=== PATIENT | male | born 1960 | race Caucasian/White ===

== ENCOUNTER → 2019-09-04 09:30 | Outpatient (BNVA) | payer BC, SELFPAY | PROVIDERS: Family Provider Anesthesiology; PCP Nurse Practitioner; Visit Provider Nurse Practitioner | DX: I10 Essential (primary) hypertension (principal); J43.9 Emphysema, unspecified; E78.2 Mixed hyperlipidemia | CPT/HCPCS: 80053; 80061; 81000 ==

== ENCOUNTER 2021-01-06 16:00 | Outpatient (CLI) | payer BC, SELFPAY ==
--- NOTE | 2021-01-06 16:10 | XR_ITS ---
WS: [id number] PROCEDURE: XR chest 2V* [id number] CLINICAL INFORMATION: DYSPNEA, COPD COMPARISON: 018 FINDINGS: Heart: Normal cardiac silhouette. Lungs: Moderate to advanced chronic emphysematous changes. Hyperinflation. Flattening of the hemidiap hragms bilaterally. A few incidental calcified granulomas. No acute pulmonary infiltrates. Bones: Normal visualized bony structures. XR/XR chest 2V* [id number] IMPRESSION: 1. Hyperinflation with moderate to advanced chronic emphysematous changes. 2. No acute pulmonary infiltrates. 3. No focal pneumonia or pleural fluid.
== END 2021-01-06 16:01 | disposition home or self-care (01) ==
PROVIDERS: PCP Nurse Practitioner Family; Visit Provider Nurse Practitioner Family
DX: J44.9 Chronic obstructive pulmonary disease, unspecified (principal); R06.00 Dyspnea, unspecified
CPT/HCPCS: 71046

== ENCOUNTER 2021-03-01 09:23 | Outpatient (CLI) | payer BC, SELFPAY ==
--- NOTE | 2021-03-01 09:27 | CT_ITS ---
WS: [id number] LDCT LUNG CANCER SCREENING HISTORY: Lung Screen TECHNIQUE: Axial imaging performed from the apices to 1 cm below the costophrenic angles. Coronal and sagittal reformats are submitted with axial MIP series. All CT scans at [facility] use at least one of these dose optimization techniques: automated exposure control; mA and/or kV adjustment per patient size (includes targeted exams where dose is matched to clinical indication); or iterativ e reconstruction. DLP: 66.46 mGy.cm DIvol: 1.58 mGy COMPARISON: None available. Diagnostic quality: Satisfactory Lung Nodules: Very minimal interstitial thickening and nodularity in the periphery of the upper lobes bilaterally. These nodules in the periphery of less than 3 mm. Mild dependent changes at the lung ba ses bilaterally. Lungs: Marked pulmonary hyperinflation. Mild early changes of bronchiectasis in the lower lung johnson bilaterally. Heart: Normal size heart. No effusion. Other findings: Mild atherosclerosis aorta. Mediastinal areas are very difficult to visualize. Cannot exclude lymph nodes on this examination. CT/CT lung screening [id number] IMPRESSION: LUNG-RADS: 2-Benign Appearance or Behavior FOLLOW UP: 12 Month: Continue annual screening with LDCT OTHER FINDINGS (S MODIFIER): None.
== END 2021-03-01 09:24 | disposition home or self-care (01) ==
LOC: CT 09:25
PROVIDERS: PCP Nurse Practitioner Family; Visit Provider Internal Medicine Pulmonary Disease
DX: Z12.2 Encounter for screening for malignant neoplasm of respiratory organs (principal); F17.210 Nicotine dependence, cigarettes, uncomplicated; R91.8 Other nonspecific abnormal finding of lung field
CPT/HCPCS: 71271

== ENCOUNTER 2021-03-06 07:33 | Outpatient (CLI) | payer BC, SELFPAY ==
[2021-03-06 08:02] VITALS: BMI 20.9
--- NOTE | 2021-03-06 08:02 | ECG_ITS ---
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 Interpretive Statements NAME OF STUDY: LEXISCAN SESTAMIBI STRESS TEST INDICATION: [place], PROCEDURE: At the baseline, the EKG revealed normal sinus rhythm with a rate of 60 bpm. The baseline blood pressure was 146/84 mm Hg with a heart rate of 68 beats/min. Lexiscan was infused over a period of 20 seconds. A total of 0.4 milligrams of Lexiscan was infused. The stress phase was continued for a total of 5 minutes. Heart rate at the end of the stress phase was 35 with a blood pressure 126/75. The EKG at the peak infusion revealed no significant changes. Sestamibi was injected 20 seconds after the Lexiscan infusion. Blood pressure at the end of the recovery phase was 145/79 with a heart rate of 86 per minute. CONCLUSION: 1. No significant EKG changes with the LexiScan infusion 2. No LexiScan induced chest pain or cardiac arrhythmia 3. Normal blood pressure and heart rate response 4. Sestamibi/sestamibi perfusion scan pending; see separate report. Electronically Signed On 03-07-2021 22:26:43 [employer] by Alexa De La Garza M.D. [id number]
--- NOTE | 2021-03-06 08:03 | NMCV_ITS ---
NM monika perf SPECT r/s* [id number] Taurus Rhodes Age: 61 Gender: M : 1960 Exam Date: 03/06/2021 08:56 Ordering Phys: Lawrence Abreu MD Technologist: MARIE Mckenna Exam Location: [facility] Indications: SHORTNESS OF BREATH STRESS TEST Please see separate stress test report in [facility] for full findings IMAGE PROTOCOL Rest/Stress 1 Lexiscan Day Radiopharmaceutical Dose (mCi) Administration Site Administered by Rest: Tc-99m 10.9 IV MARIE Mckenna Sestamibi Stress:Tc-99m 32.1 IV MARIE Lynn Sestamibi Rest: 06-Mar-2021 60 Discovery 630 Stress: 06-Mar-2021 30 Discovery 630 0.4mg Lexiscan. Images obtained in supine and prone position. SPECT RESULTS Technical Quality: Excellent Raw Data Analysis: Normal Image Corrections: No attenuation or motion correction applied Summed Stress Score: 1 Summed Rest Score: 3 Summed Difference Score: 0 PERFUSION FINDINGS Small area of decreased tracer uptake was noted in the basal, mid and apical inferior wall segments. No significant reversibility was noted in these regions. FUNCTIONAL RESULTS (calculated via Gated SPECT) Stress Image LV EF (%): 74 Stress EDV (mL):92 TID: 0.98 Stress ESV (mL):24 FUNCTIONAL FINDINGS: Segmental wall motion analysis revealing no gross wall motion normalities. IMPRESSIONS 1. Myocardial perfusion imaging revealing a small area of persistent decreased tracer uptake in the inferior wall region suggestive of myocardial scarring versus attenuation artifact. 2. Normal LV ejection fraction 74%. 3. LV wall motion analysis revealing no gross wall motion abnormalities. 4. Normal LV volume. No significant coronary ischemia, based on the above findings Dr Alexa De La Garza MD FACC (Electronically Signed) Final Date: 06 March 2021 20:31 S
[2021-03-06] MEDS: regadenoson 0.4 Mg/5 ml Syringe IVP (09:41)
[2021-03-06 10:16] VITALS: BP 145/79; PULSE 86
== END 2021-03-06 07:34 | disposition home or self-care (01) ==
LOC: CDL 07:34
PROVIDERS: PCP Nurse Practitioner Family; Visit Provider Internal Medicine Pulmonary Disease
DX: R06.09 Other forms of dyspnea (principal); I10 Essential (primary) hypertension; R06.02 Shortness of breath
CPT/HCPCS: 78452; 93017; A9500; J2785

== ENCOUNTER 2022-03-13 10:28 | Outpatient (CLI) | payer BC, SELFPAY ==
--- NOTE | 2022-03-13 10:45 | CT_ITS ---
WS: [id number] LDCT LUNG CANCER SCREENING TECHNIQUE: Noncontrast CT of the chest with coronal and sagittal reformatted images. CLINICAL INFORMATION: lung screening COMPARISON: March 01, 2021 DLP: 87.40 mGy.cm DIvol: Mean CTDIvol: 1.60 (mGy) All CT scans at [facility] use at least one of these dose optimization techniques: automat ed exposure control; mA and/or kV adjustment per patient size (includes targeted exams where dose is matched to clinical indication); or iterative reconstruction. FINDINGS: Scattered peripheral micronodules in the upper lobes largest measuring 3 to 4 mm bilaterally unchange d from previous. No suspicious pulmonary parenchymal opacities. Hyperinflation. Stable bronchiectasis in the lower lobes bilaterally. Normal caliber thoracic aorta. Mild aortic calcification. No mediast inal or hilar lymphadenopathy. No axillary lymphadenopathy. Stable RIGHT hepatic cyst measuring 1.8 cm. Partially visualized RIGHT hydronephrosis appears unchang ed. Adrenal glands are normal. Mild thoracic kyphosis. Schmorl's nodes in the mid thoracic spine. CT/CT lung screening [id number] IMPRESSION: Partially visualized RIGHT hydronephrosis partially visualized appe ar stable since March 01, 2021. This can be further evaluated with ultrasoun d or CT abdomen pelvis if indicated. LUNG-RADS: 2S-Benign Appearance or Behavior with Significant Findings FOLLOW UP: 12 Month: Continue annual screening with LDCT
== END 2022-03-13 10:29 | disposition home or self-care (01) ==
LOC: RAD 10:30
PROVIDERS: PCP Nurse Practitioner Family; Visit Provider Internal Medicine Pulmonary Disease
DX: Z12.2 Encounter for screening for malignant neoplasm of respiratory organs (principal); F17.210 Nicotine dependence, cigarettes, uncomplicated
CPT/HCPCS: 71271

== ENCOUNTER 2022-03-20 09:52 | Observation (INO) | payer BC, SELFPAY ==
[2022-03-20] VITALS (12 sets, daily range): BP systolic 140–161; BP diastolic 82–100; PULSE 71–96; RESP 16–22; TEMP 36.3; O2SAT 93–96; BMI 20.9
--- NOTE | 2022-03-20 10:04 | ECG_ITS ---
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 Measurements Intervals [place] Rate: 81 P: 81 RI: 169 QRS: 69 QRSD: 100 T: 71 QT: 359 QTc: 417 Interpretive Statements SINUS RHYTHM POSSIBLE LEFT ATRIAL ENLARGEMENT [-0.1mV P-WAVE IN V1/V2] INDETERMINATE AXIS INCOMPLETE RIGHT BUNDLE BRANCH BLOCK [90+ ms QRS DURATION, TERMINAL R IN V1/V2, 40+ ms S IN I/aVL/V4/V5/V6] SEPTAL MYOCARDIAL INFARCTION , OF INDETERMINATE AGE [40+ ms Q WAVE IN V1/V2] Compared to ECG 01/07/2018 23:34:50 Incomplete right bundle-branch block now present Myocardial infarct finding now present Intraventricular conduction delay no longer present Electronically Signed On 03-20-2022 18:08:16 HARDSCAPE FOREMAN by Zenaida Lo M.D. [id number]
--- NOTE | 2022-03-20 14:23 | XRR_ITS ---
PROCEDURE INFORMATION: Exam: XR Chest Exam date and time: 03/20/2022 3:32 PM Age: 62 years old Clinical indication: Shortness of breath TECHNIQUE: Imaging protocol: Radiologic exam of the chest. Views: 1 view. COMPARISON: CR XR chest 2V* [id number] 01/06/2021 4:14 PM FINDINGS: Lungs: Stable 3 mm right upper lobe nodule, consistent with a granuloma.. No consolidation. Hyperinflation. Pleural spaces: Unremarkable. No pleural effusion. No pneumothorax. Heart/Mediastinum: Unremarkable. No cardiomegaly. Bones/joints: Unremarkable. XR/XR chest 1V portable [id number] IMPRESSION: No acute findings. Hyperinflation, stable.
[2022-03-20 14:40] LABS: Basophils # 0.2 10^3/uL (0.0-0.1); Basophils % 1.6 %; Eosinophils # 1.3 10^3/uL (0.0-0.8); Eosinophils % 11.2 %; Hematocrit 44.5 % (42.0-52.0); Lymphocytes # 2.1 10^3/uL (0.8-4.8); Lymphocytes % 18.8 %; Mean Corpuscular HGB Conc 33.7 g/dL (30.0-36.0); Mean Corpuscular Hemoglobin 31.5 pg (28.0-34.0); Mean Corpuscular Volume 93.5 fl (80-94); Mean Platelet Volume 9.5 fL (7.4-10.4); Monocytes # 0.9 10^3/uL (0.2-0.9); Monocytes % 8.1 %; Neutrophils # 6.73 10^3/uL (1.8-7.7); Nucleated Red Blood Cells % 0 %; Platelet Count 280 10^3/cmm (130-400); Red Blood Count 4.76 10^6/uL (4.1-5.3); Red Cell Distribution Width 13.4 % (12.1-15.1); White Blood Count 11.2 10^3/uL (4.0-10.0)
--- NOTE | 2022-03-20 14:40 | W.ED.SOB ---
HPI - SOB/Dyspnea General: Chief Complaint: Shortness of Breath/Dyspnea Stated Complaint: Heart rate 30 Time Seen by Provider: 03/20/22 14:18 History of Present Illness: HPI Narrative: 62-year-old male with a history of COPD who presents with a 2 to 3-day history of increasing shortness of breath and wheezing. The patient does continue to smoke cigarettes. He states he has been having difficulty breathing despite using his nebulizer every 3-4 hours for the past 2 to 3 days. He has had a nonproductive cough. He states he has a tight sensation across his entire chest that has been present for the past 3 days. No fever. He denies ill contacts. He states when he walks he gets more short of breath. He was seen by local nurse practitioner this morning and had a heart rate of 30 so he has been sent to the ER because of that. Associated symptoms: Reports chest pain; Deny abdominal pain, chest congestion, fever(s), nausea, orthopnea or vomiting Review of Systems Const: Denies: fever(s), chills or body aches Eyes: Denies: change in vision ENMT: Denies: throat pain, nasal discharge or nasal congestion Card: Reports: chest pain; Denies: irregular heart rhythm or orthopnea Resp: Reports: dyspnea, non-productive cough and wheezing; Denies: productive cough, change in phlegm color or chest congestion GI: Denies: abdominal pain, nausea, vomiting or diarrhea : Denies: difficulty urinating Musc: Denies: extremity swelling or joint swelling Skin/Breast: Denies: rash Neuro: Denies: headache(s) [place]/Lymph: Denies: tender lymph nodes [facility] ED PFSH: Medical History Chronic obstructive pulmonary emphysema Essential hypertension Mixed hyperlipidemia Noncompliance w/medication treatment due to intermit use of medication Surgical History History of inguinal hernia repair Left History of lumbar discectomy 2005 Family History Other Hypertension Stroke Social History Smoking and tobacco status: current every day smoker cigarettes Packs smoked per day: 2 Years cigarettes smoked: 53 [ Other cigarette details: 5-6 cigarettes daily ] Second hand smoke exposure: Yes Smoking risk assessment/counseling performed?: Yes Alcohol intake: never Desire information about alcohol rehabilitation?: No Counseling given: No Desire information about substance/drug rehabilitation?: No Counseling given: No Adopted: No Caregiver/support person: No Lives independently: Yes Household members: spouse Housing: House Marital status: Number of children: 2 Current occupational status: employed History of recent travel: No Current gender identity: Male Physical Exam Narrative: EXAM NARRATIVE: Well-developed well-nourished white male who appears to be in mild respiratory distress. He is able to speak in full sentences. Const: COMMON NORMALS: patient oriented x3 HENMT: COMMON NORMALS: normocephalic and atraumatic HEAD & SCALP: normocephalic and atraumatic Eye: COMMON NORMALS: Equal, round and reactive pupils present and EOMs intact bilaterally PUPIL: Yes Equal, round and reactive pupils present Neck/C-Spine: OTHER: No lymphadenopathy Resp: OTHER: Decreased breath sounds bilaterally with expiratory wheezes in all lung johnson. Positive pursed lip respirations. Cardio: OTHER: Regular rate and rhythm, no murmur GI: OTHER: Abdomen is soft, nontender with normal bowel sounds. Extremity: OTHER: Legs are nontender bilaterally. There is no edema. Negative Homans. Neuro: COMMON NORMALS: patient oriented x3, CN's II-XII intact bilaterally and moves all extremities Skin: NARRATIVE SKIN EXAM: No rash Course Reevaluation(s): Reevaluation #1: Patient's had an IV placed and labs obtained. Has been given 125 mg of IV Solu-Medrol. Has been given an hour-long DuoNeb nebulizer treatment. Initially he had felt a little bit better but now he is suddenly acutely much more short of breath and having increased work of breathing. He has very diminished breath sounds in all lung johnson with diffuse expiratory wheezes. We will start Xopenex treatments. Patient will need admission. Will discuss with hospitalist. Reevaluation #2: Patient improved after Xopenex. We will hold off on BiPAP for now. Still has diffuse inspiratory and expiratory wheezes. He is on 3 L of oxygen, sats are 96%. Consultations: Consultation #1: Discussed with Dr. Nash for admission Vital Signs: Vital signs: Vital Signs Temperature 97.4 F L 03/20/22 09:56 Pulse Rate 94 03/20/22 17:08 Respiratory Rate 22 H 03/20/22 16:59 Blood Pressure 140/93 03/20/22 16:53 Pulse Oximetry 96 03/20/22 16:59 Oxygen Delivery Me thod 03/20/22 16:59 Oxygen Flow Rate 2 03/20/22 16:59 MDM - SOB/Dyspnea Medical Decision Making 62-year-old male with a history of COPD, continued tobacco use who presents with acute onset of shortness of breath. He has had 2 to 3 days of intermittent shortness of breath. No cough, no fever. No ill contacts. Chest x-ray shows no infiltrate. He has had an IV placed and has been given IV Solu-Medrol. He has been given 3 DuoNeb treatments as well as 2 Xopenex treatments. He still has diffuse inspiratory and expiratory wheezes and is still quite tachypneic. He is on 2 and half liters of oxygen with saturations running 94%. He is not normally on oxygen. Because of his ongoing wheezing and oxygen needs, will discuss with the hospitalist for admission. Differential Diagnosis Likely acute exacerbation of chronic obstructive airways disease, congestive heart failure, community acquired pneumonia and asthma with exacerbation Lab Data 03/20/22 14:30 03/20/22 14:30 Labs/Radiology: Radiology Impressions Chest X-Ray 03/20/22 14:23 IMPRESSION: No acute findings. Hyperinflation, stable. Laboratory Results WBC 11.2 10^3/uL (4.0-10.0) H 03/20/22 14:30 RBC 4.76 10^6/uL (4.1-5.3) 03/20/22 14:30 Hgb 15.0 g/dL (11.7-16.6) 03/20/22 14:30 Hct 44.5 % (42.0-52.0) 03/20/22 14:30 MCV 93.5 fl (80-94) 03/20/22 14:30 MCH 31.5 pg (28.0-34.0) 03/20/22 14:30 MCHC 33.7 g/dL (30.0-36.0) 03/20/22 14:30 RDW 13.4 % (12.1-15.1) 03/20/22 14:30 Plt Count 280 10^3/cmm (130-400) 03/20/22 14:30 MPV 9.5 fL (7.4-10.4) 03/20/22 14:30 Neut % (Auto) 60.0 % 03/20/22 14:30 Lymph % (Auto) 18.8 % 03/20/22 14:30 [place] % (Auto) 8.1 % 03/20/22 14:30 Eos % (Auto) 11.2 % 03/20/22 14:30 Baso % (Auto) 1.6 % 03/20/22 14:30 Neut # (Auto) 6.73 10^3/uL (1.8-7.7) 03/20/22 14:30 Lymph # (Auto) 2.1 10^3/uL (0.8-4.8) 03/20/22 14:30 [place] # (Auto) 0.9 10^3/uL (0.2-0.9) 03/20/22 14:30 Eos # (Auto) 1.3 10^3/uL (0.0-0.8) H 03/20/22 14:30 Baso # (Auto) 0.2 10^3/uL (0.0-0.1) H 03/20/22 14:30 Nucleated RBC % (auto) 0 % 03/20/22 14:30 Nucleated RBCs # 0.0 /100WBC 03/20/22 14:30 Sodium 131 mmol/L (136-145) L 03/20/22 16:07 Potassium 4.3 mmol/L (3.5-5.1) 03/20/22 16:07 Chloride 97 mmol/L (98-107) L 03/20/22 16:07 Carbon Dioxide 24 mmol/L (22-29) 03/20/22 16:07 Anion Gap 14.3 (5-19) 03/20/22 16:07 BUN 7 mg/dL (8-23) L 03/20/22 16:07 Creatinine 0.8 mg/dL (0.7-1.2) 03/20/22 16:07 GFR Calculation 97.6 mL/min (90-130) 03/20/22 16:07 Glucose 88 mg/dL (65-115) 03/20/22 16:07 Calculated Osmolality 269 mOsm/kg (285-295) L 03/20/22 16:07 Calcium 9.7 mg/dL (8.5-10.5) 03/20/22 16:07 Magnesium 2.1 mg/dL (1.7-2.3) 03/20/22 16:07 Total Bilirubin 0.7 mg/dL (0.15-1.2) 03/20/22 16:07 AST 22 U/L (0-40) 03/20/22 16:07 ALT 24 U/L (0-41) 03/20/22 16:07 Alkaline Phosphatase 80 U/L (40-130) 03/20/22 16:07 Troponin T Baseline 16 ng/L (0-15) H 03/20/22 14:30 Troponin T 120 Minute 17.91 ng/L (0-15) H 03/20/22 15:00 Delta Troponin T 1.91 ABS# (0-10) 03/20/22 15:00 NT-Pro-B Natriuret Pep 81 pg/mL (0-125) 03/20/22 16:07 Total Protein 7.4 g/dL (6.6-8.7) 03/20/22 16:07 Albumin 4.5 g/dL (3.5-5.2) 03/20/22 16:07 Globulin 2.9 g/dL (1.3-4.6) 03/20/22 16:07 TSH 1.13 uIU/mL (0.27-4.20) 03/20/22 16:07 Discharge Plan Discharge Patient Disposition: Admitted As Inpatient Clinical Impression: Chronic obstructive pulmonary emphysema, Smoker, Acute exacerbation of chronic obstructive airways disease, Respiratory failure Condition: Stable Prescriptions: No Action albuterol sulfate 2.5 mg /3 mL (0.083 %) solution for nebulization 2.5 mg inhalation Q6H PRN (Reason: shortness of breath or wheezing) alprazolam 0.5 mg tablet 0.25 - 0.5 mg PO BID PRN (Reason: Anxiety) Cherylztri Aerosphere 160-9-4.8 mcg/actuation HFA aerosol inhaler 2 inh inhalation BID Qty: 10.7 3RF Fish Oil Concentrate 1,000 mg Capsule 1,000 mg PO DAILY Vitamin D3 125 mcg (5,000 unit) Tablet 10,000 unit PO DAILY Vitamin B-12 5,000 mcg Tablet, Sublingual 15,000 mcg PO DAILY Norvasc 10 mg tablet 10 mg PO QAM albuterol sulfate 90 mcg/actuation HFA aerosol inhaler 2 puff inhalation QID PRN (Reason: Shortness Of Breath) losartan 100 mg tablet 100 mg PO QAM Referrals: Faustin,KOBI Lea [Primary Care Provider] - Coding Level of Care Code ED Mr Teacher for Chg Fwd Exam Expanded Problem Focused
[2022-03-20 15:01] LABS: Troponin(5th) Baseline 16 ng/L (0-15)
[2022-03-20] MEDS: ipratropium-albuterol 3 mL Neb 9 ML INHALATION (15:32)
[2022-03-20 15:43] LABS: Troponin 5 2HR 17.91 ng/L (0-15)
[2022-03-20 15:59] LABS: Troponin 5 2HR Delta 1.91 ABS# (0-10)
--- NOTE | 2022-03-20 16:24 | ECG_ITS ---
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 Measurements Intervals [place] Rate: 74 P: 83 AR: 161 QRS: 66 QRSD: 98 T: 71 QT: 367 QTc: 409 Interpretive Statements SINUS RHYTHM POSSIBLE LEFT ATRIAL ENLARGEMENT [-0.1mV P-WAVE IN V1/V2] INDETERMINATE AXIS INCOMPLETE RIGHT BUNDLE BRANCH BLOCK SEPTAL MYOCARDIAL INFARCTION , OF INDETERMINATE AGE [40+ ms Q WAVE IN V1/V2] Compared to ECG 03/20/2022 10:09:14 No significant changes Electronically Signed On 03-20-2022 18:09:37 DAYCARE PROVIDER by Zenaida Lo M.D. [id number]
--- NOTE | 2022-03-20 16:56 | PC.PHAR ---
pt states he takes care of his own medications-pt states he hasnt been taking his norvasc 10mg qam and the losartan 100mg qam states last took on saturday03/18/22-pt states he only takes the medications entered-pt had rx written on 01/23/2020 for lipitor 10mg daily pt states he doesnt taken [facility] states havent filled this medication for the pt-notes are made in the pharmacy comments
[2022-03-20] MEDS: levalbuterol 1.25 mg/3 mL Neb 2.5 MG INHALATION (16:58)
[2022-03-20 17:07] LABS: Alanine Aminotransferase 24 U/L (0-41); Albumin Level 4.5 g/dL (3.5-5.2); Alkaline Phosphatase 80 U/L (40-130); Anion Gap 14.3 (5-19); Aspartate Amino Transferase 22 U/L (0-40); Blood Urea Nitrogen 7 mg/dL (8-23); Calcium 9.7 mg/dL (8.5-10.5); Carbon Dioxide 24 mmol/L (22-29); Chloride 97 mmol/L (98-107); Globulin 2.9 g/dL (1.3-4.6); Glomerular Filtration Rate 97.6 mL/min (90-130); Glucose 88 mg/dL (65-115); Magnesium 2.1 mg/dL (1.7-2.3); NT Pro B Type Natriuretic Pept 81 pg/mL (0-125); Osmolality Calculated 269 mOsm/kg (285-295); Potassium 4.3 mmol/L (3.5-5.1); Sodium 131 mmol/L (136-145); Thyroid Stimulating Hormone 1.13 uIU/mL (0.27-4.20); Total Bilirubin 0.7 mg/dL (0.15-1.2); Total Protein 7.4 g/dL (6.6-8.7)
--- NOTE | 2022-03-20 19:20 | P.HP_ITS ---
Providers/Chief Complaint Admitting Physician: Geovani Ma MD Primary Care Provider: Leonora Faustin APN Chief Complaint: Heart rate 30 History of Present Illness Taurus Rhodes is a 62 year old male severe obstructive pulmonary disease smoker, hypertensive, follows up with manager contact, trying to quit smoking, he was recommended pulmonary rehab which she has not attended yet, presented with worsening of shortness of breath. Patient is stating that his symptoms started on Saturday and he has been having recurrent episodes when he is not able to breathe on his own and he struggles really hard to catch his breath, he is trying to cut back on his smoking and he is smoking 10 to 12 cigarettes a day, he does not use any oxygen, he does not have enough strength to carry on daily activities, he has been losing weight, noticing muscle mass loss. He has not noticed any fever, nausea, vomiting or chest pain In the ER he was wheezing he was given high-dose steroids at the time of evaluation family was at the bedside, they agree that he has end-stage COPD and is at risk of worsening he is not vaccinated for COVID-19, influenza, pneumococcal, chest x-ray showing hyperinflation, requested D-dimer, COVID and influenza PCR negative Review of Systems Eyes: Denies: change in vision ENMT: Denies: throat pain Card: Denies: chest pain Resp: Reports: dyspnea and non-productive cough GI: Denies: abdominal pain : Denies: flank pain Musc: Denies: neck pain Skin/Breast: Denies: rash Neuro: Denies: headache(s) Psych: Reports: anxiety Endo: Denies: polyuria Bulmaro/Lymph: Denies: easy bruising All/Imm: Denies: urticaria Medications/Allergies Home Medications Medication Instructions Recorded Confirmed Last Taken Type albuterol sulfate 2.5 mg/3 mL 2.5 mg inhalation Q6H PRN 01/31/21 03/20/22 Unknown History (0.083 %) solution for nebulization shortness of breath or wheezing alprazolam 0.5 mg tablet 0.25 - 0.5 mg PO BID PRN Anxiety 01/31/21 03/20/22 03/20/22 History budesonide 160 mcg-glycopyr 9 2 inh inhalation BID #10.7 grams 06/14/21 03/20/22 03/20/22 Rx mcg-formot 4.8 mcg/actuation HFA inhaler (Breztri Aerosphere) albuterol sulfate 90 mcg/actuation 2 puff inhalation QID PRN 03/20/22 03/20/22 03/20/22 History aerosol inhaler Shortness Of Breath amlodipine 10 mg tablet (Norvasc) 10 mg PO QAM 03/20/22 03/20/22 03/18/22 History cholecalciferol (vitamin D3) 125 10,000 unit PO DAILY 03/20/22 03/20/22 Unknown History mcg (5,000 unit) tablet (Vitamin D3) cyanocobalamin (vitamin B-12) 15,000 mcg PO DAILY 03/20/22 03/20/22 Unknown History 5,000 mcg sublingual tablet (Vitamin B-12) losartan 100 mg tablet 100 mg PO QAM 03/20/22 03/20/22 03/18/22 History omega-3 fatty acids 1,000 mg 1,000 mg PO DAILY 03/20/22 03/20/22 Unknown History capsule Allergies Allergy/AdvReac Type Severity Reaction Status Date / Time No Known Allergies Allergy Verified 03/20/22 16:42 PFSH Acute PFSH: Medical History (Updated 03/20/22 @ 20:50 by Daquan Gilliam MD) Chronic obstructive pulmonary emphysema Severe COPD, not oxygen dependent Essential hypertension Mixed hyperlipidemia Noncompliance w/medication treatment due to intermit use of medication Surgical History History of inguinal hernia repair Left 70214 History of lumbar discectomy 2004 Family History Other Hypertension Stroke Social History Smoking and tobacco status: current every day smoker cigarettes Packs smoked per day: 2 Years cigarettes smoked: 53 [ Other cigarette details: 5-6 cigarettes daily ] Second hand smoke exposure: Yes Smoking risk assessment/counseling performed?: Yes Alcohol intake: never Desire information about alcohol rehabilitation?: No Counseling given: No Desire information about substance/drug rehabilitation?: No Counseling given: No Adopted: No Caregiver/support person: No Lives independently: Yes Household members: spouse Housing: House Marital status: Number of children: 2 Current occupational status: employed History of recent travel: No Current gender identity: Male Vitals/I&O/Wt Last Vital Signs Temp 97.4 F L 03/20/22 18:35 Pulse 84 03/20/22 18:35 Resp 16 03/20/22 18:35 BP 146/82 03/20/22 18:35 Pulse Ox 96 03/20/22 18:35 O2 Del Method 03/20/22 16:59 O2 Flow Rate 2 03/20/22 16:59 Weight last 48 hrs Weight 58.967 kg Physical Exam Narrative: elderly male who appears more than stated age Muscle mass/ Protein calorie malnourishment Abdomen soft Pursed lip breathing Currently on 2 L Mild wheezing noted No audible wheezing or stridor S1, S2 Family at the bedside Patient is awake and alert Does not seem to be any distress for now Nonfocal neuro exam GCS 15 Data 03/20/22 14:30 03/20/22 16:07 A&P Assessment and plan (1) Acute exacerbation of chronic obstructive airways disease: (2) Respiratory failure: (3) Smoker: (4) Breathlessness on exertion: (5) Anxiety: (6) Essential hypertension: (7) Chronic obstructive pulmonary emphysema: Plan Acute exacerbation of COPD Severe obstruction as per pulmonary function test Patient has been having recurrent symptoms of shortness of breath Losing weight Muscle mass loss Protein calorie malnourishment, mild in nature No recent febrile events X-ray unremarkable Requested D-dimer COVID antigen the PCR negative I do believe this exacerbation is related to active smoking Start on IV steroids I will give him BiPAP to decrease work of breathing He will also need home oxygen evaluation before discharge Does not use oxygen at home Has not attended pulmonary rehab Patient is full code I did plan to discuss with him that he is at risk of worsening because he is not vaccinated and actively smoking, if he gets intubated chances of him coming off the ventilator are pretty slim patient and family understood, all questions were answered DVT prophylaxis Lovenox Nicotine patch requested Will add azithromycin for anti-inflammatory effect Add montelukast He may benefit from Roflumilast Attestations Medical Necessity Statement*: Anticipating discharge within 48 hours Time Spent in Patient Care: 40 Coding Level of Care Code Acute Community Support Associate for Ale Fwmonalisa Diagnoses Acute exacerbation of chronic obstructive airways disease J44.1 Respiratory failure J96.90 Smoker F17.200 Breathlessness on exertion R06.81 Anxiety F41.9 Essential hypertension I10 Chronic obstructive pulmonary emphysema J43.9
[2022-03-20 19:40] LABS: Adenovirus Not Detected (NOT DETECT); Chlamydia Pneumoniae Not Detected (NOT DETECT); Coronavirus 229E,HKU1,NL63,OC4 Not Detected (NOT DETECT); Human Metapneumovirus Not Detected (NOT DETECT); Human Rhinovirus/Enterovirus Not Detected (NOT DETECT); Influenza A Not Detected (NOT DETECT); Influenza A H1 Not Detected (NOT DETECT); Influenza A H1-2009 Not Detected (NOT DETECT); Influenza A H3 Not Detected (NOT DETECT); Influenza B Not Detected (NOT DETECT); Mycoplasma Pneumoniae Not Detected (NOT DETECT); Parainfluenza Virus Type 1 Not Detected (NOT DETECT); Parainfluenza Virus Type 2 Not Detected (NOT DETECT); Parainfluenza Virus Type 3 Not Detected (NOT DETECT); Parainfluenza Virus Type 4 Not Detected (NOT DETECT); Respiratory Syncytial Virus A Not Detected (NOT DETECT); Respiratory Syncytial Virus B Not Detected (NOT DETECT); SARS-COV-2 Not Detected (NOT DETECT)
[2022-03-20 19:51] LABS: Influenza A Not Detected (NOT DETECT); Influenza A H1 Not Detected (NOT DETECT); Influenza A H1-2009 Not Detected (NOT DETECT); Influenza A H3 Not Detected (NOT DETECT); Influenza B Not Detected (NOT DETECT); Results from GEN
[2022-03-20] MEDS: nicotine 21 mg Patch 1 PATCH TRANSDERMA (20:23)
[2022-03-20] MEDS: enoxaparin 40 mg/0.4 mL Syringe SUBCUT (20:27)
[2022-03-20] MEDS: ALPRAZolam 0.5 mg Tablet PO (20:34)
[2022-03-20 20:54] LABS: D Dimer <= 0.27 ug/mIFEU (0-0.59)
[2022-03-20 21:22] LABS: Troponin 5 6HR 12.44 ng/L (0-15)
[2022-03-20 21:25] LABS: Procalcitonin 0.05 ng/mL (0-0.5)
[2022-03-20 21:29] LABS: Troponin 5 6HR Delta -3.56 ng/L (0-12)
[2022-03-20] MEDS: ipratropium-albuterol 3 mL Neb INHALATION (21:30)
[2022-03-21] VITALS (14 sets, daily range): BP systolic 101–139; BP diastolic 68–82; PULSE 54–99; RESP 12–24; TEMP 36.3–38; O2SAT 91–97
[2022-03-21] MEDS: ipratropium-albuterol 3 mL Neb INHALATION ×4 (03:33→21:40)
[2022-03-21 05:29] LABS: Basophils % 0.5 %; Eosinophils % 0.1 %; Hematocrit 44.3 % (42.0-52.0); Hemoglobin 14.6 g/dL (11.7-16.6); Lymphocytes % 12.3 %; Mean Corpuscular Hemoglobin 31.1 pg (28.0-34.0); Mean Corpuscular Volume 94.5 fl (80-94); Monocytes # 0.4 10^3/uL (0.2-0.9); Monocytes % 4.7 %; Neutrophils # 6.49 10^3/uL (1.8-7.7); Nucleated Red Blood Cells % 0 %; Platelet Count 275 10^3/cmm (130-400); Red Blood Count 4.69 10^6/uL (4.1-5.3); Red Cell Distribution Width 13.4 % (12.1-15.1); White Blood Count 7.9 10^3/uL (4.0-10.0)
[2022-03-21] MEDS: amlodipine 10 mg Tablet PO (05:33)
[2022-03-21] MEDS: losartan 50 mg Tablet 100 MG PO (05:34)
[2022-03-21 05:42] LABS: ABG PH Result 7.41 (7.35-7.45); Base Excess ABG 0.4 mmol/L (-2.0-2.0); Blood Gas Allen Test Pos; Blood Gas Operator Identificat JB; Blood Gas Sample Site Radial, right; Blood Gas Sample Type Arterial; HCO3 ABG 24.9 mmol/L (22-26); Oxygen Device BIPAP; PO2 ABG 63.5 mmHg (80.0-100.0)
[2022-03-21 05:50] LABS: Anion Gap 15.5 (5-19); Blood Urea Nitrogen 11 mg/dL (8-23); C Reactive Protein 5.6 mg/L (0.0-4.9); Calcium 9.9 mg/dL (8.5-10.5); Carbon Dioxide 23 mmol/L (22-29); Chloride 95 mmol/L (98-107); Glomerular Filtration Rate 97.6 mL/min (90-130); Glucose 144 mg/dL (65-115); Osmolality Calculated 270 mOsm/kg (285-295); Phosphorus 3.6 mg/dL (2.5-4.5); Potassium 4.5 mmol/L (3.5-5.1); Sodium 129 mmol/L (136-145)
--- NOTE | 2022-03-21 09:37 | PC.NURSE ---
Patients's nicotine patch removed that was placed at aprox 2100
--- NOTE | 2022-03-21 12:07 | USCV_ITS ---
Taurus Rhodes Age: 62 Gender: M : 1960 Exam Date: 03/21/2022 17:54 Ordering Phys: Geovani Ma MD Technologist: VY Exam Location: [facility] [place] Indication: COPD smoker SOB HTN BP: 102 / 68 HR: 76 Rhythm: Sinus Technical Quality: Adequate MEASUREMENTS (Male / Female) Normal Values 2D ECHO LV Diastolic Diameter PLAX 3.8 cm 4.2 - 5.9 / 3.9 - 5.3 cm LV Systolic Diameter PLAX 2.2 cm IVS Diastolic Thickness 1.3 cm 0.6 - 1.0 / 0.6 - 0.9 cm IVS Systolic Thickness 1.5 cm LVPW Diastolic Thickness 1.2 cm 0.6 - 1.0 / 0.6 - 0.9 cm LVPW Systolic Thickness 1.1 cm LVOT Diameter 1.9 cm LV Ejection Fraction 2D Teich 74.8 % LV Ejection Fraction MOD 2C 78.0 % LV Ejection Fraction 2C AL 76.8 % LA Diameter 2.6 cm LA Width 3.6 cm LA Height 4.8 cm RA Width 3.3 cm RA Height 3.9 cm Aorta at Sinotubular Diameter 2.7 cm IVC Diameter 1.2 cm M-MODE Aortic Annulus Diameter 2.9 cm LA Ao Ratio MM 0.9 MV E Point Septal Separation 0.2 cm DOPPLER AV Peak Velocity 109.0 cm/s LVOT Peak Velocity 77.0 cm/s AV Area Cont Eq vti 2.0 cm squared AV Area Cont Eq pk 1.9 cm squared MV Area PHT 2.5 cm squared Mitral E to A Ratio 0.8 MV E' Velocity 35.0 cm/s Mitral E to MV E' Ratio 6.7 Mitral E to LV E' Lateral Ratio 6.9 Mitral E to LV E' Septal Ratio 6.5 TR Peak Velocity 253.0 cm/s TR Peak Gradient 25.6 mmHg TV Peak E Velocity 41.0 cm/s Right Atrial Pressure 5.0 mmHg Pulmonary Artery Systolic Pressu 30.6 mmHg PV Peak Velocity 109.0 cm/s RV Acceleration Time 0.1 s RV Ejection Time 0.3 s RV AcT/ET 0.3 FINDINGS Left Ventricle Normal left ventricular size, systolic function and wall thickness, with no diagnostic regional wall motion abnormalities. Left ventricular ejection fraction is estimated at 60-65 %. Normal diastolic function. Right Ventricle Normal right ventricular size and systolic function. RVSP could not be calculated due to incomplete tricuspid regurgitation velocity profile. Right Atrium Normal right atrial size. Left Atrium Normal left atrial size. Mitral Valve Mildly thickened mitral valve. No significant mitral valve regurgitation. Aortic Valve Structurally normal trileaflet aortic valve. No aortic valve stenosis. Tricuspid Valve Structurally normal tricuspid valve. No tricuspid valve stenosis. Trace to mild tricuspid valve regurgitation. Pulmonic Valve Structurally normal pulmonic valve. No pulmonary valve stenosis. No pulmonary valve regurgitation. Pericardium No pericardial effusion. Aorta Normal size aortic root and proximal ascending aorta. IVC Normal IVC dimension with >50% respiratory change of the inferior vena cava. CONCLUSIONS 1. This is a difficult study with no apical views. 2. Normal left ventricular size, systolic function and wall thickness, with no diagnostic regional wall motion abnormalities. Left ventricular ejection fraction is estimated at 60-65 %. Normal diastolic function. 3. Trace to mild tricuspid valve. 4. No prior similar studies to compare. Zenaida Lo MD (Electronically Signed) Final Date: 22 March 2022 12:35 S
[2022-03-21 12:44] LABS: Iron 54 ug/dL (59-158); Percent Saturation 20.6 % (20-50); Total Iron Binding Capacity 262 mcg/dl; Unsaturated Iron Binding 208 ug/dL (112-347)
[2022-03-21] MEDS: FUROsemide 10 mg/mL SDV 4mL 40 MG IVP (13:29)
--- NOTE | 2022-03-21 13:38 | P.PN_ITS ---
Subjective Subjective: Admitted overnight. H&P and labs appreciated. On examination patient sitting at bedside on 2 L with family at bedside. Patient asking for a nicotine patch. States he really would want to smoke or chew nicotine. Denies any nausea, vomiting, headache, chest pain. Vitals/I&O/Wt Last Vital Signs Temp 98 F 03/21/22 11:31 Pulse 93 03/21/22 11:31 Resp 19 H 03/21/22 11:31 BP 120/73 03/21/22 11:31 Pulse Ox 92 03/21/22 11:31 O2 Del Method 03/21/22 08:00 O2 Flow Rate 3 03/20/22 20:55 FiO2 30 03/21/22 08:00 03/20/22 03/21/22 03/21/22 22:59 06:59 14:59 Intake Total 140 / 140 480 / 480 Output Total 350 / 350 Balance -350 / -350 140 / -210 480 / 480 Weight last 48 hrs Weight 59.602 kg Weight 58.967 kg Physical Exam Narrative: elderly male who appears more than stated age, alert oriented, in distress because of lack of nicotine, on 2 L Abdomen soft, nontender Mild wheezing noted No audible wheezing or stridor Cardiology: S1, S2 regular Nonfocal neuro exam GCS 15 Data 03/21/22 04:49 03/21/22 04:49 A&P Assessment and plan (1) Acute exacerbation of chronic obstructive airways disease: End-stage COPD. Respiratory viral panel negative. Check sputum culture, MRSA swab Start on DuoNebs every 6 hour, budesonide twice daily. Continue Solu-Medrol at 30 mg every 12 hourly. Check echocardiogram. Start empirically on doxycycline. (2) Respiratory failure: (3) Smoker: Nicotine patch (4) Breathlessness on exertion: (5) Anxiety: (6) Essential hypertension: (7) Chronic obstructive pulmonary emphysema: Plan Cardiac diet. Full code. Lovenox for DVT prophylaxis Attestations Medical Necessity Statement*: Requires further hospitalization for acute hypoxic respiratory failure secondary COPD exacerbation Time Spent in Patient Care: Greater than 35 minutes Coding Level of Care Code Acute Glass Bead Maker for Ale Fwmonalisa Diagnoses Acute exacerbation of chronic obstructive airways disease J44.1 Respiratory failure J96.90 Smoker F17.200 Breathlessness on exertion R06.81 Anxiety F41.9 Essential hypertension I10 Chronic obstructive pulmonary emphysema J43.9
[2022-03-21] MEDS: ALPRAZolam 0.5 mg Tablet PO (15:26)
[2022-03-21] MEDS: acetaminophen 500 mg Tablet PO (15:26)
[2022-03-21] MEDS: doxycycline 100 mg Tablet PO (18:31)
[2022-03-21] MEDS: enoxaparin 40 mg/0.4 mL Syringe SUBCUT (20:25)
[2022-03-21] MEDS: budesonide 0.5 mg/2 mL Neb INHALATION (21:40)
[2022-03-22] VITALS (8 sets, daily range): BP systolic 108–124; BP diastolic 62–73; PULSE 41–90; RESP 12–25; TEMP 36.6–36.9; O2SAT 91–97
[2022-03-22] MEDS: ipratropium-albuterol 3 mL Neb INHALATION ×2 (01:34→08:00)
[2022-03-22 04:57] LABS: Basophils % 0.2 %; Eosinophils % 0.1 %; Hematocrit 41.6 % (42.0-52.0); Hemoglobin 13.9 g/dL (11.7-16.6); Lymphocytes % 5.8 %; Mean Corpuscular HGB Conc 33.4 g/dL (30.0-36.0); Mean Corpuscular Hemoglobin 31.4 pg (28.0-34.0); Mean Corpuscular Volume 93.9 fl (80-94); Mean Platelet Volume 9.4 fL (7.4-10.4); Monocytes # 0.9 10^3/uL (0.2-0.9); Monocytes % 5.4 %; Neutrophils % 87.8 %; Nucleated Red Blood Cells % 0 %; Platelet Count 287 10^3/cmm (130-400); Red Blood Count 4.43 10^6/uL (4.1-5.3); Red Cell Distribution Width 13.5 % (12.1-15.1); White Blood Count 16.7 10^3/uL (4.0-10.0)
[2022-03-22 05:18] LABS: Alanine Aminotransferase 24 U/L (0-41); Albumin Level 4.2 g/dL (3.5-5.2); Alkaline Phosphatase 93 U/L (40-130); Anion Gap 14.7 (5-19); Aspartate Amino Transferase 19 U/L (0-40); Blood Urea Nitrogen 21 mg/dL (8-23); Calcium 9.6 mg/dL (8.5-10.5); Carbon Dioxide 25 mmol/L (22-29); Chloride 94 mmol/L (98-107); Chol HDL Ratio 2.57 mg/dL (1.0-5.00); Cholesterol 224 mg/dL (0-200); Globulin 2.8 g/dL (1.3-4.6); Glomerular Filtration Rate 85.2 mL/min (90-130); Glucose 114 mg/dL (65-115); HDL Cholesterol 87 mg/dL (60-100); LDL Cholesterol Calculated 119 mg/dL (50-129); Osmolality Calculated 272 mOsm/kg (285-295); Potassium 4.7 mmol/L (3.5-5.1); Sodium 129 mmol/L (136-145); Total Bilirubin 0.3 mg/dL (0.15-1.2); Triglycerides 92 mg/dL (0-150); VLDL Cholestrol Calculation 18 mg/dL (0-30)
[2022-03-22] MEDS: losartan 50 mg Tablet 100 MG PO (05:32)
[2022-03-22] MEDS: amlodipine 10 mg Tablet PO (05:32)
[2022-03-22 05:46] LABS: Estmated Average Glucose 108; Hemoglobin A1C 5.4 % (4.0-6.0)
[2022-03-22] MEDS: budesonide 0.5 mg/2 mL Neb INHALATION (08:00)
[2022-03-22] MEDS: doxycycline 100 mg Tablet PO (08:50)
--- NOTE | 2022-03-22 09:51 | P.DS_ITS ---
Discharge Providers Date of Admission: 03/20/22 17:55 Date of Discharge: March 22, 2022 Attending Provider at Admission: Geovani Ma MD Attending Provider at Discharge: Geovani Ma MD Primary Care Provider: Leonora Faustin APN Diagnoses at Discharge Discharge Diagnosis (1) Acute exacerbation of chronic obstructive airways disease: Status: Acute (2) Respiratory failure: Status: Acute (3) Smoker: Status: Acute (4) Breathlessness on exertion: Status: Acute (5) Anxiety: Status: Acute (6) Essential hypertension: Status: Chronic (7) Chronic obstructive pulmonary emphysema: Status: Chronic Permanent problem details: Severe COPD, not oxygen dependent Reason for Visit Reason for Visit: Heart rate 30 Brief History: Taurus Rhodes is a 62 year old male severe obstructive pulmonary disease smoker, hypertensive, follows up with non acoustic operator, trying to quit smoking, he was recommended pulmonary rehab which she has not attended yet, presented with worsening of shortness of breath.? Patient is stating that his symptoms started on Saturday and he has been having recurrent episodes when he is not able to breathe on his own and he struggles really hard to catch his breath, he is trying to cut back on his smoking and he is smoking 10 to 12 cigarettes a day, he does not use any oxygen, he does not have enough strength to carry on daily activities, he has been losing weight, noticing muscle mass loss.? He has not noticed any fever, nausea, vomiting or chest pain. In the ER he was wheezing he was given high-dose steroids at the time of evaluation family was at the bedside, they agree that he has end-stage COPD and is at risk of worsening he is not vaccinated for COVID-19, influenza, pneumococcal, chest x-ray showing hyperinflation, requested D-dimer, COVID and influenza PCR negative. Hospital Course Hospital Course Patient was admitted to hospital further evaluation and management of hypoxic respiratory failure in setting of COPD exacerbation. Pneumonia was ruled out with negative CT imaging and respiratory viral panel was negative for viral infections. It is believed patient's symptoms are most likely secondary to COPD exacerbation in setting of chronic smoking. Patient was counseled in detail to decrease smoking as much as possible. Patient is agreeable and wants to switch over to nicotine chewing and smoking. He has been discharged hemodynamic stable condition after home O2 evaluation on oral steroid taper, inhalation treatment and oral antibiotics for 5 more days. Physical Exam Narrative: elderly male who appears more than stated age, alert oriented, in distress because of lack of nicotine, on 2 L Abdomen soft, nontender Mild wheezing noted No audible wheezing or stridor Cardiology: S1, S2 regular Nonfocal neuro exam GCS 15 Discharge Data Studies Completed and Pending Completed Studies During Hospitalization Category Date Time Status XR chest 1V portable [id number] Stat Exams 03/20/22 14:23 Completed Pending at discharge Category Date Time Status MRSA by PCR Routine Lab 03/21/22 13:50 Received Sputum Culture and Gram Stain Stat Lab 03/21/22 15:10 Results CV echo complete* [id number] Routine Ultrasound 03/21/22 12:07 Taken Radiology Impressions Chest X-Ray 03/20/22 14:23 IMPRESSION: No acute findings. Hyperinflation, stable. Echocardiogram: CONCLUSIONS ?1. This is a difficult study with no apical views. ?2. Normal left ventricular size, systolic function and wall ?thickness, with no diagnostic regional wall motion ?abnormalities. Left ventricular ejection fraction is estimated ?at 60-65 %. Normal diastolic function. ?3. Trace to mild tricuspid valve. ?4. No prior similar studies to compare. ?Zenaida Lo MD ?(Electronically Signed) ?Final Date:? ? ? 22 March 2022 ? 12:35 Laboratory Results WBC 16.7 10^3/uL (4.0-10.0) H 03/22/22 04:42 RBC 4.43 10^6/uL (4.1-5.3) 03/22/22 04:42 Hgb 13.9 g/dL (11.7-16.6) 03/22/22 04:42 Hct 41.6 % (42.0-52.0) L 03/22/22 04:42 MCV 93.9 fl (80-94) 03/22/22 04:42 MCH 31.4 pg (28.0-34.0) 03/22/22 04:42 MCHC 33.4 g/dL (30.0-36.0) 03/22/22 04:42 RDW 13.5 % (12.1-15.1) 03/22/22 04:42 Plt Count 287 10^3/cmm (130-400) 03/22/22 04:42 MPV 9.4 fL (7.4-10.4) 03/22/22 04:42 Neut % (Auto) 87.8 % 03/22/22 04:42 Lymph % (Auto) 5.8 % 03/22/22 04:42 [place] % (Auto) 5.4 % 03/22/22 04:42 Eos % (Auto) 0.1 % 03/22/22 04:42 Baso % (Auto) 0.2 % 03/22/22 04:42 Neut # (Auto) 14.70 10^3/uL (1.8-7.7) H 03/22/22 04:42 Lymph # (Auto) 1.0 10^3/uL (0.8-4.8) 03/22/22 04:42 [place] # (Auto) 0.9 10^3/uL (0.2-0.9) 03/22/22 04:42 Eos # (Auto) 0.0 10^3/uL (0.0-0.8) 03/22/22 04:42 Baso # (Auto) 0.0 10^3/uL (0.0-0.1) 03/22/22 04:42 Nucleated RBC % (auto) 0 % 03/22/22 04:42 Nucleated RBCs # 0.0 /100WBC 03/22/22 04:42 D-Dimer <= 0.27 ug/mIFEU (0-0.59) 03/20/22 20:27 Specimen Type Arterial 03/21/22 05:28 Sample Site Radial, right 03/21/22 05:28 ABG pH 7.41 (7.35-7.45) 03/21/22 05:28 ABG pCO2 39.0 mmHg (35-45) 03/21/22 05:28 ABG pO2 63.5 mmHg (80.0-100.0) L 03/21/22 05:28 ABG HCO3 24.9 mmol/L (22-26) 03/21/22 05:28 ABG Base Excess 0.4 mmol/L (-2.0-2.0) 03/21/22 05:28 David Test Pos 03/21/22 05:28 Hematocrit 45.0 % (42-52) 03/21/22 05:28 O2 Delivery Device Bipap 03/21/22 05:28 FiO2 30.0 % 03/21/22 05:28 Canal Equipment Mechanic ID Gunnar 03/21/22 05:28 Sodium 129 mmol/L (136-145) L 03/22/22 04:42 Potassium 4.7 mmol/L (3.5-5.1) 03/22/22 04:42 Chloride 94 mmol/L (98-107) L 03/22/22 04:42 Carbon Dioxide 25 mmol/L (22-29) 03/22/22 04:42 Anion Gap 14.7 (5-19) 03/22/22 04:42 BUN 21 mg/dL (8-23) 03/22/22 04:42 Creatinine 0.9 mg/dL (0.7-1.2) 03/22/22 04:42 GFR Calculation 85.2 mL/min (90-130) L 03/22/22 04:42 Glucose 114 mg/dL (65-115) 03/22/22 04:42 Estimat Average Glucose 108 03/22/22 04:42 Hemoglobin A1c 5.4 % (4.0-6.0) 03/22/22 04:42 Calculated Osmolality 272 mOsm/kg (285-295) L 03/22/22 04:42 Calcium 9.6 mg/dL (8.5-10.5) 03/22/22 04:42 Phosphorus 3.6 mg/dL (2.5-4.5) 03/21/22 04:49 Magnesium 2.0 mg/dL (1.7-2.3) 03/21/22 04:49 Iron 54 ug/dL (59-158) L 03/21/22 04:49 TIBC 262 mcg/dl 03/21/22 04:49 % Saturation 20.6 % (20-50) 03/21/22 04:49 Unsat Iron Binding 208 ug/dL (112-347) 03/21/22 04:49 Total Bilirubin 0.3 mg/dL (0.15-1.2) 03/22/22 04:42 AST 19 U/L (0-40) 03/22/22 04:42 ALT 24 U/L (0-41) 03/22/22 04:42 Alkaline Phosphatase 93 U/L (40-130) 03/22/22 04:42 Troponin T Baseline 16 ng/L (0-15) H 03/20/22 14:30 Troponin T 120 Minute 17.91 ng/L (0-15) H 03/20/22 15:00 Delta Troponin T 1.91 ABS# (0-10) 03/20/22 15:00 Troponin T Hi Sens 6Hr 12.44 ng/L (0-15) 03/20/22 20:27 Troponin T Hi Sens 6Hr Delta -3.56 ng/L (0-12) L 03/20/22 20:27 C-Reactive Protein 5.6 mg/L (0.0-4.9) H 03/21/22 04:49 NT-Pro-B Natriuret Pep 81 pg/mL (0-125) 03/20/22 16:07 Total Protein 7.0 g/dL (6.6-8.7) 03/22/22 04:42 Albumin 4.2 g/dL (3.5-5.2) 03/22/22 04:42 Globulin 2.8 g/dL (1.3-4.6) 03/22/22 04:42 Triglycerides 92 mg/dL (0-150) 03/22/22 04:42 Cholesterol 224 mg/dL (0-200) H 03/22/22 04:42 LDL Cholesterol, Calc 119 mg/dL (50-129) 03/22/22 04:42 Total VLDL Cholesterol 18 mg/dL (0-30) 03/22/22 04:42 HDL Cholesterol 87 mg/dL (60-100) 03/22/22 04:42 Cholesterol/HDL Ratio 2.57 mg/dL (1.0-5.00) 03/22/22 04:42 Procalcitonin 0.05 ng/mL (0-0.5) 03/20/22 20:27 TSH 1.13 uIU/mL (0.27-4.20) 03/20/22 16:07 Nasal Influ A H1 2009 PCR Not detected (NOT DETECT) 03/20/22 16:48 Coronavirus 229E (PCR) Not detected (NOT DETECT) 03/20/22 16:48 Influenza A (H1) PCR Not detected (NOT DETECT) 03/20/22 16:48 Influenza A (H3) PCR Not detected (NOT DETECT) 03/20/22 16:48 Influenza Type A (PCR) Not detected (NOT DETECT) 03/20/22 16:48 Influenza Type B (PCR) Not detected (NOT DETECT) 03/20/22 16:48 SARS-CoV-2 (PCR) Not detected (NOT DETECT) 03/20/22 16:48 Vitals Last Vital Signs Temp 98.2 F 03/22/22 08:00 Pulse 74 03/22/22 08:00 Resp 16 03/22/22 08:00 BP 124/73 03/22/22 08:00 Pulse Ox 94 03/22/22 08:00 O2 Del Method 03/22/22 08:00 O2 Flow Rate 2 03/22/22 08:00 FiO2 30 03/22/22 04:00 Discharge Plan Discharge Patient Disposition: Home Condition: Stable Prescriptions: New doxycycline monohydrate 100 mg Tablet 100 mg PO BID Qty: 10 0RF ipratropium-albuterol 0.5 mg-3 mg(2.5 mg base)/3 mL solution for nebulization 3 ml inhalation Q6H PRN (Reason: shortness of breath) Qty: 90 0RF Pulmicort 0.25 mg/2 mL suspension for nebulization 0.25 mg inhalation BID 15 Days Qty: 60 0RF prednisone 10 mg tablet See Rx Instructions .ROUTE .COMPLEX Qty: 40 0RF Rx Instructions: prednisone 5 mg: take 8 tablets (40 mg) on Day 1; 7 tablets (35 mg) on Day 2; then decrease by 1 tablet every day until finished Continued albuterol sulfate 2.5 mg /3 mL (0.083 %) solution for nebulization 2.5 mg inhalation Q6H PRN (Reason: shortness of breath or wheezing) Waldotri Aerosphere 160-9-4.8 mcg/actuation HFA aerosol inhaler 2 inh inhalation BID Qty: 10.7 3RF omega-3 fatty acids 1,000 mg Capsule 1,000 mg PO DAILY Vitamin D3 125 mcg (5,000 unit) Tablet 10,000 unit PO DAILY Vitamin B-12 5,000 mcg Tablet, Sublingual 15,000 mcg PO DAILY Norvasc 10 mg tablet 10 mg PO QAM albuterol sulfate 90 mcg/actuation HFA aerosol inhaler 2 puff inhalation QID PRN (Reason: Shortness Of Breath) losartan 100 mg tablet 100 mg PO QAM alprazolam 0.5 mg tablet 0.25 - 0.5 mg PO BID PRN (Reason: Anxiety) Qty: 10 0RF Discharge Orders: Discharge Order (Routine); Ordered 03/22/22 Ordered By: Geovani Ma Other Ambulatory Orders: DME: Nebulizer with Neb Kit (Order) Location: None Selected Ordered By: Geovani Ma Referrals: Leonora Faustin APN [Primary Care Provider] - 03/30/22 10:20 am Discharge Diet: Cardiac Discharge Activity: Resume usual activity Patient Instructions: Doxycycline (By mouth), Ipratropium (By breathing), Prednisone (By mouth), Budesonide (By breathing), How to Stop Smoking (GEN), Cigarette Smoking and Your Health (GEN), COPD (Chronic Obstructive Pulmonary Disease) (DC), Opioid Safety, Quitting Smoking Activity Restrictions/Additional Instructions: Please try to quit smoking as discussed in detail. Continue taking steroids with taper as directed. Switch to nebulization treatment for now with DuoNebs and budesonide. Discharge Attestations Time Spent in Discharge Care*: greater than 30 min Specific Discharge Activities: educating patient, educating and/or supporting family/caregiver, discussing with pcp/other providers, discussing with correctional case manager/social workers/dc planners, documenting/other paperwork and evaluating patient/reviewing data Time Spent in Smoking Cessation: more than 10 minutes Status at Discharge: Cognitive status at discharge: cognitively intact , Behavioral status at discharge: cooperative , Functional status at discharge: independent ambulation , Overall status at discharge: patient is back to baseline Quality Metrics Clinical Quality Measures [ No reported AMI, CVA or VTE this stay] Coding Level of Care Code Acute Chg FW DC note Diagnoses Acute exacerbation of chronic obstructive airways disease J44.1 Respiratory failure J96.90 Smoker F17.200 Breathlessness on exertion R06.81 Anxiety F41.9 Essential hypertension I10 Chronic obstructive pulmonary emphysema J43.9
== END 2022-03-22 11:20 | disposition home or self-care (01) ==
LOC: ER 17:24 → MEDSURG 18:36
PROVIDERS: Internal Medicine; Admitting Provider Student in an Organized Health Care Education/Training Program; Emergency Provider Emergency Medicine; PCP Nurse Practitioner Family; Visit Provider Student in an Organized Health Care Education/Training Program
DX: J44.1 Chronic obstructive pulmonary disease with (acute) exacerbation (principal); J96.90 Respiratory failure, unspecified, unspecified whether with hypoxia or hypercapnia; F41.9 Anxiety disorder, unspecified; I10 Essential (primary) hypertension; E78.2 Mixed hyperlipidemia; Z91.14 Patient's other noncompliance with medication regimen; F17.210 Nicotine dependence, cigarettes, uncomplicated
CPT/HCPCS: 36415; 36600; 71045; 80048; 80053; 80061; 82803; 83036; 83540; 83550; 83735; 83880; 84100; 84145; 84443; 84484; 85025; 85378; 86140; 87070; 87205; 87449; 87631; 87635; 87641; 93005; 93306; 94640; 94660; 94664; 94760; 96372; 96374; 99285; G0378; J1650; J1940; J2920; J2930; J7614; J7626

== ENCOUNTER 2023-03-13 13:09 | Outpatient (CLI) | payer MEDICARE, SELFPAY ==
--- NOTE | 2023-03-13 13:45 | CT_ITS ---
WS: [id number] LDCT LUNG CANCER SCREENING HISTORY: Cancer Screen TECHNIQUE: Axial imaging performed from the apices to 1 cm below the costophrenic angles. Coronal and sagittal reformats are submitted with axial MIP series. All CT scans at [facility] use at least one of these dose optimization techniques: automated exposure control; mA and/or kV adjustment per patient size (includes targeted exams where dose is matched to clinical indication); or iterativ e reconstruction. DLP: 52.68 mGy.cm DIvol: Mean CTDIvol: 0.80 (mGy) COMPARISON: 03/11/2022 Diagnostic quality: Satisfactory Lungs: Hyperexpanded lungs. There are several bilateral pulmonary nodules of approximately 3 mm which were described on 07/11/2021. Stable since 03/01/2021 focal scar or subsegmental atelectasis at the l ingula and lung base. Bronchiectasis LEFT lower lobe. Heart: Normal size heart with no pericardial effusion.. Other findings: Mild atherosclerosis aorta. Normal size heart. No mediastinal or hilar adenopathy paco ntified. Low-attenuation well-circumscribed mass superior RIGHT lobe of the liver measures 1.9 cm has been present on the prior studies and probably a cyst. Not significantly increased in size. Reidenti fied is significant atrophy upper pole RIGHT kidney with mildly dilated renal pelvis and/or extrarena l pelvis. No prior studies for comparison. This does appear to be a chronic finding. IMPRESSION: CT/CT lung screening [id number] LUNG-RADS: 2S-Benign Appearance or Behavior with Significant Findings FOLLOW UP: 12 Month: Continue annual screening with LDCT OTHER FINDINGS (S MODIFIER): Chronic appearing but incompletely visualized atro phy upper pole RIGHT kidney with hydronephrosis. Chronic findings. Previously d escribed. For further evaluation consider follow-up noncontrast CT abdomen/pelv is. This may be a known finding. No prior imaging study to confirm the etiology of the upper pole renal atrophy or hydronephrosis.
== END 2023-03-13 13:10 | disposition home or self-care (01) ==
LOC: RAD 13:09
PROVIDERS: PCP Nurse Practitioner Family; Visit Provider Internal Medicine Pulmonary Disease
DX: Z12.2 Encounter for screening for malignant neoplasm of respiratory organs (principal); F17.210 Nicotine dependence, cigarettes, uncomplicated
CPT/HCPCS: 71271

== ENCOUNTER → 2023-07-01 13:32 | Outpatient (BNVA) | payer MEDICARE, SELFPAY | PROVIDERS: PCP Nurse Practitioner Family; Visit Provider Internal Medicine Pulmonary Disease | DX: J44.9 Chronic obstructive pulmonary disease, unspecified (principal); J43.2 Centrilobular emphysema; F17.200 Nicotine dependence, unspecified, uncomplicated; F17.210 Nicotine dependence, cigarettes, uncomplicated | CPT/HCPCS: 99214 ==

== ENCOUNTER 2023-11-27 16:44 | Inpatient (IN) | payer MEDICARE, SELFPAY ==
[2023-11-27] VITALS (9 sets, daily range): BP systolic 110–136; BP diastolic 77–94; PULSE 78–112; RESP 18–24; TEMP 36.5–36.6; O2SAT 93–96; BMI 21.7; BMI 21.1
--- NOTE | 2023-11-27 16:49 | XRR_ITS ---
PROCEDURE INFORMATION: Exam: XR Chest Exam date and time: 11/27/2023 5:11 PM Age: 63 years old Clinical indication: Shortness of breath; Additional info: SOB TECHNIQUE: Imaging protocol: Radiologic exam of the chest. Views: 1 view. COMPARISON: CT lung screening [id number] 03/13/2023 1:28 PM FINDINGS: Lungs: Both lungs demonstrate diffuse hyperinflation along with chronic interstitial coarsening. However, I see no evidence of mass or confluent infiltrate. Pleural spaces: Unremarkable. No pleural effusion. No pneumothorax. Heart/Mediastinum: Unremarkable. No cardiomegaly. Bones/joints: Unremarkable. XR/XR chest 1V portable [id number] IMPRESSION: COPD changes
--- NOTE | 2023-11-27 16:49 | ECG_ITS ---
[facility] Date: 2023-11-27 Pat Name: Taurus Rhodes Department: Room: Gender: Male Cutter In: : 1960 Requested By: Felipe Lennon Order Number: [id number] Alia MD: Santiago Espinoza M.D. Measurements Intervals [place] Rate: 98 P: 83 OH: 164 QRS: 166 QRSD: 94 T: 77 QT: 344 QTc: 440 Interpretive Statements SINUS RHYTHM INDETERMINATE AXIS INCOMPLETE RIGHT BUNDLE BRANCH BLOCK [90+ ms QRS DURATION, TERMINAL R IN V1/V2, 40+ ms S IN I/aVL/V4/V5/V6] SEPTAL MYOCARDIAL INFARCTION , PROBABLY OLD [40+ ms Q WAVE IN V1/V2] Compared to ECG 03/20/2022 16:31:26 No significant changes Electronically Signed On 11-27-2023 17:54:11 CDT by Santiago Espinoza M.D. [id number] f
--- NOTE | 2023-11-27 16:52 | ED_ITS ---
HPI - SOB/Dyspnea 2 General: Chief Complaint: Shortness of Breath/Dyspnea Stated Complaint: Resp Distress Time Seen by Provider: 11/27/23 16:45 Source: patient and EMS Mode of arrival: EMS Limitations: no limitations History of Present Illness: HPI Narrative: 63-year-old male has a history of COPD s tates he was diagnosed with pneumonia couple weeks ago and finished course of steroids and Z-Mor states that today started having increased shortness of breath EMS taken they arrived he was tripoding in severe distress speaking 1-2 word sentences he has had IV steroids along with breathing treatments and placed on CPAP with them patient still has distress he states he is improved he is able to speak in sentences now but does have wheezing states had a mild cough denies any fever Associated symptoms: Deny abdominal pain, chest pain, fever(s), nausea or vomiting Review of Systems 2 Const: Denies: fever(s), chills, body aches or change in appetite ENMT: Denies: throat pain or dental pain Card: Denies: chest pain Resp: Reports: dyspnea and wheezing GI: Denies: abdominal pain, nausea, vomiting or diarrhea Musc: Denies: neck pain or back pain Skin/Breast: Denies: rash Neuro: Denies: headache(s) PFSH ED 2 PFSH: Medical History Noncompliance w/medication treatment due to intermit use of medication Mixed hyperlipidemia Essential hypertension Chronic obstructive pulmonary emphysema Severe COPD, not oxygen dependent Surgical History History of inguinal hernia repair Left History of lumbar discectomy 2004 Family History Other Hypertension Stroke Social History Smoking and tobacco/nicotine status: current every day tobacco/nicotine user cigarettes Packs smoked per day: 2 Years cigarettes smoked: 53 [ Other cigarette details: 5-6 cigarettes daily ] Second hand smoke exposure: Yes Alcohol intake: never Substance/Drug Use: never Adopted: No Caregiver/support person: No Lives independently: Yes Household members: spouse Housing: House Marital status: Number of children: 2 Current occupational status: employed Do you think of yourself as: Straight/Heterosexual Current gender identity: Male Physical Exam 2 Const: COMMON NORMALS: patient oriented x3 GENERAL APPEARANCE: in distress HENMT: COMMON NORMALS: normocephalic and atraumatic HEAD & SCALP: n ormocephalic and atraumatic Eye: COMMON NORMALS: conjunctivae normal CONJUNCTIVA: Yes conjunctivae normal Neck/C-Spine: COMMON NORMALS: full ROM and supple Chest: COMMONS NORMALS: normal inspection of the chest Resp: EFFORT & INSPECTION: Yes tachypneic, Yes respiratory distress and Yes audible wheezes Cardio: COMMON NORMALS: regular rate, regular rhythm and No murmurs present (Cardio) RATE: regular rate RHYTHM: regular rhythm Extremity: COMMON NORMALS: normal to inspection and full ROM Neuro: COMMON NORMALS: patient oriented x3, moves all extremities and no focal motor deficits Psych: COMMON NORMALS: mental status grossly normal, Normal thought process present and cooperative THOUGHT PROCESS: Normal thought process present Skin: COMMON NORMALS: no rashes or lesions noted and no wounds GENERAL SKIN EXAM: no rashes or lesions noted Course 2 Vital Signs: Vital signs: Vital Signs Temperature 97.8 F 11/27/23 16:47 Pulse Rate 111 H 11/27/23 17:11 Respiratory Rate 22 H 11/27/23 17:00 Blood Pressure 136/90 11/27/23 17:05 Pulse Oximetry 96 11/27/23 17:05 Oxygen Delivery Me thod Nasal Cannula 11/27/23 17:05 Oxygen Flow Rate 3 11/27/23 17:05 MDM - SOB/Dyspnea Medical Decision Making Patient presents here with COPD exacerbation he is much improved here but still requiring 3 L of oxygen patient's given breathing treatment here x-ray showed no pneumonia did speak to the hospitalist will admit for COPD exacerbation Medical Records I reviewed the patient's medical records. Lab Data I reviewed the patient's lab results. 11/27/23 17:10 11/27/23 17:10 Labs/Radiology: Radiology Impressions Chest X-Ray 11/27/23 16:49 IMPRESSION: COPD changes Laboratory Results WBC 16.13 10^3/uL (3.29-11.43) H 11/27/23 17:10 RBC 4.75 10^6/uL (3.85-5.65) 11/27/23 17:10 Hgb 15.00 g/dL (11.27-16.99) 11/27/23 17:10 Hct 44.7 % (37-53) 11/27/23 17:10 MCV 94.1 fl (82-101) 11/27/23 17:10 MCH 31.6 pg (27-33) 11/27/23 17:10 MCHC 33.6 g/dL (30-55) 11/27/23 17:10 RDW 13.6 % (12.1-15.1) 11/27/23 17:10 Plt Count 275 10^3/cmm (157-399) 11/27/23 17:10 MPV 8.8 fL (7.4-10.4) 11/27/23 17:10 Neut % (Auto) 74.9 % 11/27/23 17:10 Lymph % (Auto) 11.2 % 11/27/23 17:10 [place] % (Auto) 4.3 % 11/27/23 17:10 Eos % (Auto) 7.7 % 11/27/23 17:10 Baso % (Auto) 1.3 % 11/27/23 17:10 Neut # (Auto) 12.08 10^3/uL (1.8-7.7) H 11/27/23 17:10 Lymph # (Auto) 1.8 10^3/uL (0.8-4.8) 11/27/23 17:10 [place] # (Auto) 0.7 10^3/uL (0.2-0.9) 11/27/23 17:10 Eos # (Auto) 1.3 10^3/uL (0.0-0.8) H 11/27/23 17:10 Baso # (Auto) 0.2 10^3/uL (0.0-0.1) H 11/27/23 17:10 Nucleated RBC % (auto) 0 % 11/27/23 17:10 Nucleated RBCs # 0.0 /100WBC 11/27/23 17:10 Specimen Type Arterial 11/27/23 17:04 Sample Site Radial, left 11/27/23 17:04 ABG pH 7.40 (7.35-7.45) 11/27/23 17:04 ABG pCO2 38.5 mmHg (35-45) 11/27/23 17:04 ABG pO2 74.3 mmHg (80.0-100.0) L 11/27/23 17:04 ABG PO2/FiO2 Ratio 232 11/27/23 17:04 ABG HCO3 23.7 mmol/L (22-26) 11/27/23 17:04 ABG Base Excess -0.9 mmol/L (-2.0-2.0) 11/27/23 17:04 David Test Pos 11/27/23 17:04 Hematocrit 46.5 % (42-52) 11/27/23 17:04 Hgb O2 Saturation 93.5 % (95-100) L 11/27/23 17:04 Carboxyhemoglobin 2.8 %THgb (0.4-20.1) 11/27/23 17:04 Methemoglobin 0.2 % (0.4-1.5) L 11/27/23 17:04 Total Hemoglobin 15.2 g/dL (14-18) 11/27/23 17:04 O2 Delivery Device Nc 11/27/23 17:04 FiO2 32.0 % 11/27/23 17:04 Utility Technician ID Cak 11/27/23 17:04 Sodium 131 mmol/L (136-145) L 11/27/23 17:10 Potassium 4.3 mmol/L (3.5-5.1) 11/27/23 17:10 Chloride 94 mmol/L (98-107) L 11/27/23 17:10 Carbon Dioxide 21 mmol/L (22-29) L 11/27/23 17:10 Anion Gap 20.3 (5-19) H 11/27/23 17:10 BUN 15 mg/dL (8-23) 11/27/23 17:10 Creatinine 0.7 mg/dL (0.7-1.2) 11/27/23 17:10 GFR Calculation 113.5 mL/min (90-130) 11/27/23 17:10 Glucose 102 mg/dL (65-115) 11/27/23 17:10 Calculated Osmolality 273 mOsm/kg (285-295) L 11/27/23 17:10 Calcium 8.9 mg/dL (8.5-10.5) 11/27/23 17:10 Total Bilirubin 0.6 mg/dL (0.15-1.2) 11/27/23 17:10 AST 26 U/L (0-40) 11/27/23 17:10 ALT 32 U/L (0-41) 11/27/23 17:10 Alkaline Phosphatase 72 U/L (40-130) 11/27/23 17:10 NT-Pro-B Natriuret Pep 41 pg/mL (0-125) 11/27/23 17:10 Total Protein 7.4 g/dL (6.6-8.7) 11/27/23 17:10 Albumin 4.5 g/dL (3.5-5.2) 11/27/23 17:10 Globulin 2.9 g/dL (1.3-4.6) 11/27/23 17:10 All radiology interpretation(s) finalized by discharge Discharge Plan Discharge Patient Disposition: Admitted As Inpatient Clinical Impression: COPD exacerbation, Acute respiratory failure with hypoxemia Condition: Stable Coding Level of Care Code ED Battery Plate Remover for Ale Major
[2023-11-27] MEDS: ipratropium-albuterol 3 mL Neb INHALATION (16:55)
[2023-11-27] MEDS: albuterol 2.5 mg/3 mL Neb INHALATION (16:55)
[2023-11-27 17:13] LABS: Basophils # 0.2 10^3/uL (0.0-0.1); Basophils % 1.3 %; Eosinophils # 1.3 10^3/uL (0.0-0.8); Eosinophils % 7.7 %; Hematocrit 44.7 % (37-53); Lymphocytes # 1.8 10^3/uL (0.8-4.8); Lymphocytes % 11.2 %; Mean Corpuscular HGB Conc 33.6 g/dL (30-55); Mean Corpuscular Hemoglobin 31.6 pg (27-33); Mean Corpuscular Volume 94.1 fl (82-101); Mean Platelet Volume 8.8 fL (7.4-10.4); Monocytes # 0.7 10^3/uL (0.2-0.9); Monocytes % 4.3 %; Neutrophils # 12.08 10^3/uL (1.8-7.7); Neutrophils % 74.9 %; Nucleated Red Blood Cells % 0 %; Platelet Count 275 10^3/cmm (157-399); Red Blood Count 4.75 10^6/uL (3.85-5.65); Red Cell Distribution Width 13.6 % (12.1-15.1); White Blood Count 16.13 10^3/uL (3.29-11.43)
[2023-11-27 17:15] LABS: ABG PCO2 38.5 mmHg (35-45); Arterial Blood Gas Hematocrit 46.5 % (42-52); Base Excess ABG -0.9 mmol/L (-2.0-2.0); Blood Gas Allen Test Pos; Blood Gas Operator Identificat CAK; Blood Gas Sample Site Radial, left; Blood Gas Sample Type Arterial; Carboxyhemoglobin 2.8 %THgb (0.4-20.1); HCO3 ABG 23.7 mmol/L (22-26); HGB O2 Sat 93.5 % (95-100); Methemoglobin 0.2 % (0.4-1.5); Oxygen Device NC; PO2 ABG 74.3 mmHg (80.0-100.0); PO2 FiO2 Ratio Arterial Blood 232; Total Hemoglobin 15.2 g/dL (14-18)
[2023-11-27 17:48] LABS: Alanine Aminotransferase 32 U/L (0-41); Albumin Level 4.5 g/dL (3.5-5.2); Alkaline Phosphatase 72 U/L (40-130); Anion Gap 20.3 (5-19); Aspartate Amino Transferase 26 U/L (0-40); Blood Urea Nitrogen 15 mg/dL (8-23); Calcium 8.9 mg/dL (8.5-10.5); Carbon Dioxide 21 mmol/L (22-29); Chloride 94 mmol/L (98-107); Creatinine Clr Calc Pharmacy 94.6592; Globulin 2.9 g/dL (1.3-4.6); Glomerular Filtration Rate 113.5 mL/min (90-130); Glucose 102 mg/dL (65-115); NT Pro B Type Natriuretic Pept 41 pg/mL (0-125); Osmolality Calculated 273 mOsm/kg (285-295); Potassium 4.3 mmol/L (3.5-5.1); Sodium 131 mmol/L (136-145); Total Bilirubin 0.6 mg/dL (0.15-1.2); Total Protein 7.4 g/dL (6.6-8.7)
[2023-11-27] MEDS: cefTRIAXone 1,000 mg SDV 1000 MG IVP (19:48)
[2023-11-27] MEDS: azithromycin 500 MG in sodium chloride 0.9% 250 ML 250 MG IV (19:48)
--- NOTE | 2023-11-27 22:36 | P.HP_ITS ---
Providers/Chief Complaint 2 Admitting Physician: radha san MD Primary Care Provider: Leonora Faustin APN Chief Complaint: Resp Distress History of Present Illness Taurus Rhodes is a 63 year old male with past medical history of COPD, tobacco abuse, HTN , on chronic steroids, recently diagnosed with pneumonia for which he was on azithromycin as an outpatient presented to the emergency room today with significant respiratory distress. Upon arrival he had shortness of breath. He was tripoding and was unable to speak in full sentences. significant wheezing. States that his symptoms have acutely worsened over the past 2 days. Review of Systems 2 General: Reports: 10 or more systems reviewed and unremarkable except in HPI and below Const: Denies: fever(s), chills or body aches Eyes: Denies: change in vision, blurry vision or photophobia ENMT: Reports: hoarseness; Denies: throat pain, enlarged tonsils, odynophagia or nasal congestion Card: Denies: chest pain, palpitations, irregular heart rhythm, edema, swelling of feet/ankles, lightheadedness, pre-syncope, dyspnea on exertion or orthopnea Resp: Denies: dyspnea, productive cough, non-productive cough, wheezing, stridor, pain on inspiration, change in phlegm color, hemoptysis or chest congestion GI: Denies: abdominal pain, nausea, vomiting, hematemesis, coffee ground emesis, dysphagia, heartburn, diarrhea, constipation, GI cramping, change in stool character, hematochezia or melena : Denies: flank pain, dysuria, urinary frequency, urinary urgency, urinary hesitancy or hematuria Musc: Denies: neck pain, back pain, extremity pain, joint swelling, joint warmth or deformity Neuro: Denies: headache(s), numbness in extremities, weakness in extremities, sensory changes, difficulty walking, frequent falls, dizziness, vertigo, behavioral changes, Slurred speech present or seizure-like activity Psych: Denies: anxiety, depression, suicidal ideation or homicidal ideation Endo: Denies: polyuria, polydipsia, tired all the time, cold intolerance or hot flashes [place]/Lymph: Denies: easy bruising or easy bleeding Medications/Allergies Home Medications Medication Instructions Recorded Confirmed Last Taken Type albuterol sulfate 2.5 mg/3 mL 2.5 mg inhalation Q6H PRN 01/31/21 11/27/23 Unknown History (0.083 %) solution for nebulization shortness of breath or wheezing albuterol sulfate 90 mcg/actuation 2 puff inhalation QID PRN 03/20/22 11/27/23 11/27/23 12:00 History aerosol inhaler Shortness Of Breath amlodipine 10 mg tablet (Norvasc) 10 mg PO QAM 03/20/22 11/27/23 11/27/23 History cholecalciferol (vitamin D3) 125 10,000 unit PO DAILY 03/20/22 11/27/23 11/27/23 History mcg (5,000 unit) tablet (Vitamin D3) cyanocobalamin (vitamin B-12) 15,000 mcg PO DAILY 03/20/22 11/27/23 11/27/23 History 5,000 mcg sublingual tablet (Vitamin B-12) losartan 100 mg tablet 100 mg PO QAM 03/20/22 11/27/23 11/27/23 History omega-3 fatty acids 1,000 mg 1,000 mg PO DAILY 03/20/22 11/27/23 11/27/23 History capsule ipratropium 0.5 mg-albuterol 3 mg 3 ml inhalation Q6H PRN shortness 03/22/22 11/27/23 11/27/23 04:00 Rx (2.5 mg base)/3 mL nebulization of breath #90 mL soln prednisone 10 mg tablet 10 mg PO DAILY #11 tabs 07/01/23 11/27/23 11/27/23 Rx tiotropium bromide 18 mcg capsule 1 cap inhalation DAILY #60 07/08/23 11/27/23 11/27/23 Rx with inhalation device (Spiriva inhalations with HandiHaler) budesonide-formoterol HFA 160 2 puff inhalation BID #10.2 grams 11/07/23 11/27/23 11/27/23 07:00 Rx mcg-4.5 mcg/actuation aerosol inhaler (Symbicort) alprazolam 0.5 mg tablet 0.5 mg PO TID PRN Anxiety 11/27/23 11/27/23 11/27/23 History Allergies Allergy/AdvReac Type Severity Reaction Status Date / Time No Known Allergies Allergy Verified 11/27/23 17:01 PFSH Acute 2 PFSH: Medical History Noncompliance w/medication treatment due to intermit use of medication Mixed hyperlipidemia Essential hypertension Chronic obstructive pulmonary emphysema Severe COPD, not oxygen dependent Surgical History History of inguinal hernia repair Left History of lumbar discectomy 2005 Family History Other Hypertension Stroke Social History Smoking and tobacco/nicotine status: current every day tobacco/nicotine user cigarettes Packs smoked per day: 2 Years cigarettes smoked: 53 [ Other cigarette details: 5-6 cigarettes daily ] Second hand smoke exposure: Yes Alcohol intake: never Substance/Drug Use: never Adopted: No Caregiver/support person: No Lives independently: Yes Household members: spouse Housing: House Marital status: Number of children: 2 Current occupational status: employed Do you think of yourself as: Straight/Heterosexual Current gender identity: Male Vitals/I&O/Wt Last Vital Signs Temp 97.8 F 11/27/23 16:47 Pulse 93 11/27/23 20:31 Resp 18 11/27/23 20:31 BP 110/90 11/27/23 20:31 Pulse Ox 94 11/27/23 20:31 O2 Del Method Nasal Cannula 11/27/23 22:12 O2 Flow Rate 2.5 11/27/23 20:31 11/27/23 11/27/23 11/27/23 06:59 14:59 22:59 Intake Total 250 / 250 Balance 250 / 250 Weight last 48 hrs Weight 61.235 kg Weight 61.235 kg Physical Exam 2 Narrative: General: No acute distress, AO x3, intercostal retraction HEENT: PERRLA, pupils bilaterally equal and reactive, pallors not present Chest: Diffuse wheezing bilaterally all areas CVS: S1-S2 regular, no murmurs, no tachycardia, no gallops, no rubs Abdomen: Soft, nontender, no organomegaly, bowel sounds present Neuro: No focal deficits, no facial deformity, AO x3, power 5/5 in all limbs Data 11/28/23 04:55 11/27/23 17:10 Micro: Microbiology 11/27/23 19:38 Blood Culture - Preliminary Blood SPECIMEN COLLECTED 11/27/23 19:38 Blood Culture - Preliminary Blood SPECIMEN COLLECTED Other data: Patient: Taurus Rhodes Unit #: [id number] : 1960 Age/Sex: 63 / M ADM Date: 11/27/23 Loc: ER Room/Bed: Attending Dr: Ordering Provider/Ordering MD: Felipe Lennon MD Date of Service: 11/27/23 Procedure(s): XR chest 1V portable [id number] Accession Number(s): [id number] Report Number: [id number] PROCEDURE INFORMATION: Exam: XR Chest Exam date and time: 11/27/2023 5:11 PM Age: 63 years old Clinical indication: Shortness of breath; Additional info: SOB TECHNIQUE: Imaging protocol: Radiologic exam of the chest. Views: 1 view. COMPARISON: CT lung screening [id number] 03/13/2023 1:28 PM FINDINGS: Lungs: Both lungs demonstrate diffuse hyperinflation along with chronic interstitial coarsening. However, I see no evidence of mass or confluent infiltrate. Pleural spaces: Unremarkable. No pleural effusion. No pneumothorax. Heart/Mediastinum: Unremarkable. No cardiomegaly. Bones/joints: Unremarkable. XR/XR chest 1V portable [id number] IMPRESSION: COPD changes A&P Assessment and plan (1) Acute exacerbation of chronic obstructive airways disease: Admit to med/surg for acute on chronic COPD exacerbation Methylprednisone 40mg iv every 8 hrs duoneb q6h, budesonide q12h scheduled [place] [address] however patient has been on outpatient steroids, check procal CXR without consolidation Supplemental 02 to keep saturation 90-92%. Currebtly needing 3lpm supplemental 02 Plan Full code DVT ppx: lovenox 40 mg s/c q24h PUD ppx: protonix 40mg daily Attestations 2 Medical Necessity Statement*: > 2 midnight admission is anticipated Coding Level of Care Code Acute Code for Chg Fwd High MDM includes number and complexity of problems actively addressed during encounter, amount and/or complexity of data reviewed/ordered and described risk of complication, morbidity or mortality of management as documented Diagnoses Acute exacerbation of chronic obstructive airways disease J44.1
[2023-11-27 23:45] LABS: Procalcitonin 0.09 ng/mL (0-0.5)
[2023-11-28] VITALS (17 sets, daily range): BP systolic 122–150; BP diastolic 76–85; PULSE 74–95; RESP 17–24; TEMP 36.4–36.9; O2SAT 91–97
[2023-11-28] MEDS: enoxaparin 40 mg/0.4 mL Syringe SUBCUT ×2 (00:13→23:29)
[2023-11-28] MEDS: methylPREDNISolone sod succ 40 mg/mL INJ IVP ×4 (00:13→23:29)
[2023-11-28] MEDS: losartan 50 mg Tablet 100 MG PO (05:20)
[2023-11-28] MEDS: amlodipine 10 mg Tablet PO (05:20)
[2023-11-28 05:49] LABS: Basophils % 0.3 %; Eosinophils % 0.3 %; Hematocrit 42.9 % (37-53); Lymphocytes # 0.9 10^3/uL (0.8-4.8); Lymphocytes % 10.4 %; Mean Corpuscular HGB Conc 33.3 g/dL (30-55); Mean Corpuscular Hemoglobin 31.3 pg (27-33); Mean Corpuscular Volume 93.9 fl (82-101); Mean Platelet Volume 9.4 fL (7.4-10.4); Monocytes # 0.1 10^3/uL (0.2-0.9); Monocytes % 1.5 %; Neutrophils # 7.57 10^3/uL (1.8-7.7); Neutrophils % 86.8 %; Nucleated Red Blood Cells % 0 %; Platelet Count 300 10^3/cmm (157-399); Red Blood Count 4.57 10^6/uL (3.85-5.65); Red Cell Distribution Width 13.7 % (12.1-15.1); White Blood Count 8.73 10^3/uL (3.29-11.43)
[2023-11-28] MEDS: ipratropium-albuterol 3 mL Neb INHALATION ×4 (06:00→19:40)
[2023-11-28 06:04] LABS: Alanine Aminotransferase 30 U/L (0-41); Albumin Level 4.2 g/dL (3.5-5.2); Alkaline Phosphatase 68 U/L (40-130); Anion Gap 16.1 (5-19); Aspartate Amino Transferase 23 U/L (0-40); Blood Urea Nitrogen 14 mg/dL (8-23); Carbon Dioxide 23 mmol/L (22-29); Chloride 94 mmol/L (98-107); Creatinine Clr Calc Pharmacy 96.7402; Globulin 2.7 g/dL (1.3-4.6); Glomerular Filtration Rate 113.5 mL/min (90-130); Glucose 144 mg/dL (65-115); Osmolality Calculated 269 mOsm/kg (285-295); Potassium 5.1 mmol/L (3.5-5.1); Sodium 128 mmol/L (136-145); Total Bilirubin 0.7 mg/dL (0.15-1.2); Total Protein 6.9 g/dL (6.6-8.7)
[2023-11-28] MEDS: budesonide 0.5 mg/2 mL Neb INHALATION ×2 (08:19→19:40)
[2023-11-28] MEDS: pantoprazole DR 40 mg Tablet PO (08:38)
--- NOTE | 2023-11-28 09:36 | PC.CHAP ---
Pastoral Care Encounter/Spiritual Assessment Type of Contact [] Declined printing machinist visit [] Patient/Family/Request visit [] Outpatient visit [] Follow-up visit [] Physician referral [] Code/Alert [x] Routine visit [] Staff referral [] Actively dying [] Patient sleeping [x] Family support [] [] Out of room [] Palliative care [] [] Receiving care in room [] Pre-surgical visit [] Trauma [] Long length of stay [] ICU visit [] Other: Relational/Emotional Strength [x] Patient feels connected with others/family/visitors/staff [] Distress [] Loneliness/isolation [] Abandonment Spirituality of Patient [x] Person of Oliva [] Attends Holiness of their Oliva [x] Believes in Prayer [] Reads Bible or Hoahaoism materials [] There are Spiritual issues to be addressed Thermostatic Controls Supervisor Interventions [x] Prayer [x] Active listening [x] Non-anxious presence [x] Spiritual/emotional support [] Crisis/trauma care [] Spiritual counseling [] Bereavement support [] Provided bereavement packet [] Provided Bible/devotional materials [] Provided toy/stuffed animal, coloring book to patient or family member [] Provided Communion [] Anointing/[place] [] Salvation [x] Completed spiritual assessment [] Other: Impact on Illness or Injury [] Angry [] Fearful [] Anxious [] Often cries [] Exhaustion [] Unable to work [] Unable to attend jew [] Unable to walk/stand [] Unable to read [] Unable to drive [] Unable to eat/drink [] Unable to sleep [] Unable to be with family [] Patient intubated [] Other: Summary Time spent with patient 5 min
--- NOTE | 2023-11-28 10:45 | CT_ITS ---
WS: [id number] CT CHEST ANGIOGRAPHY WITH REFORMATS HISTORY: sob TECHNIQUE: Contiguous axial images are obtained through the chest during arterial injection of intrav enous contrast. Images are reconstructed to evaluate the pulmonary arteries. MIP imaging also reviewe d. All CT scans at [facility] use at least one of these dose optimization techniques: automat ed exposure control; mA and/or kV adjustment per patient size (includes targeted exams where dose is matched to clinical indication); or iterative reconstruction. CONTRAST: Omnipaque 350; 100 mL IV. DLP: 289.51 mGy.cm COMPARISON: None available. Good opacification of the pulmonary arteries. No filling defect or pulmonary emboli. Mild atheroscler osis thoracic aorta with no aneurysm. No dissection. Bovine arch. Lungs are hyperinflated with emphys opal. Focal bronchiectasis at the LEFT lung base. No pulmonary mass or nodule. No mediastinal or hilar adenopathy. Heart size is normal. Small hiatal hernia. Hepatic cyst is reidentified and stable at 1.5 cm. No adrenal mass. Mild atrophy RIGHT kidney. Mildly dilated RIGHT renal pelvis. There is calyceal dilatation and an extrarenal pelvis. Only a small port ion of the kidney is present and imaged. There does appear to be cortical atrophy of the RIGHT kidney . CT/CT angio chest PE protcl [id number] IMPRESSION: 1. No pulmonary embolism. 2. No pneumonia. 3. Chronic emphysema. 4. Focal bronchiectasis LEFT lower lobe. 5. RIGHT kidney is partially visualized and there does appear to be mild to mo derate hydronephrosis. There is also renal atrophy upper pole RIGHT kidney. Rec ommend follow-up evaluation by renal ultrasound. No prior studies have document ed hydronephrosis.
[2023-11-28] MEDS: doxycycline 100 mg Tablet PO ×2 (10:54→17:29)
[2023-11-28] MEDS: nicotine 4 mg lozenge MUCOUS MEM (10:54)
[2023-11-28] MEDS: iohexol 350 mg/mL 500 mL Btl (per mL) IV (12:03)
--- NOTE | 2023-11-28 14:50 | US_ITS ---
WS: [id number] RENAL ULTRASOUND HISTORY: right hydronephrosis COMPARISON: None available. TECHNIQUE: 2-D and color Doppler imaging of the kidney submitted. Right kidney: 7.3 cm x 3.6 cm x 4.0 cm. Cortex: 0.6 cm Marked atrophy of the RIGHT kidney with increased echogenicity. Mildly dilated calyces. There is hydr onephrosis and there also may be a component of an extrarenal pelvis. Left kidney: 9.6 cm x 5.6 cm x 6.4 cm. Cortex: 1.3 cm Normal echogenicity with no hydronephrosis or mass. Aorta: Normal. Urinary Bladder: Markedly distended bladder. Prostate gland is enlarged and heterogeneous. Prostate m easures at least 7.4 x 7.4 x 7.5 cm. US/US renal BI* [id number] IMPRESSION: 1. Severe renal atrophy and medical renal disease. 2. There is at least mild hydronephrosis. There may be an associated extrarena l pelvis also. 3. LEFT kidney is normal size with no obstruction.
--- NOTE | 2023-11-28 14:50 | P.PN_ITS ---
Subjective 2 Subjective: Patient was seen this morning, daughters at bedside, continues to complain of shortness of breath and wheezing, no chills overnight, does have a cough, does report smoking Vitals/I&O/Wt Last Vital Signs Temp 97.6 F 11/28/23 11:34 Pulse 89 11/28/23 13:33 Resp 24 H 11/28/23 13:33 BP 132/83 11/28/23 11:34 Pulse Ox 92 11/28/23 13:33 O2 Del Method Nasal Cannula 11/28/23 13:33 O2 Flow Rate 2 11/28/23 13:33 11/27/23 11/28/23 11/28/23 22:59 06:59 14:59 Intake Total 250 / 250 120 / 370 720 / 720 Balance 250 / 250 120 / 370 720 / 720 Weight last 48 hrs Weight 63.503 kg Weight 61.235 kg Weight 61.235 kg Physical Exam 2 Const: COMMON NORMALS: no acute distress and patient oriented x3 Resp: COMMON NORMALS: normal respiratory effort, No retractions and No use of accessory muscles AUSCULTATION: crackles and wheezes OTHER: Tachypnea Cardio: COMMON NORMALS: regular rate, regular rhythm, S1 normal heart sound present and S2 normal heart sound present RATE: regular rate RHYTHM: r egular rhythm HEART SOUNDS: S1 normal heart sound present and S2 normal heart sound present GI: COMMON NORMALS: Normal to inspection, nondistended, normoactive bowel sounds present and non-tender Extremity: COMMON NORMALS: no pedal edema Neuro: COMMON NORMALS: patient oriented x3 Psych: COMMON NORMALS: mental status grossly normal Data 11/28/23 04:55 11/28/23 04:55 Micro: Microbiology 11/28/23 05:35 Gram Stain - Final Sputum - Expectorated Sputum 11/27/23 19:38 Blood Culture - Preliminary Blood SPECIMEN COLLECTED 11/27/23 19:38 Blood Culture - Preliminary Blood SPECIMEN COLLECTED A&P Assessment and plan (1) Acute exacerbation of chronic obstructive airways disease: Admit to med/surg for acute on chronic COPD exacerbation Methylprednisone 40mg iv every 8 hrs duoneb q6h, budesonide q12h scheduled Add doxycycline [address] angiogram of the chest Supplemental 02 to keep saturation 90-92%. Currebtly needing 3lpm supplemental 02 Plan Full code DVT ppx: lovenox 40 mg s/c q24h PUD ppx: protonix 40mg daily Plan for today monitor respiratory status closely as patient continues to have shortness of breath complaint, tachypnea, requiring IV steroids, antibiotics CT angiogram of the chest Attestations 2 Medical Necessity Statement*: Patient requires hospitalization for COPD exacerbation Diagnoses Acute exacerbation of chronic obstructive airways disease J44.1
[2023-11-28 15:22] LABS: Adenovirus Not Detected (NOT DETECT); Chlamydia Pneumoniae Not Detected (NOT DETECT); Coronavirus 229E,HKU1,NL63,OC4 Not Detected (NOT DETECT); Human Metapneumovirus Not Detected (NOT DETECT); Human Rhinovirus/Enterovirus Not Detected (NOT DETECT); Influenza A Not Detected (NOT DETECT); Influenza A H1 Not Detected (NOT DETECT); Influenza A H1-2009 Not Detected (NOT DETECT); Influenza A H3 Not Detected (NOT DETECT); Influenza B Not Detected (NOT DETECT); Mycoplasma Pneumoniae Not Detected (NOT DETECT); Parainfluenza Virus Type 1 Not Detected (NOT DETECT); Parainfluenza Virus Type 2 Not Detected (NOT DETECT); Parainfluenza Virus Type 3 Not Detected (NOT DETECT); Parainfluenza Virus Type 4 Not Detected (NOT DETECT); Respiratory Syncytial Virus A Not Detected (NOT DETECT); Respiratory Syncytial Virus B Not Detected (NOT DETECT)
[2023-11-28 15:34] LABS: SARS-COV-2 Detected (NOT DETECT)
[2023-11-28 16:17] LABS: Charge for UA Resulting for Rev
[2023-11-28] MEDS: remdesivir 200 MG in sodium chloride 0.9% (100 ml) 60 ML 100 MG IV (16:39)
[2023-11-28 16:42] LABS: Bilirubin Urine Negative (Negative); Blood Urine Negative (Negative); Glucose Urine UA Negative (Normal); Ketones Urine Negative (Negative); Leukocyte Esterase Urine Negative (Negative); Nitrate Urine Negative (Negative); Protein Urine Negative (Negative); Specific Gravity, Urine 1.023 (1.005-1.030); Urine Appearance Clear (CLEAR); Urine Color Yellow (Yellow); Urobilinogen Urine 0.2 mg/dL (Negative)
[2023-11-28 16:47] LABS: Bacteria Urine None Seen /hpf; Hyaline Casts Urine 1.21 /lpf; RBC Urine 0-2 /hpf (0-2); Squamous Epithelial Cell Urine 0-5 /hpf (0-5); WBC Urine 0-5 /hpf (0-5)
[2023-11-29] VITALS (14 sets, daily range): BP systolic 138–157; BP diastolic 67–86; PULSE 81–106; RESP 17–22; TEMP 36.4–36.9; O2SAT 91–98
[2023-11-29] MEDS: ipratropium-albuterol 3 mL Neb INHALATION ×4 (01:21→20:55)
[2023-11-29 01:26] LABS: Bacillus cereus group Not Detected (NOT DETECT); Bacillus subtillis group Not Detected (NOT DETECT); Corynebacterium Not Detected (NOT DETECT); Cutibacterium acnes (P.acnes) Not Detected (NOT DETECT); Enterococcus Not Detected (NOT DETECT); Enterococcus faecalis Not Detected (NOT DETECT); Enterococcus faecium Not Detected (NOT DETECT); Lactobacillus species Not Detected (NOT DETECT); Listeria Not Detected (NOT DETECT); Listeria monocytogenes Not Detected (NOT DETECT); Micrococcus Detected (NOT DETECT); Pan Candida Not Detected (NOT DETECT); Pan Gram-Negative Not Detected (NOT DETECT); Staphylococcus epidermidis Not Detected (NOT DETECT); Staphylococcus lugdunensis Not Detected (NOT DETECT); Staphylococcus species Not Detected (NOT DETECT); Streptococcus agalactiae Not Detected (NOT DETECT); Streptococcus anginosus group Not Detected (NOT DETECT); Streptococcus pneumoniae Not Detected (NOT DETECT); Streptococcus pyogenes Not Detected (NOT DETECT); Streptococcus species Not Detected (NOT DETECT)
[2023-11-29 04:34] LABS: Basophils % 0.2 %; Hematocrit 41.8 % (37-53); Lymphocytes # 0.7 10^3/uL (0.8-4.8); Lymphocytes % 3.1 %; Mean Corpuscular HGB Conc 33.3 g/dL (30-55); Mean Corpuscular Hemoglobin 31.2 pg (27-33); Mean Corpuscular Volume 93.7 fl (82-101); Mean Platelet Volume 9.3 fL (7.4-10.4); Monocytes # 0.9 10^3/uL (0.2-0.9); Monocytes % 3.9 %; Neutrophils # 21.26 10^3/uL (1.8-7.7); Neutrophils % 91.9 %; Nucleated Red Blood Cells % 0 %; Platelet Count 289 10^3/cmm (157-399); Red Blood Count 4.46 10^6/uL (3.85-5.65); Red Cell Distribution Width 13.6 % (12.1-15.1); White Blood Count 23.11 10^3/uL (3.29-11.43)
[2023-11-29 04:50] LABS: Anion Gap 17.5 (5-19); Blood Urea Nitrogen 21 mg/dL (8-23); Carbon Dioxide 22 mmol/L (22-29); Chloride 95 mmol/L (98-107); Creatinine Clr Calc Pharmacy 76.3063; Glucose 96 mg/dL (65-115); Osmolality Calculated 273 mOsm/kg (285-295); Potassium 4.5 mmol/L (3.5-5.1); Sodium 130 mmol/L (136-145)
[2023-11-29] MEDS: amlodipine 10 mg Tablet PO (06:32)
[2023-11-29] MEDS: losartan 50 mg Tablet 100 MG PO (06:32)
[2023-11-29] MEDS: budesonide 0.5 mg/2 mL Neb INHALATION ×2 (08:13→20:55)
[2023-11-29] MEDS: methylPREDNISolone sod succ 40 mg/mL INJ IVP ×3 (08:50→23:37)
[2023-11-29] MEDS: doxycycline 100 mg Tablet PO ×2 (08:50→16:52)
[2023-11-29] MEDS: pantoprazole DR 40 mg Tablet PO (08:51)
--- NOTE | 2023-11-29 09:07 | PC.SOCIAL ---
IMM Updated Updated pt on IMM. No questions voiced. Provided pt a copy. Initialed, dated, & timed a copy & placed in chart.
--- NOTE | 2023-11-29 10:35 | P.PN_ITS ---
Subjective 2 Subjective: Patient was seen this morning, denies any fevers, no chills, does report wheezing, persistent shortness of breath, cough Vitals/I&O/Wt Last Vital Signs Temp 97.5 F L 11/29/23 07:29 Pulse 92 11/29/23 08:13 Resp 22 H 11/29/23 08:13 BP 154/83 11/29/23 07:29 Pulse Ox 91 11/29/23 08:13 O2 Del Method Nasal Cannula 11/29/23 08:13 O2 Flow Rate 2 11/29/23 08:13 11/28/23 11/29/23 11/29/23 22:59 06:59 14:59 Intake Total 218 / 938 480 / 480 Output Total 200 / 200 Balance 18 / 738 480 / 480 Weight last 48 hrs Weight 61.235 kg Weight 63.503 kg Weight 61.235 kg Weight 61.235 kg Physical Exam 2 Const: COMMON NORMALS: no acute distress and patient oriented x3 Resp: COMMON NORMALS: normal respiratory effort, No retractions and No use of accessory muscles AUSCULTATION: wheezes Cardio: COMMON NORMALS: regular rate, regular rhythm, S1 normal heart sound present and S2 normal heart sound present RATE: regular rate RHYTHM: r egular rhythm HEART SOUNDS: S1 normal heart sound present and S2 normal heart sound present GI: COMMON NORMALS: Normal to inspection, nondistended, normoactive bowel sounds present and non-tender Extremity: COMMON NORMALS: no pedal edema Neuro: COMMON NORMALS: patient oriented x3 Psych: COMMON NORMALS: mental status grossly normal Data 11/29/23 04:12 11/29/23 04:12 Micro: Microbiology 11/27/23 19:38 Blood Culture - Preliminary Blood 11/27/23 19:38 Blood Culture - Preliminary Blood NEGATIVE TO DATE 11/28/23 05:35 Gram Stain - Final Sputum - Expectorated Sputum A&P Assessment and plan (1) Acute exacerbation of chronic obstructive airways disease: Admit to med/surg for acute on chronic COPD exacerbation, COVID-19 pneumonia Methylprednisone 40mg iv every 8 hrs duoneb q6h, budesonide q12h scheduled doxycycline [address] angiogram of the chest CT/CT angio chest PE protcl [id number] IMPRESSION: 1. No pulmonary embolism. 2. No pneumonia. 3. Chronic emphysema. 4. Focal bronchiectasis LEFT lower lobe. 5. RIGHT kidney is partially visualized and there does appear to be mild to moderate hydronephrosis. There is also renal atrophy upper pole RIGHT kidney. Recommend follow-up evaluation by renal ultrasound. No prior studies have documented hydronephrosis. Supplemental 02 to keep saturation 90-92%. Currebtly needing 3lpm supplemental 02 (2) Pneumonia due to COVID-19 virus: Plan Full code DVT ppx: lovenox 40 mg s/c q24h PUD ppx: protonix 40mg daily Plan for today continue doxycycline continue steroids, continue breathing treatments, respiratory therapy evaluation, continue with remdesivir Attestations 2 Medical Necessity Statement*: Patient requires hospitalization for acute COPD exacerbation, COVID-19 Diagnoses Acute exacerbation of chronic obstructive airways disease J44.1 Pneumonia due to COVID-19 virus U07.1; J12.82
[2023-11-29] MEDS: remdesivir 100 MG in sodium chloride 0.9% (100 ml) 80 ML IV (17:42)
[2023-11-29] MEDS: enoxaparin 40 mg/0.4 mL Syringe SUBCUT (23:37)
[2023-11-30] VITALS (15 sets, daily range): BP systolic 123–153; BP diastolic 77–91; PULSE 73–98; RESP 17–19; TEMP 36.4–37.1; O2SAT 95–98
[2023-11-30] MEDS: ipratropium-albuterol 3 mL Neb INHALATION ×4 (02:30→20:28)
[2023-11-30] MEDS: losartan 50 mg Tablet 100 MG PO (05:02)
[2023-11-30] MEDS: amlodipine 10 mg Tablet PO (05:03)
[2023-11-30 05:13] LABS: Basophils % 0.1 %; Lymphocytes # 0.6 10^3/uL (0.8-4.8); Lymphocytes % 3.4 %; Mean Corpuscular HGB Conc 33.6 g/dL (30-55); Mean Corpuscular Hemoglobin 31.9 pg (27-33); Mean Platelet Volume 9.7 fL (7.4-10.4); Monocytes # 0.8 10^3/uL (0.2-0.9); Neutrophils # 15.39 10^3/uL (1.8-7.7); Neutrophils % 90.7 %; Nucleated Red Blood Cells % 0 %; Platelet Count 287 10^3/cmm (157-399); Red Blood Count 4.42 10^6/uL (3.85-5.65); Red Cell Distribution Width 14.2 % (12.1-15.1); White Blood Count 16.95 10^3/uL (3.29-11.43)
[2023-11-30 05:32] LABS: Anion Gap 13.8 (5-19); Blood Urea Nitrogen 20 mg/dL (8-23); Carbon Dioxide 26 mmol/L (22-29); Chloride 100 mmol/L (98-107); Creatinine Clr Calc Pharmacy 84.6476; Glomerular Filtration Rate 97.3 mL/min (90-130); Glucose 119 mg/dL (65-115); Osmolality Calculated 284 mOsm/kg (285-295); Potassium 4.8 mmol/L (3.5-5.1); Sodium 135 mmol/L (136-145)
[2023-11-30] MEDS: pantoprazole DR 40 mg Tablet PO (08:56)
[2023-11-30] MEDS: methylPREDNISolone sod succ 40 mg/mL INJ IVP ×3 (08:56→23:22)
[2023-11-30] MEDS: doxycycline 100 mg Tablet PO ×2 (08:56→16:52)
[2023-11-30] MEDS: budesonide 0.5 mg/2 mL Neb INHALATION ×2 (09:10→20:28)
--- NOTE | 2023-11-30 14:09 | P.PN_ITS ---
Subjective 2 Subjective: Patient was seen this morning, continues to complain of a cough, shortness of breath no fevers, no chills Vitals/I&O/Wt Last Vital Signs Temp 97.9 F 11/30/23 11:43 Pulse 91 11/30/23 11:43 Resp 17 11/30/23 11:43 BP 153/82 11/30/23 11:43 Pulse Ox 95 11/30/23 11:43 O2 Del Method Nasal Cannula 11/30/23 11:43 O2 Flow Rate 2 11/30/23 08:00 11/29/23 11/30/23 11/30/23 22:59 06:59 14:59 Intake Total 820 / 1660 240 / 1900 Balance 820 / 1660 240 / 1900 Weight last 48 hrs Weight 64.093 kg Weight 61.235 kg Physical Exam 2 Const: COMMON NORMALS: no acute distress and patient oriented x3 Resp: COMMON NORMALS: normal respiratory effort, No retractions, No use of accessory muscles and clear to auscultation bilaterally AUSCULTATION: clear to auscultation bilaterally Cardio: COMMON NORMALS: regular rate, regular rhythm, S1 normal heart sound present and S2 normal heart sound present RATE: regular rate RHYTHM: r egular rhythm HEART SOUNDS: S1 normal heart sound present and S2 normal heart sound present GI: COMMON NORMALS: Normal to inspection, nondistended, normoactive bowel sounds present and non-tender Extremity: COMMON NORMALS: no pedal edema Neuro: COMMON NORMALS: patient oriented x3 Psych: COMMON NORMALS: mental status grossly normal Data 11/30/23 04:00 11/30/23 04:00 Micro: Microbiology 11/28/23 05:35 Gram Stain - Final Sputum - Expectorated Sputum Sputum Culture - Final A&P Assessment and plan (1) Acute exacerbation of chronic obstructive airways disease: Admit to med/surg for acute on chronic COPD exacerbation, COVID-19 pneumonia Methylprednisone 40mg iv every 8 hrs duoneb q6h, budesonide q12h scheduled doxycycline [address] angiogram of the chest CT/CT angio chest PE protcl [id number] IMPRESSION: 1. No pulmonary embolism. 2. No pneumonia. 3. Chronic emphysema. 4. Focal bronchiectasis LEFT lower lobe. 5. RIGHT kidney is partially visualized and there does appear to be mild to moderate hydronephrosis. There is also renal atrophy upper pole RIGHT kidney. Recommend follow-up evaluation by renal ultrasound. No prior studies have documented hydronephrosis. Supplemental 02 to keep saturation 90-92%. Currebtly needing 3lpm supplemental 02 (2) Pneumonia due to COVID-19 virus: Plan Full code DVT ppx: lovenox 40 mg s/c q24h PUD ppx: protonix 40mg daily Plan for today continue doxycycline continue steroids, continue breathing treatments, respiratory therapy evaluation, continue with remdesivir Attestations 2 Medical Necessity Statement*: Patient requires hospitalization for COPD exacerbation, COVID-19 pneumonia Diagnoses Acute exacerbation of chronic obstructive airways disease J44.1 Pneumonia due to COVID-19 virus U07.1; J12.82
[2023-11-30] MEDS: remdesivir 100 MG in sodium chloride 0.9% (100 ml) 80 ML IV (16:52)
[2023-11-30] MEDS: enoxaparin 40 mg/0.4 mL Syringe SUBCUT (23:23)
[2023-12-01] VITALS (8 sets, daily range): BP systolic 151–157; BP diastolic 83–87; PULSE 79–94; RESP 16–19; TEMP 36.5–36.7; O2SAT 88–94
[2023-12-01] MEDS: ipratropium-albuterol 3 mL Neb INHALATION ×2 (02:28→08:43)
[2023-12-01 04:26] LABS: Basophils % 0.1 %; Hematocrit 43.9 % (37-53); Lymphocytes # 0.6 10^3/uL (0.8-4.8); Lymphocytes % 4.4 %; Mean Corpuscular HGB Conc 33.7 g/dL (30-55); Mean Platelet Volume 9.5 fL (7.4-10.4); Monocytes # 0.8 10^3/uL (0.2-0.9); Monocytes % 5.8 %; Neutrophils # 12.94 10^3/uL (1.8-7.7); Neutrophils % 88.9 %; Nucleated Red Blood Cells % 0 %; Platelet Count 294 10^3/cmm (157-399); Red Blood Count 4.62 10^6/uL (3.85-5.65); White Blood Count 14.55 10^3/uL (3.29-11.43)
[2023-12-01 04:43] LABS: Anion Gap 16.3 (5-19); Blood Urea Nitrogen 21 mg/dL (8-23); Calcium 8.9 mg/dL (8.5-10.5); Carbon Dioxide 26 mmol/L (22-29); Chloride 97 mmol/L (98-107); Glomerular Filtration Rate 97.3 mL/min (90-130); Glucose 126 mg/dL (65-115); Osmolality Calculated 285 mOsm/kg (285-295); Potassium 4.3 mmol/L (3.5-5.1); Sodium 135 mmol/L (136-145)
[2023-12-01] MEDS: losartan 50 mg Tablet 100 MG PO (05:43)
[2023-12-01] MEDS: amlodipine 10 mg Tablet PO (05:44)
[2023-12-01] MEDS: benzonatate 100 mg Capsule PO (05:48)
[2023-12-01] MEDS: doxycycline 100 mg Tablet PO (08:15)
[2023-12-01] MEDS: pantoprazole DR 40 mg Tablet PO (08:15)
[2023-12-01] MEDS: methylPREDNISolone sod succ 40 mg/mL INJ IVP (08:16)
[2023-12-01] MEDS: budesonide 0.5 mg/2 mL Neb INHALATION (08:43)
--- NOTE | 2023-12-01 09:23 | PC.NURSE ---
This RN charted gastric management and Invasive lines by error. Pt does not have PEG or R chest line.
--- NOTE | 2023-12-01 10:31 | P.DS_ITS ---
Discharge Providers Date of Admission: 11/27/23 20:38 Date of Discharge: December 01, 2023 Attending Provider at Admission: Geovani Ma MD Attending Provider at Discharge: Andi Odell MD Primary Care Provider: Leonora Faustin APN Diagnoses at Discharge Discharge Diagnosis (1) Acute exacerbation of chronic obstructive airways disease: Status: Acute (2) Pneumonia due to COVID-19 virus: Status: Acute Reason for Visit Reason for Visit: Resp Distress Hospital Course Hospital Course Taurus Rhodes is a 63 year old male with past medical history of COPD, tobacco abuse, HTN , on chronic steroids, recently diagnosed with pneumonia for which he was on azithromycin as an outpatient presented to the emergency room today with significant respiratory distress. Upon arrival he had shortness of breath. He was tripoding and was unable to speak in full sentences. significant wheezing. States that his symptoms have acutely worsened over the past 2 days. Patient was admitted to [facility] for acute COPD exacerbation, COVID-19 pneumonia, received steroids, doxycycline, remdesivir, clinically monitored, overall patient's clinical condition improved, remains afebrile, still reports shortness of breath with exertion, but significantly improved. Will be discharged on a prednisone taper with doxycycline, with close follow-up with primary care provider as outpatient. Patient has an appointment with Dr. Madrid January 01, 2024 On discharge I had an extensive discussion with him about smoking cessation, morbidity and mortality associated, risk of worsening COPD, recurrent hospitalizations, risk of infections, CAD, strokes he voiced understanding, all questions answered For patient's renal ultrasound Right kidney: 7.3 cm x 3.6 cm x 4.0 cm. Cortex: 0.6 cm Marked atrophy of the RIGHT kidney with increased echogenicity. Mildly dilated calyces. There is hydronephrosis and there also may be a component of an extrarenal pelvis. -Potentially mild hydronephrosis could be related to BPH as below -Discharged on tamsulosin -Creatinine within normal limits ? Follow-up with nephrology in [place] For patient's BPH Prostate gland is enlarged and heterogeneous. Prostate measures at least 7.4 x 7.4 x 7.5 cm. ? Needs to follow-up with urology for prostate exam, PSA, next ?discharged on tamsulosin Physical Exam Const: COMMON NORMALS: no acute distress and patient oriented x3 Resp: COMMON NORMALS: normal respiratory effort, No retractions, No use of accessory muscles and clear to auscultation bilaterally AUSCULTATION: clear to auscultation bilaterally Cardio: COMMON NORMALS: regular rate, regular rhythm, S1 normal heart sound present and S2 normal heart sound present RATE: regular rate RHYTHM: regular rhythm HEART SOUNDS: S1 normal heart sound present and S2 normal heart sound present GI: COMMON NORMALS: Normal to inspection, nondistended, normoactive bowel sounds present and non-tender Extremity: COMMON NORMALS: no pedal edema Neuro: COMMON NORMALS: patient oriented x3 Psych: COMMON NORMALS: mental status grossly normal Discharge Data Studies Completed and Pending Completed Studies During Hospitalization Category Date Time Status CT angio chest PE protcl [id number] Routine Cat Scan 11/28/23 10:45 Completed XR chest 1V portable [id number] Stat Exams 11/27/23 16:49 Completed US renal BI* [id number] Routine Ultrasound 11/28/23 14:50 Completed Pending at discharge Category Date Time Status Blood Culture Stat Lab 11/27/23 19:38 Results Radiology Impressions Chest X-Ray 11/27/23 16:49 IMPRESSION: COPD changes Chest CTA 11/28/23 10:45 IMPRESSION: 1. No pulmonary embolism. 2. No pneumonia. 3. Chronic emphysema. 4. Focal bronchiectasis LEFT lower lobe. 5. RIGHT kidney is partially visualized and there does appear to be mild to moderate hydronephrosis. There is also renal atrophy upper pole RIGHT kidney. Recommend follow-up evaluation by renal ultrasound. No prior studies have documented hydronephrosis. Renal Ultrasound 11/28/23 14:50 IMPRESSION: 1. Severe renal atrophy and medical renal disease. 2. There is at least mild hydronephrosis. There may be an associated extrarenal pelvis also. 3. LEFT kidney is normal size with no obstruction. Laboratory Results WBC 14.55 10^3/uL (3.29-11.43) H 12/01/23 03:58 RBC 4.62 10^6/uL (3.85-5.65) 12/01/23 03:58 Hgb 14.80 g/dL (11.27-16.99) 12/01/23 03:58 Hct 43.9 % (37-53) 12/01/23 03:58 MCV 95.0 fl (82-101) 12/01/23 03:58 MCH 32.0 pg (27-33) 12/01/23 03:58 MCHC 33.7 g/dL (30-55) 12/01/23 03:58 RDW 14.0 % (12.1-15.1) 12/01/23 03:58 Plt Count 294 10^3/cmm (157-399) 12/01/23 03:58 MPV 9.5 fL (7.4-10.4) 12/01/23 03:58 Neut % (Auto) 88.9 % 12/01/23 03:58 Lymph % (Auto) 4.4 % 12/01/23 03:58 Antelope % (Auto) 5.8 % 12/01/23 03:58 Eos % (Auto) 0.0 % 12/01/23 03:58 Baso % (Auto) 0.1 % 12/01/23 03:58 Neut # (Auto) 12.94 10^3/uL (1.8-7.7) H 12/01/23 03:58 Lymph # (Auto) 0.6 10^3/uL (0.8-4.8) L 12/01/23 03:58 [place] # (Auto) 0.8 10^3/uL (0.2-0.9) 12/01/23 03:58 Eos # (Auto) 0.0 10^3/uL (0.0-0.8) 12/01/23 03:58 Baso # (Auto) 0.0 10^3/uL (0.0-0.1) 12/01/23 03:58 Nucleated RBC % (auto) 0 % 12/01/23 03:58 Nucleated RBCs # 0.0 /100WBC 12/01/23 03:58 Specimen Type Arterial 11/27/23 17:04 Sample Site Radial, left 11/27/23 17:04 ABG pH 7.40 (7.35-7.45) 11/27/23 17:04 ABG pCO2 38.5 mmHg (35-45) 11/27/23 17:04 ABG pO2 74.3 mmHg (80.0-100.0) L 11/27/23 17:04 ABG PO2/FiO2 Ratio 232 11/27/23 17:04 ABG HCO3 23.7 mmol/L (22-26) 11/27/23 17:04 ABG Base Excess -0.9 mmol/L (-2.0-2.0) 11/27/23 17:04 David Test Pos 11/27/23 17:04 Hematocrit 46.5 % (42-52) 11/27/23 17:04 Hgb O2 Saturation 93.5 % (95-100) L 11/27/23 17:04 Carboxyhemoglobin 2.8 %THgb (0.4-20.1) 11/27/23 17:04 Methemoglobin 0.2 % (0.4-1.5) L 11/27/23 17:04 Total Hemoglobin 15.2 g/dL (14-18) 11/27/23 17:04 O2 Delivery Device Nc 11/27/23 17:04 FiO2 32.0 % 11/27/23 17:04 Automatic Blocker ID Cak 11/27/23 17:04 Sodium 135 mmol/L (136-145) L 12/01/23 03:58 Potassium 4.3 mmol/L (3.5-5.1) 12/01/23 03:58 Chloride 97 mmol/L (98-107) L 12/01/23 03:58 Carbon Dioxide 26 mmol/L (22-29) 12/01/23 03:58 Anion Gap 16.3 (5-19) 12/01/23 03:58 BUN 21 mg/dL (8-23) 12/01/23 03:58 Creatinine 0.8 mg/dL (0.7-1.2) 12/01/23 03:58 GFR Calculation 97.3 mL/min (90-130) 12/01/23 03:58 Glucose 126 mg/dL (65-115) H 12/01/23 03:58 Calculated Osmolality 285 mOsm/kg (285-295) 12/01/23 03:58 Calcium 8.9 mg/dL (8.5-10.5) 12/01/23 03:58 Total Bilirubin 0.7 mg/dL (0.15-1.2) 11/28/23 04:55 AST 23 U/L (0-40) 11/28/23 04:55 ALT 30 U/L (0-41) 11/28/23 04:55 Alkaline Phosphatase 68 U/L (40-130) 11/28/23 04:55 NT-Pro-B Natriuret Pep 41 pg/mL (0-125) 11/27/23 17:10 Total Protein 6.9 g/dL (6.6-8.7) 11/28/23 04:55 Albumin 4.2 g/dL (3.5-5.2) 11/28/23 04:55 Globulin 2.7 g/dL (1.3-4.6) 11/28/23 04:55 Procalcitonin 0.09 ng/mL (0-0.5) 11/27/23 17:10 Urine Color Yellow (Yellow) 11/28/23 16:00 Urine Appearance Clear (CLEAR) 11/28/23 16:00 Urine pH 6.0 (5-7) 11/28/23 16:00 Ur Specific [place] 1.023 (1.005-1.030) 11/28/23 16:00 Urine Protein Negative (Negative) 11/28/23 16:00 Urine Glucose (UA) Negative (Normal) 11/28/23 16:00 Urine Ketones Negative (Negative) 11/28/23 16:00 Urine Blood Negative (Negative) 11/28/23 16:00 Urine Nitrate Negative (Negative) 11/28/23 16:00 Urine Bilirubin Negative (Negative) 11/28/23 16:00 Urine Urobilinogen 0.2 mg/dL (Negative) 11/28/23 16:00 Ur Leukocyte Esterase Negative (Negative) 11/28/23 16:00 Urine RBC 0-2 /hpf (0-2) 11/28/23 16:00 Urine WBC 0-5 /hpf (0-5) 11/28/23 16:00 Ur Squamous Epith Cells 0-5 /hpf (0-5) 11/28/23 16:00 Amorphous Sediment Not Reportable 11/28/23 16:00 Urine Bacteria None seen /hpf (NONE) 11/28/23 16:00 Hyaline Casts 1.21 /lpf 11/28/23 16:00 Adenovirus (PCR) Not detected (NOT DETECT) 11/28/23 05:35 C. pneumoniae DNA (PCR) Not detected (NOT DETECT) 11/28/23 05:35 Coronavirus 229E (PCR) Not detected (NOT DETECT) 11/28/23 05:35 Human Metapneumovir PCR Not detected (NOT DETECT) 11/28/23 05:35 Influenza A (H1) PCR Not detected (NOT DETECT) 11/28/23 05:35 Influ A (H1/09) PCR Not detected (NOT DETECT) 11/28/23 05:35 Influenza A (H3) PCR Not detected (NOT DETECT) 11/28/23 05:35 Influenza Type A (PCR) Not detected (NOT DETECT) 11/28/23 05:35 Influenza Type B (PCR) Not detected (NOT DETECT) 11/28/23 05:35 M. pneumoniae (PCR) Not detected (NOT DETECT) 11/28/23 05:35 Parainfluenza 1 (PCR) Not detected (NOT DETECT) 11/28/23 05:35 Parainfluenza 2 (PCR) Not detected (NOT DETECT) 11/28/23 05:35 Parainfluenza 3 (PCR) Not detected (NOT DETECT) 11/28/23 05:35 Parainfluenza 4 (PCR) Not detected (NOT DETECT) 11/28/23 05:35 RSV Type A (PCR) Not detected (NOT DETECT) 11/28/23 05:35 RSV Type B (PCR) Not detected (NOT DETECT) 11/28/23 05:35 Entero/Rhino (PCR) Not detected (NOT DETECT) 11/28/23 05:35 SARS-CoV-2 (PCR) Detected (NOT DETECT) A 11/28/23 05:35 Vitals Last Vital Signs Temp 98.0 F 12/01/23 07:19 Pulse 94 12/01/23 08:52 Resp 18 12/01/23 08:43 BP 157/87 12/01/23 07:19 Pulse Ox 92 12/01/23 08:43 O2 Del Method Room Air 12/01/23 08:43 O2 Flow Rate 2 12/01/23 04:00 Discharge Plan Discharge Patient Disposition: Home Condition: Stable Prescriptions: New benzonatate 100 mg Capsule 100 mg PO TID PRN (Reason: Cough) 7 Days Qty: 21 0RF prednisone 10 mg tablet 10 mg PO DIRECTED Qty: 53 0RF Rx Instructions: 4 tabs a day for 5 days, 3 tabs for 5 days, 2 tabs for 5 days, 1 tab for 5 days,0.5tab for 5 days doxycycline monohydrate 100 mg Tablet 100 mg PO BID 7 Days Qty: 14 0RF tamsulosin [Flomax] 0.4 mg capsule 0.4 mg PO DAILY 30 Days Qty: 30 0RF Continued albuterol sulfate 2.5 mg /3 mL (0.083 %) solution for nebulization 2.5 mg inhalation Q6H PRN (Reason: shortness of breath or wheezing) tiotropium bromide [Spiriva with HandiHaler] 18 mcg capsule, w/inhalation device 1 cap inhalation DAILY Qty: 60 6RF Rx Instructions: puncture 1 cap using device; one dose = 2 inhalations budesonide-formoterol [Symbicort] 160-4.5 mcg/actuation HFA aerosol inhaler 2 puff inhalation BID Qty: 10.2 1RF omega-3 fatty acids 1,000 mg Capsule 1,000 mg PO DAILY cholecalciferol (vitamin D3) [Vitamin D3] 125 mcg (5,000 unit) Tablet 10,000 unit PO DAILY cyanocobalamin (vitamin B-12) [Vitamin B-12] 5,000 mcg Tablet, Sublingual 15,000 mcg PO DAILY amlodipine [Norvasc] 10 mg tablet 10 mg PO QAM albuterol sulfate 90 mcg/actuation HFA aerosol inhaler 2 puff inhalation QID PRN (Reason: Shortness Of Breath) losartan 100 mg tablet 100 mg PO QAM ipratropium-albuterol 0.5 mg-3 mg(2.5 mg base)/3 mL solution for nebulization 3 ml inhalation Q6H PRN (Reason: shortness of breath) Qty: 90 0RF alprazolam 0.5 mg tablet 0.5 mg PO TID PRN (Reason: Anxiety) Discontinued prednisone 10 mg tablet 10 mg PO DAILY Qty: 11 0RF Rx Instructions: 2 tabs x 10 mg = 20 mg x 3 days 1 tab x 10 mg = 10 mg x 5 days Discharge Orders: Discharge Order (Routine); Ordered 12/01/23 Ordered By: Andi Odell Referrals: Saul Rose MD [Referring] - 1 week (Enlarged prostate) Ramin,KOBI Lea [Primary Care Provider] - 1-3 days (Please contact your primary care provider Saturday morning to schedule a hospital follow up appointment within 1 week of discharge.) Hannah Chavarria DO [Referring] - 1 week (mild right hydro nephrosis, renal atrophy) Discharge Diet: Cardiac Discharge Activity: Resume usual activity Patient Instructions: Benzonatate (By mouth), Doxycycline (By mouth), Predni sone (By mouth), Tamsulosin (By mouth), Using Oxygen at Home (GEN), Opioid Safety, Pain Management Activity Restrictions/Additional Instructions: - Please stop smoking -Please take steroids as prescribed -Please take antibiotics as prescribed ? Please follow-up with nephrology, for renal atrophy, mild hydronephrosis right kidney -For your BPH, please follow-up with urology Discharge Attestations Time Spent in Discharge Care*: greater than 30 min Time Spent in Smoking Cessation: more than 10 minutes Status at Discharge: Cognitive status at discharge: cognitively intact , Behavioral status at discharge: cooperative , Quality Metrics Clinical Quality Measures [ No reported AMI, CVA or VTE this stay] Coding Level of Care Code 90041 Total time (in minutes) for Discharge: 45 Diagnoses Acute exacerbation of chronic obstructive airways disease J44.1 Pneumonia due to COVID-19 virus U07.1; J12.82
--- NOTE | 2023-12-01 12:05 | PC.NURSE ---
D/C pending delivery of home O2 from [facility].
== END 2023-12-01 12:42 | disposition home or self-care (01) | DRG 177 ==
LOC: ER 20:25 → MEDSURG 20:39
PROVIDERS: Student in an Organized Health Care Education/Training Program; Admitting Provider Student in an Organized Health Care Education/Training Program; Emergency Provider Emergency Medicine; PCP Nurse Practitioner Family; Visit Provider Family Medicine
DX: U07.1 COVID-19 (principal); J12.82 Pneumonia due to coronavirus disease 2019; J44.1 Chronic obstructive pulmonary disease with (acute) exacerbation; J43.9 Emphysema, unspecified; F17.210 Nicotine dependence, cigarettes, uncomplicated; I10 Essential (primary) hypertension; E78.2 Mixed hyperlipidemia; Z79.52 Long term (current) use of systemic steroids; Z87.01 Personal history of pneumonia (recurrent); Z98.1 Arthrodesis status
CPT/HCPCS: 36415; 36600; 71045; 71275; 76770; 80048; 80053; 81003; 81015; 82805; 83880; 84145; 85025; 87040; 87070; 87150; 87205; 87486; 87581; 87633; 93005; 94640; 94760; 96365; 96372; 96375; 99285; J0248; J0456; J0696; J1650; J2919; J7050; J7613; J7626; Q9967

== ENCOUNTER 2024-03-18 09:27 | Inpatient (IN) | payer MEDICARE, SELFPAY ==
[2024-03-18] VITALS (82 sets, daily range): BP systolic 118–161; BP diastolic 80–112; PULSE 80–114; RESP 17–37; TEMP 36.4–36.8; O2SAT 86–98; BMI 21.9; BMI 21.4
--- NOTE | 2024-03-18 09:39 | XRR_ITS ---
PROCEDURE INFORMATION: Exam: XR Chest Exam date and time: 03/18/2024 10:14 AM Age: 64 years old Clinical indication: Shortness of breath; Additional info: SOB TECHNIQUE: Imaging protocol: Radiologic exam of the chest. Views: 1 view. COMPARISON: CT angio chest PE protcl [id number] 11/28/2023 11:56 AM FINDINGS: Lungs: COPD changes. No focal consolidation. Pleural spaces: Unremarkable. No pleural effusion. No pneumothorax. Heart/Mediastinum: Unremarkable. No cardiomegaly. Bones/joints: Diffuse degenerative change of the visualized osseous structures. XR/XR chest 1V portable [id number] IMPRESSION: COPD changes without focal consolidation or acute cardiopulmonary findings.
--- NOTE | 2024-03-18 09:39 | ED_ITS ---
HPI - SOB/Dyspnea 2 General: Chief Complaint: Shortness of Breath/Dyspnea Stated Complaint: Sob Time Seen by Provider: 03/18/24 09:34 Source: patient Mode of arrival: ambulatory Limitations: no limitations History of Present Illness: HPI Narrative: 64-year-old male has a history of COPD s tates he had increasing shortness of breath over the last 2 days. He does have wheezing here he states that he wears 2 L oxygen at baseline he has had to turn his up to 3-4 he is in the 80s here on 2 L denies any cough denies any vomiting diarrhea Associated symptoms: Deny abdominal pain, chest pain, fever(s), nausea or vomiting Related Data Home Medications Medication Instructions Recorded Confirmed albuterol sulfate 90 mcg/actuation 2 puff inhalation QID PRN 03/20/22 03/18/24 aerosol inhaler Shortness Of Breath amlodipine 10 mg tablet (Norvasc) 10 mg PO QAM 03/20/22 03/18/24 cholecalciferol (vitamin D3) 125 10,000 unit PO DAILY 03/20/22 03/18/24 mcg (5,000 unit) tablet (Vitamin D3) cyanocobalamin (vitamin B-12) 15,000 mcg PO DAILY 03/20/22 03/18/24 5,000 mcg sublingual tablet (Vitamin B-12) losartan 100 mg tablet 100 mg PO QAM 03/20/22 03/18/24 omega-3 fatty acids 1,000 mg 1,000 mg PO DAILY 03/20/22 03/18/24 capsule alprazolam 0.5 mg tablet 0.5 mg PO TID PRN Anxiety 11/27/23 03/18/24 levofloxacin 500 mg tablet 500 mg PO DAILY 03/18/24 03/18/24 metoprolol succinate 25 mg 25 mg PO QPM 03/18/24 03/18/24 tablet,extended release 24 hr prednisone 20 mg tablet See Rx Instructions .Route .COMPLEX 03/18/24 03/18/24 Previous Rx's Medication Instructions Recorded ipratropium 0.5 mg-albuterol 3 mg 3 ml inhalation Q6H PRN shortness 03/22/22 (2.5 mg base)/3 mL nebulization of breath #90 mL soln budesonide-formoterol HFA 160 2 puff inhalation BID #10.2 grams 12/27/23 mcg-4.5 mcg/actuation aerosol inhaler (Symbicort) tiotropium bromide 18 mcg capsule 1 cap inhalation DAILY #60 12/27/23 with inhalation device (Spiriva inhalations with HandiHaler) Allergies Allergy/AdvReac Type Severity Reaction Status Date / Time No Known Allergies Allergy Verified 11/27/23 17:01 Review of Systems 2 Const: Denies: fever(s), chills, body aches or change in appetite ENMT: Denies: throat pain or dental pain Card: Denies: chest pain Resp: Reports: dyspnea, non-productive cough and wheezing GI: Denies: abdominal pain, nausea, vomiting or diarrhea Musc: Denies: neck pain or back pain Skin/Breast: Denies: rash Neuro: Denies: headache(s) PFSH ED 2 PFSH: Medical History Noncompliance w/medication treatment due to intermit use of medication Mixed hyperlipidemia Essential hypertension Chronic obstructive pulmonary emphysema Severe COPD, not oxygen dependent Surgical History History of inguinal hernia repair Left History of lumbar discectomy 2005 Family History Other Hypertension Stroke Social History Smoking and tobacco/nicotine status: current every day tobacco/nicotine user cigarettes Packs smoked per day: 2 Years cigarettes smoked: 53 [ Other cigarette details: 5-6 cigarettes daily ] Second hand smoke exposure: Yes Alcohol intake: never Substance/Drug Use: never Adopted: No Caregiver/support person: No Lives independently: Yes Household members: spouse Housing: House Marital status: Number of children: 2 Current occupational status: employed Do you think of yourself as: Straight/Heterosexual Current gender identity: Male Physical Exam 2 Const: COMMON NORMALS: patient oriented x3 HENMT: COMMON NORMALS: normocephalic and atraumatic HEAD & SCALP: n ormocephalic and atraumatic Neck/C-Spine: COMMON NORMALS: full ROM and supple Chest: COMMONS NORMALS: normal inspection of the chest Resp: COMMON NORMALS: No retractions and No use of accessory muscles EFFORT & INSPECTION: Yes tachypneic and Yes respiratory distress AUSCULTATION: w heezes Cardio: COMMON NORMALS: regular rate, regular rhythm and No murmurs present (Cardio) RATE: regular rate RHYTHM: regular rhythm GI: COMMON NORMALS: Normal to inspection, nondistended, normoactive bowel sounds present, Soft to palpation, non-tender and no masses PALPATION: Yes Soft to palpation Extremity: COMMON NORMALS: normal to inspection and full ROM Neuro: COMMON NORMALS: patient oriented x3, moves all extremities and no focal motor deficits Psych: COMMON NORMALS: mental status grossly normal, Normal thought process present and cooperative THOUGHT PROCESS: Normal thought process present Skin: COMMON NORMALS: no rashes or lesions noted and no wounds GENERAL SKIN EXAM: no rashes or lesions noted Course 2 Vital Signs: Vital signs: Vital Signs Temperature 98.3 F 03/18/24 09:33 Pulse Rate 87 03/18/24 11:10 Respiratory Rate 20 H 03/18/24 11:10 Blood Pressure 132/88 03/18/24 11:10 Pulse Oximetry 96 03/18/24 11:10 Oxygen Delivery Me thod Nasal Cannula 03/18/24 09:53 Oxygen Flow Rate 2 03/18/24 09:53 MDM - SOB/Dyspnea Medical Decision Making Patient presents for COPD exacerbation he is improved after breathing treatment but still requiring 3 L of oxygen I spoke to the hospitalist will admit at this time. No signs of pneumonia or pulm embolism Medical Records I reviewed the patient's medical records. Lab Data I reviewed the patient's lab results. 03/18/24 09:38 03/18/24 10:04 Labs/Radiology: Radiology Impressions Chest X-Ray 03/18/24 09:39 IMPRESSION: COPD changes without focal consolidation or acute cardiopulmonary findings. Laboratory Results WBC 11.09 10^3/uL (3.29-11.43) 03/18/24 09:38 RBC 4.81 10^6/uL (3.85-5.65) 03/18/24 09:38 Hgb 14.80 g/dL (11.27-16.99) 03/18/24 09:38 Hct 45.2 % (37-53) 03/18/24 09:38 MCV 94.0 fl (82-101) 03/18/24 09:38 MCH 30.8 pg (27-33) 03/18/24 09:38 MCHC 32.7 g/dL (30-55) 03/18/24 09:38 RDW 15.0 % (12.1-15.1) 03/18/24 09:38 Plt Count 258 10^3/cmm (157-399) 03/18/24 09:38 MPV 9.6 fL (7.4-10.4) 03/18/24 09:38 Neut % (Auto) 77.4 % 03/18/24 09:38 Lymph % (Auto) 9.0 % 03/18/24 09:38 [place] % (Auto) 5.0 % 03/18/24 09:38 Eos % (Auto) 6.4 % 03/18/24 09:38 Baso % (Auto) 1.7 % 03/18/24 09:38 Neut # (Auto) 8.58 10^3/uL (1.8-7.7) H 03/18/24 09:38 Lymph # (Auto) 1.0 10^3/uL (0.8-4.8) 03/18/24 09:38 [place] # (Auto) 0.6 10^3/uL (0.2-0.9) 03/18/24 09:38 Eos # (Auto) 0.7 10^3/uL (0.0-0.8) 03/18/24 09:38 Baso # (Auto) 0.2 10^3/uL (0.0-0.1) H 03/18/24 09:38 Nucleated RBC % (auto) 0 % 03/18/24 09:38 Nucleated RBCs # 0.0 /100WBC 03/18/24 09:38 Sodium 133 mmol/L (136-145) L 03/18/24 10:04 Potassium 4.3 mmol/L (3.5-5.1) 03/18/24 10:04 Chloride 99 mmol/L (98-107) 03/18/24 10:04 Carbon Dioxide 22 mmol/L (22-29) 03/18/24 10:04 Anion Gap 16.3 (5-19) 03/18/24 10:04 BUN 12 mg/dL (8-23) 03/18/24 10:04 Creatinine 0.6 mg/dL (0.7-1.2) L 03/18/24 10:04 GFR Calculation 135.2 mL/min (90-130) H 03/18/24 10:04 Glucose 104 mg/dL (65-115) 03/18/24 10:04 Calculated Osmolality 276 mOsm/kg (285-295) L 03/18/24 10:04 Calcium 9.2 mg/dL (8.5-10.5) 03/18/24 10:04 Total Bilirubin 0.5 mg/dL (0.15-1.2) 03/18/24 10:04 AST 20 U/L (0-40) 03/18/24 10:04 ALT 20 U/L (0-41) 03/18/24 10:04 Alkaline Phosphatase 70 U/L (40-130) 03/18/24 10:04 NT-Pro-B Natriuret Pep < 36 pg/mL (0-125) 03/18/24 10:04 Total Protein 6.6 g/dL (6.6-8.7) 03/18/24 10:04 Albumin 4.3 g/dL (3.5-5.2) 03/18/24 10:04 Globulin 2.3 g/dL (1.3-4.6) 03/18/24 10:04 All radiology interpretation(s) finalized by discharge EKG Data EKG 1: I personally reviewed and interpreted this EKG as follows: EKG Interpretation Date: 03/18/24 EKG interpretation time: 09:33 Interpretation: nsr hr [address] or t wave abnormalities qrs 15 qtc 408 Discharge Plan Discharge Patient Disposition: Admitted As Inpatient Clinical Impression: Acute exacerbation of chronic obstructive airways disease Condition: Stable Prescriptions: No Action budesonide-formoterol [Symbicort] 160-4.5 mcg/actuation HFA aerosol inhaler 2 puff inhalation BID Qty: 10.2 6RF tiotropium bromide [Spiriva with HandiHaler] 18 mcg capsule, w/inhalation device 1 cap inhalation DAILY Qty: 60 6RF Rx Instructions: puncture 1 cap using device; one dose = 2 inhalations omega-3 fatty acids 1,000 mg Capsule 1,000 mg PO DAILY cholecalciferol (vitamin D3) [Vitamin D3] 125 mcg (5,000 unit) Tablet 10,000 unit PO DAILY cyanocobalamin (vitamin B-12) [Vitamin B-12] 5,000 mcg Tablet, Sublingual 15,000 mcg PO DAILY amlodipine [Norvasc] 10 mg tablet 10 mg PO QAM albuterol sulfate 90 mcg/actuation HFA aerosol inhaler 2 puff inhalation QID PRN (Reason: Shortness Of Breath) losartan 100 mg tablet 100 mg PO QAM ipratropium-albuterol 0.5 mg-3 mg(2.5 mg base)/3 mL solution for nebulization 3 ml inhalation Q6H PRN (Reason: shortness of breath) Qty: 90 0RF alprazolam 0.5 mg tablet 0.5 mg PO TID PRN (Reason: Anxiety) prednisone 20 mg tablet See Rx Instructions .ROUTE .COMPLEX Rx Instructions: TAKE 2 TABLETS BY MOUTH ONCE DAILY FOR 5 DAYS THEN 1 ONCE DAILY FOR 5 DAYS levofloxacin 500 mg tablet 500 mg PO DAILY metoprolol succinate 25 mg tablet extended release 24 hr 25 mg PO QPM Rx Instructions: TAKE 1 TABLET BY MOUTH ONCE DAILY WITH EVENING MEAL Referrals: Leonora Faustin APN [Primary Care Provider] - Coding Level of Care Code ED Reinforcing Rod Layer for Ale Major
--- NOTE | 2024-03-18 09:39 | PC.NURSE ---
PATIENT PLACED ON 3 L NC FOR COMFORT.
[2024-03-18] MEDS: ipratropium-albuterol 3 mL Neb INHALATION ×4 (09:50→20:27)
[2024-03-18] MEDS: albuterol 2.5 mg/3 mL Neb INHALATION (09:50)
[2024-03-18 09:55] LABS: Basophils # 0.2 10^3/uL (0.0-0.1); Basophils % 1.7 %; Eosinophils # 0.7 10^3/uL (0.0-0.8); Eosinophils % 6.4 %; Hematocrit 45.2 % (37-53); Mean Corpuscular HGB Conc 32.7 g/dL (30-55); Mean Corpuscular Hemoglobin 30.8 pg (27-33); Mean Platelet Volume 9.6 fL (7.4-10.4); Monocytes # 0.6 10^3/uL (0.2-0.9); Neutrophils # 8.58 10^3/uL (1.8-7.7); Neutrophils % 77.4 %; Nucleated Red Blood Cells % 0 %; Platelet Count 258 10^3/cmm (157-399); Red Blood Count 4.81 10^6/uL (3.85-5.65); White Blood Count 11.09 10^3/uL (3.29-11.43)
[2024-03-18] MEDS: methylPREDNISolone sod succ 125 mg/2 mL INJ IV (10:18)
[2024-03-18 10:39] LABS: Alanine Aminotransferase 20 U/L (0-41); Albumin Level 4.3 g/dL (3.5-5.2); Alkaline Phosphatase 70 U/L (40-130); Anion Gap 16.3 (5-19); Aspartate Amino Transferase 20 U/L (0-40); Blood Urea Nitrogen 12 mg/dL (8-23); Calcium 9.2 mg/dL (8.5-10.5); Carbon Dioxide 22 mmol/L (22-29); Chloride 99 mmol/L (98-107); Creatinine Clr Calc Pharmacy 84.7151; Globulin 2.3 g/dL (1.3-4.6); Glomerular Filtration Rate 135.2 mL/min (90-130); Glucose 104 mg/dL (65-115); NT Pro B Type Natriuretic Pept < 36 pg/mL (0-125); Osmolality Calculated 276 mOsm/kg (285-295); Potassium 4.3 mmol/L (3.5-5.1); Sodium 133 mmol/L (136-145); Total Bilirubin 0.5 mg/dL (0.15-1.2); Total Protein 6.6 g/dL (6.6-8.7)
--- NOTE | 2024-03-18 10:57 | ECG_ITS ---
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 Measurements Intervals [place] Rate: 87 P: 86 VA: 165 QRS: 25 QRSD: 105 T: 81 QT: 364 QTc: 438 Interpretive Statements SINUS RHYTHM INDETERMINATE AXIS INCOMPLETE RIGHT BUNDLE BRANCH BLOCK [90+ ms QRS DURATION, TERMINAL R IN V1/V2, 40+ ms S IN I/aVL/V4/V5/V6] Compared to ECG 11/27/2023 16:53:55 Myocardial infarct finding no longer present Electronically Signed On 03-18-2024 18:53:56 PARKING RAMP ATTENDANT by Alexa De La Garza M.D. [email or web address]
--- NOTE | 2024-03-18 11:12 | PC.NURSE ---
family refused covid swab states 'he wont do that dont even wake him up'. provider notified.
--- NOTE | 2024-03-18 11:34 | PC.NURSE ---
Ambulated pt down ED hallway from room 16 to the bathroom and back to room 16 pt was on 2L in the room and no O2 was used during ambulation . Pt tolerated ambulating well with no. pulse ox read high 80's once back in bed with no O2
[2024-03-18 14:24] LABS: Procalcitonin 0.05 ng/mL (0-0.5)
--- NOTE | 2024-03-18 15:27 | P.HP_ITS ---
Providers/Chief Complaint 2 Admitting Physician: Geovani Ma MD Primary Care Provider: Leonora Faustin APN Chief Complaint: Sob History of Present Illness Taurus Rhodes is a 64 year old male with past medical history of hypertension, COPD, current smoker, hyperlipidemia presents to the ER today because of worsening difficulty in breathing since Saturday. Today is Saturday. Overnight patient had increasing difficulty in breathing not resolving completely with nebulization. In the ER patient was in respiratory distress requiring nebulization treatment along with 125 of Solu-Medrol. On examination patient was sitting in tripod position at the edge of the bed on 2 L of supplementation complaining of difficulty in breathing. Family at bedside. Review of Systems 2 General: Reports: 10 or more systems reviewed and unremarkable except in HPI and below Const: Denies: fever(s), chills, body aches, change in appetite, change in weight, malaise, night sweats, diaphoresis, change in sleep pattern, daytime sleepiness or snoring Eyes: Denies: change in vision, blurry vision, photophobia, eye discomfort or eye discharge ENMT: Denies: throat pain, enlarged tonsils, hoarseness, mouth pain, oral sores, dry mouth, tinnitus, nasal congestion or post nasal drip Card: Denies: chest pain, palpitations, irregular heart rhythm, edema, swelling of feet/ankles, lightheadedness, syncope, pre-syncope, dyspnea on exertion, orthopnea, leg pain with exertion or acrocyanosis Resp: Denies: dyspnea, productive cough, non-productive cough, wheezing, stridor, pain on inspiration, change in phlegm color, hemoptysis or chest congestion GI: Denies: abdominal pain, nausea, vomiting, hematemesis, coffee ground emesis, dysphagia, heartburn, diarrhea, constipation, bloating, GI cramping, change in bowel habits, pain on defecation, hematochezia or melena : Denies: flank pain, difficulty urinating, dysuria, urinary frequency, urinary urgency, urinary hesitancy, urinary dribbling, difficulty starting urination, change in urine stream, nocturia or hematuria Musc: Denies: neck pain, back pain, extremity pain, joint pain, joint swelling, joint redness, joint stiffness or limited range of motion Neuro: Denies: headache(s), numbness in extremities, weakness in extremities, sensory changes, lack of coordination, difficulty walking, frequent falls, dizziness, vertigo, confusion, Slurred speech present, difficulty communicating thoughts or seizure-like activity Psych: Denies: anxiety, depression, mood swings, panic attacks, hopelessness or irritability Endo: Denies: polyuria, polydipsia, tired all the time, cold intolerance, excessive sweating, flushing or heat intolerance [place]o/Lymph: Denies: easy bruising or easy bleeding All/Imm: Denies: tongue swelling, facial swelling or acute wheezing Medications/Allergies Home Medications Medication Instructions Recorded Confirmed Last Taken Type albuterol sulfate 90 mcg/actuation 2 puff inhalation QID PRN 03/20/22 03/18/24 03/18/24 History aerosol inhaler Shortness Of Breath amlodipine 10 mg tablet (Norvasc) 10 mg PO QAM 03/20/22 03/18/24 03/17/24 History cholecalciferol (vitamin D3) 125 10,000 unit PO DAILY 03/20/22 03/18/24 11/27/23 History mcg (5,000 unit) tablet (Vitamin D3) cyanocobalamin (vitamin B-12) 15,000 mcg PO DAILY 03/20/22 03/18/24 11/27/23 History 5,000 mcg sublingual tablet (Vitamin B-12) losartan 100 mg tablet 100 mg PO QAM 03/20/22 03/18/24 03/17/24 History omega-3 fatty acids 1,000 mg 1,000 mg PO DAILY 03/20/22 03/18/24 11/27/23 History capsule ipratropium 0.5 mg-albuterol 3 mg 3 ml inhalation Q6H PRN shortness 03/22/22 03/18/24 03/18/24 04:00 Rx (2.5 mg base)/3 mL nebulization of breath #90 mL soln alprazolam 0.5 mg tablet 0.5 mg PO TID PRN Anxiety 11/27/23 03/18/24 03/17/24 History budesonide-formoterol HFA 160 2 puff inhalation BID #10.2 grams 12/27/23 03/18/24 03/17/24 Rx mcg-4.5 mcg/actuation aerosol inhaler (Symbicort) tiotropium bromide 18 mcg capsule 1 cap inhalation DAILY #60 12/27/23 03/18/24 03/17/24 Rx with inhalation device (Spiriva inhalations with HandiHaler) levofloxacin 500 mg tablet 500 mg PO DAILY 03/18/24 03/18/24 Unknown History metoprolol succinate 25 mg 25 mg PO QPM 03/18/24 03/18/24 03/17/24 History tablet,extended release 24 hr prednisone 20 mg tablet See Rx Instructions .Route .COMPLEX 03/18/24 03/18/24 Unknown History Allergies Allergy/AdvReac Type Severity Reaction Status Date / Time No Known Allergies Allergy Verified 11/27/23 17:01 PFSH Acute 2 PFSH: Medical History (Updated 03/18/24 @ 15:30 by Geovani Ma MD) Essential hypertension Noncompliance w/medication treatment due to intermit use of medication Mixed hyperlipidemia Chronic obstructive pulmonary emphysema Severe COPD, not oxygen dependent Surgical History History of inguinal hernia repair Left History of lumbar discectomy 2004 Family History Other Hypertension Stroke Social History Smoking and tobacco/nicotine status: current every day tobacco/nicotine user cigarettes Packs smoked per day: 2 Years cigarettes smoked: 53 [ Other cigarette details: 5-6 cigarettes daily ] Second hand smoke exposure: Yes Alcohol intake: never Substance/Drug Use: never Adopted: No Caregiver/support person: No Lives independently: Yes Household members: spouse Housing: House Marital status: Number of children: 2 Current occupational status: employed Do you think of yourself as: Straight/Heterosexual Current gender identity: Male Vitals/I&O/Wt Last Vital Signs Temp 98.3 F 03/18/24 09:33 Pulse 99 03/18/24 15:16 Resp 28 H 03/18/24 15:05 BP 139/89 03/18/24 15:16 Pulse Ox 93 03/18/24 15:16 O2 Del Method Nasal Cannula 03/18/24 09:53 O2 Flow Rate 2 03/18/24 09:53 Weight last 48 hrs Weight 63.503 kg Physical Exam 2 Narrative: General: No acute distress, AO x3, in respiratory distress, tripoding, nasal cannula HEENT: PERRLA, pupils bilaterally equal and reactive Chest: Bronchial breath sounds all over lung johnson, inspiratory and expiratory wheeze present CVS: S1-S2 regular, no murmurs, no tachycardia, no gallops, no rubs Abdomen: Soft, nontender, no organomegaly, bowel sounds present Neuro: No focal deficits, no facial deformity, AO x3, power 5/5 in all limbs Data 03/18/24 09:38 03/18/24 10:04 A&P Assessment and plan (1) Acute hypoxic respiratory failure: In setting of COPD exacerbation. Currently in respiratory failure. For supplementation keeping saturation over 90%. Will request for stat nebulization. IV magnesium 1 g stat. Solu-Medrol 40 mg Q6 hourly, DuoNeb every 4 hour, Pulmicort twice daily. Appreciate chest x-ray. No concern for consolidation for now. Pneumonia less likely. Check MRSA swab, viral panel, procalcitonin. Azithromycin 5 mg oral daily for now. (2) Chronic obstructive pulmonary emphysema: Qualifiers: Emphysema type: centrilobular Qualified Code(s): J43.2 - Centrilobular emphysema (3) Anxiety: Continue with home medication of Xanax as needed. (4) Mixed hyperlipidemia: (5) Essential hypertension: Plan Hypertension: Goal blood pressure less than 140/90 mmHg. Continue with home dose of amlodipine, metoprolol for now. Holding off on losartan for now. CODE STATUS: Discussed related with patient. Full code. Cardiac diet Protonix OPD prophylaxis Heparin 5000 Q12 for DVT prophylaxis. Attestations 2 Medical Necessity Statement*: Admission for more than 2 midnights for management of respiratory failure in setting of COPD exacerbation Diagnoses Acute hypoxic respiratory failure J96.01 Centrilobular emphysema J43.2 Emphysema type: centrilobular Anxiety F41.9 Mixed hyperlipidemia E78.2 Essential hypertension I10
[2024-03-18] MEDS: albuterol 2.5 mg/3 mL Neb 5 MG INHALATION (15:52)
[2024-03-18 16:10] LABS: D Dimer 0.47 ug/mLFEU (0-0.59)
[2024-03-18] MEDS: methylPREDNISolone sod succ 40 mg/mL INJ IVP ×2 (16:12→20:48)
[2024-03-18] MEDS: magnesium sulfate premix 1 GM/100 ML PIGGYBACK IV (16:13)
[2024-03-18] MEDS: enoxaparin 40 mg/0.4 mL Syringe SUBCUT (16:13)
--- NOTE | 2024-03-18 16:27 | PC.NURSE ---
Patient refused to have SCDs on due to ambulatory independently
[2024-03-18 16:43] LABS: Iron 63 ug/dL (59-158); Percent Saturation 22.9 % (20-50); Thyroid Stimulating Hormone 0.76 uIU/mL (0.27-4.20); Total Iron Binding Capacity 274 mcg/dl; Unsaturated Iron Binding 211 ug/dL (112-347)
[2024-03-18 16:58] LABS: Bilirubin Urine Negative (Negative); Blood Urine Negative (Negative); Glucose Urine UA Negative (Normal); Ketones Urine Negative (Negative); Leukocyte Esterase Urine Negative (Negative); Nitrate Urine Negative (Negative); Protein Urine Negative (Negative); Specific Gravity, Urine 1.013 (1.005-1.030); Urine Appearance Clear (CLEAR); Urine Color Yellow (Yellow); Urobilinogen Urine 0.2 mg/dL (Negative); pH Urine 6.5 (5-7)
[2024-03-18 17:04] LABS: Add Urine Microscopic? YES; Bacteria Urine None Seen /hpf; Hyaline Casts Urine 0-4 /lpf; RBC Urine 0-2 /hpf (0-2); Squamous Epithelial Cell Urine 0-5 /hpf (0-5); WBC Urine 0-5 /hpf (0-5)
[2024-03-18 17:05] LABS: Amphetamines Screen Urine Negative (Negative); Barbiturates Screen Urine Negative (Negative); Benzodiazepines Screen Urine Positive (Negative); Cocaine Screen Urine Negative (Negative); Opiate Screen Urine Negative (Negative); PCP Screen Urine Negative (Negative); THC Screen Urine Negative (Negative)
[2024-03-18] MEDS: metoprolol succinate ER (24 HR) 25 mg Tablet PO (17:54)
[2024-03-18 19:25] LABS: Vitamin B12 > 2000 pg/mL (232-1245)
[2024-03-18] MEDS: budesonide 0.5 mg/2 mL Neb INHALATION (20:26)
[2024-03-18 20:40] LABS: Adenovirus Not Detected (NOT DETECT); Chlamydia Pneumoniae Not Detected (NOT DETECT); Coronavirus 229E,HKU1,NL63,OC4 Not Detected (NOT DETECT); Human Metapneumovirus Not Detected (NOT DETECT); Human Rhinovirus/Enterovirus Not Detected (NOT DETECT); Influenza A Not Detected (NOT DETECT); Influenza A H1 Not Detected (NOT DETECT); Influenza A H1-2009 Not Detected (NOT DETECT); Influenza A H3 Not Detected (NOT DETECT); Influenza B Not Detected (NOT DETECT); Mycoplasma Pneumoniae Not Detected (NOT DETECT); Parainfluenza Virus Type 1 Not Detected (NOT DETECT); Parainfluenza Virus Type 2 Not Detected (NOT DETECT); Parainfluenza Virus Type 3 Not Detected (NOT DETECT); Parainfluenza Virus Type 4 Not Detected (NOT DETECT); Respiratory Syncytial Virus A Not Detected (NOT DETECT); Respiratory Syncytial Virus B Not Detected (NOT DETECT); SARS-COV-2 Not Detected (NOT DETECT)
[2024-03-18] MEDS: nicotine 21 mg Patch 1 PATCH TRANSDERMA (20:48)
[2024-03-19] VITALS (17 sets, daily range): BP systolic 123–147; BP diastolic 78–87; PULSE 83–105; RESP 17–23; TEMP 36.3–36.8; O2SAT 92–97
[2024-03-19] MEDS: ipratropium-albuterol 3 mL Neb INHALATION ×5 (02:24→20:38)
[2024-03-19] MEDS: methylPREDNISolone sod succ 40 mg/mL INJ IVP ×4 (03:11→23:45)
[2024-03-19 04:44] LABS: Basophils % 0.1 %; Hematocrit 40.6 % (37-53); Lymphocytes # 0.8 10^3/uL (0.8-4.8); Lymphocytes % 5.6 %; Mean Corpuscular HGB Conc 32.8 g/dL (30-55); Mean Corpuscular Hemoglobin 30.7 pg (27-33); Mean Corpuscular Volume 93.8 fl (82-101); Mean Platelet Volume 9.8 fL (7.4-10.4); Monocytes # 0.6 10^3/uL (0.2-0.9); Monocytes % 3.8 %; Neutrophils # 13.12 10^3/uL (1.8-7.7); Nucleated Red Blood Cells % 0 %; Platelet Count 262 10^3/cmm (157-399); Red Blood Count 4.33 10^6/uL (3.85-5.65); Red Cell Distribution Width 12.9 % (12.1-15.1); White Blood Count 14.58 10^3/uL (3.29-11.43)
[2024-03-19 04:56] LABS: Estmated Average Glucose 100; Hemoglobin A1C 5.1 % (4.0-6.0)
[2024-03-19 05:07] LABS: Alanine Aminotransferase 18 U/L (0-41); Albumin Level 4.2 g/dL (3.5-5.2); Alkaline Phosphatase 66 U/L (40-130); Anion Gap 16.7 (5-19); Aspartate Amino Transferase 20 U/L (0-40); Blood Urea Nitrogen 21 mg/dL (8-23); Calcium 9.1 mg/dL (8.5-10.5); Carbon Dioxide 25 mmol/L (22-29); Chloride 95 mmol/L (98-107); Creatinine Clr Calc Pharmacy 75.1551; Globulin 2.4 g/dL (1.3-4.6); Glomerular Filtration Rate 84.7 mL/min (90-130); Glucose 138 mg/dL (65-115); Magnesium 2.1 mg/dL (1.7-2.3); Osmolality Calculated 279 mOsm/kg (285-295); Phosphorus 2.3 mg/dL (2.5-4.5); Potassium 4.7 mmol/L (3.5-5.1); Sodium 132 mmol/L (136-145); Total Bilirubin 0.6 mg/dL (0.15-1.2); Total Protein 6.6 g/dL (6.6-8.7)
[2024-03-19 05:10] LABS: Chol HDL Ratio 2.34 mg/dL (1.0-5.00); Cholesterol 187 mg/dL (0-200); HDL Cholesterol 80 mg/dL (60-100); LDL Cholesterol Calculated 97 mg/dL (50-129); LDL HDL Ratio 1.21 RATIO (0.00-3.22); Triglycerides 51 mg/dL (0-150)
[2024-03-19 05:13] LABS: Procalcitonin 0.04 ng/mL (0-0.5)
[2024-03-19] MEDS: amlodipine 10 mg Tablet PO (05:13)
[2024-03-19 06:35] LABS: Folate Level 7.8 ng/mL (4.5-32.2)
[2024-03-19] MEDS: budesonide 0.5 mg/2 mL Neb INHALATION ×2 (08:08→20:38)
[2024-03-19] MEDS: ALPRAZolam 0.5 mg Tablet PO ×2 (08:52→20:21)
[2024-03-19] MEDS: pantoprazole DR 40 mg Tablet PO (08:52)
[2024-03-19] MEDS: acetaminophen 325 mg Tablet 650 MG PO (08:52)
--- NOTE | 2024-03-19 13:23 | P.PN_ITS ---
Subjective 2 Subjective: No acute vents overnight. Today morning examination seen with family at bedside. Patient states he is feeling a lot better since yesterday but still not back to his baseline. Has not had any further episodes of distress since admission. States he is able to bring up phlegm more easily now. Vitals/I&O/Wt Last Vital Signs Temp 98.1 F 03/19/24 11:35 Pulse 100 03/19/24 11:35 Resp 20 H 03/19/24 11:35 BP 133/78 03/19/24 11:35 Pulse Ox 92 03/19/24 11:35 O2 Del Method Nasal Cannula 03/19/24 11:35 O2 Flow Rate 2 03/19/24 11:29 FiO2 30 03/18/24 15:30 03/18/24 03/19/24 03/19/24 22:59 06:59 14:59 Intake Total 460 / 460 1500 / 1960 610 / 610 Output Total 450 / 450 Balance 1500 / 1510 610 / 610 Weight last 48 hrs Weight 63.73 kg Weight 63.185 kg Weight 61.915 kg Weight 63.503 kg Physical Exam 2 Narrative: General: No acute distress, AO x3, on nasal cannula, respiratory distress resolved for now. HEENT: PERRLA, pupils bilaterally equal and reactive Chest: Bronchial breath sounds all over lung johnson, expiratory wheeze present. Inspiratory wheeze less today. CVS: S1-S2 regular, no murmurs, no tachycardia, no gallops, no rubs Abdomen: Soft, nontender, no organomegaly, bowel sounds present Neuro: No focal deficits, no facial deformity, AO x3, power 5/5 in all limbs Data 03/19/24 04:13 03/19/24 04:13 Micro: Microbiology 03/19/24 08:59 Gram Stain - Final Sputum - Expectorated Sputum 03/18/24 16:15 Legionella Urinary Antigen - Final Unknown Source 03/18/24 16:15 Bacterial Antigens - Final Urine Kidney A&P Assessment and plan (1) Acute hypoxic respiratory failure: In setting of COPD exacerbation. Currently in respiratory failure. Oxygen supplementation keeping saturation over 90%. Wean Solu-Medrol 40 mg every 8 hourly, DuoNeb every 4 hour, Pulmicort twice daily. Plan to start weaning Respiratory viral panel negative. Sputum culture pending. Procalcitonin negative. Appreciate chest x-ray. No concern for consolidation for now. Pneumonia less likely. Azithromycin 500 mg oral daily for now. (2) Chronic obstructive pulmonary emphysema: Qualifiers: Emphysema type: centrilobular Qualified Code(s): J43.2 - Centrilobular emphysema (3) Anxiety: Continue with home medication of Xanax as needed. (4) Mixed hyperlipidemia: (5) Essential hypertension: Plan Chronic smoker: Continue nicotine patch. Discussed in detail with the patient about harmful effects of smoking specially needing to recurrent respiratory failure. Hypertension: Goal blood pressure less than 140/90 mmHg. Continue with home dose of amlodipine, metoprolol for now. Holding off on losartan for now. CODE STATUS: Discussed related with patient. Full code. Cardiac diet Protonix OPD prophylaxis Heparin 5000 Q12 for DVT prophylaxis. Attestations 2 Medical Necessity Statement*: Requires further hospitalization for management of acute on chronic hypoxic respiratory failure in setting of COPD exacerbation Diagnoses Acute hypoxic respiratory failure J96.01 Centrilobular emphysema J43.2 Emphysema type: centrilobular Anxiety F41.9 Mixed hyperlipidemia E78.2 Essential hypertension I10
[2024-03-19] MEDS: enoxaparin 40 mg/0.4 mL Syringe SUBCUT (14:25)
[2024-03-19] MEDS: azithromycin 250 mg Tablet 500 MG PO (14:25)
[2024-03-19] MEDS: metoprolol succinate ER (24 HR) 25 mg Tablet PO (17:11)
[2024-03-19] MEDS: nicotine 21 mg Patch 1 PATCH TRANSDERMA (20:20)
[2024-03-20] VITALS (22 sets, daily range): BP systolic 117–143; BP diastolic 74–85; PULSE 69–94; RESP 15–20; TEMP 36.3–36.8; O2SAT 91–98
[2024-03-20] MEDS: ipratropium-albuterol 3 mL Neb INHALATION ×6 (02:38→23:39)
[2024-03-20 04:55] LABS: Basophils % 0.1 %; Hematocrit 40.5 % (37-53); Lymphocytes # 0.7 10^3/uL (0.8-4.8); Lymphocytes % 3.1 %; Mean Corpuscular HGB Conc 32.8 g/dL (30-55); Mean Corpuscular Hemoglobin 31.1 pg (27-33); Mean Corpuscular Volume 94.6 fl (82-101); Monocytes # 1.1 10^3/uL (0.2-0.9); Monocytes % 5.4 %; Neutrophils % 90.7 %; Nucleated Red Blood Cells % 0 %; Platelet Count 257 10^3/cmm (157-399); Red Blood Count 4.28 10^6/uL (3.85-5.65); Red Cell Distribution Width 13.2 % (12.1-15.1); White Blood Count 21.06 10^3/uL (3.29-11.43)
[2024-03-20 05:20] LABS: Alanine Aminotransferase 19 U/L (0-41); Alkaline Phosphatase 64 U/L (40-130); Anion Gap 16.7 (5-19); Aspartate Amino Transferase 22 U/L (0-40); Blood Urea Nitrogen 21 mg/dL (8-23); Calcium 8.9 mg/dL (8.5-10.5); Carbon Dioxide 24 mmol/L (22-29); Chloride 101 mmol/L (98-107); Creatinine Clr Calc Pharmacy 84.6203; Globulin 2.3 g/dL (1.3-4.6); Glomerular Filtration Rate 113.2 mL/min (90-130); Glucose 138 mg/dL (65-115); Osmolality Calculated 289 mOsm/kg (285-295); Potassium 4.7 mmol/L (3.5-5.1); Sodium 137 mmol/L (136-145); Total Bilirubin 0.3 mg/dL (0.15-1.2); Total Protein 6.3 g/dL (6.6-8.7)
[2024-03-20] MEDS: budesonide 0.5 mg/2 mL Neb INHALATION ×2 (08:00→20:46)
[2024-03-20] MEDS: methylPREDNISolone sod succ 40 mg/mL INJ IVP ×2 (09:12→20:39)
[2024-03-20] MEDS: pantoprazole DR 40 mg Tablet PO (09:12)
[2024-03-20] MEDS: amlodipine 10 mg Tablet PO (09:13)
[2024-03-20] MEDS: azithromycin 250 mg Tablet 500 MG PO (09:14)
[2024-03-20] MEDS: ALPRAZolam 0.5 mg Tablet PO ×2 (09:18→20:39)
--- NOTE | 2024-03-20 09:39 | PC.SOCIAL ---
IMM Update pg 2 of IMM update and reviewed w/ patient. Copy provided and copy dated, initialed and placed in chart.
[2024-03-20] MEDS: guaiFENesin 100 mg/5 mL UDC 10 mL 200 MG PO (11:28)
--- NOTE | 2024-03-20 14:43 | P.PN_ITS ---
Subjective 2 Subjective: Acute events overnight. Today morning patient states he continues to feel better but is bothered by the cough. Denies any nausea, vomiting, headache. States she feels as if something is stuck in his chest. Vitals/I&O/Wt Last Vital Signs Temp 97.6 F 03/20/24 11:16 Pulse 92 03/20/24 13:44 Resp 18 03/20/24 13:40 BP 125/83 03/20/24 11:16 Pulse Ox 93 03/20/24 13:40 O2 Del Method Nasal Cannula 03/20/24 13:40 O2 Flow Rate 2 03/20/24 13:40 FiO2 30 03/18/24 15:30 03/19/24 03/20/24 03/20/24 22:59 06:59 14:59 Intake Total 360 / 970 472 / 472 Balance 360 / 970 472 / 472 Weight last 48 hrs Weight 63.321 kg Weight 63.321 kg Weight 63.73 kg Weight 63.185 kg Weight 61.915 kg Physical Exam 2 Narrative: General: No acute distress, AO x3, on nasal cannula, respiratory distress resolved for now. HEENT: PERRLA, pupils bilaterally equal and reactive Chest: Bronchial breath sounds all over lung johnson, expiratory wheeze present. Inspiratory wheeze less today. CVS: S1-S2 regular, no murmurs, no tachycardia, no gallops, no rubs Abdomen: Soft, nontender, no organomegaly, bowel sounds present Neuro: No focal deficits, no facial deformity, AO x3, power 5/5 in all limbs Data 03/20/24 04:31 03/20/24 04:31 Micro: Microbiology 03/19/24 08:59 Gram Stain - Final Sputum - Expectorated Sputum Sputum Culture - Preliminary A&P Assessment and plan (1) Acute hypoxic respiratory failure: In setting of COPD exacerbation. Currently in respiratory failure. Oxygen supplementation keeping saturation over 90%. Wean Solu-Medrol 40 mg every 8 hourly, DuoNeb every 4 hour, Pulmicort twice daily. Plan to start weaning Respiratory viral panel negative. Sputum culture pending. Procalcitonin negative. Appreciate chest x-ray. No concern for consolidation for now. Pneumonia less likely. Azithromycin 500 mg oral daily for now. (2) Chronic obstructive pulmonary emphysema: Qualifiers: Emphysema type: centrilobular Qualified Code(s): J43.2 - Centrilobular emphysema (3) Anxiety: Continue with home medication of Xanax as needed. (4) Mixed hyperlipidemia: (5) Essential hypertension: Plan Chronic smoker: Continue nicotine patch. Discussed in detail with the patient about harmful effects of smoking specially needing to recurrent respiratory failure. Hypertension: Goal blood pressure less than 140/90 mmHg. Continue with home dose of amlodipine, metoprolol for now. Holding off on losartan for now. Plan for the day: Continues to improve. Wean Solu-Medrol further down to 40 mg twice daily. Continue with nebulization treatment. Again discussed in detail regarding need for smoking cessation. Add dextromethorphan syrup every 4 hours as needed. Oxygen supplementation keeping saturation over 88%. Leukocytosis most likely in setting of high-dose steroids. Hold off on antibiotics for than azithromycin for now. Patient has remained afebrile. CODE STATUS: Discussed related with patient. Full code. Cardiac diet Protonix OPD prophylaxis Heparin 5000 Q12 for DVT prophylaxis. Attestations 2 Medical Necessity Statement*: Requires further hospitalization for management of hypoxia and respiratory distress in setting of COPD exacerbation in a patient with chronic smoking Diagnoses Acute hypoxic respiratory failure J96.01 Centrilobular emphysema J43.2 Emphysema type: centrilobular Anxiety F41.9 Mixed hyperlipidemia E78.2 Essential hypertension I10
[2024-03-20] MEDS: enoxaparin 40 mg/0.4 mL Syringe SUBCUT (15:55)
[2024-03-20] MEDS: metoprolol succinate ER (24 HR) 25 mg Tablet PO (17:13)
[2024-03-20] MEDS: guaiFENesin-dextromethorphan UDC 10 mL 5 ML PO ×2 (17:13→21:28)
[2024-03-20] MEDS: nicotine 21 mg Patch 1 PATCH TRANSDERMA (20:38)
[2024-03-21] VITALS (9 sets, daily range): BP systolic 123–139; BP diastolic 77–90; PULSE 74–88; RESP 16–17; TEMP 36.4–36.6; O2SAT 90–97; BMI 22.7
[2024-03-21] MEDS: ipratropium-albuterol 3 mL Neb INHALATION ×3 (02:39→14:19)
[2024-03-21 04:58] LABS: Basophils % 0.1 %; Hematocrit 40.4 % (37-53); Lymphocytes # 0.8 10^3/uL (0.8-4.8); Lymphocytes % 4.2 %; Mean Corpuscular HGB Conc 31.9 g/dL (30-55); Mean Corpuscular Hemoglobin 30.8 pg (27-33); Mean Corpuscular Volume 96.4 fl (82-101); Mean Platelet Volume 9.9 fL (7.4-10.4); Monocytes # 1.1 10^3/uL (0.2-0.9); Monocytes % 5.4 %; Neutrophils # 17.73 10^3/uL (1.8-7.7); Neutrophils % 89.5 %; Nucleated Red Blood Cells % 0 %; Platelet Count 267 10^3/cmm (157-399); Red Blood Count 4.19 10^6/uL (3.85-5.65); Red Cell Distribution Width 13.5 % (12.1-15.1); White Blood Count 19.82 10^3/uL (3.29-11.43)
[2024-03-21 05:22] LABS: Alanine Aminotransferase 21 U/L (0-41); Albumin Level 3.8 g/dL (3.5-5.2); Alkaline Phosphatase 67 U/L (40-130); Anion Gap 13.7 (5-19); Aspartate Amino Transferase 18 U/L (0-40); Blood Urea Nitrogen 20 mg/dL (8-23); Calcium 8.8 mg/dL (8.5-10.5); Carbon Dioxide 25 mmol/L (22-29); Chloride 100 mmol/L (98-107); Globulin 2.1 g/dL (1.3-4.6); Glomerular Filtration Rate 113.2 mL/min (90-130); Glucose 115 mg/dL (65-115); Osmolality Calculated 282 mOsm/kg (285-295); Potassium 4.7 mmol/L (3.5-5.1); Sodium 134 mmol/L (136-145); Total Bilirubin 0.2 mg/dL (0.15-1.2); Total Protein 5.9 g/dL (6.6-8.7)
[2024-03-21] MEDS: guaiFENesin-dextromethorphan UDC 10 mL 5 ML PO (08:16)
[2024-03-21] MEDS: pantoprazole DR 40 mg Tablet PO (08:17)
[2024-03-21] MEDS: methylPREDNISolone sod succ 40 mg/mL INJ IVP (08:17)
[2024-03-21] MEDS: azithromycin 250 mg Tablet 500 MG PO (08:17)
[2024-03-21] MEDS: ALPRAZolam 0.5 mg Tablet PO (08:17)
[2024-03-21] MEDS: amlodipine 10 mg Tablet PO (08:17)
[2024-03-21] MEDS: budesonide 0.5 mg/2 mL Neb INHALATION (08:57)
--- NOTE | 2024-03-21 13:42 | P.DS_ITS ---
Discharge Providers Date of Admission: 03/18/24 13:25 Date of Discharge: March 21, 2024 Attending Provider at Admission: Geovani Ma MD Attending Provider at Discharge: Geovani Ma MD Primary Care Provider: Leonora Faustin APN Diagnoses at Discharge Discharge Diagnosis (1) Acute hypoxic respiratory failure: Status: Acute (2) Chronic obstructive pulmonary emphysema: Status: Chronic Qualifiers: Emphysema type: centrilobular Qualified Code(s): J43.2 - Centrilobular emphysema Permanent problem details: Severe COPD, not oxygen dependent (3) Anxiety: Status: Acute (4) Mixed hyperlipidemia: Status: Chronic (5) Essential hypertension: Status: Acute Reason for Visit Reason for Visit: Sob Hospital Course Hospital Course Taurus Rhodes is a 64 year old male with past medical history of hypertension, COPD, current smoker, hyperlipidemia presents to the ER today because of worsening difficulty in breathing since Saturday. Today is Saturday. Overnight patient had increasing difficulty in breathing not resolving completely with nebulization. In the ER patient was in respiratory distress requiring nebulization treatment along with 125 of Solu-Medrol. On examination patient was sitting in tripod position at the edge of the bed on 2 L of supplementation complaining of difficulty in breathing. On admission patient was in respiratory distress and was admitted for respiratory failure. He was started on treatment with nebulization, steroids. Pneumonia was ruled out with no consolidation seen on chest imaging. Patient gradually improved and is currently back to his baseline oxygen supplementation without any further events of respiratory distress. Physical Exam Narrative: General: No acute distress, AO x3, on nasal cannula, respiratory distress resolved for now. HEENT: PERRLA, pupils bilaterally equal and reactive Chest: Bronchial breath sounds all over lung johnson, expiratory wheeze present. Inspiratory wheeze less today. CVS: S1-S2 regular, no murmurs, no tachycardia, no gallops, no rubs Abdomen: Soft, nontender, no organomegaly, bowel sounds present Neuro: No focal deficits, no facial deformity, AO x3, power 5/5 in all limbs Discharge Data Studies Completed and Pending Completed Studies During Hospitalization Category Date Time Status XR chest 1V portable [id number] Stat Exams 03/18/24 09:39 Completed Pending at discharge Category Date Time Status Sputum Culture and Gram Stain Routine Lab 03/19/24 08:59 Results Radiology Impressions Chest X-Ray 03/18/24 09:39 IMPRESSION: COPD changes without focal consolidation or acute cardiopulmonary findings. Laboratory Results WBC 19.82 10^3/uL (3.29-11.43) H 03/21/24 04:33 RBC 4.19 10^6/uL (3.85-5.65) 03/21/24 04:33 Hgb 12.90 g/dL (11.27-16.99) 03/21/24 04:33 Hct 40.4 % (37-53) 03/21/24 04:33 MCV 96.4 fl (82-101) 03/21/24 04:33 MCH 30.8 pg (27-33) 03/21/24 04:33 MCHC 31.9 g/dL (30-55) 03/21/24 04:33 RDW 13.5 % (12.1-15.1) 03/21/24 04:33 Plt Count 267 10^3/cmm (157-399) 03/21/24 04:33 MPV 9.9 fL (7.4-10.4) 03/21/24 04:33 Neut % (Auto) 89.5 % 03/21/24 04:33 Lymph % (Auto) 4.2 % 03/21/24 04:33 [place] % (Auto) 5.4 % 03/21/24 04:33 Eos % (Auto) 0.0 % 03/21/24 04:33 Baso % (Auto) 0.1 % 03/21/24 04:33 Neut # (Auto) 17.73 10^3/uL (1.8-7.7) H 03/21/24 04:33 Lymph # (Auto) 0.8 10^3/uL (0.8-4.8) 03/21/24 04:33 [place] # (Auto) 1.1 10^3/uL (0.2-0.9) H 03/21/24 04:33 Eos # (Auto) 0.0 10^3/uL (0.0-0.8) 03/21/24 04:33 Baso # (Auto) 0.0 10^3/uL (0.0-0.1) 03/21/24 04:33 Nucleated RBC % (auto) 0 % 03/21/24 04:33 Nucleated RBCs # 0.0 /100WBC 03/21/24 04:33 D-Dimer 0.47 ug/mLFEU (0-0.59) 03/18/24 10:04 Sodium 134 mmol/L (136-145) L 03/21/24 04:33 Potassium 4.7 mmol/L (3.5-5.1) 03/21/24 04:33 Chloride 100 mmol/L (98-107) 03/21/24 04:33 Carbon Dioxide 25 mmol/L (22-29) 03/21/24 04:33 Anion Gap 13.7 (5-19) 03/21/24 04:33 BUN 20 mg/dL (8-23) 03/21/24 04:33 Creatinine 0.7 mg/dL (0.7-1.2) 03/21/24 04:33 GFR Calculation 113.2 mL/min (90-130) 03/21/24 04:33 Glucose 115 mg/dL (65-115) 03/21/24 04:33 Estimat Average Glucose 100 03/19/24 04:13 Hemoglobin A1c 5.1 % (4.0-6.0) 03/19/24 04:13 Calculated Osmolality 282 mOsm/kg (285-295) L 03/21/24 04:33 Calcium 8.8 mg/dL (8.5-10.5) 03/21/24 04:33 Phosphorus 2.3 mg/dL (2.5-4.5) L 03/19/24 04:13 Magnesium 2.1 mg/dL (1.7-2.3) 03/19/24 04:13 Iron 63 ug/dL (59-158) 03/18/24 10:04 TIBC 274 mcg/dl 03/18/24 10:04 % Saturation 22.9 % (20-50) 03/18/24 10:04 Unsat Iron Binding 211 ug/dL (112-347) 03/18/24 10:04 Total Bilirubin 0.2 mg/dL (0.15-1.2) 03/21/24 04:33 AST 18 U/L (0-40) 03/21/24 04:33 ALT 21 U/L (0-41) 03/21/24 04:33 Alkaline Phosphatase 67 U/L (40-130) 03/21/24 04:33 NT-Pro-B Natriuret Pep < 36 pg/mL (0-125) 03/18/24 10:04 Total Protein 5.9 g/dL (6.6-8.7) L 03/21/24 04:33 Albumin 3.8 g/dL (3.5-5.2) 03/21/24 04:33 Globulin 2.1 g/dL (1.3-4.6) 03/21/24 04:33 Triglycerides 51 mg/dL (0-150) 03/19/24 04:13 Cholesterol 187 mg/dL (0-200) 03/19/24 04:13 LDL Cholesterol, Calc 97 mg/dL (50-129) 03/19/24 04:13 HDL Cholesterol 80 mg/dL (60-100) 03/19/24 04:13 LDL/HDL Ratio 1.21 RATIO (0.00-3.22) 03/19/24 04:13 Cholesterol/HDL Ratio 2.34 mg/dL (1.0-5.00) 03/19/24 04:13 Vitamin B12 > 2000 pg/mL (232-1245) H 03/18/24 10:04 Folate 7.8 ng/mL (4.5-32.2) 03/19/24 04:13 Procalcitonin 0.04 ng/mL (0-0.5) 03/19/24 04:13 TSH 0.76 uIU/mL (0.27-4.20) 03/18/24 10:04 Urine Color Yellow (Yellow) 03/18/24 16:15 Urine Appearance Clear (CLEAR) 03/18/24 16:15 Urine pH 6.5 (5-7) 03/18/24 16:15 Ur Specific [place] 1.013 (1.005-1.030) 03/18/24 16:15 Urine Protein Negative (Negative) 03/18/24 16:15 Urine Glucose (UA) Negative (Normal) 03/18/24 16:15 Urine Ketones Negative (Negative) 03/18/24 16:15 Urine Blood Negative (Negative) 03/18/24 16:15 Urine Nitrate Negative (Negative) 03/18/24 16:15 Urine Bilirubin Negative (Negative) 03/18/24 16:15 Urine Urobilinogen 0.2 mg/dL (Negative) 03/18/24 16:15 Ur Leukocyte Esterase Negative (Negative) 03/18/24 16:15 Urine RBC 0-2 /hpf (0-2) 03/18/24 16:15 Urine WBC 0-5 /hpf (0-5) 03/18/24 16:15 Ur Squamous Epith Cells 0-5 /hpf (0-5) 03/18/24 16:15 Amorphous Sediment Not Reportable 03/18/24 16:15 Urine Bacteria None seen /hpf (NONE) 03/18/24 16:15 Hyaline Casts 0-4 /lpf H 03/18/24 16:15 Urine Opiates Screen Negative ng/mL (Negative) 03/18/24 16:15 Ur Barbiturates Screen Negative ng/mL (Negative) 03/18/24 16:15 Ur Phencyclidine Scrn Negative ng/mL (Negative) 03/18/24 16:15 Ur Amphetamines Screen Negative ng/mL (Negative) 03/18/24 16:15 U Benzodiazepines Scrn Positive ng/mL (Negative) H 03/18/24 16:15 Urine Cocaine Screen Negative ng/mL (Negative) 03/18/24 16:15 U Marijuana (THC) Screen Negative ng/mL (Negative) 03/18/24 16:15 Adenovirus (PCR) Not detected (NOT DETECT) 03/18/24 17:50 C. pneumoniae DNA (PCR) Not detected (NOT DETECT) 03/18/24 17:50 Coronavirus 229E (PCR) Not detected (NOT DETECT) 03/18/24 17:50 Human Metapneumovir PCR Not detected (NOT DETECT) 03/18/24 17:50 Influenza A (H1) PCR Not detected (NOT DETECT) 03/18/24 17:50 Influ A (H1/09) PCR Not detected (NOT DETECT) 03/18/24 17:50 Influenza A (H3) PCR Not detected (NOT DETECT) 03/18/24 17:50 Influenza Type A (PCR) Not detected (NOT DETECT) 03/18/24 17:50 Influenza Type B (PCR) Not detected (NOT DETECT) 03/18/24 17:50 M. pneumoniae (PCR) Not detected (NOT DETECT) 03/18/24 17:50 Parainfluenza 1 (PCR) Not detected (NOT DETECT) 03/18/24 17:50 Parainfluenza 2 (PCR) Not detected (NOT DETECT) 03/18/24 17:50 Parainfluenza 3 (PCR) Not detected (NOT DETECT) 03/18/24 17:50 Parainfluenza 4 (PCR) Not detected (NOT DETECT) 03/18/24 17:50 RSV Type A (PCR) Not detected (NOT DETECT) 03/18/24 17:50 RSV Type B (PCR) Not detected (NOT DETECT) 03/18/24 17:50 Entero/Rhino (PCR) Not detected (NOT DETECT) 03/18/24 17:50 SARS-CoV-2 (PCR) Not detected (NOT DETECT) 03/18/24 17:50 Vitals Last Vital Signs Temp 97.9 F 03/21/24 11:50 Pulse 85 03/21/24 11:50 Resp 16 03/21/24 11:50 BP 137/90 03/21/24 11:50 Pulse Ox 90 03/21/24 11:50 O2 Del Method Room Air 03/21/24 11:50 O2 Flow Rate 2 03/21/24 07:17 FiO2 30 03/18/24 15:30 Discharge Plan Discharge Patient Disposition: Home Condition: Stable Prescriptions: New levofloxacin 750 mg tablet 750 mg PO Q24H 7 Days Qty: 7 0RF prednisone 10 mg tablet See Taper PO DIRECTED Qty: 42 0RF Taper: predniSONE 60-10 60 mg Daily for 2 Days and 0 Hour 50 mg Daily for 2 Days and 0 Hour 40 mg Daily for 2 Days and 0 Hour 30 mg Daily for 2 Days and 0 Hour 20 mg Daily for 2 Days and 0 Hour 10 mg Daily for 2 Days and 0 Hour Rx Instructions: see taper instructions budesonide 0.5 mg/2 mL Suspension For Nebulization 0.5 mg inhalation BID Qty: 60 0RF dextromethorphan-guaifenesin 10-100 mg/5 mL Syrup 5 ml PO Q4H PRN (Reason: Cough) Qty: 237 0RF Continued budesonide-formoterol [Symbicort] 160-4.5 mcg/actuation HFA aerosol inhaler 2 puff inhalation BID Qty: 10.2 6RF tiotropium bromide [Spiriva with HandiHaler] 18 mcg capsule, w/inhalation device 1 cap inhalation DAILY Qty: 60 6RF Rx Instructions: puncture 1 cap using device; one dose = 2 inhalations omega-3 fatty acids 1,000 mg Capsule 1,000 mg PO DAILY cholecalciferol (vitamin D3) [Vitamin D3] 125 mcg (5,000 unit) Tablet 10,000 unit PO DAILY cyanocobalamin (vitamin B-12) [Vitamin B-12] 5,000 mcg Tablet, Sublingual 15,000 mcg PO DAILY amlodipine [Norvasc] 10 mg tablet 10 mg PO QAM albuterol sulfate 90 mcg/actuation HFA aerosol inhaler 2 puff inhalation QID PRN (Reason: Shortness Of Breath) alprazolam 0.5 mg tablet 0.5 mg PO TID PRN (Reason: Anxiety) metoprolol succinate 25 mg tablet extended release 24 hr 25 mg PO QPM Rx Instructions: TAKE 1 TABLET BY MOUTH ONCE DAILY WITH EVENING MEAL Changed ipratropium-albuterol 0.5 mg-3 mg(2.5 mg base)/3 mL solution for nebulization 3 ml inhalation Q6H Qty: 90 0RF Discontinued losartan 100 mg tablet 100 mg PO QAM prednisone 20 mg tablet See Rx Instructions .ROUTE .COMPLEX Rx Instructions: TAKE 2 TABLETS BY MOUTH ONCE DAILY FOR 5 DAYS THEN 1 ONCE DAILY FOR 5 DAYS levofloxacin 500 mg tablet 500 mg PO DAILY Discharge Orders: Discharge Order (Routine); Ordered 03/21/24 Ordered By: Geovani Ma Referrals: Leonora Faustin APN [Primary Care Provider] - (We have notified your physician's clinic of the need for a follow-up appointment to be scheduled. If you have not heard from them within the next 2 business days, please call them directly. ) Discharge Diet: Regular Discharge Activity: Resume usual activity and Increase activity as tolerated Patient Instructions: COPD, Levofloxacin (By mouth) (Levaquin, Levaquin Leva- mario), COPD Stoplight, Opioid Safety Activity Restrictions/Additional Instructions: Take prednisone taper as prescribed. Take Levaquin which is the antibiotic for next 5 days. For now for next 2 weeks continue with nebulization treatment. You will be on DuoNeb 3 times a day along with Pulmicort 2 times a day. After that you can transition back to your home inhalers. Please abstain from smoking as much as possible. Follow-up with a primary care provider within next 1 week. Discharge Attestations Time Spent in Discharge Care*: greater than 30 min Specific Discharge Activities: educating patient, discussing with pcp/other providers, discussing with sample case porter/social workers/dc planners, documenting/other paperwork and evaluating patient/reviewing data Time Spent in Smoking Cessation: more than 10 minutes Status at Discharge: Cognitive status at discharge: cognitively intact , Behavioral status at discharge: cooperative , Functional status at discharge: independent ambulation , Overall status at discharge: patient is progressing back to baseline Quality Metrics Clinical Quality Measures [ No reported AMI, CVA or VTE this stay] Coding Level of Care Code 65338 Total time (in minutes) for Discharge: 60 Diagnoses Acute hypoxic respiratory failure J96.01 Centrilobular emphysema J43.2 Emphysema type: centrilobular Anxiety F41.9 Mixed hyperlipidemia E78.2 Essential hypertension I10
--- NOTE | 2024-03-21 13:54 | PC.NURSE ---
Discharge Note Patient discharged to home via private vehicle accompanied by self. 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 Mobile pharmacy medications and/or prescriptions provided. Belongings/home medications returned.
== END 2024-03-21 15:12 | disposition home or self-care (01) | DRG 190 ==
LOC: ER 12:28 → MEDSURG 13:26
PROVIDERS: Admitting Provider Student in an Organized Health Care Education/Training Program; Emergency Provider Emergency Medicine; PCP Nurse Practitioner Family; Visit Provider Student in an Organized Health Care Education/Training Program
DX: J44.1 Chronic obstructive pulmonary disease with (acute) exacerbation (principal); J96.01 Acute respiratory failure with hypoxia; J96.21 Acute and chronic respiratory failure with hypoxia; I10 Essential (primary) hypertension; J43.2 Centrilobular emphysema; F17.210 Nicotine dependence, cigarettes, uncomplicated; E78.2 Mixed hyperlipidemia; F41.9 Anxiety disorder, unspecified; Z11.52 Encounter for screening for COVID-19; Z79.51 Long term (current) use of inhaled steroids; Z98.1 Arthrodesis status; Z82.49 Family history of ischemic heart disease and other diseases of the circulatory system; Z82.3 Family history of stroke
CPT/HCPCS: 36415; 71045; 80053; 80061; 80306; 81001; 82607; 82746; 83036; 83540; 83550; 83735; 83880; 84100; 84145; 84443; 85025; 85378; 86403; 87070; 87205; 87449; 87486; 87581; 87633; 93005; 94640; 96372; 96374; 99285; J1650; J2919; J3475; J7613; J7626; Q0144

== ENCOUNTER 2024-05-02 09:29 | Inpatient (IN) | payer MEDICARE, OTHER, SELFPAY ==
[2024-05-02] VITALS (14 sets, daily range): BP systolic 122–182; BP diastolic 80–132; PULSE 83–110; RESP 20–23; TEMP 36.6–36.7; O2SAT 91–98; BMI 21.9
--- NOTE | 2024-05-02 09:32 | XRR_ITS ---
PROCEDURE INFORMATION: Exam: XR Chest Exam date and time: 05/02/2024 9:37 AM Age: 64 years old Clinical indication: Cough and dyspnea; Additional info: Dyspnea/cough TECHNIQUE: Imaging protocol: Radiologic exam of the chest. Views: 1 view. COMPARISON: CR XR chest 1V portable [id number] 03/18/2024 10:14 AM FINDINGS: Lungs: Diffuse emphysematous lung changes, unchanged.. Pleural spaces: Unremarkable. No pleural effusion. No pneumothorax. Heart/Mediastinum: Unremarkable. No cardiomegaly. Bones/joints: Unremarkable. XR/XR chest 1V portable [id number] IMPRESSION: 1. Diffuse emphysematous lung changes, unchanged.. 2. No acute interval changes
--- NOTE | 2024-05-02 09:38 | ECG_ITS ---
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1960 Requested By: Ruben Hastings Order Number: [id number] Reading MD: MAGUE ROMAN Measurements Intervals [place] Rate: 89 P: 85 TN: 165 QRS: -90 QRSD: 100 T: 73 QT: 364 QTc: 444 Interpretive Statements SINUS RHYTHM POSSIBLE LEFT ATRIAL ENLARGEMENT [-0.1mV P-WAVE IN V1/V2] LEFT AXIS DEVIATION [QRS AXIS < -30] INCOMPLETE RIGHT BUNDLE BRANCH BLOCK [90+ ms QRS DURATION, TERMINAL R IN V1/V2, 40+ ms S IN I/aVL/V4/V5/V6] Compared to ECG 03/18/2024 09:33:28 Left-axis deviation now present Indeterminate axis no longer present Electronically Signed On 05-02-2024 18:38:43 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
[2024-05-02 09:52] LABS: Basophils # 0.2 10^3/uL (0.0-0.1); Basophils % 1.6 %; Eosinophils # 0.4 10^3/uL (0.0-0.8); Eosinophils % 2.8 %; Hematocrit 47.6 % (37-53); Lymphocytes # 1.6 10^3/uL (0.8-4.8); Lymphocytes % 11.8 %; Mean Corpuscular HGB Conc 32.1 g/dL (30-55); Mean Corpuscular Hemoglobin 30.2 pg (27-33); Mean Corpuscular Volume 94.1 fl (82-101); Mean Platelet Volume 9.4 fL (7.4-10.4); Monocytes # 0.6 10^3/uL (0.2-0.9); Monocytes % 4.5 %; Neutrophils # 10.99 10^3/uL (1.8-7.7); Neutrophils % 78.9 %; Nucleated Red Blood Cells % 0 %; Platelet Count 302 10^3/cmm (157-399); Red Blood Count 5.06 10^6/uL (3.85-5.65); Red Cell Distribution Width 13.4 % (12.1-15.1); White Blood Count 13.91 10^3/uL (3.29-11.43)
[2024-05-02] MEDS: ipratropium-albuterol 3 mL Neb INHALATION ×5 (10:07→21:38)
[2024-05-02 10:11] LABS: Alanine Aminotransferase 18 U/L (0-41); Albumin Level 4.5 g/dL (3.5-5.2); Alkaline Phosphatase 82 U/L (40-130); Anion Gap 19.3 (5-19); Aspartate Amino Transferase 20 U/L (0-40); Blood Urea Nitrogen 10 mg/dL (8-23); Calcium 9.3 mg/dL (8.5-10.5); Carbon Dioxide 26 mmol/L (22-29); Chloride 95 mmol/L (98-107); Globulin 2.7 g/dL (1.3-4.6); Glomerular Filtration Rate 135.2 mL/min (90-130); Glucose 108 mg/dL (65-115); Osmolality Calculated 282 mOsm/kg (285-295); Potassium 4.3 mmol/L (3.5-5.1); Sodium 136 mmol/L (136-145); Total Bilirubin 0.6 mg/dL (0.15-1.2); Total Protein 7.2 g/dL (6.6-8.7)
[2024-05-02 10:16] LABS: Creatinine Clr Calc Pharmacy 84.7151
[2024-05-02 10:26] LABS: ABG PCO2 50.8 mmHg (35-45); ABG PH Result 7.36 (7.35-7.45); Alveolar-Arterial Oxygen Gradi 10.6 mmHg (5-10); Arterial Blood Gas Hematocrit 47.7 % (42-52); Base Excess ABG 1.9 mmol/L (-2.0-2.0); Blood Gas Operator Identificat AMH; Blood Gas Sample Site Brachial, right; Blood Gas Sample Type Arterial; Carboxyhemoglobin 1.3 %THgb (0.4-20.1); HCO3 ABG 28.5 mmol/L (22-26); HGB O2 Sat 94.5 % (95-100); Ionized Calcium Level - ABG 1.2 mmol/L (1.1-1.4); Methemoglobin 1.1 % (0.4-1.5); Oxygen Device NC; Oxygen Saturation ABG 96.8; PO2 ABG 83.6 mmHg (80.0-100.0); PO2 FiO2 Ratio Arterial Blood 261; Potassium Level - ABG 5.2 mmol/L (3.5-5.0); Total Hemoglobin 15.6 g/dL (14-18)
[2024-05-02] MEDS: ondansetron 2 mg/ML SDV 2 mL 4 MG IVP (10:28)
--- NOTE | 2024-05-02 10:31 | ED_ITS ---
HPI - SOB/Dyspnea 2 General: Chief Complaint: Shortness of Breath/Dyspnea Stated Complaint: short of breath Time Seen by Provider: 05/02/24 09:32 History of Present Illness: HPI Narrative: 64-year-old male presents to the emergen cy room complaining shortness of breath last several days as well as congestion patient has not noticed any change in his sputum. No hemoptysis. Denies any chest pain. Has been using nebulizers at home which are somewhat helpful. No associated chest pain nausea or vomiting. Associated symptoms: Reports chest congestion; Deny abdominal pain, chest pain, fever(s) or hemoptysis Related Data Home Medications Medication Instructions Recorded Confirmed albuterol sulfate 90 mcg/actuation 2 puff inhalation QID PRN 03/20/22 05/02/24 aerosol inhaler Shortness Of Breath amlodipine 10 mg tablet (Norvasc) 10 mg PO QAM 03/20/22 05/02/24 cholecalciferol (vitamin D3) 125 10,000 unit PO DAILY 03/20/22 05/02/24 mcg (5,000 unit) tablet (Vitamin D3) cyanocobalamin (vitamin B-12) 15,000 mcg PO DAILY 03/20/22 05/02/24 5,000 mcg sublingual tablet (Vitamin B-12) omega-3 fatty acids 1,000 mg 1,000 mg PO DAILY 03/20/22 05/02/24 capsule alprazolam 0.5 mg tablet 0.5 mg PO TID PRN Anxiety 11/27/23 05/02/24 metoprolol succinate 25 mg 25 mg PO QPM 03/18/24 05/02/24 tablet,extended release 24 hr Previous Rx's Medication Instructions Recorded budesonide-formoterol HFA 160 2 puff inhalation BID #10.2 grams 12/27/23 mcg-4.5 mcg/actuation aerosol inhaler (Symbicort) tiotropium bromide 18 mcg capsule 1 cap inhalation DAILY #60 12/27/23 with inhalation device (Spiriva inhalations with HandiHaler) budesonide 0.5 mg/2 mL suspension 0.5 mg (2 mL) inhalation BID #60 mL 03/21/24 for nebulization dextromethorphan-guaifenesin 10 5 ml PO Q4H PRN Cough #237 mL 03/21/24 mg-100 mg/5 mL oral syrup ipratropium 0.5 mg-albuterol 3 mg 3 ml inhalation Q6H shortness of 03/21/24 (2.5 mg base)/3 mL nebulization breath #90 mL soln Allergies Allergy/AdvReac Type Severity Reaction Status Date / Time No Known Allergies Allergy Verified 11/27/23 17:01 Review of Systems 2 Const: Denies: fever(s) or chills Card: Denies: chest pain Resp: Reports: dyspnea, productive cough and chest congestion; Denies: hemoptysis GI: Denies: abdominal pain : Denies: dysuria, urinary frequency or urinary urgency Musc: Denies: neck pain or back pain Skin/Breast: Denies: rash PFSH ED 2 PFSH: Medical History Essential hypertension Noncompliance w/medication treatment due to intermit use of medication Mixed hyperlipidemia Chronic obstructive pulmonary emphysema Severe COPD, not oxygen dependent Surgical History History of inguinal hernia repair Left History of lumbar discectomy 2005 Family History Other Hypertension Stroke Social History Smoking and tobacco/nicotine status: current every day tobacco/nicotine user cigarettes Packs smoked per day: 2 Years cigarettes smoked: 53 [ Other cigarette details: 5-6 cigarettes daily ] Second hand smoke exposure: Yes Alcohol intake: never Substance/Drug Use: never Adopted: No Caregiver/support person: No Lives independently: Yes Household members: spouse Housing: House Marital status: Number of children: 2 Current occupational status: employed Do you think of yourself as: Straight/Heterosexual Current gender identity: Male Physical Exam 2 Const: GENERAL APPEARANCE: cooperative ORIENTATION/CONSCIOUSNESS: Yes awake, Yes oriented to person, Yes oriented to place and Yes oriented to time HENMT: COMMON NORMALS: normocephalic, atraumatic and hearing grossly normal bilaterally HEAD & SCALP: normocephalic and atraumatic Resp: AUSCULTATION: rhonchi and wheezes Cardio: COMMON NORMALS: regular rate, regular rhythm and No murmurs present (Cardio) RATE: regular rate RHYTHM: regular rhythm GI: COMMON NORMALS: Soft to palpation and No hepatosplenomegaly present A USCULTATION: Yes normoactive bowel sounds PALPATION: Yes Soft to palpation, No Tenderness to palpation present (GI), No Guarding due to palpation present (GI) and Yes No hepatosplenomegaly present Extremity: COMMON NORMALS: normal to inspection, capillary refill normal, no clubbing, cyanosis or edema, no calf tenderness and no pedal edema Neuro: SENSORIUM/ORIENTATION: Yes oriented to person, Yes oriented to place and Yes oriented to time Skin: COMMON NORMALS: no rashes or lesions noted GENERAL SKIN EXAM: no rashes or lesions noted Course 2 Vital Signs: Vital signs: Vital Signs Temperature 98.0 F 05/02/24 09:30 Pulse Rate 104 H 05/02/24 17:51 Respiratory Rate 20 H 05/02/24 10:22 Blood Pressure 126/83 05/02/24 17:51 Pulse Oximetry 96 05/02/24 17:51 Oxygen Delivery Me thod Nasal Cannula 05/02/24 16:54 Oxygen Flow Rate 2 05/02/24 10:49 MDM - SOB/Dyspnea Medical Decision Making Exacerbation COPD patient is tachycardic. White count labs mildly elevated. Improved after DuoNeb and steroids. Patient to stay on observation discussed with hospitalist.. Lab Data 05/02/24 09:44 05/02/24 09:44 Labs/Radiology: Radiology Impressions Chest X-Ray 05/02/24 09:32 IMPRESSION: 1. Diffuse emphysematous lung changes, unchanged.. 2. No acute interval changes Laboratory Results WBC 13.91 10^3/uL (3.29-11.43) H 05/02/24 09:44 RBC 5.06 10^6/uL (3.85-5.65) 05/02/24 09:44 Hgb 15.30 g/dL (11.27-16.99) 05/02/24 09:44 Hct 47.6 % (37-53) 05/02/24 09:44 MCV 94.1 fl (82-101) 05/02/24 09:44 MCH 30.2 pg (27-33) 05/02/24 09:44 MCHC 32.1 g/dL (30-55) 05/02/24 09:44 RDW 13.4 % (12.1-15.1) 05/02/24 09:44 Plt Count 302 10^3/cmm (157-399) 05/02/24 09:44 MPV 9.4 fL (7.4-10.4) 05/02/24 09:44 Neut % (Auto) 78.9 % 05/02/24 09:44 Lymph % (Auto) 11.8 % 05/02/24 09:44 [place] % (Auto) 4.5 % 05/02/24 09:44 Eos % (Auto) 2.8 % 05/02/24 09:44 Baso % (Auto) 1.6 % 05/02/24 09:44 Neut # (Auto) 10.99 10^3/uL (1.8-7.7) H 05/02/24 09:44 Lymph # (Auto) 1.6 10^3/uL (0.8-4.8) 05/02/24 09:44 [place] # (Auto) 0.6 10^3/uL (0.2-0.9) 05/02/24 09:44 Eos # (Auto) 0.4 10^3/uL (0.0-0.8) 05/02/24 09:44 Baso # (Auto) 0.2 10^3/uL (0.0-0.1) H 05/02/24 09:44 Nucleated RBC % (auto) 0 % 05/02/24 09:44 Nucleated RBCs # 0.0 /100WBC 05/02/24 09:44 Specimen Type Arterial 05/02/24 10:15 Sample Site Brachial, right 05/02/24 10:15 ABG pH 7.36 (7.35-7.45) 05/02/24 10:15 ABG pCO2 50.8 mmHg (35-45) H 05/02/24 10:15 ABG pO2 83.6 mmHg (80.0-100.0) 05/02/24 10:15 ABG PO2/FiO2 Ratio 261 05/02/24 10:15 ABG HCO3 28.5 mmol/L (22-26) H 05/02/24 10:15 ABG O2 Saturation 96.8 05/02/24 10:15 ABG Base Excess 1.9 mmol/L (-2.0-2.0) 05/02/24 10:15 David Test N/a 05/02/24 10:15 A-a O2 Gradient 10.6 mmHg (5-10) H 05/02/24 10:15 Hematocrit 47.7 % (42-52) 05/02/24 10:15 Hgb O2 Saturation 94.5 % (95-100) L 05/02/24 10:15 Carboxyhemoglobin 1.3 %THgb (0.4-20.1) 05/02/24 10:15 Methemoglobin 1.1 % (0.4-1.5) 05/02/24 10:15 Total Hemoglobin 15.6 g/dL (14-18) 05/02/24 10:15 Sodium 136.0 mmol/L (131-143) 05/02/24 10:15 Potassium 5.2 mmol/L (3.5-5.0) H 05/02/24 10:15 Glucose 106.0 mg/dL (70-115) 05/02/24 10:15 Ionized Calcium 1.2 mmol/L (1.1-1.4) 05/02/24 10:15 O2 Delivery Device Nc 05/02/24 10:15 O2 Liters/Min 3.0 % 05/02/24 10:15 FiO2 32.0 % 05/02/24 10:15 Hand Paint Mixer ID [id number] 05/02/24 10:15 Sodium 136 mmol/L (136-145) 05/02/24 09:44 Potassium 4.3 mmol/L (3.5-5.1) 05/02/24 09:44 Chloride 95 mmol/L (98-107) L 05/02/24 09:44 Carbon Dioxide 26 mmol/L (22-29) 05/02/24 09:44 Anion Gap 19.3 (5-19) H 05/02/24 09:44 BUN 10 mg/dL (8-23) 05/02/24 09:44 Creatinine 0.6 mg/dL (0.7-1.2) L 05/02/24 09:44 GFR Calculation 135.2 mL/min (90-130) H 05/02/24 09:44 Glucose 108 mg/dL (65-115) 05/02/24 09:44 Calculated Osmolality 282 mOsm/kg (285-295) L 05/02/24 09:44 Calcium 9.3 mg/dL (8.5-10.5) 05/02/24 09:44 Total Bilirubin 0.6 mg/dL (0.15-1.2) 05/02/24 09:44 AST 20 U/L (0-40) 05/02/24:44 ALT 18 U/L (0-41) 05/02/24:44 Alkaline Phosphatase 82 U/L (40-130) 05/02/24:44 Troponin T Baseline 12 ng/L (0-15) 05/02/24:44 C-Reactive Protein 3.0 mg/L (0.0-4.9) 05/02/24:44 Total Protein 7.2 g/dL (6.6-8.7) 05/02/24:44 Albumin 4.5 g/dL (3.5-5.2) 05/02/24:44 Globulin 2.7 g/dL (1.3-4.6) 05/02/24:44 Procalcitonin 0.04 ng/mL (0-0.5) 05/02/24:44 Adenovirus (PCR) Not detected (NOT DETECT) 05/02/24:44 C. pneumoniae DNA (PCR) Not detected (NOT DETECT) 05/02/24:44 Coronavirus 229E (PCR) Not detected (NOT DETECT) 05/02/24:44 Human Metapneumovir PCR Not detected (NOT DETECT) 05/02/24 09:44 Influenza A (H1) PCR Not detected (NOT DETECT) 05/02/24:44 Influ A (H1/09) PCR Not detected (NOT DETECT) 05/02/24:44 Influenza A (H3) PCR Not detected (NOT DETECT) 05/02/24:44 Influenza Type A (PCR) Not detected (NOT DETECT) 05/02/24:44 Influenza Type B (PCR) Not detected (NOT DETECT) 05/02/24:44 M. pneumoniae (PCR) Not detected (NOT DETECT) 05/02/24:44 Parainfluenza 1 (PCR) Not detected (NOT DETECT) 05/02/24:44 Parainfluenza 2 (PCR) Not detected (NOT DETECT) 05/02/24 09:44 Parainfluenza 3 (PCR) Not detected (NOT DETECT) 05/02/24 09:44 Parainfluenza 4 (PCR) Not detected (NOT DETECT) 05/02/24 09:44 RSV Type A (PCR) Not detected (NOT DETECT) 05/02/24 09:44 RSV Type B (PCR) Not detected (NOT DETECT) 05/02/24 09:44 Entero/Rhino (PCR) Not detected (NOT DETECT) 05/02/24 09:44 SARS-CoV-2 (PCR) Not detected (NOT DETECT) 05/02/24 09:44 All radiology interpretation(s) finalized by discharge Discharge Plan Discharge Patient Disposition: Admitted As Inpatient Admit Provider: Andi Odell Clinical Impression: Acute exacerbation of chronic obstructive airways disease Condition: Stable Coding Level of Care Code ED Test Skein Winder for Ale Major
[2024-05-02] MEDS: cefTRIAXone 1,000 mg SDV 1000 MG IVP (10:35)
[2024-05-02] MEDS: ketorolac 30 mg/mL INJ IVP (10:36)
[2024-05-02] MEDS: AZITHROMYCIN ADD-Vantage 500 MG in 0.9% NaCl ADD-Vantage 250 ML 250 MG IV (10:49)
--- NOTE | 2024-05-02 10:55 | ECG_ITS ---
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1960 Requested By: Ruben Hastings Order Number: [id number] Reading MD: MAGUE ROMAN Measurements Intervals [place] Rate: 95 P: 83 ID: [id number] QRS: 261 QRSD: 99 T: 83 QT: 370 QTc: 466 Interpretive Statements SINUS RHYTHM INDETERMINATE AXIS INCOMPLETE RIGHT BUNDLE BRANCH BLOCK [90+ ms QRS DURATION, TERMINAL R IN V1/V2, 40+ ms S IN I/aVL/V4/V5/V6] MODERATE ST DEPRESSION [0.05+ mV ST DEPRESSION] Compared to ECG 05/02/2024 09:38:06 Indeterminate axis now present ST (T wave) deviation now present Left-axis deviation no longer present Electronically Signed On 05-02-2024 18:38:34 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
[2024-05-02 11:14] LABS: Troponin(5th) Baseline 12 ng/L (0-15)
--- NOTE | 2024-05-02 13:02 | P.HP_ITS ---
Providers/Chief Complaint 2 Primary Care Provider: Leonora Faustin APN Chief Complaint: short of breath History of Present Illness Taurus Rhodes is a 64 year old male with with a past medical history of COPD, hypertension, history of smoking, who presents [facility] for shortness of breath. Patient reports increased shortness of breath, increased shortness of breath with exertion, and nonproductive cough, no fevers, no chills, does report anterior chest discomfort, chest tightness, no nausea, no vomiting, abdominal pain Review of Systems 2 Const: Reports: fatigue and malaise; Denies: fever(s) or chills Card: Reports: chest pain Resp: Reports: dyspnea Medications/Allergies Home Medications Medication Instructions Recorded Confirmed Last Taken Type albuterol sulfate 90 mcg/actuation 2 puff inhalation QID PRN 03/20/22 03/18/24 03/18/24 History aerosol inhaler Shortness Of Breath amlodipine 10 mg tablet (Norvasc) 10 mg PO QAM 03/20/22 03/18/24 03/17/24 History cholecalciferol (vitamin D3) 125 10,000 unit PO DAILY 03/20/22 03/18/24 11/27/23 History mcg (5,000 unit) tablet (Vitamin D3) cyanocobalamin (vitamin B-12) 15,000 mcg PO DAILY 03/20/22 03/18/24 11/27/23 History 5,000 mcg sublingual tablet (Vitamin B-12) omega-3 fatty acids 1,000 mg 1,000 mg PO DAILY 03/20/22 03/18/24 11/27/23 History capsule alprazolam 0.5 mg tablet 0.5 mg PO TID PRN Anxiety 11/27/23 03/18/24 03/17/24 History budesonide-formoterol HFA 160 2 puff inhalation BID #10.2 grams 12/27/23 03/18/24 03/17/24 Rx mcg-4.5 mcg/actuation aerosol inhaler (Symbicort) tiotropium bromide 18 mcg capsule 1 cap inhalation DAILY #60 12/27/23 03/18/24 03/17/24 Rx with inhalation device (Spiriva inhalations with HandiHaler) metoprolol succinate 25 mg 25 mg PO QPM 03/18/24 03/18/24 03/17/24 History tablet,extended release 24 hr budesonide 0.5 mg/2 mL suspension 0.5 mg (2 mL) inhalation BID #60 mL 03/21/24 Unknown Rx for nebulization dextromethorphan-guaifenesin 10 5 ml PO Q4H PRN Cough #237 mL 03/21/24 Unknown Rx mg-100 mg/5 mL oral syrup ipratropium 0.5 mg-albuterol 3 mg 3 ml inhalation Q6H shortness of 03/21/24 03/18/24 03/18/24 04:00 Rx (2.5 mg base)/3 mL nebulization breath #90 mL soln prednisone 10 mg tablet See Taper PO DIRECTED #42 tabs 03/21/24 Unknown Rx Allergies Allergy/AdvReac Type Severity Reaction Status Date / Time No Known Allergies Allergy Verified 11/27/23 17:01 PFSH Acute 2 PFSH: Medical History Essential hypertension Noncompliance w/medication treatment due to intermit use of medication Mixed hyperlipidemia Chronic obstructive pulmonary emphysema Severe COPD, not oxygen dependent Surgical History History of inguinal hernia repair Left History of lumbar discectomy 2004 Family History Other Hypertension Stroke Social History Smoking and tobacco/nicotine status: current every day tobacco/nicotine user cigarettes Packs smoked per day: 2 Years cigarettes smoked: 53 [ Other cigarette details: 5-6 cigarettes daily ] Second hand smoke exposure: Yes Alcohol intake: never Substance/Drug Use: never Adopted: No Caregiver/support person: No Lives independently: Yes Household members: spouse Housing: House Marital status: Number of children: 2 Current occupational status: employed Do you think of yourself as: Straight/Heterosexual Current gender identity: Male Vitals/I&O/Wt Last Vital Signs Temp 98.0 F 05/02/24 09:30 Pulse 110 H 05/02/24 10:49 Resp 20 H 05/02/24 10:22 BP 131/89 05/02/24 10:49 Pulse Ox 95 05/02/24 10:49 O2 Del Method Nasal Cannula 05/02/24 10:49 O2 Flow Rate 2 05/02/24 10:49 Weight last 48 hrs Weight 63.503 kg Physical Exam 2 Const: COMMON NORMALS: no acute distress and patient oriented x3 HENMT: COMMON NORMALS: normocephalic HEAD & SCALP: normocephalic Eye: COMMON NORMALS: Equal, round and reactive pupils present and EOMs intact bilaterally Neck/C-Spine: COMMON NORMALS: no JVD Resp: COMMON NORMALS: normal respiratory effort, No retractions and No use of accessory muscles AUSCULTATION: crackles and wheezes Cardio: COMMON NORMALS: no JVD, regular rate, regular rhythm, S1 normal heart sound present and S2 normal heart sound present RATE: regular rate RHYTHM: regular rhythm HEART SOUNDS: S1 normal heart sound present and S2 normal heart sound present GI: COMMON NORMALS: Normal to inspection, nondistended, normoactive bowel sounds present, Soft to palpation and non-tender Extremity: COMMON NORMALS: no calf tenderness and no pedal edema Neuro: COMMON NORMALS: patient oriented x3, CN's II-XII intact bilaterally and moves all extremities Psych: COMMON NORMALS: mental status grossly normal Data 05/02/24 09:44 05/02/24 09:44 Micro: Microbiology 05/02/24 10:41 Blood Culture - Preliminary Blood SPECIMEN COLLECTED 05/02/24 10:41 Blood Culture - Preliminary Blood SPECIMEN COLLECTED A&P Assessment and plan (1) COPD with acute exacerbation: (2) Acute hypoxic respiratory failure: (3) Chest pain: Plan acute hypoxic respiratory failure, COPD exacerbation Plan -DuoNeb -Budesonide -Oxygen therapy -Solu-Medrol 125 followed by 40 mg IV every 8 hours -Rocephin -Azithromycin -Sputum cultures, blood cultures, respiratory viral panel -Continue monitoring respiratory status closely -Full code -Lovenox for DVT prophylaxis Chest pain -Serial EKGs, start troponins, telemetry monitoring Attestations 2 Medical Necessity Statement*: Patient requires hospitalization, inpatient, greater than 2 midnights for acute COPD exacerbation Diagnoses COPD with acute exacerbation J44.1 Acute hypoxic respiratory failure J96.01 Chest pain R07.9
[2024-05-02 13:27] LABS: Procalcitonin 0.04 ng/mL (0-0.5)
[2024-05-02 14:47] LABS: Adenovirus Not Detected (NOT DETECT); Chlamydia Pneumoniae Not Detected (NOT DETECT); Coronavirus 229E,HKU1,NL63,OC4 Not Detected (NOT DETECT); Human Metapneumovirus Not Detected (NOT DETECT); Human Rhinovirus/Enterovirus Not Detected (NOT DETECT); Influenza A Not Detected (NOT DETECT); Influenza A H1 Not Detected (NOT DETECT); Influenza A H1-2009 Not Detected (NOT DETECT); Influenza A H3 Not Detected (NOT DETECT); Influenza B Not Detected (NOT DETECT); Mycoplasma Pneumoniae Not Detected (NOT DETECT); Parainfluenza Virus Type 1 Not Detected (NOT DETECT); Parainfluenza Virus Type 2 Not Detected (NOT DETECT); Parainfluenza Virus Type 3 Not Detected (NOT DETECT); Parainfluenza Virus Type 4 Not Detected (NOT DETECT); Respiratory Syncytial Virus A Not Detected (NOT DETECT); Respiratory Syncytial Virus B Not Detected (NOT DETECT); SARS-COV-2 Not Detected (NOT DETECT)
--- NOTE | 2024-05-02 17:06 | PC.NURSE ---
2nd attempt to call report - nurse to call back
[2024-05-02 18:17] LABS: Chol HDL Ratio 3.47 mg/dL (1.0-5.00); Cholesterol 257 mg/dL (0-200); HDL Cholesterol 74 mg/dL (60-100); LDL Cholesterol Calculated 167 mg/dL (50-129); LDL HDL Ratio 2.26 RATIO (0.00-3.22); Thyroid Stimulating Hormone 0.95 uIU/mL (0.27-4.20); Triglycerides 80 mg/dL (0-150)
[2024-05-02] MEDS: methylPREDNISolone sod succ 125 mg/2 mL INJ IVP (18:41)
[2024-05-02] MEDS: enoxaparin 40 mg/0.4 mL Syringe SUBCUT (18:41)
[2024-05-02] MEDS: metoprolol succinate ER (24 HR) 25 mg Tablet PO (18:41)
[2024-05-02] MEDS: pantoprazole DR 40 mg Tablet PO (18:41)
[2024-05-02 19:10] LABS: Troponin 5 6HR 11.35 ng/L (0-15)
[2024-05-02 19:11] LABS: Troponin 5 6HR Delta -0.65 ng/L (0-12)
[2024-05-02 19:21] LABS: Estmated Average Glucose 111; Hemoglobin A1C 5.5 % (4.0-6.0)
[2024-05-02] MEDS: budesonide 0.5 mg/2 mL Neb INHALATION (21:38)
[2024-05-03] VITALS (16 sets, daily range): BP systolic 122–152; BP diastolic 76–88; PULSE 71–92; RESP 17–20; TEMP 36.4–36.7; O2SAT 90–98
[2024-05-03] MEDS: ipratropium-albuterol 3 mL Neb INHALATION ×4 (01:57→21:01)
[2024-05-03] MEDS: methylPREDNISolone sod succ 40 mg/mL INJ IVP ×3 (05:51→21:34)
[2024-05-03] MEDS: amlodipine 10 mg Tablet PO (05:51)
[2024-05-03 05:55] LABS: Basophils % 0.1 %; Eosinophils % 0.1 %; Hematocrit 39.6 % (37-53); Lymphocytes # 1.1 10^3/uL (0.8-4.8); Mean Corpuscular HGB Conc 33.3 g/dL (30-55); Mean Corpuscular Hemoglobin 30.3 pg (27-33); Mean Platelet Volume 9.9 fL (7.4-10.4); Monocytes # 0.8 10^3/uL (0.2-0.9); Monocytes % 5.5 %; Neutrophils # 11.67 10^3/uL (1.8-7.7); Neutrophils % 85.8 %; Nucleated Red Blood Cells % 0 %; Platelet Count 257 10^3/cmm (157-399); Red Blood Count 4.35 10^6/uL (3.85-5.65); Red Cell Distribution Width 13.2 % (12.1-15.1); White Blood Count 13.62 10^3/uL (3.29-11.43)
[2024-05-03 06:23] LABS: Blood Urea Nitrogen 17 mg/dL (8-23); Calcium 9.4 mg/dL (8.5-10.5); Carbon Dioxide 27 mmol/L (22-29); Chloride 93 mmol/L (98-107); Creatinine Clr Calc Pharmacy 84.7151; Glucose 144 mg/dL (65-115); NT Pro B Type Natriuretic Pept 80 pg/mL (0-125); Osmolality Calculated 272 mOsm/kg (285-295); Sodium 129 mmol/L (136-145)
[2024-05-03] MEDS: budesonide 0.5 mg/2 mL Neb INHALATION ×2 (08:13→21:01)
[2024-05-03] MEDS: cefTRIAXone 1,000 mg SDV 1000 MG IVP (08:43)
[2024-05-03] MEDS: AZITHROMYCIN ADD-Vantage 500 MG in 0.9% NaCl ADD-Vantage 250 ML 250 MG IV (08:43)
[2024-05-03] MEDS: nicotine 14 mg Patch 1 PATCH TRANSDERMA (08:44)
--- NOTE | 2024-05-03 11:20 | CTR_ITS ---
PROCEDURE INFORMATION: Exam: CT Chest Without Contrast; Diagnostic Exam date and time: 05/03/2024 1:00 PM Age: 64 years old Clinical indication: Shortness of breath; Additional info: SOB TECHNIQUE: Imaging protocol: Diagnostic computed tomography of the chest without contrast. Radiation optimization: All CT scans at this facility use at least one of these dose optimization techniques: automated exposure control; mA and/or kV adjustment per patient size (includes targeted exams where dose is matched to clinical indication); or iterative reconstruction. COMPARISON: CT angio chest PE protcl [id number] 11/28/2023 11:56 AM RADIATION DOSE METRICS: Total DLP (mGy-cm): 281.5 FINDINGS: Lungs: There is moderate diffuse centrilobular emphysema, greater in the lower lungs. There is mild bronchial wall thickening, bronchial mucous plugging, volume loss, peripheral bronchiectasis, and mild coarse reticular opacity in the left lower lobe. There is mild bronchial mucous plugging and minimal subpleural scarring atelectasis in the right lower lobe. Trachea and upper lung bronchi are normal. There are scattered benign pulmonary granulomas bilaterally. Pleural spaces: There is no pleural effusion or pneumothorax. Heart: Heart size is normal. There is no pericardial effusion. Coronary arteries: There is mild coronary artery calcification. Lymph nodes: Small calcified lymph nodes in the right hilum. There is no mediastinal or hilar lymphadenopathy. Vasculature: There is mild aortic atherosclerotic disease. Diaphragm: There is a small sliding-type hiatal hernia. Liver: Diffuse high attenuation of the liver parenchyma. There is a simple 2 cm cyst in the right lobe of the liver. Kidneys: Moderate asymmetric atrophy of the partially imaged right kidney. Right pelviectasis partially imaged. Bones/joints: Bones are unremarkable. Soft tissues: The extrathoracic soft tissues are unremarkable. CT/CT chest wo con [id number] IMPRESSION: 1. Moderate panlobular emphysema. 2. Mild bronchial mucous plugging with chronic scarring and atelectasis in both lower lobes, and peripheral bronchiectasis in the left lower lobe. Findings are similar to 11/28/2023 and suggest sequelae of recurrent small volume aspiration or chronic bronchitis. No sign of acute bronchopneumonia. 3. Diffuse high attenuation of the liver parenchyma suggests abnormal iron deposition. 4. Incidental findings above. COMMENTS: The presence of pulmonary emphysema on CT is an independent risk factor for lung cancer. In the absence of a history or active diagnosis of lung cancer, it is recommended that this patient with emphysema be evaluated for enrollment in a low dose CT lung cancer screening program.
[2024-05-03] MEDS: ALPRAZolam 0.5 mg Tablet PO (11:25)
[2024-05-03 12:28] LABS: Bilirubin Urine Negative (Negative); Blood Urine Negative (Negative); Glucose Urine UA Negative (Normal); Ketones Urine Negative (Negative); Leukocyte Esterase Urine Negative (Negative); Nitrate Urine Negative (Negative); Protein Urine Negative (Negative); Specific Gravity, Urine 1.006 (1.005-1.030); Urine Appearance Clear (CLEAR); Urine Color Yellow (Yellow); Urobilinogen Urine 0.2 mg/dL (Negative)
[2024-05-03 12:33] LABS: Add Urine Microscopic? YES; Bacteria Urine None Seen /hpf; Hyaline Casts Urine 0-4 /lpf; RBC Urine 0-2 /hpf (0-2); Squamous Epithelial Cell Urine 0-5 /hpf (0-5); WBC Urine 0-5 /hpf (0-5)
--- NOTE | 2024-05-03 15:41 | P.PN_ITS ---
Subjective 2 Medications: Medication Review Details: Patient was seen this morning continues to have shortness of breath and wheezing, has a cough, does smoke intermittently Vitals/I&O/Wt Last Vital Signs Temp 97.6 F 05/03/24 08:00 Pulse 76 05/03/24 14:49 Resp 18 05/03/24 14:36 BP 151/86 05/03/24 08:00 Pulse Ox 93 05/03/24 14:36 O2 Del Method Nasal Cannula 05/03/24 14:36 O2 Flow Rate 3 05/03/24 14:36 05/03/24 05/03/24 05/03/24 06:59 14:59 22:59 Intake Total 500 / 500 Balance 500 / 500 Weight last 48 hrs Weight 63.503 kg Weight 63.503 kg Weight 63.503 kg Physical Exam 2 Const: COMMON NORMALS: no acute distress and patient oriented x3 Resp: COMMON NORMALS: normal respiratory effort, No retractions and No use of accessory muscles AUSCULTATION: wheezes Cardio: COMMON NORMALS: regular rate, regular rhythm, S1 normal heart sound present and S2 normal heart sound present RATE: regular rate RHYTHM: r egular rhythm HEART SOUNDS: S1 normal heart sound present and S2 normal heart sound present GI: COMMON NORMALS: Normal to inspection, nondistended, normoactive bowel sounds present and non-tender Extremity: COMMON NORMALS: no pedal edema Neuro: COMMON NORMALS: patient oriented x3 Psych: COMMON NORMALS: mental status grossly normal Data 05/03/24 05:26 05/03/24 05:26 Micro: Microbiology 05/02/24 19:27 Gram Stain - Final Sputum - Expectorated Sputum 05/02/24 10:41 Blood Culture - Preliminary Blood NEGATIVE TO DATE 05/02/24 10:41 Blood Culture - Preliminary Blood NEGATIVE TO DATE A&P Assessment and plan (1) COPD with acute exacerbation: (2) Acute hypoxic respiratory failure: (3) Chest pain: Plan acute hypoxic respiratory failure, COPD exacerbation Plan -DuoNeb -Budesonide -Oxygen therapy -Solu-Medrol 125 followed by 40 mg IV every 8 hours -Rocephin -Azithromycin -Sputum cultures, blood cultures, respiratory viral panel -Continue monitoring respiratory status closely -Full code -Lovenox for DVT prophylaxis Chest pain -Serial EKGs, start troponins, telemetry monitoring Plan for today continue IV antibiotics, continue IV steroids, smoking cessation counseling Attestations 2 Medical Necessity Statement*: Patient requires hospitalization for acute hypoxic respiratory failure secondary to COPD Diagnoses COPD with acute exacerbation J44.1 Acute hypoxic respiratory failure J96.01 Chest pain R07.9
[2024-05-03] MEDS: metoprolol succinate ER (24 HR) 25 mg Tablet PO (17:20)
[2024-05-03] MEDS: enoxaparin 40 mg/0.4 mL Syringe SUBCUT (17:20)
[2024-05-03] MEDS: pantoprazole DR 40 mg Tablet PO (17:20)
[2024-05-04] VITALS (14 sets, daily range): BP systolic 145–163; BP diastolic 78–95; PULSE 66–102; RESP 17–20; TEMP 36.4–36.9; O2SAT 91–96
[2024-05-04] MEDS: ipratropium-albuterol 3 mL Neb INHALATION ×3 (02:23→20:21)
[2024-05-04] MEDS: methylPREDNISolone sod succ 40 mg/mL INJ IVP ×3 (05:24→21:55)
[2024-05-04] MEDS: amlodipine 10 mg Tablet PO (05:24)
[2024-05-04 06:27] LABS: Basophils % 0.1 %; Hematocrit 41.2 % (37-53); Lymphocytes # 1.1 10^3/uL (0.8-4.8); Lymphocytes % 4.7 %; Mean Corpuscular HGB Conc 32.8 g/dL (30-55); Mean Corpuscular Hemoglobin 30.4 pg (27-33); Mean Corpuscular Volume 92.8 fl (82-101); Mean Platelet Volume 10.1 fL (7.4-10.4); Monocytes # 1.4 10^3/uL (0.2-0.9); Monocytes % 6.3 %; Neutrophils # 19.92 10^3/uL (1.8-7.7); Neutrophils % 88.1 %; Nucleated Red Blood Cells % 0 %; Platelet Count 274 10^3/cmm (157-399); Red Blood Count 4.44 10^6/uL (3.85-5.65); Red Cell Distribution Width 13.4 % (12.1-15.1); White Blood Count 22.59 10^3/uL (3.29-11.43)
[2024-05-04 06:57] LABS: Anion Gap 13.5 (5-19); Blood Urea Nitrogen 18 mg/dL (8-23); Calcium 9.1 mg/dL (8.5-10.5); Carbon Dioxide 26 mmol/L (22-29); Chloride 99 mmol/L (98-107); Creatinine Clr Calc Pharmacy 80.5099; Glomerular Filtration Rate 113.2 mL/min (90-130); Glucose 134 mg/dL (65-115); NT Pro B Type Natriuretic Pept 177 pg/mL (0-125); Osmolality Calculated 282 mOsm/kg (285-295); Potassium 4.5 mmol/L (3.5-5.1); Sodium 134 mmol/L (136-145)
[2024-05-04] MEDS: AZITHROMYCIN ADD-Vantage 500 MG in 0.9% NaCl ADD-Vantage 250 ML 250 MG IV (08:27)
[2024-05-04] MEDS: cefTRIAXone 1,000 mg SDV 1000 MG IVP (08:30)
[2024-05-04] MEDS: nicotine 14 mg Patch 1 PATCH TRANSDERMA (08:30)
--- NOTE | 2024-05-04 09:36 | PC.CHAP ---
Pastoral Care Encounter/Spiritual Assessment Type of Contact [] Declined senior controls analyst visit [] Patient/Family/Request visit [] Outpatient visit [] Follow-up visit [] Physician referral [] Code/Alert [x] Routine visit [] Staff referral [] Actively dying [] Patient sleeping [] Family support [] [] Out of room [] Palliative care [] [x] Receiving care in room [] Pre-surgical visit [] Trauma [] Long length of stay [] ICU visit [] Other: Relational/Emotional Strength [] Patient feels connected with others/family/visitors/staff [] Distress [] Loneliness/isolation [] Abandonment Spirituality of Patient [x] Person of Oliva [] Attends Church of their [place] [x] Believes in Prayer [] Reads Bible or Adventism materials [] There are Spiritual issues to be addressed Sales Analyst Interventions [x] Prayer [x] Active listening [] Non-anxious presence [] Spiritual/emotional support [] Crisis/trauma care [] Spiritual counseling [] Bereavement support [] Provided bereavement packet [] Provided Bible/devotional materials [] Provided toy/stuffed animal, coloring book to patient or family member [] Provided Communion [] Anointing/[place] [] Salvation [x] Completed spiritual assessment [] Other: Impact on Illness or Injury [] Angry [] Fearful [] Anxious [] Often cries [] Exhaustion [] Unable to work [] Unable to attend denominational [] Unable to walk/stand [] Unable to read [] Unable to drive [] Unable to eat/drink [] Unable to sleep [] Unable to be with family [] Patient intubated [] Other: Summary Time spent with patient 5 min
--- NOTE | 2024-05-04 10:37 | PC.SOCIAL ---
IMM Update pg 2 of IMM Updated and reviewed w/ patient. Copy provided and copy dated, initialed and placed in chart.
--- NOTE | 2024-05-04 14:34 | P.PN_ITS ---
Subjective 2 Subjective: Patient was seen this morning, continues to have complaints of wheezing, wheezing on exertion, shortness of breath with exertion, nonproductive cough, no fevers, no chills Vitals/I&O/Wt Last Vital Signs Temp 97.6 F 05/04/24 11:40 Pulse 84 05/04/24 11:40 Resp 17 05/04/24 11:40 BP 145/78 05/04/24 11:40 Pulse Ox 93 05/04/24 11:40 O2 Del Method Nasal Cannula 05/04/24 11:40 O2 Flow Rate 3 05/04/24 09:05 05/03/24 05/04/24 05/04/24 22:59 06:59 14:59 Intake Total 254 / 1179 850 / 9 970 / 970 Balance 254 / 1179 850 / 2028 970 / 970 Weight last 48 hrs Weight 55.429 kg Weight 63.503 kg Weight 63.503 kg Physical Exam 2 Const: COMMON NORMALS: no acute distress and patient oriented x3 Neck/C-Spine: COMMON NORMALS: no JVD Resp: COMMON NORMALS: normal respiratory effort, No retractions and No use of accessory muscles AUSCULTATION: crackles and wheezes Cardio: COMMON NORMALS: no JVD, regular rate, regular rhythm, S1 normal heart sound present and S2 normal heart sound present RATE: regular rate RHYTHM: regular rhythm HEART SOUNDS: S1 normal heart sound present and S2 normal heart sound present GI: COMMON NORMALS: Normal to inspection, nondistended, normoactive bowel sounds present and non-tender Extremity: COMMON NORMALS: no clubbing, cyanosis or edema and no pedal edema Neuro: COMMON NORMALS: patient oriented x3 Psych: COMMON NORMALS: mental status grossly normal Data 05/04/24 05:53 05/04/24 05:53 Micro: Microbiology 05/02/24 19:27 Gram Stain - Final Sputum - Expectorated Sputum Sputum Culture - Preliminary 05/02/24 10:41 Blood Culture - Preliminary Blood NEGATIVE TO DATE 05/02/24 10:41 Blood Culture - Preliminary Blood NEGATIVE TO DATE A&P Assessment and plan (1) COPD with acute exacerbation: (2) Acute hypoxic respiratory failure: (3) Chest pain: Plan acute hypoxic respiratory failure, COPD exacerbation CT chest 1. Moderate panlobular emphysema. 2. Mild bronchial mucous plugging with chronic scarring and atelectasis in both lower lobes, and peripheral bronchiectasis in the left lower lobe. Findings are similar to 11/28/2023 and suggest sequelae of recurrent small volume aspiration or chronic bronchitis. No sign of acute bronchopneumonia. 3. Diffuse high attenuation of the liver parenchyma suggests abnormal iron deposition. 4. Incidental findings above. Plan -DuoNeb -Budesonide -Oxygen therapy -Solu-Medrol 125 followed by 40 mg IV every 8 hours -Rocephin -Azithromycin -Sputum cultures, blood cultures, respiratory viral panel -Continue monitoring respiratory status closely -Full code -Lovenox for DVT prophylaxis Chest pain -Serial EKGs, start troponins, telemetry monitoring Plan for today patient has persistent wheezing, shortness of breath, continue IV antibiotics continue steroids, continue to clinically monitor Attestations 2 Medical Necessity Statement*: Patient requires hospitalization for acute hypoxic respiratory failure secondary to COPD Diagnoses COPD with acute exacerbation J44.1 Acute hypoxic respiratory failure J96.01 Chest pain R07.9
[2024-05-04] MEDS: pantoprazole DR 40 mg Tablet PO (17:15)
[2024-05-04] MEDS: metoprolol succinate ER (24 HR) 25 mg Tablet PO (17:15)
[2024-05-04] MEDS: enoxaparin 40 mg/0.4 mL Syringe SUBCUT (17:15)
[2024-05-04] MEDS: budesonide 0.5 mg/2 mL Neb INHALATION (20:21)
[2024-05-05] VITALS (10 sets, daily range): BP systolic 130–163; BP diastolic 80–99; PULSE 62–89; RESP 15–20; TEMP 36.4–36.6; O2SAT 91–96
[2024-05-05] MEDS: ALPRAZolam 0.5 mg Tablet PO ×2 (00:30→08:14)
[2024-05-05] MEDS: ipratropium-albuterol 3 mL Neb INHALATION ×2 (02:59→08:40)
[2024-05-05 06:13] LABS: Basophils % 0.1 %; Hematocrit 40.2 % (37-53); Lymphocytes # 0.9 10^3/uL (0.8-4.8); Lymphocytes % 4.6 %; Mean Corpuscular HGB Conc 33.6 g/dL (30-55); Mean Corpuscular Hemoglobin 30.6 pg (27-33); Mean Corpuscular Volume 91.2 fl (82-101); Mean Platelet Volume 10.1 fL (7.4-10.4); Monocytes # 0.8 10^3/uL (0.2-0.9); Monocytes % 4.1 %; Neutrophils % 90.5 %; Nucleated Red Blood Cells % 0 %; Platelet Count 274 10^3/cmm (157-399); Red Blood Count 4.41 10^6/uL (3.85-5.65); Red Cell Distribution Width 13.6 % (12.1-15.1)
[2024-05-05 06:37] LABS: Anion Gap 13.1 (5-19); Blood Urea Nitrogen 15 mg/dL (8-23); Calcium 9.1 mg/dL (8.5-10.5); Carbon Dioxide 27 mmol/L (22-29); Chloride 100 mmol/L (98-107); Creatinine Clr Calc Pharmacy 80.5807; Glomerular Filtration Rate 113.2 mL/min (90-130); Glucose 118 mg/dL (65-115); NT Pro B Type Natriuretic Pept 162 pg/mL (0-125); Osmolality Calculated 284 mOsm/kg (285-295); Potassium 4.1 mmol/L (3.5-5.1); Sodium 136 mmol/L (136-145)
[2024-05-05] MEDS: amlodipine 10 mg Tablet PO (07:12)
[2024-05-05] MEDS: methylPREDNISolone sod succ 40 mg/mL INJ IVP (07:13)
[2024-05-05] MEDS: cefTRIAXone 1,000 mg SDV 1000 MG IVP (08:12)
[2024-05-05] MEDS: nicotine 14 mg Patch 1 PATCH TRANSDERMA (08:12)
[2024-05-05] MEDS: AZITHROMYCIN ADD-Vantage 500 MG in 0.9% NaCl ADD-Vantage 250 ML 250 MG IV (08:15)
[2024-05-05] MEDS: budesonide 0.5 mg/2 mL Neb INHALATION (08:40)
[2024-05-05] MEDS: chlorthalidone 25 mg Tablet PO (09:33)
--- NOTE | 2024-05-05 10:49 | P.DS_ITS ---
Discharge Providers Date of Admission: 05/02/24 15:56 Date of Discharge: May 05, 2024 Attending Provider at Admission: Andi Odell MD Attending Provider at Discharge: Andi Odell MD Primary Care Provider: Leonora Faustin APN Diagnoses at Discharge Discharge Diagnosis (1) COPD with acute exacerbation: Status: Acute (2) Acute hypoxic respiratory failure: Status: Acute (3) Chest pain: Status: Acute Reason for Visit Reason for Visit: short of breath Hospital Course Hospital Course Taurus Rhodes is a 64 year old male with with a past medical history of COPD, hypertension, history of smoking, who presents [facility] for shortness of breath. Patient reports increased shortness of breath, increased shortness of breath with exertion, and nonproductive cough, no fevers, no chills, does report anterior chest discomfort, chest tightness, no nausea, no vomiting, abdominal pain Patient was admitted to [facility] for COPD exacerbation acute hypoxic respiratory failure, received broad-spectrum biotic therapy, received steroid therapy, had slow clinical progress, but overall clinically improved. Will be discharged home on prednisone burst, cefdinir, with a close follow-up with primary care as outpatient. I had a detailed discussion with patient on discharge about smoking cessation counseling, morbidity mortality associated risk of recurrent hospitalizations, COPD exacerbation, malignancy, cardiovascular system risks, worsening lung disease, he voiced understanding, all questions answered. Referral sent to pulmonary in [place] for patient to follow-up with pulmonary Physical Exam Const: COMMON NORMALS: no acute distress and patient oriented x3 Resp: COMMON NORMALS: normal respiratory effort, No retractions, No use of accessory muscles and clear to auscultation bilaterally AUSCULTATION: clear to auscultation bilaterally Cardio: COMMON NORMALS: regular rate, regular rhythm, S1 normal heart sound present and S2 normal heart sound present RATE: regular rate RHYTHM: regular rhythm HEART SOUNDS: S1 normal heart sound present and S2 normal heart sound present GI: COMMON NORMALS: Normal to inspection, nondistended, normoactive bowel sounds present Extremity: COMMON NORMALS: no pedal edema Neuro: COMMON NORMALS: patient oriented x3 Psych: COMMON NORMALS: mental status grossly normal Discharge Data Studies Completed and Pending Completed Studies During Hospitalization Category Date Time Status CT chest wo con [id number] Routine Cat Scan 05/03/24 11:20 Completed XR chest 1V portable [id number] Stat Exams 05/02/24 09:32 Completed Pending at discharge Category Date Time Status Blood Culture Stat Lab 05/02/24 10:41 Results Sputum Culture and Gram Stain Stat Lab 05/02/24 19:27 Results Radiology Impressions Chest X-Ray 05/02/24 09:32 IMPRESSION: 1. Diffuse emphysematous lung changes, unchanged.. 2. No acute interval changes Chest CT 05/03/24 11:20 IMPRESSION: 1. Moderate panlobular emphysema. 2. Mild bronchial mucous plugging with chronic scarring and atelectasis in both lower lobes, and peripheral bronchiectasis in the left lower lobe. Findings are similar to 11/28/2023 and suggest sequelae of recurrent small volume aspiration or chronic bronchitis. No sign of acute bronchopneumonia. 3. Diffuse high attenuation of the liver parenchyma suggests abnormal iron deposition. 4. Incidental findings above. COMMENTS: The presence of pulmonary emphysema on CT is an independent risk factor for lung cancer. In the absence of a history or active diagnosis of lung cancer, it is recommended that this patient with emphysema be evaluated for enrollment in a low dose CT lung cancer screening program. Laboratory Results WBC 18.90 10^3/uL (3.29-11.43) H 05/05/24 05:33 RBC 4.41 10^6/uL (3.85-5.65) 05/05/24 05:33 Hgb 13.50 g/dL (11.27-16.99) 05/05/24 05:33 Hct 40.2 % (37-53) 05/05/24 05:33 MCV 91.2 fl (82-101) 05/05/24 05:33 MCH 30.6 pg (27-33) 05/05/24 05:33 MCHC 33.6 g/dL (30-55) 05/05/24 05:33 RDW 13.6 % (12.1-15.1) 05/05/24 05:33 Plt Count 274 10^3/cmm (157-399) 05/05/24 05:33 MPV 10.1 fL (7.4-10.4) 05/05/24 05:33 Neut % (Auto) 90.5 % 05/05/24 05:33 Lymph % (Auto) 4.6 % 05/05/24 05:33 Stone % (Auto) 4.1 % 05/05/24 05:33 Eos % (Auto) 0.0 % 05/05/24 05:33 Baso % (Auto) 0.1 % 05/05/24 05:33 Neut # (Auto) 17.10 10^3/uL (1.8-7.7) H 05/05/24 05:33 Lymph # (Auto) 0.9 10^3/uL (0.8-4.8) 05/05/24 05:33 Stone # (Auto) 0.8 10^3/uL (0.2-0.9) 05/05/24 05:33 Eos # (Auto) 0.0 10^3/uL (0.0-0.8) 05/05/24 05:33 Baso # (Auto) 0.0 10^3/uL (0.0-0.1) 05/05/24 05:33 Nucleated RBC % (auto) 0 % 05/05/24 05:33 Nucleated RBCs # 0.0 /100WBC 05/05/24 05:33 Specimen Type Arterial 05/02/24 10:15 Sample Site Brachial, right 05/02/24 10:15 ABG pH 7.36 (7.35-7.45) 05/02/24 10:15 ABG pCO2 50.8 mmHg (35-45) H 05/02/24 10:15 ABG pO2 83.6 mmHg (80.0-100.0) 05/02/24 10:15 ABG PO2/FiO2 Ratio 261 05/02/24 10:15 ABG HCO3 28.5 mmol/L (22-26) H 05/02/24 10:15 ABG O2 Saturation 96.8 05/02/24 10:15 ABG Base Excess 1.9 mmol/L (-2.0-2.0) 05/02/24 10:15 David Test N/a 05/02/24 10:15 A-a O2 Gradient 10.6 mmHg (5-10) H 05/02/24 10:15 Hematocrit 47.7 % (42-52) 05/02/24 10:15 Hgb O2 Saturation 94.5 % (95-100) L 05/02/24 10:15 Carboxyhemoglobin 1.3 %THgb (0.4-20.1) 05/02/24 10:15 Methemoglobin 1.1 % (0.4-1.5) 05/02/24 10:15 Total Hemoglobin 15.6 g/dL (14-18) 05/02/24 10:15 Sodium 136.0 mmol/L (131-143) 05/02/24 10:15 Potassium 5.2 mmol/L (3.5-5.0) H 05/02/24 10:15 Glucose 106.0 mg/dL (70-115) 05/02/24 10:15 Ionized Calcium 1.2 mmol/L (1.1-1.4) 05/02/24 10:15 O2 Delivery Device Nc 05/02/24 10:15 O2 Liters/Min 3.0 % 05/02/24 10:15 FiO2 32.0 % 05/02/24 10:15 Supervisor [employer]s ID Amh 05/02/24 10:15 Sodium 136 mmol/L (136-145) 05/05/24 05:33 Potassium 4.1 mmol/L (3.5-5.1) 05/05/24 05:33 Chloride 100 mmol/L (98-107) 05/05/24 05:33 Carbon Dioxide 27 mmol/L (22-29) 05/05/24 05:33 Anion Gap 13.1 (5-19) 05/05/24 05:33 BUN 15 mg/dL (8-23) 05/05/24 05:33 Creatinine 0.7 mg/dL (0.7-1.2) 05/05/24 05:33 GFR Calculation 113.2 mL/min (90-130) 05/05/24 05:33 Glucose 118 mg/dL (65-115) H 05/05/24 05:33 Estimat Average Glucose 111 05/02/24 09:44 Hemoglobin A1c 5.5 % (4.0-6.0) 05/02/24 09:44 Calculated Osmolality 284 mOsm/kg (285-295) L 05/05/24 05:33 Calcium 9.1 mg/dL (8.5-10.5) 05/05/24 05:33 Total Bilirubin 0.6 mg/dL (0.15-1.2) 05/02/24 09:44 AST 20 U/L (0-40) 05/02/24 09:44 ALT 18 U/L (0-41) 05/02/24 09:44 Alkaline Phosphatase 82 U/L (40-130) 05/02/24 09:44 Troponin T Baseline 12 ng/L (0-15) 05/02/24 09:44 Troponin T Hi Sens 6Hr 11.35 ng/L (0-15) 05/02/24 18:40 Troponin T Hi Sens 6Hr Delta -0.65 ng/L (0-12) L 05/02/24 18:40 C-Reactive Protein 3.0 mg/L (0.0-4.9) 05/02/24 09:44 NT-Pro-B Natriuret Pep 162 pg/mL (0-125) H 05/05/24 05:33 Total Protein 7.2 g/dL (6.6-8.7) 05/02/24 09:44 Albumin 4.5 g/dL (3.5-5.2) 05/02/24 09:44 Globulin 2.7 g/dL (1.3-4.6) 05/02/24 09:44 Triglycerides 80 mg/dL (0-150) 05/02/24 09:44 Cholesterol 257 mg/dL (0-200) H 05/02/24 09:44 LDL Cholesterol, Calc 167 mg/dL (50-129) H 05/02/24 09:44 HDL Cholesterol 74 mg/dL (60-100) 05/02/24 09:44 LDL/HDL Ratio 2.26 RATIO (0.00-3.22) 05/02/24 09:44 Cholesterol/HDL Ratio 3.47 mg/dL (1.0-5.00) 05/02/24 09:44 Procalcitonin 0.04 ng/mL (0-0.5) 05/02/24 09:44 TSH 0.95 uIU/mL (0.27-4.20) 05/02/24 09:44 Urine Color Yellow (Yellow) 05/03/24 12:12 Urine Appearance Clear (CLEAR) 05/03/24 12:12 Urine pH 6.0 (5-7) 05/03/24 12:12 Ur Specific [place] 1.006 (1.005-1.030) 05/03/24 12:12 Urine Protein Negative (Negative) 05/03/24 12:12 Urine Glucose (UA) Negative (Normal) 05/03/24 12:12 Urine Ketones Negative (Negative) 05/03/24 12:12 Urine Blood Negative (Negative) 05/03/24 12:12 Urine Nitrate Negative (Negative) 05/03/24 12:12 Urine Bilirubin Negative (Negative) 05/03/24 12:12 Urine Urobilinogen 0.2 mg/dL (Negative) 05/03/24 12:12 Ur Leukocyte Esterase Negative (Negative) 05/03/24 12:12 Urine RBC 0-2 /hpf (0-2) 05/03/24 12:12 Urine WBC 0-5 /hpf (0-5) 05/03/24 12:12 Ur Squamous Epith Cells 0-5 /hpf (0-5) 05/03/24 12:12 Amorphous Sediment Not Reportable 05/03/24 12:12 Urine Bacteria None seen /hpf (NONE) 05/03/24 12:12 Hyaline Casts 0-4 /lpf H 05/03/24 12:12 Adenovirus (PCR) Not detected (NOT DETECT) 05/02/24 09:44 C. pneumoniae DNA (PCR) Not detected (NOT DETECT) 05/02/24 09:44 Coronavirus 229E (PCR) Not detected (NOT DETECT) 05/02/24 09:44 Human Metapneumovir PCR Not detected (NOT DETECT) 05/02/24 09:44 Influenza A (H1) PCR Not detected (NOT DETECT) 05/02/24 09:44 Influ A (H1/09) PCR Not detected (NOT DETECT) 05/02/24 09:44 Influenza A (H3) PCR Not detected (NOT DETECT) 05/02/24 09:44 Influenza Type A (PCR) Not detected (NOT DETECT) 05/02/24 09:44 Influenza Type B (PCR) Not detected (NOT DETECT) 05/02/24 09:44 M. pneumoniae (PCR) Not detected (NOT DETECT) 05/02/24 09:44 Parainfluenza 1 (PCR) Not detected (NOT DETECT) 05/02/24 09:44 Parainfluenza 2 (PCR) Not detected (NOT DETECT) 05/02/24 09:44 Parainfluenza 3 (PCR) Not detected (NOT DETECT) 05/02/24 09:44 Parainfluenza 4 (PCR) Not detected (NOT DETECT) 05/02/24 09:44 RSV Type A (PCR) Not detected (NOT DETECT) 05/02/24 09:44 RSV Type B (PCR) Not detected (NOT DETECT) 05/02/24 09:44 Entero/Rhino (PCR) Not detected (NOT DETECT) 05/02/24 09:44 SARS-CoV-2 (PCR) Not detected (NOT DETECT) 05/02/24 09:44 Vitals Last Vital Signs Temp 97.5 F L 05/05/24 08:00 Pulse 85 05/05/24 08:41 Resp 18 05/05/24 08:41 BP 145/80 05/05/24 09:31 Pulse Ox 96 05/05/24 08:41 O2 Del Method Nasal Cannula 05/05/24 08:41 O2 Flow Rate 3 05/05/24 08:41 Discharge Plan Discharge Patient Disposition: Home Condition: Stable Prescriptions: New chlorthalidone 25 mg Tablet 25 mg PO DAILY 30 Days Qty: 30 0RF prednisone 20 mg tablet 20 mg PO BID 5 Days Qty: 10 0RF cefdinir 300 mg capsule 300 mg PO BID 5 Days Qty: 10 0RF Continued budesonide-formoterol [Symbicort] 160-4.5 mcg/actuation HFA aerosol inhaler 2 puff inhalation BID Qty: 10.2 6RF tiotropium bromide [Spiriva with HandiHaler] 18 mcg capsule, w/inhalation device 1 cap inhalation DAILY Qty: 60 6RF Rx Instructions: puncture 1 cap using device; one dose = 2 inhalations omega-3 fatty acids 1,000 mg Capsule 1,000 mg PO DAILY cholecalciferol (vitamin D3) [Vitamin D3] 125 mcg (5,000 unit) Tablet 10,000 unit PO DAILY cyanocobalamin (vitamin B-12) [Vitamin B-12] 5,000 mcg Tablet, Sublingual 15,000 mcg PO DAILY amlodipine [Norvasc] 10 mg tablet 10 mg PO QAM albuterol sulfate 90 mcg/actuation HFA aerosol inhaler 2 puff inhalation QID PRN (Reason: Shortness Of Breath) alprazolam 0.5 mg tablet 0.5 mg PO TID PRN (Reason: Anxiety) metoprolol succinate 25 mg tablet extended release 24 hr 25 mg PO QPM Rx Instructions: TAKE 1 TABLET BY MOUTH ONCE DAILY WITH EVENING MEAL budesonide 0.5 mg/2 mL Suspension For Nebulization 0.5 mg inhalation BID Qty: 60 0RF dextromethorphan-guaifenesin 10-100 mg/5 mL Syrup 5 ml PO Q4H PRN (Reason: Cough) Qty: 237 0RF ipratropium-albuterol 0.5 mg-3 mg(2.5 mg base)/3 mL solution for nebulization 3 ml inhalation Q6H Qty: 90 0RF Discharge Orders: Discharge Order (Routine); Ordered 05/05/24 Ordered By: Andi Odell Referrals: Jae Orona MD, MBBS, MPH [Referring] - 1 week (We have notified your physician's clinic of the need for a follow-up appointment to be scheduled. If you have not heard from them within the next 2 business days, please call them directly. ) Leonora Faustin APN [Primary Care Provider] - 05/07/24 1:20 pm Discharge Diet: Cardiac Discharge Activity: Resume usual activity Patient Instructions: COPD, Prednisone (By mouth), Chlorthalidone (By mouth), Cefdinir (By mouth), COPD Stoplight, Opioid Safety Activity Restrictions/Additional Instructions: -please stop smoking -please follow up wit pulmonary in 1 month -if any cough or fevers plase go to emergency room Discharge Attestations Time Spent in Discharge Care*: greater than 30 min Time Spent in Smoking Cessation: more than 10 minutes Status at Discharge: Cognitive status at discharge: cognitively intact , Behavioral status at discharge: cooperative , Quality Metrics Clinical Quality Measures [ No reported AMI, CVA or VTE this stay] Coding Level of Care Code 34711 Total time (in minutes) for Discharge: 45 Diagnoses COPD with acute exacerbation J44.1 Acute hypoxic respiratory failure J96.01 Chest pain R07.9
== END 2024-05-05 13:31 | disposition home or self-care (01) | DRG 189 ==
LOC: ER 10:32 → MEDSURG 15:56
PROVIDERS: Admitting Provider Family Medicine; Emergency Provider Family Medicine; PCP Nurse Practitioner Family; Visit Provider Family Medicine
DX: J96.01 Acute respiratory failure with hypoxia (principal); J44.1 Chronic obstructive pulmonary disease with (acute) exacerbation; I10 Essential (primary) hypertension; F17.210 Nicotine dependence, cigarettes, uncomplicated
CPT/HCPCS: 36415; 36600; 71045; 71250; 80048; 80051; 80053; 80061; 81001; 82330; 82805; 83036; 83880; 84145; 84443; 84484; 85025; 86140; 87040; 87070; 87205; 87486; 87581; 87633; 93005; 94640; 94664; 96365; 96372; 96375; 99285; J0456; J0696; J1650; J1885; J2405; J2919; J7050; J7626

== ENCOUNTER 2024-08-23 11:01 | Inpatient (IN) | payer MEDICARE, OTHER, SELFPAY ==
--- OUTSIDE RECORDS SUMMARY | 2024-07-02 08:00 | XMS_ITS ---
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 Patient states hehas been smoking 2-3 cigs per day. Also reports he has been smoking health food stuff. Like mullein leaf. Medications Medication SIG (Take, Route, Frequency, Duration) Notes Start Date End Date Status Breztri Aerosphere 160-9-4.8 MCG/ACT 2 puffs Inhalation Twice a day for 30 days 05/07/2024 11/03/2024 Active Albuterol Sulfate HFA 108 (90 Base) MCG/ACT 2 puffs Inhalation four times a day prn for 90 days Active Cefdinir 300 MG Oral for 5 Days Active ALPRAZolam 0.5 MG TAKE 1/2 TO 1 (ONE-HALF TO ONE) TABLET BY MOUTH THREE TIMES DAILY NEEDED FOR ANXIETY FOR 30 DAYS for 30 12/03/2023 Active Chlorthalidone 25 MG 1 tablet in the morning with food Oral once a day for 30 days Active Azithromycin 250 MG 2 tablet on the day, then 1 tablet daily for 4 days Orally Once a day for 5 day(s) 07/02/2024 07/07/2024 Active predniSONE 20 MG 2 tabs for 5 days; 1 tab for 5 days; Orally Once a day for 10 days Active Budesonide-Formoterol Fumarate 160-4.5 MCG/ACT INHALE TWO PUFFS BY MOUTH TWICE DAILY Inhalation for 30 days Active Spiriva HandiHaler 18 MCG INHALE ONE DOS E (ONE DOSE = TWO PUFFS) DAILY DIRECTED Inhalation for 30 Days Active buPROPion HCl ER (XL) 150 MG 1 tablet in the morning Oral Once a day for 30 Not-Taking Ipratropium-Albuterol 0.5-2.5 (3) MG/3ML USE 1 VIAL IN NEBULIZER 4 TIMES DAILY Active Metoprolol Succinate ER 25 MG TAKE 1 TABLET BY MOUTH ONCE DAILY WITH EVENING MEAL for 30 Active Fish Oil 1000 MG 1 capsule Orally Onc e a day Active Vitamin D3 250 MCG (34334 UT) as directed Orally Active amLODIPine Besylate 10 MG Take 1 tablet by mouth once daily for 90 days Active Losartan Potassium 100 MG Take 1 tablet by mouth once daily for 90 Active Vitamin B12 100 MCG as directed Orally Active Oxygen - Home Use 2 L NC PRN A ctive Budesonide 0.5 MG/2ML USE 1/2 (ONE-HALF) VIAL IN NEBULIZER TWICE DAILY for 30 Active Social History Tobacco Use: Social History Observation Description Date Details (start date - stop date) Current Smoker NA - NA xTobacco Use/Smoking Question Answer Notes Are you a current smoker How often do you smoke cigarettes? every day How many cigarettes a day do you smoke? 5 or les s Additional Findings: Tobacco User Chews fine cut tobacco Section Notes: Depression screen completed 08/09/2023 score 0 Vital Signs Temperature 96.08 degrees Fahrenheit 025 Blood pressure systolic 138 mm Hg 07/03/19 25 Blood pressure diastolic 82 mm Hg 025 Heart Rate 96 /min 07/02/2024 Respiratory Rate 20 /min 07/02/2024 Height 68 in 07/02/2024 Weight 140 lbs 07/02/2024 BMI 21.28 kg/m2 07/02/2024 Oximetry 92 % 07/02/2024 Height-cm 172.72 cm 07/02/2024 Weight-kg 63.5 kg 07/02/2024 Encounters Encounter Location Date Provider Diagnosis [facility] [address] [id number] 07/02/2024 Leonora Faustin COPD with acute exacerbation J44.1 ; Dyspnea R06.00 ; Anxiety F41.9 and Tobacco abuse Z72.0 Assessments Encounter Date Diagnosis (ICD Code) Assessment Notes Treatment Notes Treatment Clinical Notes Section Notes 07/02/2024 COPD with acute exacerbation (ICD-10 - J44.1) depomedrol/deca dron im z mario 07/02/2024 Dyspnea (ICD-10 - R06.00) o2 as directed 07/02/2024 Anxiety (ICD-10 - F41.9) xanax 07/02/2024 Tobacco abuse (ICD-10 - Z72.0) 07/02/2024 Other Questions asked and answered; discharged to home. Plan Of Treatment Medication Medication Name Sig Start Date Stop Date Notes Azithromycin 250 MG 2 tablet on the s t day, then 1 tablet daily for 4 days Orally Once a day for 5 day(s) 07/02/2024 07/07/2024 Treatment Notes Assessment Notes COPD with acute exacerbation depomedrol/decadron im z mario Dyspnea o2 as directed Anxiety xanax Other Questions asked and answered; discharged to home. Next Appt Details Follow Up: 4 Weeks, Reason: as needed Provider Name:Leonora Faustin, 09/03/2024 11:40:00 AM, [address] [place] [address], [phone], Medications Administered Medication Instructions Date of Administration Dosage Notes dexAMETHasone 07/02/2024 4 mg [facility] [phone] pt tolerated well/instructed to wait 20 min DEPO-Medrol 07/02/2024 40 mg [facility] [phone]-01 pt tolerated well/instructed to wait 20 min Progress Notes * Dennis RHODES DDOB: [birth year] (64 yo M)Acc No.[id number]:07/02/2024 Patient: Saurav MISTRYrene Alejo Provider: Josh Faustin 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 Patient states he has been smoking 2-3 cigs per day. Also reports he has been smoking health food stuff. Like erin leaf. * HPI: Himanshu britt Note: patient is an alert 64 year old male known to practice and here for recheck and medications complains of fatigue; short of breath ; white to clear sputum states gets more short of breath when tries to walk any distance yesterday felt bad; started taking a xanax under tongue when anxious; cant breath then gets on his oxygen; does a ud treatment; states then gets better states his oxygen comes off him at times at night continue xanax prn; suggest only 1/2 tab when needed still smoking some cigs; states home pulse ox down to 86 at times copd with ae discussed with patient; continue ud; continue trelegy states he did not follow up as planned with pulmonology ; advised patient is imperitive he sees pulmonology; explained although the steroids do help and has helped in past; copd severe and needs the pulmonology specialty as been discussed; verbalized understanding will administer depomedrol/decadron im as well as e script z mario. * ROS: G eneral - Multi System: Constitutional R eportsfatigue . R espiratory R eportscough shortness of breath clear sputum. * Medical History: * Surgical History: h ernia repair 1983Back surgery 2004 * Hospitalization/Major Diagno stic Procedure: [facility] for Trouble breathing 03/20-03/22/22 * Family History: F ather: 86 yrs, edema. M other: 80 yrs, stroke. * Social History: T obacco Use: x Tobacco Use/Smoking A re you a c urrent smoker H ow often do you smoke cigarettes? e very day H ow many cigarettes a day do you smoke? 5 or less A dditional Findings: Tobacco User C hews fine cut tobacco D epression screen completed 08/09/2023 score 0. * Medications: T akingChlorthalidone 25 MG Tablet 1 tablet in the morning with food Oral once a day Breztri Aerosphere 160-9-4.8 MCG/ACT Aerosol 2 puffs Inhalation Twice a day , stop date 5Albuterol Sulfate HFA 108 (90 Base) MCG/ACT Aerosol Solution 2 puffs Inhalation four times a day prn Cefdinir 300 MG Capsule Oral ALPRAZolam 0.5 MG Tablet TAKE 1/2 TO 1 (ONE-HALF TO ONE) TABLET BY MOUTH THREE TIMES DAILY NEEDED FOR ANXIETY FOR 30 DAYS Oxygen - Home Use 2 L NC PRN Budesonide 0.5 MG/2ML Suspension USE 1/2 (ONE-HALF) VIAL IN NEBULIZER TWICE DAILY Losartan Potassium 100 MG Tablet Take 1 tablet by mouth once daily Vitamin B12 100 MCG Tablet as directed Orally Fish Oil 1000 MG Capsule 1 capsule Orally Once a day Vitamin D3 250 MCG (73045 UT) Capsule as directed Orally amLODIPine Besylate 10 MG Tablet Take 1 tablet by mouth once daily Ipratropium-Albuterol 0.5-2.5 (3) MG/3ML Solution USE 1 VIAL IN NEBULIZER 4 TIMES DAILY Metoprolol Succinate ER 25 MG Tablet Extended Release 24 Hour TAKE 1 TABLET BY MOUTH ONCE DAILY WITH EVENING MEAL predniSONE 20 MG Tablet 2 tabs for 5 days; 1 tab for 5 days; Orally Once a day Budesonide-Formoterol Fumarate 160-4.5 MCG/ACT Aerosol INHALE TWO PUFFS BY MOUTH TWICE DAILY Inhalation Spiriva HandiHaler 18 MCG Capsule INHALE ONE DOSE (ONE DOSE = TWO PUFFS) DAILY DIRECTED Inhalation Taking Chlorthalidone 25 MG Tablet 1 tablet in the morning with food Oral once a day Taking Breztri Aerosphere 160-9-4.8 MCG/ACT Aerosol 2 puffs Inhalation Twice a day , stop date 11/03/2024Taking Albuterol Sulfate HFA 108 (90 Base) MCG/ACT Aerosol Solution 2 puffs Inhalation four times a day prn Taking Cefdinir 300 MG Capsule Oral Taking ALPRAZolam 0.5 MG Tablet TAKE 1/2 TO 1 (ONE-HALF TO ONE) TABLET BY MOUTH THREE TIMES DAILY NEEDED FOR ANXIETY FOR 30 DAYS Taking Oxygen - Home Use 2 L NC PRN Taking Budesonide 0.5 MG/2ML Suspension USE 1/2 (ONE-HALF) VIAL IN NEBULIZER TWICE DAILY Taking Losartan Potassium 100 MG Tablet Take 1 tablet by mouth once daily Taking Vitamin B12 100 MCG Tablet as directed Orally Taking Fish Oil 1000 MG Capsule 1 capsule Orally Once a day Taking Vitamin D3 250 MCG (14684 UT) Capsule as directed Orally Taking amLODIPine Besylate 10 MG Tablet Take 1 tablet by mouth once daily Taking Ipratropium-Albuterol 0.5-2.5 (3) MG/3ML Solution USE 1 VIAL IN NEBULIZER 4 TIMES DAILY Taking Metoprolol Succinate ER 25 MG Tablet Extended Release 24 Hour TAKE 1 TABLET BY MOUTH ONCE DAILY WITH EVENING MEAL Taking predniSONE 20 MG Tablet 2 tabs for 5 days; 1 tab for 5 days; Orally Once a day Taking Budesonide-Formoterol Fumarate 160-4.5 MCG/ACT Aerosol INHALE TWO PUFFS BY MOUTH TWICE DAILY Inhalation Taking Spiriva HandiHaler 18 MCG Capsule INHALE ONE DOSE (ONE DOSE = TWO PUFFS) DAILY DIRECTED Inhalation Not-TakingbuPROPion HCl ER (XL) 150 MG Tablet Extended Release 24 Hour 1 tablet in the morning Oral Once a day Not-Taking buPROPion HCl ER (XL) 150 MG Tablet Extended Release 24 Hour 1 tablet in the morning Oral Once a day * Allergies: N .K.D.A.no[Allergies Verified] Objective: * Vitals: H t: 68 in, Wt:140lbs, Wt-k.5 kg, BMI:21.28Index, Temp:96.08F, BP:138/82mm Hg, HR:96/min, RR:20/min, Oxygen sat %:92%, O2 Source: RA, Ht-cm: 172.72 cm. * Examination: G eneral Examination: GENERAL APPEARANCE: a lert, well hydrated, in no distress, converses with some dyspnea noted. HEAD: n ormocephalic, atraumatic. EYES: P ERRL; normal conjunctiva. EARS: . ... NECK/THYROID: n tammy supple, full range of motion, no JVD, without thyromegaly or masses. SKIN: w arm and dry. HEART: R egular rate and rhythm, S1 S2 normal. LUNGS: s cattered wheezes throughout , diminished breath sounds in bases. EXTREMITIES: n o edema. NEUROLOGIC: a lert and oriented, cerebellar function normal, cognitive exam grossly normal, gait normal. PSYCH: a lert, oriented, cognitive function intact, cooperative with exam, good eye contact, mood/affect full range, speech clear. Assessment: * Assessment: 1. C OPD with acute exacerbation - J44.1 (Primary) 2 . D yspnea - R06.00? 3. A nxiety - F41.9 4 . T obacco abuse - Z72.0 ? Plan: * Treatment: 2. D yspnea Notes: o2 as directed 3. A nxiety Notes: xanax 4. O thers Notes: Questions asked and answered; discharged to home. * Therapeutic Injections: Dexamethasone Sodium Phosphate : 4 mg (Route: Combination inj. into one route) given by Hannahpaola Oconnell on left hip (COPD with acute exacerbation) Depo-Medrol/Methylprednisolone per 40mg : 40 mg (Route: Combination inj. into one route) given by Hannah Anish on left hip (COPD with acute exacerbation) * Procedure Codes: 3 075F SYST BP GE 130 - 139MM [id number] DIAST BP 80-89 MM [id number] Injection, methylprednisolone acetate, 1 mg, Units: 40.00 J1100 Dexamethasone Sodium [id number] THER/PROPH/DIAG INJ, SC/IM * Preventive Medicine: Screenings: A s Listed Below * . C OLORECTAL CANCER SCREENING: Date of last colonoscopy H as never been done Colorectal screening: h as never occurred Provider recommendation: devora sanchez Refuses further screening D EPRESSION SCREENING: Date of most recent screenin 08/09/2023 The patient denies: a nxiety, depressed mood, difficulty sleeping, lack of energy, lack of interest in things that were enjoyable, poor appetite, sadness, thoughts of harming him/herself, thought of harming someone else, trouble concentrating, weight gain, weight loss, any depressive symptoms at this time Suicidal ideation: h as never been expressed/considered Homicidal ideation: h as never been expressed/considered PHQ inventory: w ith score of 0-4 F ALL RISK SCREENING Screening: N o falls in the past year T OBACCO USE SCREENING: The patient smoked: c igarettes Chewing tobacco: h as been used Smoking tobacco was last used: t jocelyn V ACCINATIONS: Is patient's pneumococcal vaccine current? N o refuses Completed vaccinations include: C ovid, Has never been doneNo flu vaccine Influenza vaccinations: i s rarely done Refuses * Follow Up: 4 Weeks (Reason: as needed) * Billing Information: * Visit Code: 68796 Office Visit, Est Pt., Level 3. * Procedure Codes: 3075F SYST BP GE 130 - 139MM HG. 3079F DIAST BP 80-89 MM HG. J1010 Injection, methylprednisolone acetate, 1 mg. Units: 40.00. J1100 Dexamethasone Sodium Phosphate. 42511 THER/PROPH/DIAG INJ, SC/IM. 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 NECK/THYROID: neck supple, full ra nge of motion, no JVD, without thyromegaly or masses HEART: Regular rate and rhy thm, S1 S2 normal LUNGS: scattered wheezes th roughout , diminished breath sounds in bases NEUROLOGIC: alert and oriented, cerebellar function normal, cognitive exam grossly normal, gait normal SKIN: warm and dry EXTREMITIES: no edema PSYCH: alert, oriented, cog nitive function intact, cooperative with exam, good eye contact, mood/affect full range, speech clear
--- OUTSIDE RECORDS SUMMARY | 2024-07-16 04:20 | XMS_ITS ---
Author Organization [facility] Address [address] [place] [address] Care Team Providers Care Senior Underwriter Name Role Phone Faustin [facility] Primary Care Provider FAUSTIN YOLI Unavailable Unavailable Allergies No Known Allergies REASON FOR VISIT Patient to clinic with complaint of non productive cough thick mucus' and sinus drainage. States I can't breath. Medications Medication SIG (Take, Route, Frequency, Duration) Notes Start Date End Date Status Cefdinir 300 MG Oral for 5 Days Not-Taking Losartan Potassium 100 MG Take 1 tablet by mouth once daily for 90 Not-Taking predniSONE 20 MG 2 tabs for 5 days; 1 tab for 5 days; Orally Once a day for 10 days Active Spiriva HandiHaler 18 MCG INHALE ONE DOS E (ONE DOSE = TWO PUFFS) DAILY DIRECTED Inhalation for 30 Days Active Budesonide-Formoterol Fumarate 160-4.5 MCG/ACT INHALE TWO PUFFS BY MOUTH TWICE DAILY Inhalation for 30 days Active Fish Oil 1000 MG 1 capsule Orally Onc e a day Active Metoprolol Succinate ER 25 MG TAKE 1 TABLET BY MOUTH ONCE DAILY WITH EVENING MEAL for 30 Active Ipratropium-Albuterol 0.5-2.5 (3) MG/3ML USE 1 VIAL IN NEBULIZER 4 TIMES DAILY Active amLODIPine Besylate 10 MG Take 1 tablet by mouth once daily for 90 days Active Vitamin D3 250 MCG (34997 UT) as directed Orally Active Budesonide 0.5 MG/2ML USE 1/2 (ONE-HALF) VIAL IN NEBULIZER TWICE DAILY for 30 Active Oxygen - Home Use 2 L NC PRN A ctive Vitamin B12 100 MCG as directed Orally Active Chlorthalidone 25 MG 1 tablet in the morning with food Oral once a day for 30 days Active Ally Rubinphere 160-9-4.8 MCG/ACT 2 puffs Inhalation Twice a day for 30 days 05/07/2024 11/03/2024 Active buPROPion HCl ER (XL) 150 MG 1 tablet in the morning Oral Once a day for 30 Not-Taking levoFLOXacin 500 MG 1 tablet Orally Once a day for 10 day(s) 07/16/2024 07/26/2024 Active ALPRAZolam 0.5 MG TAKE 1/2 TO 1 (ONE-HALF TO ONE) TABLET BY MOUTH THREE TIMES DAILY NEEDED FOR ANXIETY FOR 30 DAYS for 30 days 07/16/2024 Active Albuterol Sulfate HFA 108 (90 Base) MCG/ACT 2 puffs Inhalation four times a day prn for 90 days Active Social History Tobacco Use: Social History [...] completed 08/09/2023 score 0 Vital Signs Temperature 97.2 degrees Fahrenheit 07/17/19 25 Blood pressure systolic 108 mm Hg 07/17/19 25 Blood pressure diastolic 87 mm Hg 025 Heart Rate 108 /min 07/16/2024 Respiratory Rate 22 /min 07/16/2024 Height 68 in 07/16/2024 Weight 136 lbs 07/16/2024 BMI 20.68 kg/m2 07/16/2024 Oximetry 94 % 07/16/2024 Height-cm 172.72 cm 07/16/2024 Weight-kg 61.69 kg 07/16/2024 Encounters Encounter Location Date Provider Diagnosis [facility] Office [address] [id number] 07/16/2024 Yoli Faustin COPD with acute exacerbation J44.1 ; Dyspnea R06.00 ; Anxiety F41.9 and Primary hypertension I10 Assessments Encounter Date Diagnosis (ICD Code) Assessment Notes Treatment Notes Treatment Clinical Notes Section Notes 07/16/2024 COPD with acute exacerbation (ICD-10 - J44.1) albuteral refill levaquin depomedrol/deca dron im 07/16/2024 Dyspnea (ICD-10 - R06.00) 07/16/2024 Anxiety (ICD-10 - F41.9) alprazolam 07/16/2024 Primary hypertension (ICD-10 - I10) conitnue meds 07/16/2024 Other Questions asked and answered; discharged to home. Plan Of Treatment Medication Medication Name Sig Start Date Stop Date Notes levoFLOXacin 500 MG 1 tablet Orally Once a day for 10 day(s) 07/16/2024 07/26/2024 ALPRAZolam 0.5 MG TAKE 1/2 TO 1 (ONE-H JOSE TO ONE) TABLET BY MOUTH THREE TIMES DAILY NEEDED FOR ANXIETY FOR 30 DAYS for 30 days 07/16/2024 Albuterol Sulfate HFA 108 (9 0 Base) MCG/ACT 2 puffs Inhalation four times a day prn for 90 days Treatment Notes Assessment Notes COPD with acute exacerbation albuteral refill levaquin depomedrol/decadron im Anxiety alprazolam Primary hypertension conitnue meds Other Questions asked and answered; discharged to home. Next Appt Details Follow Up: 4 Weeks, Reason: recheck Provider Name:Yoli Faustin, 09/03/2024 11:40:00 AM, [address] [place] [address], [phone], Medications Administered Medication Instructions Date of Administration Dosage Notes dexAMETHasone 07/16/2024 4 mg [facility] 26811-5 423-00 pt tolerated well/instructed to wait 20 min DEPO-Medrol 07/16/2024 40 mg [facility] [address]1419-769 3-01 pt tolerated well/instructed to wait 20 min Progress Notes * Dennis RHODES DDOB: [birth year] (64 yo M)Acc No.[id number]:07/16/2024 Patient: Dennis MISTRY Provider: Josh Faustin AREA REPRESENTATIVE :1960 A ge:64 Y S ex:Male Date:07/16/2024 Address:[address] [place] [address], [id number] Check In:09:07 AM CSTCheck 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 States I can't breath. * HPI: P josévirginiatamika Note: patient is an alert 64 year old male known to practice and here for complains of hard to breath discussed with patient copd with ae will administer depomedrol/decadron im as well as e script levofloxin and refill albuteral hfa discussed with patient diagnoses treatments and medications discussed with patient late stage copd o2 sat at home 72- 73; then did the inhalers and turned on the oxygen did not use his oxygen last night encouraged patient to use his oxygen hypertension discussed with patient continue meds; wnl this visit home bp elevated; 184/110 complains of anxiety; states he thinks may need refill xanax recheck 1 month and prn. * ROS: G eneral - Multi System: Respiratory R eportscough shortness of breath . * Medical History: * Surgical History: h [...] puffs Inhalation four times a day prn Oxygen - Home Use 2 L NC PRN Budesonide 0.5 MG/2ML Suspension USE 1/2 (ONE-HALF) VIAL IN NEBULIZER TWICE DAILY Vitamin B12 100 MCG Tablet as directed Orally Fish Oil 1000 MG Capsule 1 capsule Orally Once a day Vitamin D3 250 MCG (57012 UT) Capsule as directed Orally amLODIPine Besylate [...] DOSE = TWO PUFFS) DAILY DIRECTED Inhalation ALPRAZolam 0.5 MG Tablet TAKE 1/2 TO 1 (ONE-HALF TO ONE) TABLET BY MOUTH THREE TIMES DAILY NEEDED FOR ANXIETY FOR 30 DAYS Taking Chlorthalidone 25 MG Tablet 1 tablet in the morning with food Oral once a day Taking Breztri Aerosphere 160-9-4.8 MCG/ACT Aerosol 2 puffs Inhalation Twice a day , stop date 11/03/2024Taking Albuterol Sulfate HFA 108 (90 Base) MCG/ACT Aerosol Solution 2 puffs Inhalation four times a day prn Taking Oxygen - Home Use 2 L NC PRN Taking Budesonide 0.5 MG/2ML Suspension USE 1/2 (ONE-HALF) VIAL IN NEBULIZER TWICE DAILY Taking Vitamin B12 100 MCG Tablet as directed Orally Taking Fish Oil 1000 MG Capsule 1 capsule Orally Once a day Taking Vitamin D3 250 MCG (25953 UT) Capsule as directed Orally Taking amLODIPine [...] = TWO PUFFS) DAILY DIRECTED Inhalation Taking ALPRAZolam 0.5 MG Tablet TAKE 1/2 TO 1 (ONE-HALF TO ONE) TABLET BY MOUTH THREE TIMES DAILY NEEDED FOR ANXIETY FOR 30 DAYS Not-TakingCefdinir 300 MG Capsule Oral Losartan Potassium 100 MG Tablet Take 1 tablet by mouth once daily buPROPion HCl ER (XL) 150 MG Tablet Extended Release 24 Hour 1 tablet in the morning Oral Once a day Medication List reviewed and reconciled with the patientNot-Taking Cefdinir 300 MG Capsule Oral Not-Taking Losartan Potassium 100 MG Tablet Take 1 tablet by mouth once daily Not-Taking buPROPion HCl ER (XL) 150 MG Tablet Extended Release 24 Hour 1 tablet in the morning Oral Once a day Medication List reviewed and reconciled with the patient * Allergies: N .K.D.A.no[Allergies Verified] Objective: * Vitals: H t: 68 in, Wt:136lbs, Wt-k.69 kg, BMI:20.68Index, Temp:97.2F, BP:108/87mm Hg, HR:108/min, RR:22/min, Oxygen sat %:94%, O2 Source: RA, Pain scale: 0 1-10, Ht- cm: 172.72 cm. * Examination: G eneral Examination: GENERAL APPEARANCE: a lert, well hydrated, in no distress, converses with some dyspnea noted. HEAD: n ormocephalic, atraumatic. EYES: P ERRL; normal conjunctiva. EARS: . ... NECK/THYROID: n tammy supple, full range of motion, no JVD, without thyromegaly or masses. SKIN: w arm and dry. HEART: T achycardic with no murmurs, rubs, or gallops. LUNGS: s cattered wheezes throughout , diminished [...] 3. A nxiety - F41.9 4 . P rimary hypertension - I10 ? Plan: * Treatment: 2. A nxiety Refill ALPRAZolam Tablet, 0.5 MG, TAKE 1/2 TO 1 (ONE-HALF TO ONE) TABLET BY MOUTH THREE TIMES DAILY NEEDED FOR ANXIETY FOR 30 DAYS, 30 days, 80 Tablet, Start Date: 07/16/2024, Refills 2. ? Notes: alprazolam 3. P rimary hypertension Notes: conitnue meds 4. O thers Notes: Questions asked and answered; discharged to home. * Therapeutic Injections: Dexamethasone Sodium Phosphate : 4 mg (Route: Combination inj. into one route) given by Hannah Oconnell on right hip (COPD with acute exacerbation) Depo-Medrol/Methylprednisolone per 40mg : 40 mg (Route: Combination inj. into one route) given by Hannah Oconnell on right hip (COPD with acute exacerbation) * Procedure Codes: 3 074F SYST BP LT 130 MM [id number] DIAST BP 80-89 MM [id number] Injection, methylprednisolone acetate, 1 mg, Units: 40.00 J1100 Dexamethasone Sodium [id number] THER/PROPH/DIAG INJ, SC/IM * Preventive Medicine: Screenings: [...] Refuses * Follow Up: 4 Weeks (Reason: recheck) * Billing Information: * Visit Code: 40881 Office Visit, Est Pt., Level 3. * Procedure Codes: 3074F SYST BP LT 130 MM HG. 3079F DIAST BP 80-89 MM HG. J1010 Injection, methylprednisolone acetate, 1 mg. Units: 40.00. J1100 Dexamethasone Sodium Phosphate. 93297 THER/PROPH/DIAG INJ, SC/IM. * Sign off status: Completed true * Provider: Josh Faustin AREA REPRESENTATIVE Date: 0 07/16/2024 Generated for Sangita mansfield/Falulyg/eTransmitting on: 0 08/23/2024 07:03 PM CDT History and Physical Notes * Examination Category Sub-Category Detail Notes Category Not es General Examination GENERAL APPEARANCE: alert, w ell hydrated, in no distress, converses with some dyspnea noted HEAD: normocephalic, atrau matic EYES: PERRL; normal conjun ctiva EARS: ... NECK/THYROID: neck supple, full ra nge of motion, no JVD, without thyromegaly or masses HEART: Tachycardic with no murmurs, rubs, or gallops LUNGS: scattered wheezes th roughout , diminished breath sounds in bases NEUROLOGIC: alert and oriented, cerebellar function normal, cognitive exam grossly normal, gait normal SKIN: warm and dry EXTREMITIES: no edema PSYCH: alert, oriented, cog nitive function intact, cooperative with exam, good eye contact, mood/affect full range, speech clear
--- OUTSIDE RECORDS SUMMARY | 2024-08-10 05:40 | XMS_ITS ---
Author Organization 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 Name Role Phone Leonora Faustin Primary Care Provider LEONORA FAUSTIN Unavailable Unavailable Allergies No Known Allergies REASON FOR VISIT Annual Wellness Visit Medications Medication SIG (Take, Route, Frequency, Duration) Notes Start Date End Date Status ALPRAZolam 0.5 MG TAKE 1/2 TO 1 (ONE-HALF TO ONE) TABLET BY MOUTH THREE TIMES DAILY NEEDED FOR ANXIETY FOR 30 DAYS for 30 days 07/16/2024 Active Albuterol Sulfate HFA 108 (90 Base) MCG/ACT 2 puffs Inhalation four times a day prn for 90 days Active Chlorthalidone 25 MG 1 tablet in the morning with food Oral once a day for 30 days Active Losartan Potassium 100 MG Take 1 tablet by mouth once daily for 90 Not-Taking buPROPion HCl ER (XL) 150 MG 1 tablet in the morning Oral Once a day for 30 Not-Taking Metoprolol Succinate ER 25 MG TAKE 1 TABLET BY MOUTH ONCE DAILY WITH EVENING MEAL for 30 Active predniSONE 20 MG 2 tabs for 5 days; 1 tab for 5 days; Orally Once a day for 10 days Active Budesonide-Formoterol Fumarate 160-4.5 MCG/ACT INHALE TWO PUFFS BY MOUTH TWICE DAILY Inhalation for 30 days Active Spiriva HandiHaler 18 MCG INHALE ONE DOS E (ONE DOSE = TWO PUFFS) DAILY DIRECTED Inhalation for 30 Days Active Cefdinir 300 MG Oral for 5 Days Not-Taking amLODIPine Besylate 10 MG Take 1 tablet by mouth once daily for 90 days Active Ipratropium-Albuterol 0.5-2.5 (3) MG/3ML USE 1 VIAL IN NEBULIZER 4 TIMES DAILY Active Fish Oil 1000 MG 1 capsule Orally Onc e a day Active Vitamin D3 250 MCG (59359 UT) as directed Orally Active Vitamin B12 100 MCG as directed Orally Active Breztri Aerosphere 160-9-4.8 MCG/ACT 2 puffs Inhalation Twice a day for 30 days 05/07/2024 11/03/2024 Active Oxygen - Home Use 2 L NC PRN A ctive Budesonide 0.5 MG/2ML USE 1/2 (ONE-HALF) VIAL IN NEBULIZER TWICE DAILY for 30 Active Social History Tobacco Use: Social History Observation Description Date Details (start date - stop date) Current Smoker NA - NA Alcohol Screen (Audit-C) Question Answer Notes Did you have a drink containing alcohol in the p ast year? No Points 0 Interpretation Negative PHQ-9 Question Answer Notes Little interest or pleasure in doing things Not at all Feeling down, depressed, or hopeless Not at all Trouble falling or staying asleep, or sleeping t oo much Not at all Feeling tired or having little energy Several da ys Poor appetite or overeating Not at all Feeling bad about yourself, or that you are a failure, or have let yourself or your family down Not at all Trouble concentrating on thi ngs, such as reading the newspaper or watching television Not at all Moving or speaking so slowly that other people could have noticed. Or the opposite ? being so fidgety or restless that you have been moving around a lot more than usual Not at all Thoughts that you would be b wilber off , or of hurting yourself in some way Not at all Total Score 1 Interpretation Minimal Depression Tobacco Control (Standard) Question Answer Notes Tobacco use: Current smoker How often do you smoke cigarettes? Every day How many cigarettes a day do you smoke? 5 or les s How soon after you wake up d o you smoke your first cigarette? Within 5 minutes Are you interested in quitting? Thinking about q uitting Section Notes: Depression screen completed 08/09/2023 score 0 PHQ9 08/10/2024 Vital Signs Blood pressure systolic 159 mm Hg 08/11/19 25 Blood pressure diastolic 103 mm Hg 025 Heart Rate 94 /min 08/10/2024 Respiratory Rate 20 /min 08/10/2024 Height 68 in 08/10/2024 Weight 140 lbs 08/10/2024 BMI 21.28 kg/m2 08/10/2024 Oximetry 95 % 08/10/2024 Height-cm 172.72 cm 08/10/2024 Weight-kg 63.5 kg 08/10/2024 Encounters Encounter Location Date Provider Diagnosis [facility] Office [address] [place] [address] 08/10/2024 Leonora Faustin Dyspnea R06.00 ; Primary hypertension I10 ; COPD (chronic obstructive pulmonary disease) J44.9 and Encounter for Medicare annual wellness exam Z00.00 Assessments Encounter Date Diagnosis (ICD Code) Assessment Notes Treatment Notes Treatment Clinical Notes Section Notes 08/10/2024 Dyspnea (ICD-10 - R06.00) 08/10/2024 Primary hypertension (ICD-10 - I10) amlodipine metoprolol er monitor 08/10/2024 COPD (chronic obstructive pulmonary disease) (ICD-10 - J44.9) depomedrol/deca drone im 08/10/2024 Encounter for Medicare annual wellness exam (ICD-10 - Z00.00) Return in one year for your annual wellness visit. 08/10/2024 Other Questions asked and answered; discharged to home. Plan Of Treatment Treatment Notes Assessment Notes Primary hypertension amlodipine metoprolol er monitor COPD (chronic obstructive pulmonary dise ase) depomedrol/decadrone im Encounter for Medicare annual wellness e xam Return in one year for your annual wellness visit. Other Questions asked and answered; discharged to home. Next Appt Details Follow Up: 2 Weeks, Reason: recheck Provider Name:Leonora Downs Faustin, 09/03/2024 11:40:00 AM, [address], [place], [address], Medications Administered Medication Instructions Date of Administration Dosage Notes dexAMETHasone 08/10/2024 [place] [address]-4 423-00 pt tolerated well/instructed to wait 20 min DEPO-Medrol 08/10/2024 40 mg ndc 02431-427 3-01 pt tolerated well/instructed to wait 20 min Progress Notes * Dennis RHODES DDOB: [birth year] (64 yo M)Acc No.[id number]:08/10/2024 Progress Note Patient: Dennis MISTRY Provider: Josh Fasutin APRN :1960 A ge:64 Y S ex:Male Date:08/10/2024 Address:[address], [place] Check In:10:30 AM CSTCheck 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 Subjective: * Chief Complaints: * A nnual Wellness Visit * HPI: Himanshu britt Note: patient is an alert 64 year old male knowin to practice and here for annual wellness; recheck and medications discussed with patient diagnoses treatments and medications copd; dyspnea; tobacco abuse discussed with patient hypertension; states has been running high some days at home; however states he skips bp meds if his bp is normal also states he forgets the am amlodipine 1 to 2 times a week and forgets the metoprolol in evenings more often; states did not take the metoprolol last night discussed with patient risks hypertension untreated/controlled encouraged to try to take amllodipine everay am and his metoprolol every evening monitor bp conitnue alprazolam prn anxiety home o2 as directed ud as kirected continue chlorthalidone as well for hypertension copd with complaint of some dyspnea; worse with certain weather and pollen continue medications will administer depomedrol/decadron im return clinic 2 weeks and prn. M [facility]are/[facility]: Type of Visit: S ubsequent Annual Wellness Visit, Prior Annual Wellness Visit: 08/09/2023. Health Risk Assessment: D emographic Data: R gladys Hastings anguage or Communication Barriers: N o language or communication barriers identified B ehavioral Risk Assessment (check all that were completed and reviewed today): D epression Screening, Tobacco Screening, Alcohol Use Screening * I mmunizations reviewed today (see immunization section of progress note): Y es S ocial Determinants of Health Reviewed (Social History): Y es * H ow would you rate your own health? P oor W hen was your last dentist appointment? * Unknown. Patient has dentures. D o you use a seatbelt when you are in a motor vehicle? 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 Y es, a little A re you able to get refills and take your medicine as directed? Y es A re you able to plan and prepare your own meals? Y es, no help needed A re you able to do your own shopping? Y es, no help needed A re you able to plan your daily and monthly budgets and banking? 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 Y es, no help needed A re you able to bathe and clean yourself??Yes, no help needed A re you able use the toilet? Y es, no help needed D o you have any urinary difficulties? N o D o you have any problems with bladder leakage or incontinence of urine? N o P atient Care Team: - A s listed below . Chiropractor: Melo Carrera . Dentist: [facility] . Hydroelectric Operator: Nadya Malave. * ROS: G eneral - Multi System: Cardiovascular R EPORTS elevated bp; . R espiratory R eportsshortness of breath . * Medical History: * Surgical History: h ernia repair 1983Back surgery 2004 * Ocular Surgical History: * Hospitalization/Major Diagno stic Procedure: O [facility] for Trouble breathing 03/20-03/22/22 * Family History: F ather: 86 yrs, edema. M other: 80 yrs, stroke. * Social History: T obacco Use: T obacco Control (Standard) T obacco use: C urrent smoker H ow often do you smoke cigarettes? E very day H ow many cigarettes a day do you smoke? 5 or less H ow soon after you wake up do you smoke your first cigarette? W ithin 5 minutes A re you interested in quitting? T hinking about quitting D rugs/Alcohol: D rugs H ave you used drugs other than those for medical reasons in the past 12 months? N o Alcohol Screen (Audit-C) D id you have a drink containing alcohol in the past year? N o P oints 0 I nterpretation N egative Do you smoke marijuana?: Denies. Do you drink alcohol?: No. D epression Screening: P HQ-9 L ittle interest or pleasure in doing things?Not at all F eeling down, depressed, or hopeless N ot at all T rouble falling or staying asleep, or sleeping too much N ot at all F eeling tired or having little energy S everal days P oor appetite or overeating N ot at all F eeling bad about yourself, or that you are a failure, or have let yourself or your family down N ot at all T rouble concentrating on things, such as reading the newspaper or watching television N ot at all M oving or speaking so slowly that other people could have noticed. Or the opposite ? being so fidgety or restless that you have been moving around a lot more than usual N ot at all T houghts that you would be better off , or of hurting yourself in some way N ot at all T otal Score 1 I nterpretation M inimal Depression Depression screening findings F indings N egative (0-4) C omprehensive Health Assessment: * Social Determinants of Health H as lack of transportation kept you from medical appointments, meetings, work or from getting things needed for daily living? N o R ecently, have you worried that your food would run out before you got money to buy more? N o D o you feel physically and emotionally safe where you currently live? Y es A re you worried about losing your housing??No H ave you recently been concerned that your utilities would be turned off (electricity, gas, or water)? N o D epression screen completed 08/09/2023 score 0 PHQ9 08/10/2024. * Medications: T akingALPRAZolam 0.5 MG Tablet TAKE 1/2 TO 1 (ONE-HALF TO ONE) TABLET BY MOUTH THREE TIMES DAILY NEEDED FOR ANXIETY FOR 30 DAYS Albuterol Sulfate HFA 108 (90 Base) MCG/ACT Aerosol Solution 2 puffs Inhalation four times a day prn Chlorthalidone 25 MG Tablet 1 tablet in the morning with food Oral once a day Breztri Aerosphere 160-9-4.8 MCG/ACT Aerosol 2 puffs Inhalation Twice a day , stop date 11/03/2024Oxygen - Home Use 2 L NC PRN Budesonide 0.5 MG/2ML Suspension USE 1/2 (ONE-HALF) VIAL IN NEBULIZER TWICE DAILY Vitamin B12 100 MCG Tablet as directed Orally Fish Oil 1000 MG Capsule 1 capsule Orally Once a day Vitamin D3 250 MCG (75591 UT) Capsule as directed Orally amLODIPine Besylate [...] NEEDED FOR ANXIETY FOR 30 DAYS Taking Albuterol Sulfate HFA 108 (90 Base) MCG/ACT Aerosol Solution 2 puffs Inhalation four times a day prn Taking Chlorthalidone 25 MG Tablet 1 tablet in the morning with food Oral once a day Taking Breztri Aerosphere 160-9-4.8 MCG/ACT Aerosol 2 puffs Inhalation Twice a day , stop date 11/03/2024Taking Oxygen - Home Use 2 L NC PRN Taking Budesonide 0.5 MG/2ML Suspension USE 1/2 (ONE-HALF) VIAL IN NEBULIZER TWICE DAILY Taking Vitamin B12 100 MCG Tablet as directed Orally Taking Fish Oil 1000 MG Capsule 1 capsule Orally Once a day Taking Vitamin D3 250 MCG (80520 UT) Capsule as directed Orally Taking amLODIPine Besylate 10 MG Tablet Take 1 tablet by mouth once daily Taking Ipratropium-Albuterol 0.5- 2.5 (3) MG/3ML Solution USE 1 VIAL IN [...] DOSE = TWO PUFFS) DAILY DIRECTED Inhalation Not-TakingCefdinir 300 MG Capsule Oral Losartan Potassium [...] t: 68 in, Wt:140lbs, Wt-k.5 kg, BMI:21.28Index, BP: 166/103 mm Hg,188/101 mm Hg,159/103mm Hg, HR:94/min, RR:20/min, Oxygen sat %:95%, O2 Source: RA, Pain scale: 0 1-10, Ht-cm: 172.72 cm. * Examination: G eneral [...] range, speech clear. Assessment: * Assessment: 1. D yspnea - R06.00 (Primary) 2 . P rimary hypertension - I10 ?3. C OPD (chronic obstructive pulmonary disease) - J44.9 4 . E ncounter for Medicare annual wellness exam - Z00.00 Plan: * Treatment: 2. C OPD (chronic obstructive pulmonary disease) Notes: depomedrol/decadrone im 3. E ncounter for Medicare annual wellness exam Notes: Return in one year for your annual wellness visit. 4. O thers Notes: Questions asked and answered; discharged to home. * Therapeutic Injections: Dexamethasone Sodium Phosphate : 4 mg (Route: Combination inj. into one route) given by Hannah Oconnell on left hip (COPD (chronic obstructive pulmonary disease)) Depo-Medrol/Methylprednisolone per 40mg : 40 mg (Route: Combination inj. into one route) given by Hannah Oconnell on left hip (COPD (chronic obstructive pulmonary disease)) * Procedure Codes: G 0439 ANNUAL WELLNESS VST; PPS SUBSQT [id number] Dexamethasone Sodium [id number] THER/PROPH/DIAG INJ, [id number] Injection, methylprednisolone acetate, 1 mg, Units: 40.00 * Preventive Medicine: Fall Risk Assessment: F all Risk Assessment Fall Risk Assessment N o falls in the past year * Screenings: A s Listed Below * , *. L AST WELLNESS VISIT (if today's visit is wellness, use today's date): Date: 0 08/10/2024 C ARE FOR OLDER ADULTS Functional Status N o Impairment for Functional Status Function Status Assessment date 0 08/10/2025 Medication review date 0 08/10/2024 Pain Assessment date 0 08/10/2024 Pain 0/10 C OLORECTAL CANCER SCREENING: Date of last colonoscopy H as never been done Colorectal screening: h as never occurred Provider recommendation: devora sanchez Refuses further screening D EPRESSION SCREENING: Date of most recent screenin 08/10/2024 The patient denies: a nxiety, depressed mood, difficulty sleeping, lack of interest in things that were [...] N o falls in the past year F UNCTIONAL CAPACITY: Patient mobility: i s normal The patient maintains ability to: b athe himself, feed himself, get dressed, groom himself, lift arms above head, lift legs, move in the house/home, transfer, use the toilet, walk Independent self care: i s still possible T OBACCO USE SCREENING: The patient smoked: c igarettes Chewing tobacco: h as been used Smoking tobacco was last used: t jocelyn V ACCINATIONS: Is patient's pneumococcal vaccine current? N o refuses Completed vaccinations include: C ovid, Has never been doneNo flu vaccine Influenza vaccinations: i s rarely done Refuses Male: YOUR WELLNESS PLAN: M EN'S PREVENTIVE WELLNESS PLAN (For Informational Purposes Only) P rinbrad, provided to patient, and scanned to chart.. B SD, Height, and Weight: The Recommended Frequency is: A nnually B lood Pressure: The Recommended Frequency is: E very two years, if BP < /= 120/80 mm Hg, Annually, if BP > 120-139/80-89 mm Hg V ision: The Recommended Frequency is: E very three years up to age 40, Every two years aged 40+ A bdominal Aortic Aneurysm: The Recommended Frequency is: O nce, between the age range of 65-75 and for those who have smoked 100+ cigarettes in lifetime C holesterol Testing: The Recommended Frequency is: R egularly beginning at age 20 with risk factors D iabetes Screening: The Recommended Frequency is: F or adults ages 35-70 years who are overweight or obese: every 3 years after a negative screen C olorectal Cancer Screening: The Recommended Frequency is: A nnually, Fecal Occult Blood Stool (FOBS), Every five years, Sigmoidoscopy with FOBS, Every 10 years, Colonoscopy, Every 5 years, Cologuard P rostate Cancer Screening (Digital Rectal Exam [ARI]/Prostate Specific Antigen [PSA]): The Recommended Frequency is: A nnually, age 50 or older, with provider discussion and planning S exually Transmitted Diseases (STDs): The Recommended Frequency is: A s necessary for those with risk factors D epression Screening: The Recommended Frequency is: A s necessary for those with risk factors A lcohol Misuse Screening: The Recommended Frequency is: A s necessary for those with risk factors P neumococcal (Pneumonia) Vaccine: The Recommended Frequency is: 1 -2 doses up to age 64, 1 dose age 65+ I nfluenza (Flu) Vaccine: The Recommended Frequency is: A nnually A dditional Resources Included: F ollow-up instructions, Handouts, Referrals as appropriate. * Follow Up: 2 Weeks (Reason: recheck) * Billing Information: * Visit Code: 88537 Office Visit, Est Pt., Level 3. * Procedure Codes: G0439 ANNUAL WELLNESS VST; PPS SUBSQT VST. J1100 Dexamethasone Sodium Phosphate. 94185 THER/PROPH/DIAG INJ, SC/IM. J1010 Injection, methylprednisolone acetate, 1 mg. Units: 40.00. Care Plan Details* * Sign off status: Completed true * Provider: Josh Faustin TUMBLING INSTRUCTOR Date: 0 08/10/2024 Generated for Sangita mansfield/Alissa/eTransmitting on: 0 08/23/2024 07:04 PM CDT History and Physical Notes * HPI (History of Present Illness) Category Sub-Category Detail Notes Category Not es Patient Care Team - As listed below Hydroelectric Operator: [employer] Dentist: [facility] Chiropractor: Dr. Carrera Medicare/[facility] Type of Visit: Subs equent Annual Wellness Visit, Prior Annual Wellness Visit: 08/09/2023 Health Risk Assessment: Demographic Data:: Revie wed Language or Communication Ba rriers:: No language or communication barriers identified Behavioral Risk Assessment ( check all that were completed and reviewed today):: Depression Screening, Tobacco Screening, Alcohol Use Screening * Immunizations reviewed today (see immunization section of progress note):: Yes Social Determinants of Healt h Reviewed (Social History):: Yes * How would you rate your own health?: Poo r When was your last dentist appointment?: *Unknown. Patient has dentures. 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 In the past month, has pain affected your relationships with other people?: Yes, a little Are you able to get refills and take your medicine as directed?: Yes Are you able to plan and pre pare your own meals?: Yes, no help needed Are you able to do your own shopping?: Yes, no help needed Are you able to plan your da nigel and monthly budgets and banking?: Yes, with help Are you able to do your own 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
[2024-08-23] VITALS (15 sets, daily range): BP systolic 111–143; BP diastolic 69–117; PULSE 74–102; RESP 16–25; TEMP 36.3–36.5; O2SAT 90–97; BMI 21.1
--- NOTE | 2024-08-23 11:04 | ECG_ITS ---
[facility] Test Date: 2024-08-23 Pat Name: Taurus Rhodes Department: Room: 259 Gender: Male Event Manager: : 1960 Requested By: Ruben Hastings Order Number: [id number] Alia MD: Santiago Espinoza M.D. Measurements Intervals [place] Rate: 109 P: 87 HI: 170 QRS: -81 QRSD: 95 T: 82 QT: 337 QTc: 454 Interpretive Statements SINUS TACHYCARDIA WITH OCCASIONAL SUPRAVENTRICULAR PREMATURE COMPLEXES INDETERMINATE AXIS Compared to ECG 05/02/2024 13:49:28 Sinus rhythm no longer present Incomplete right bundle-branch block no longer present ST (T wave) deviation no longer present Electronically Signed On 08-24-2024 09:17:27 CDT by Santiago Espinoza M.D. [email or web address]
--- NOTE | 2024-08-23 11:08 | W.ED.SOB ---
HPI - SOB/Dyspnea General: Chief Complaint: Shortness of Breath/Dyspnea Stated Complaint: sob Time Seen by Provider: 08/23/24 11:05 History of Present Illness: HPI Narrative: 64-year-old male presents emergency room complaining of increased shortness of breath nonproductive cough last few days. Typically has intermittent use of his oxygen at 2 L/min he is now having to use 4 L/min. He did have some improvement with steroids and DuoNeb given and route. He still requiring 4 L of oxygen though he states he is feel like he is wheezing less he is not a productive cough no hemoptysis. Denies chest pain Associated symptoms: Reports chest congestion; Deny abdominal pain, chest pain or fever(s) Related Data Home Medications ?Medication ?Instructions ?Recorded ?Confirmed albuterol sulfate 90 mcg/actuation 2 puff inhalation QID PRN 03/20/22 08/23/24 aerosol inhaler Shortness Of Breath cholecalciferol (vitamin D3) 125 10,000 unit PO DAILY 03/20/22 08/23/24 mcg (5,000 unit) tablet (Vitamin D3) cyanocobalamin (vitamin B-12) 15,000 mcg PO DAILY 03/20/22 08/23/24 5,000 mcg sublingual tablet (Vitamin B-12) alprazolam 0.5 mg tablet 0.5 mg PO TID PRN Anxiety 11/27/23 08/23/24 metoprolol succinate 25 mg 25 mg PO QPM 03/18/24 08/23/24 tablet,extended release 24 hr budesonide 160 mcg-glycopyr 9 2 inh inhalation BID 08/23/24 08/23/24 mcg-formot 4.8 mcg/actuation HFA inhaler (Breztri Aerosphere) losartan 100 mg tablet 100 mg PO DAILY 08/23/24 08/23/24 Previous Rx's ?Medication ?Instructions ?Recorded budesonide-formoterol HFA 160 2 puff inhalation BID #10.2 grams 12/27/23 mcg-4.5 mcg/actuation aerosol inhaler (Symbicort) tiotropium bromide 18 mcg capsule 1 cap inhalation DAILY #60 12/27/23 with inhalation device (Spiriva inhalations with HandiHaler) budesonide 0.5 mg/2 mL suspension 0.5 mg (2 mL) inhalation BID #60 mL 03/21/24 for nebulization Allergies Allergy/AdvReac Type Severity Reaction Status Date / Time No Known Allergies Allergy Verified 11/27/23 17:01 Review of Systems Const: Denies: fever(s) or chills Card: Denies: chest pain Resp: Reports: dyspnea, non-productive cough, wheezing and chest congestion GI: Denies: abdominal pain : Denies: dysuria, urinary frequency or urinary urgency Musc: Denies: neck pain or back pain Skin/Breast: Denies: rash PFSH ED PFSH: Medical History Essential hypertension Noncompliance w/medication treatment due to intermit use of medication Mixed hyperlipidemia Chronic obstructive pulmonary emphysema Severe COPD, not oxygen dependent Surgical History History of inguinal hernia repair Left History of lumbar discectomy 2005 Family History Other Hypertension Stroke Social History Smoking and tobacco/nicotine status: current every day tobacco/nicotine user cigarettes Packs smoked per day: 2 Years cigarettes smoked: 53 [ Other cigarette details: 5-6 cigarettes daily ] Second hand smoke exposure: Yes Alcohol intake: never Substance/Drug Use: never Adopted: No Caregiver/support person: No Lives independently: Yes Household members: spouse Housing: House Marital status: Number of children: 2 Current occupational status: employed Do you think of yourself as: Straight/Heterosexual Current gender identity: Male Physical Exam Const: GENERAL APPEARANCE: cooperative ORIENTATION/CONSCIOUSNESS: Yes awake, Yes oriented to person, Yes oriented to place and Yes oriented to time HENMT: COMMON NORMALS: normocephalic, atraumatic and hearing grossly normal bilaterally HEAD & SCALP: normocephalic and atraumatic Resp: COMMON NORMALS: normal respiratory effort, No retractions, No use of accessory muscles and clear to auscultation bilaterally AUSCULTATION: clear to auscultation bilaterally Cardio: COMMON NORMALS: regular rate, regular rhythm and No murmurs present (Cardio) RATE: regular rate RHYTHM: regular rhythm GI: COMMON NORMALS: Soft to palpation and No hepatosplenomegaly present AUSCULTATION: Yes normoactive bowel sounds PALPATION: Yes Soft to palpation, No Tenderness to palpation present (GI), No Guarding due to palpation present (GI) and Yes No hepatosplenomegaly present Extremity: COMMON NORMALS: normal to inspection, capillary refill normal, no clubbing, cyanosis or edema, no calf tenderness and no pedal edema Neuro: SENSORIUM/ORIENTATION: Yes oriented to person, Yes oriented to place and Yes oriented to time Skin: COMMON NORMALS: no rashes or lesions noted GENERAL SKIN EXAM: no rashes or lesions noted Course Vital Signs: Vital signs: Vital Signs Temperature 97.6 F 08/25/24 16:00 Pulse Rate 79 08/25/24 16:00 Respiratory Rate 16 08/25/24 16:00 Blood Pressure 143/102 08/25/24 16:00 Pulse Oximetry 97 08/25/24 16:00 Oxygen Delivery Me thod Room Air 08/25/24 16:00 Oxygen Flow Rate 2 08/25/24 16:00 MDM - SOB/Dyspnea Medical Decision Making Patient with some improvement with his nebulizers however he has Elevated white count at 17. No acute findings on chest x-ray no infiltrates no pneumothorax no vascular congestion. Will admit for COPD exacerbation steroids aggressive pulmonary toilet. Discussed with hospitalist Medical Records I reviewed the patient's medical records. Lab Data I reviewed the patient's lab results. 08/25/24 05:06 08/25/24 05:06 Labs/Radiology: Radiology Impressions Chest X-Ray 08/23/24 11:42 IMPRESSION: No acute findings. Severe COPD. Chest CT 08/23/24 15:01 IMPRESSION: 1. No acute findings in the chest. 2. Similar mild mucous plugging the lower lobes, [id number]-jtwx-right, with chronic atelectasis/scarring. 3. Stable pulmonary micronodules. For patients at low risk (minimal or absent history of smoking and of other known risk factors), no routine follow-up is indicated. For patients at high risk (history of smoking or of other known risk factors), consider optional CT Chest at 12 months. (Reference: Babatunde) COMMENTS: The presence of pulmonary emphysema on CT is an independent risk factor for lung cancer. In the absence of a history or active diagnosis of lung cancer, it is recommended that this patient with emphysema be evaluated for enrollment in a low dose CT lung cancer screening program. REFERENCES: Babatudne Gil, et al. Guidelines for Management of Incidental Pulmonary Nodules Detected on CT Images: From the Fleischner Society 2017. Radiology. 2017;284(1):228-243. Laboratory Results WBC 10.01 10^3/uL (3.29-11.43) 08/23/24 11:12 RBC 5.13 10^6/uL (3.85-5.65) 08/23/24 11:12 Hgb 15.60 g/dL (11.27-16.99) 08/23/24 11:12 Hct 48.5 % (37-53) 08/23/24 11:12 MCV 94.5 fl (82-101) 08/23/24 11:12 MCH 30.4 pg (27-33) 08/23/24 11:12 MCHC 32.2 g/dL (30-55) 08/23/24 11:12 RDW 14.1 % (12.1-15.1) 08/23/24 11:12 Plt Count 255 10^3/cmm (157-399) 08/23/24 11:12 MPV 10.2 fL (7.4-10.4) 08/23/24 11:12 Neut % (Auto) 54.9 % 08/23/24 11:12 Lymph % (Auto) 27.4 % 08/23/24 11:12 Schley % (Auto) 8.9 % 08/23/24 11:12 Eos % (Auto) 6.8 % 08/23/24 11:12 Baso % (Auto) 1.7 % 08/23/24 11:12 Neut # (Auto) 5.50 10^3/uL (1.8-7.7) 08/23/24 11:12 Lymph # (Auto) 2.7 10^3/uL (0.8-4.8) 08/23/24 11:12 Schley # (Auto) 0.9 10^3/uL (0.2-0.9) 08/23/24 11:12 Eos # (Auto) 0.7 10^3/uL (0.0-0.8) 08/23/24 11:12 Baso # (Auto) 0.2 10^3/uL (0.0-0.1) H 08/23/24 11:12 Nucleated RBC % (auto) 0 % 08/23/24 11:12 Nucleated RBCs # 0.0 /100WBC 08/23/24 11:12 Specimen Type Arterial 08/23/24 12:08 Sample Site Brachial, left 08/23/24 12:08 ABG pH 7.39 (7.35-7.45) 08/23/24 12:08 ABG pCO2 46.9 mmHg (35-45) H 08/23/24 12:08 ABG pO2 56.5 mmHg (80.0-100.0) L 08/23/24 12:08 ABG PO2/FiO2 Ratio 201 08/23/24 12:08 ABG HCO3 28.4 mmol/L (22-26) H 08/23/24 12:08 ABG O2 Saturation 91.6 08/23/24 12:08 ABG Base Excess 2.6 mmol/L (-2.0-2.0) H 08/23/24 12:08 David Test N/a 08/23/24 12:08 A-a O2 Gradient 11.1 mmHg (5-10) H 08/23/24 12:08 Hematocrit 47.2 % (42-52) 08/23/24 12:08 Hgb O2 Saturation 90.2 % (95-100) L 08/23/24 12:08 Carboxyhemoglobin 1.4 %THgb (0.4-20.1) 08/23/24 12:08 Methemoglobin 0.1 % (0.4-1.5) L 08/23/24 12:08 Total Hemoglobin 15.4 g/dL (14-18) 08/23/24 12:08 Sodium 140.0 mmol/L (131-143) 08/23/24 12:08 Potassium 3.8 mmol/L (3.5-5.0) 08/23/24 12:08 Glucose 100.0 mg/dL (70-115) 08/23/24 12:08 Ionized Calcium 1.2 mmol/L (1.1-1.4) 08/23/24 12:08 O2 Delivery Device Nc 08/23/24 12:08 O2 Liters/Min 2.0 % 08/23/24 12:08 FiO2 28.0 % 08/23/24 12:08 Basting Marker ID glc 08/23/24 12:08 Sodium 141 mmol/L (136-145) 08/23/24 11:12 Potassium 4.3 mmol/L (3.5-5.1) 08/23/24 11:12 Chloride 101 mmol/L (98-107) 08/23/24 11:12 Carbon Dioxide 26 mmol/L (22-29) 08/23/24 11:12 Anion Gap 18.3 (5-19) 08/23/24 11:12 BUN 10 mg/dL (8-23) 08/23/24 11:12 Creatinine 0.8 mg/dL (0.7-1.2) 08/23/24 11:12 GFR Calculation 97.0 mL/min (90-130) 08/23/24 11:12 Glucose 94 mg/dL (65-115) 08/23/24 11:12 Calculated Osmolality 291 mOsm/kg (285-295) 08/23/24 11:12 Calcium 9.7 mg/dL (8.5-10.5) 08/23/24 11:12 Total Bilirubin 0.8 mg/dL (0.15-1.2) 08/23/24 11:12 AST 25 U/L (0-40) 08/23/24 11:12 ALT 25 U/L (0-41) 08/23/24 11:12 Alkaline Phosphatase 70 U/L (40-130) 08/23/24 11:12 Lactate Dehydrogenase 176 U/L (135-225) 08/23/24 13:03 Troponin T Baseline 13 ng/L (0-15) 08/23/24 11:12 Troponin T 120 Minute 13.80 ng/L (0-15) 08/23/24 13:03 Delta Troponin T 0.80 ABS# (0-10) 08/23/24 13:03 C-Reactive Protein 3.0 mg/L (0.0-4.9) 08/23/24 13:03 NT-Pro-B Natriuret Pep 60 pg/mL (0-125) 08/23/24 13:03 Total Protein 7.1 g/dL (6.6-8.7) 08/23/24 11:12 Albumin 4.7 g/dL (3.5-5.2) 08/23/24 11:12 Globulin 2.4 g/dL (1.3-4.6) 08/23/24 11:12 Procalcitonin 0.05 ng/mL (0-0.5) 08/23/24 13:03 TSH 0.62 uIU/mL (0.27-4.20) 08/23/24 13:03 All radiology interpretation(s) finalized by discharge Discharge Plan Discharge Patient Disposition: Placed in Observation Admit Provider: Andi Odell Clinical Impression: Acute exacerbation of chronic obstructive airways disease, Respiratory failure, Smoker Coding Level of Care Code ED Steam Bone 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
--- NOTE | 2024-08-23 11:42 | XRR_ITS ---
PROCEDURE INFORMATION: Exam: XR Chest Exam date and time: 08/23/2024 12:15 PM Age: 64 years old Clinical indication: Cough and shortness of breath; Dsypnea; Productive cough; HX copd TECHNIQUE: Imaging protocol: Radiologic exam of the chest. Views: 1 view. COMPARISON: CT chest con [id number] 05/03/2024 1:00 PM FINDINGS: Lungs: Severe hyperinflation compatible with COPD. No consolidation. Pulmonary vascularity is within normal limits. There are few scattered punctate calcified pulmonary granulomata. Pleural spaces: Unremarkable. No pleural effusion. No pneumothorax. Heart/Mediastinum: Unremarkable. No cardiomegaly. Bones/joints: No acute abnormality. XR/XR chest 1V portable [id number] IMPRESSION: No acute findings. Severe COPD.
--- NOTE | 2024-08-23 11:51 | PC.NURSE ---
Verbal order Dr Mendiola, cancel the Solu-medrol as pt has received 125mg ivp enroute to ER.
[2024-08-23 11:52] LABS: Basophils # 0.2 10^3/uL (0.0-0.1); Basophils % 1.7 %; Eosinophils # 0.7 10^3/uL (0.0-0.8); Eosinophils % 6.8 %; Hematocrit 48.5 % (37-53); Lymphocytes # 2.7 10^3/uL (0.8-4.8); Lymphocytes % 27.4 %; Mean Corpuscular HGB Conc 32.2 g/dL (30-55); Mean Corpuscular Hemoglobin 30.4 pg (27-33); Mean Corpuscular Volume 94.5 fl (82-101); Mean Platelet Volume 10.2 fL (7.4-10.4); Monocytes # 0.9 10^3/uL (0.2-0.9); Monocytes % 8.9 %; Neutrophils % 54.9 %; Nucleated Red Blood Cells % 0 %; Platelet Count 255 10^3/cmm (157-399); Red Blood Count 5.13 10^6/uL (3.85-5.65); Red Cell Distribution Width 14.1 % (12.1-15.1); White Blood Count 10.01 10^3/uL (3.29-11.43)
[2024-08-23] MEDS: ipratropium-albuterol 3 mL Neb INHALATION ×3 (11:57→19:34)
[2024-08-23 12:04] LABS: Alanine Aminotransferase 25 U/L (0-41); Albumin Level 4.7 g/dL (3.5-5.2); Alkaline Phosphatase 70 U/L (40-130); Aspartate Amino Transferase 25 U/L (0-40); Blood Urea Nitrogen 10 mg/dL (8-23); Calcium 9.7 mg/dL (8.5-10.5); Carbon Dioxide 26 mmol/L (22-29); Chloride 101 mmol/L (98-107); Creatinine Clr Calc Pharmacy 83.5339; Globulin 2.4 g/dL (1.3-4.6); Glucose 94 mg/dL (65-115); Osmolality Calculated 291 mOsm/kg (285-295); Sodium 141 mmol/L (136-145); Total Bilirubin 0.8 mg/dL (0.15-1.2); Total Protein 7.1 g/dL (6.6-8.7)
[2024-08-23 12:06] LABS: Troponin(5th) Baseline 13 ng/L (0-15)
[2024-08-23 12:09] LABS: Anion Gap 18.3 (5-19); Potassium 4.3 mmol/L (3.5-5.1)
[2024-08-23 12:19] LABS: ABG PCO2 46.9 mmHg (35-45); ABG PH Result 7.39 (7.35-7.45); Alveolar-Arterial Oxygen Gradi 11.1 mmHg (5-10); Arterial Blood Gas Hematocrit 47.2 % (42-52); Base Excess ABG 2.6 mmol/L (-2.0-2.0); Blood Gas Operator Identificat glc; Blood Gas Sample Site Brachial, left; Blood Gas Sample Type Arterial; Carboxyhemoglobin 1.4 %THgb (0.4-20.1); HCO3 ABG 28.4 mmol/L (22-26); HGB O2 Sat 90.2 % (95-100); Ionized Calcium Level - ABG 1.2 mmol/L (1.1-1.4); Methemoglobin 0.1 % (0.4-1.5); Oxygen Device NC; Oxygen Saturation ABG 91.6; PO2 ABG 56.5 mmHg (80.0-100.0); PO2 FiO2 Ratio Arterial Blood 201; Potassium Level - ABG 3.8 mmol/L (3.5-5.0); Total Hemoglobin 15.4 g/dL (14-18)
--- NOTE | 2024-08-23 13:08 | ECG_ITS ---
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 Measurements Intervals [place] Rate: 83 P: 79 PA: 162 QRS: -76 QRSD: 101 T: 73 QT: 394 QTc: 465 Interpretive Statements SINUS RHYTHM LEFT AXIS DEVIATION [QRS AXIS < -30] Compared to ECG 05/02/2024 13:49:28 Left-axis deviation now present Indeterminate axis no longer present Incomplete right bundle-branch block no longer present ST (T wave) deviation no longer present Electronically Signed On 08-24-2024 10:22:41 CDT by Santiago Espinoza M.D. [id number] [id number]
[2024-08-23] MEDS: nicotine 21 mg Patch 1 PATCH TRANSDERMA (14:50)
--- NOTE | 2024-08-23 15:01 | CTR_ITS ---
PROCEDURE INFORMATION: Exam: CT Chest Without Contrast; Diagnostic Exam date and time: 08/23/2024 3:26 PM Age: 64 years old Clinical indication: Shortness of breath; Additional info: SOB TECHNIQUE: Imaging protocol: Diagnostic computed tomography of the chest without contrast. Radiation optimization: All CT scans at this facility use at least one of these dose optimization techniques: automated exposure control; mA and/or kV adjustment per patient size (includes targeted exams where dose is matched to clinical indication); or iterative reconstruction. COMPARISON: CT chest [facility] [id number] 05/03/2024 1:00 PM RADIATION DOSE METRICS: Total DLP (mGy-cm): 265.85 FINDINGS: Lungs: Similar centrilobular emphysema. A few sub 4 mm nodules are again seen and are stable from prior. Mild erfu-oqgmkzs-zsxd-right basilar atelectasis/scarring. A few small benign calcified granulomas are again seen. Mild bronchial wall thickening most pronounced in the lower lobes. Mild bronchiectasis in the anterior left lower lobe. Scattered mild mucous plugging. Pulmonary hyperinflation. Pleural spaces: Unremarkable. No pneumothorax. No pleural effusion. Heart: Unremarkable. No cardiomegaly. No pericardial effusion. Coronary arteries: Mild coronary artery calcifications. Lymph nodes: Calcified right hilar lymph nodes. No lymphadenopathy by size criteria. Vasculature: Mild atherosclerotic aortic calcifications. No thoracic aortic aneurysm. Liver: Stable 2 cm simple cyst in the right hepatic lobe. Spleen: Punctate calcified splenic granulomas. Kidneys: Atrophic right kidney. Bones/joints: Degenerative changes of the thoracic spine. Diffuse osseous demineralization. Soft tissues: Unremarkable. CT/CT chest [facility] [id number] IMPRESSION: 1. No acute findings in the chest. 2. Similar mild mucous plugging the lower lobes, jbyn-ssrlqdo-ttcc-right, with chronic atelectasis/scarring. 3. Stable pulmonary micronodules. For patients at low risk (minimal or absent history of smoking and of other known risk factors), no routine follow-up is indicated. For patients at high risk (history of smoking or of other known risk factors), consider optional CT Chest at 12 months. (Reference: Babatunde) COMMENTS: The presence of pulmonary emphysema on CT is an independent risk factor for lung cancer. In the absence of a history or active diagnosis of lung cancer, it is recommended that this patient with emphysema be evaluated for enrollment in a low dose CT lung cancer screening program. REFERENCES: Babatunde Gil, et al. Guidelines for Management of Incidental Pulmonary Nodules Detected on CT Images: From the Fleischner Society 2017. Radiology. 2017;284(1):228-243.
--- NOTE | 2024-08-23 15:02 | P.HP_ITS ---
Providers/Chief Complaint 2 Admitting Physician: Andi Odell MD Primary Care Provider: Leonora Faustin APN Chief Complaint: sob History of Present Illness Taurus Rhodes is a 64 year old male current smoker, history of COPD, hypertension, who presents [facility] for shortness of breath. Patient reports several episodes of COPD exacerbation, dysuria, is has received several doses of steroids, with improvement of his symptoms which have been short-lived, but then progressively become short of breath, last dose of steroids was about a week ago, no fevers, chills, no nausea, no vomiting, no chest pain, does report shortness of breath with exertion, does report a cough, no hemoptysis Review of Systems 2 Const: Denies: fever(s) Card: Denies: chest pain Resp: Reports: dyspnea Medications/Allergies Home Medications ?Medication ?Instructions ?Recorded ?Confirmed ?Last Taken ?Type albuterol sulfate 90 mcg/actuation 2 puff inhalation Q ID PRN 03/20/22 08/23/24 05/01/24 History aerosol inhaler Shortness Of Breath cholecalciferol (vitamin D3) 125 10,000 unit PO DAILY 03/20/22 08/23/24 11/27/23 History mcg (5,000 unit) tablet (Vitamin D3) cyanocobalamin (vitamin B-12) 15,000 mcg PO DAILY 02/2108/23/24 11/27/23 History 5,000 mcg sublingual tablet (Vitamin B-12) alprazolam 0.5 mg tablet 0.5 mg PO TID PRN Anxiety 08/23/24 05/02/24 History budesonide-formoterol HFA 160 2 puff inhalation BID #1 0.2 grams 12/27/23 08/23/24 05/02/24 Rx mcg-4.5 mcg/actuation aerosol inhaler (Symbicort) tiotropium bromide 18 mcg capsule 1 cap inhalation ANTON LY #60 12/27/23 08/23/24 03/17/24 Rx with inhalation device (Spiriva inhalations with HandiHaler) metoprolol succinate 25 mg 25 mg PO QPM 03/18/2408/2305/01/24 History tablet,extended release 24 hr budesonide 0.5 mg/2 mL suspension 0.5 mg (2 mL) inhala tion BID #60 mL 03/21/24 08/23/24 05/01/24 Rx for nebulization budesonide 160 mcg-glycopyr 9 2 inh inhalation BID 08/1408/23/24 Unknown History mcg-formot 4.8 mcg/actuation HFA inhaler (Breztri Aerosphere) losartan 100 mg tablet 100 mg PO DAILY 08/23/2408/14 Unknown History Allergies Allergy/AdvReac Type Severity Reaction Status Date / Time No Known Allergies Allergy Verified 11/27/23 17:01 PFSH Acute 2 PFSH: Medical History Essential hypertension Noncompliance w/medication treatment due to intermit use of medication Mixed hyperlipidemia Chronic obstructive pulmonary emphysema Severe COPD, not oxygen dependent Surgical History History of inguinal hernia repair Left History of lumbar discectomy 2004 Family History Other Hypertension Stroke Social History Smoking and tobacco/nicotine status: current every day tobacco/nicotine user cigarettes Packs smoked per day: 2 Years cigarettes smoked: 53 [ Other cigarette details: 5-6 cigarettes daily ] Second hand smoke exposure: Yes Alcohol intake: never Substance/Drug Use: never Adopted: No Caregiver/support person: No Lives independently: Yes Household members: spouse Housing: House Marital status: Number of children: 2 Current occupational status: employed Do you think of yourself as: Straight/Heterosexual Current gender identity: Male Vitals/I&O/Wt Last Vital Signs Temp 97.4 F L 08/23/24 11:02 Pulse 74 08/23/24 14:58 Resp 22 H 08/23/24 14:58 BP 124/77 08/23/24 14:58 Pulse Ox 93 08/23/24 14:58 O2 Del Method Nasal Cannula 08/23/24 14:34 O2 Flow Rate 2 08/23/24 12:02 Weight last 48 hrs Weight 61.235 kg Physical Exam 2 Const: COMMON NORMALS: no acute distress and patient oriented x3 Eye: COMMON NORMALS: Equal, round and reactive pupils present Resp: COMMON NORMALS: normal respiratory effort, No retractions and No use of accessory muscles AUSCULTATION: wheezes Cardio: COMMON NORMALS: regular rate, regular rhythm, S1 normal heart sound present and S2 normal heart sound present RATE: regular rate RHYTHM: r egular rhythm HEART SOUNDS: S1 normal heart sound present and S2 normal heart sound present GI: COMMON NORMALS: Normal to inspection, nondistended, normoactive bowel sounds present, Soft to palpation and non-tender Extremity: COMMON NORMALS: no calf tenderness and no pedal edema Neuro: COMMON NORMALS: patient oriented x3, CN's II-XII intact bilaterally and moves all extremities Psych: COMMON NORMALS: mental status grossly normal Data 08/23/24 11:12 08/23/24 11:12 A&P Assessment and plan (1) Acute hypoxic respiratory failure: (2) Chronic obstructive pulmonary emphysema: (3) Acute exacerbation of chronic obstructive airways disease: Plan Acute hypoxic respiratory failure - History of COPD, current smoker - History of multiple doses of steroid this year, last dose about a week ago, immunocompromise state Plan - Monitor respiratory status closely - DuoNeb - Budesonide - Respiratory viral panel - Sputum culture - Aspergillus - PCP PCR - Fungal studies - LDH, beta glucan - Rocephin, Zithromycin - Solu-Medrol 40 mg IV every 8 hours - Full code - Lovenox for DVT prophylaxis PDMP PDMP Reviewed: Not Reviewed Attestations 2 Medical Necessity Statement*: Patient requires hospitalization, inpatient, greater than 2 midnights for acute hypoxic respiratory failure secondary COPD Diagnoses Acute hypoxic respiratory failure J96.01 Centrilobular emphysema J43.2 Emphysema type: centrilobular Acute exacerbation of chronic obstructive airways disease J44.1
[2024-08-23 15:31] LABS: NT Pro B Type Natriuretic Pept 60 pg/mL (0-125); Procalcitonin 0.05 ng/mL (0-0.5); Thyroid Stimulating Hormone 0.62 uIU/mL (0.27-4.20)
[2024-08-23 15:42] LABS: Lactate Dehydrogenase 176 U/L (135-225)
[2024-08-23 16:09] LABS: Influenza A NEGATIVE (Negative); Influenza B NEGATIVE (Negative); Respiratory Syncytial Virus Ce NEGATIVE (Negative); SARS-CoV-2 PCR NEGATIVE (Negative)
[2024-08-23] MEDS: cefTRIAXone 1,000 mg SDV 1000 MG IVP (16:17)
[2024-08-23] MEDS: AZITHROMYCIN ADD-Vantage 500 MG in 0.9% NaCl ADD-Vantage 250 ML 250 MG IV (16:17)
[2024-08-23] MEDS: metoprolol succinate ER (24 HR) 25 mg Tablet PO (16:18)
[2024-08-23] MEDS: enoxaparin 40 mg/0.4 mL Syringe SUBCUT (16:18)
[2024-08-23] MEDS: pantoprazole 40 mg SDV IVP (16:18)
[2024-08-23 17:14] LABS: Troponin 5 6HR 13.45 ng/L (0-15); Troponin 5 6HR Delta 0.45 ng/L (0-12)
--- NOTE | 2024-08-23 17:42 | ECG_ITS ---
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 Measurements Intervals [place] Rate: 94 P: 78 SD: 170 QRS: 266 QRSD: 93 T: 81 QT: 375 QTc: 469 Interpretive Statements SINUS RHYTHM LEFT POSTERIOR FASCICULAR BLOCK [QRS AXIS > 109, INFERIOR Q] Compared to ECG 08/23/2024 13:08:42 Left posterior fascicular block now present Left-axis deviation no longer present Electronically Signed On 08-24-2024 10:21:51 CDT by Santiago Espinoza M.D. [email or web address] [id number]
--- OUTSIDE RECORDS SUMMARY | 2024-08-23 19:04 | XMS_ITS | Encounter Summary ---
Author Organization [facility] Address [address] [place] [address] Care Team Providers Care Can Machine Operator Name Role Phone Sav Phillips STEEL POURER Primary Care Provider Encounter Details Date Type Department Care Team (Late st Contact Info) Description 02/26/2005 Emergency [facility] Emergency Department [address] [place] [id number] Mike Maier MD [address] [place] [address] SPRAIN LUMBAR REGION (Primary Dx) Social History Tobacco Use Types Packs/Day Years Used Date Smoking Tobacco: Never Assessed Sex and Gender Information Value Date Recorded Sex Assigned at Not on file 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
--- OUTSIDE RECORDS SUMMARY | 2024-08-23 19:04 | XMS_ITS | Patient Health Record ---
Author Organization [facility] Address [address] [place] [address] Care Team Providers Care Inverted Block Operator Name Role Phone FaustinYoli Primary Care Provider YOLI FAUSTIN Unavailable Unavailable Milagro Long Unavailable [phone] Allergies No Known Allergies Results Component Value Reference Range Notes CBC w\ Auto Diff [id number] Reviewed date:02/27/2024 05:53:23 PM Interpretation: Performing Lab: Notes/Report: Diagnosis Description: Essential (primary) hypertension WBC 8.7 4.5-11.0 X10'3 RBC 4.29 4.50-5.90 X10'6 Hgb 13.1 13.5-17.5 G/DL Hct 41.4 41.0-53.0 % MCV 96.5 80.0-100.0 FL MCH 30.5 27.0-31.0 PG MCHC 31.6 31.0-37.0 G/DL Platelet 280 150-400 X10'3 RDW-SD 49.1 35.0-49.0 FL RDW-CV 13.7 12.2-15.6 % MPV 10.3 9.2-12.0 FL Neutro Auto% 60.9 40.0-70.0 % Lymph Auto% 22.4 22.0-44.0 % [place] Auto% 9.3 3.0-7.0 % Eos Auto% 5.4 2.0-4.0 % Baso Auto% 1.7 0.0-1.0 % Imm Gran% .3 .0-.4 % Neutro Abs 5.32 .80-7.70 Absolute Neutrophil Count 5320 Lymph Abs 1.96 .10-4.10 [place] Abs .81 .20-1.00 Eos Abs .47 .00-.40 Baso Abs .15 .00-.20 Imm Gran Abs .03 .00-.10 NRBC# .00 .00-.20 NRBC% .00 .00-.20 /100 int act WBC's Comprehensive Metabolic Pane l (CMP) [id number] Reviewed date:02/27/2024 05:52:44 PM Interpretation: Performing Lab: Notes/Report: Diagnosis Description: Essential (primary) hypertension Glucose Serum 78 71-110 MG/DL Testing perfor med at [facility] [place] [address]. CLIA ID#: [id number] BUN 16 7-21 MG/DL Creat .81 .57-1.17 MG/DL O-qhekmn-x-benzoquinone imine (NAPQI) is a metabolite of acetaminophen, NAPQI concentrations of apparoximately 10 mg/L correlation to toxic levels of acetaminophen demonstrates a greater than or equil to 10% change in results. NAPQI concentrations greater than this may lead to falsely depressed results for patient samples. Use of this assay is not recommended for patients undergoing treatment with phenindione, due to the potential for falsely depressed results. GFR 97.7 Calculation per formed from GFR calculator provided by the [employer]. Glomerular Filtration rate(GRF) is the best overall index of kidney function. Normal GFR varies according to age,sex, body size, and declines with age. The National [employer] recommends using the CKD-EPI Creatinine Equation(2020) to estimate GFR. BUN/Creat Ratio 19.8 12.0-20.0 % Total Protein 6.2 5.8-8.0 G/DL Albumin 4.4 3.2-4.8 G/DL Globulin 1.8 2.3-3.5 G/DL Alb/Glob 2.4 0.8-2.2 Calcium 9.6 8.7-10.4 MG/DL Sodium 137 136-145 MMOL/L Potassium 4.3 3.5-5.1 MMOL/L Chloride 104 98-107 MMOL/L CO2 26.9 20.0-31.0 MMOL/L Anion Gap 10 5-15 Alk Phos 86 46-116 Bili Total .6 .3-1.2 MG/DL Use of this ass ay is not recommended for patients undergoing treatment with eltrombopag due to the potential for falsely elevated results. AST/SGOT 22 15-37 UNIT/L ALT/SGPT 20 12-78 UNIT/L Osm[place] Serum,Calculated 284 280-300 MOSM/KG Lipid Panel Reflex DLDL 8006 1, 14284 Reviewed date:02/27/2024 05:53:39 PM Interpretation: Performing Lab: Notes/Report: Diagnosis Description: Essential (primary) hypertension Trig 58 Classification Guidelines:Triglycerides Adults: >20yrs Desirable <150 Borderline High 150-199 High 200-499 Very high >=500 Children: Male 0-4 yr 22-99 5-9 yr 30-101 10-14 yr 32-125 15-19 yr 37-148 Children: Female 0-4 yr 34-112 5-9 yr 32-105 10-14 yr 37-131 15-19 yr 39-132 Chol 179 <=200 MG/DL HDL 70 30-72 MG/DL Reference Ranges:HDL Male: 5-9y 38-75 10-14y 37-74 15-19y 30-63 >=20y 40-59 Female: 5-9y 36-73 10-14y 37-70 15-19y 35-74 >=20y 40-59 CH/HDL 2.5 0.0-4.9 RATIO LDL 97 0-130 MG/DL LDL result is i naccurate , if Trig is >400 mg/dl. See DLDL result. Thyroid Stimulating Hormone (TSH) 37234 Reviewed date:02/27/2024 05:54:12 PM Interpretation: Performing Lab: Notes/Report: Diagnosis Description: Encounter for screening for other suspected endocrine disorder TSH 1.396 .358-3.740 MlU/ML PSA Medicare Screening--G010 3 Reviewed date:02/27/2024 05:53:56 PM Interpretation: Performing Lab: Notes/Report: Diagnosis Description: Encounter for screening for malignant neoplasm of prostate PSA .54 .00-4.00 NG/ML PSA concentra tions, regardless of the value, should not be interpreted as definitive evidence for the presence or absence of prostate cancer. Reason For Referral No Information Medications Medication SIG (Take, Route, Frequency, Duration) Notes Start Date End Date Status ALPRAZolam 0.5 MG TAKE 1/2 TO 1 (ONE-HALF TO ONE) TABLET BY MOUTH THREE TIMES DAILY NEEDED FOR ANXIETY FOR 30 DAYS for 30 days 07/16/2024 Active Metoprolol Succinate ER 25 MG TAKE 1 TABLET BY MOUTH ONCE DAILY WITH EVENING MEAL for 30 Active Albuterol Sulfate HFA 108 (90 Base) MCG/ACT 2 puffs Inhalation four times a day prn for 90 days Active predniSONE 20 MG 2 tabs for 5 days; 1 tab for 5 days; Orally Once a day for 10 days Active amLODIPine Besylate 10 MG Take 1 tablet by mouth once daily for 90 days Active Ipratropium-Albuterol 0.5-2.5 (3) MG/3ML USE 1 VIAL IN NEBULIZER 4 TIMES DAILY Active Chlorthalidone 25 MG 1 tablet in the morning with food Oral once a day for 30 days Active Budesonide-Formoterol Fumarate 160-4.5 MCG/ACT INHALE TWO PUFFS BY MOUTH TWICE DAILY Inhalation for 30 days Active Breztri Aerosphere 160-9-4.8 MCG/ACT 2 puffs Inhalation Twice a day for 30 days 05/07/2024 11/03/2024 Active Spiriva HandiHaler 18 MCG INHALE ONE DOS E (ONE DOSE = TWO PUFFS) DAILY DIRECTED Inhalation for 30 Days Active Oxygen - Home Use 2 L NC PRN A ctive Cefdinir 300 MG Oral for 5 Days Not-Taking Fish Oil 1000 MG 1 capsule Orally Onc e a day Active Vitamin D3 250 MCG (60678 UT) as directed Orally Active Budesonide 0.5 MG/2ML USE 1/2 (ONE-HALF) VIAL IN NEBULIZER TWICE DAILY for 30 Active Losartan Potassium 100 MG Take 1 tablet by mouth once daily for 90 Not-Taking Vitamin B12 100 MCG as directed Orally Active buPROPion HCl ER (XL) 150 MG 1 tablet in the morning Oral Once a day for 30 Not-Taking Immunizations Vaccine Route Administration Date Status Comme nts Flucelvax Trivalent, Syringe 0.5 mL, PF Unknown 024 Refused Social History Tobacco Use: Social History Observation [...] screen completed 08/09/2023 score 0 PHQ9 08/10/2024 03/30/2022 Depression screen completed 08/09/2023 score 0 Depression screen completed 08/09/2023 score 0 Depression screen completed 08/09/2023 score 0 Depression screen completed 08/09/2023 score 0 03/30/2022 Depression screen completed 06/10/2023 score 0 Depression screen completed 08/09/2023 score 0 Depression screen completed 08/09/2023 score 0 Depression screen completed 08/09/2023 score 0 Depression screen completed 08/09/2023 score 0 Depression screen completed 08/09/2023 score 0 Depression screen completed 08/09/2023 score 0 03/30/2022 03/30/2022 03/30/2022 Depression screen completed 08/09/2023 score 0 Depression screen completed 08/09/2023 score 0 Problems Problem Type SNOMED Code ICD Code Onset Dates Problem Status W/U Status Risk Notes Problem 79102005 Nicotine dependence, cigarettes, uncomplicated (F17.210) Active confirmed Problem 61254048 Other emphysema (J43.8) Active confirmed Problem Dependence on supplemental oxygen (675420300433) Dependence on supplemental oxygen (Z99.81) Active confirmed Problem Lower urinary tract symptoms due to benign prostatic hypertrophy (63842900286935) Benign prostatic hyperplasia with lower urinary tract symptoms (N40.1) Active confirmed Problem 35896648 Anxiety (F41.9) Active confirmed Problem 884923781 Rash (R21) Active confirmed Problem 573841957 Neuropathic pain (M79.2) Active confirmed Problem 106659882 Acute left-sided low back pain with left-sided sciatica (M54.42) Active confirmed Problem 624964605 Tobacco abuse (Z72.0) Active confirmed Problem COPD - Chronic obstructive pulmonary disease (32432959) COPD (chronic obstructive pulmonary disease) (J44.9) Active confirmed Problem 11016705 Wheezes (R06.2) Active confirmed Problem 365706234 COPD with acute exacerbation (J44.1) Active confirmed Problem 73655307 Pulmonary emphysema, unspecified emphysema type (J43.9) Active confirmed Problem 078137498 Herpes zoster without complication (B02.9) Active confirmed Problem Hyperlipidemia (08245086) Hyperlipidemia (E78.5) Active confirmed Problem 295520598 Encounter for tobacco use cessation counseling (Z71.6) Active confirmed Problem 116574387 Nocturnal hypoxi a (G47.34) Active confirmed Problem 42207678 Primary hypertension (I10) Active confirmed Vital Signs Heart Rate 94 /min 08/10/2024 Temperature 97.2 degrees Fahrenheit 07/16/2024 Respiratory Rate 20 /min 08/10/2024 Blood pressure diastolic 103 mm Hg 08/10/2024 Oximetry 95 % 08/10/2024 Height-cm 172.72 cm 08/10/2024 Weight-kg 63.5 kg 08/10/2024 Height 68 in 08/10/2024 Blood pressure systolic 159 mm Hg 08/10/2024 Weight 140 lbs 08/10/2024 BMI 21.28 kg/m2 08/10/2024 Encounters Encounter Location Date Provider Diagnosis [facility] [address] [address] 10/31/2023 [facility] [address] [facility] [address] [place] [address] 11/04/2023 [facility] Office [address] [address] 02/25/2024 Yoli Faustin Dyspnea R06.00 ; Primary hypertension I10 ; Anxiety F41.9 ; Tobacco abuse Z72.0 ; Hyperlipidemia E78.5 ; COPD (chronic obstructive pulmonary disease) J44.9 ; Thyroid disorder screen Z13.29 ; Prostate cancer screening Z12.5 and Immunization not carried out because of patient refusal Z28.21 [facility] Office [address] [place] [address] 03/18/2024 Milagro Logn COPD with acute exacerbation J44.1 [facility] [address] [place] [address] 01/03/2024 Yoli Faustin Other emphysema J43. [address] [facility] [address] [place] [address] 08/10/2024 Yoli Faustin Dyspnea R06.00 ; Primary hypertension I10 ; COPD (chronic obstructive pulmonary disease) J44.9 and Encounter for Medicare annual wellness exam Z00.00 [facility] [address] [place] [address] 07/02/2024 Yoli Faustin COPD with acute exacerbation J44.1 ; Dyspnea R06.00 ; Anxiety F41.9 and Tobacco abuse Z72.0 [facility] [address] [place] [address] 07/16/2024 Yoli Faustin COPD with acute exacerbation J44.1 ; Dyspnea R06.00 ; Anxiety F41.9 and Primary hypertension I10 [facility] [address] [place] [address] 09/03/2023 Yoli Faustin COPD with acute exacerbation J44.1 ; Tobacco abuse Z72.[address] [facility] [address] [place] [address] 11/14/2023 Milagro Long COPD with acute exacerbation J44.1 [facility] [address] [place] [address] 01/23/2024 Yoli Faustin COPD with acute exacerbation J44.[address] [facility] [address] [facility] [address] [place] [address] 12/03/2023 Yoli Faustin COPD with acute exacerbation J44.1 ; Anxiety F41.9 ; Benign prostatic hyperplasia with lower urinary tract symptoms N40.1 and Hospital discharge follow-up Z09 [facility] [address] [place] [address] 05/07/2024 Yoli Faustin Primary hypertension I10 ; Anxiety F41.9 ; COPD with acute exacerbation J44.1 and Hospital discharge follow-up Z09 Assessments Encounter Date Diagnosis (ICD Code) Assessment Notes Treatment Notes Treatment Clinical Notes Section Notes 01/23/2024 Abrasion (ICD-10 - T14.8XXA) doxycycline 01/23/2024 COPD with acute exacerbation (ICD-10 - J44.1) depomedrol/deca dron im 05/07/2024 Anxiety (ICD-10 - F41.9) continue meds 09/03/2023 Tobacco abuse (ICD-10 - Z72.0) 09/03/2023 COPD with acute exacerbation (ICD-10 - J44.1) depomedrol/deca dron im levaquin nebulizer medrol dose pack 05/07/2024 Primary hypertension (ICD-10 - I10) chlorthalidone; losartan 07/16/2024 COPD with acute exacerbation (ICD-10 - J44.1) albuteral refill levaquin depomedrol/deca dron im 07/16/2024 Dyspnea (ICD-10 - R06.00) 07/02/2024 COPD with acute exacerbation (ICD-10 - J44.1) depomedrol/deca dron im z mario 07/02/2024 Dyspnea (ICD-10 - R06.00) o2 as directed 08/10/2024 Dyspnea (ICD-10 - R06.00) 08/10/2024 Primary hypertension (ICD-10 - I10) amlodipine metoprolol er monitor 03/18/2024 COPD with acute exacerbation (ICD-10 - J44.1) Rocephin and steroid injection given today. Will go to [facility] for CXR. Discussed with pt and spouse he would need to go to nearest ED if symptoms become worse. 02/25/2024 Dyspnea (ICD-10 - R06.00) 02/25/2024 Primary hypertension (ICD-10 - I10) cbc cmp lipids conitnue meds 12/03/2023 Anxiety (ICD-10 - F41.9) xanax 12/03/2023 COPD with acute exacerbation (ICD-10 - J44.1) prednisone; doxycycline 11/14/2023 COPD with acute exacerbation (ICD-10 - J44.1) Steroid injection given. Increase fluids, take medication as directed. RTC if no improvement with treatment. 01/03/2024 Other emphysema (ICD-10 - J43.8) depomedrol/deca dron im 01/03/2024 Dyspnea (ICD-10 - R06.00) 12/03/2023 Benign prostatic hyperplasia with lower urinary tract symptoms (ICD-10 - N40.1) flomax 02/25/2024 Anxiety (ICD-10 - F41.9) continue meds 07/16/2024 Anxiety (ICD-10 - F41.9) alprazolam 08/10/2024 COPD (chronic obstructive pulmonary disease) (ICD-10 - J44.9) depomedrol/deca drone im 07/02/2024 Anxiety (ICD-10 - F41.9) xanax 09/03/2023 Dyspnea (ICD-10 - R06.00) 05/07/2024 COPD with acute exacerbation (ICD-10 - J44.1) depomedrol/deca dron im; cefdinir; breztri 05/07/2024 Hospital discharge follow-up (ICD-10 - Z09) 07/02/2024 Tobacco abuse (ICD-10 - Z72.0) 07/16/2024 Primary hypertension (ICD-10 - I10) conitnue meds 02/25/2024 Tobacco abuse (ICD-10 - Z72.0) 12/03/2023 Hospital discharge follow-up (ICD-10 - Z09) 02/25/2024 Hyperlipidemia (ICD-10 - E78.5) 08/10/2024 Encounter for Medicare annual wellness exam (ICD-10 - Z00.00) Return in one year for your annual wellness visit. 02/25/2024 COPD (chronic obstructive pulmonary disease) (ICD-10 - J44.9) depomedrol/deca dron im continue meds 02/25/2024 Thyroid disorder screen (ICD-10 - Z13.29) tsh 02/25/2024 Prostate cancer screening (ICD-10 - Z12.5) psa 02/25/2024 Immunization not carried out because of patient refusal (ICD-10 - Z28.21) 09/03/2023 Other Questions asked and answered; discharged to home. 12/03/2023 Other Questions asked and answered; discharged to home. 01/03/2024 Other Questions asked and answered; discharged to home. 01/23/2024 Other Questions asked and answered; discharged to home. 02/25/2024 Other Questions asked and answered; discharged to home. Venipuncture: Performed by: Sandra KHOURY Attempts:x1 Location:RAC Needle gauge: 21g Patient tolerated well. 05/07/2024 Other Questions asked and answered; discharged to home. 07/02/2024 Other Questions asked and answered; discharged to home. 07/16/2024 Other Questions asked and answered; discharged to home. 08/10/2024 Other Questions asked and answered; discharged to home. Plan Of Treatment Next Appt Details Provider Name:Yoli Faustin, 09/03/2024 11:40:00 AM, [address] [place] [address], [phone], Insurance Providers Payer Name Payer Address Payer Phone Subscriber Number Group Number Insured Name Patient Relationship to Insured Coverage Start Date Coverage End Date [place] [address] [place] [phone] [id number] Dennis Rhodes Self - patient is the insured 3 [employer] Medicare Supplement [address] [place] [phone] [id number] Dennis Rhodes Self - patient is the insured 4 Medications Administered Medication Instructions Date of Administration Dosage Notes DEPO-Medrol 04/17/2022 40 mg ND: [id number] Patient tolerated well, advised to wait 20 min at clinic DEPO-Medrol 05/11/2022 40 mg ndc 17380-576 3- pt tolerated well/instructed to wait 20 min DEPO-Medrol 12/31/2022 40 mg [facility] 99959-376 3-01 pt tolerated well/instructed to wait 20 min DEPO-Medrol 03/07/2023 40 mg [facility] 18796-144 3-01 pt tolerated well/instructed to wait 20 min DEPO-Medrol 06/10/2023 40 mg [facility] 43703-493 3-01pt tolerated well/instructed to wait 20 min DEPO-Medrol 08/16/2023 40 mg [facility] 38008-114 3-01 pt tolerated well/instructed to wait 20 min DEPO-Medrol 09/03/2023 40 mg [facility] [address] 3-01 pt tolerated well/instructed to wait 20 min DEPO-Medrol 11/14/2023 40 mg [id number] 3-11 Patient tolerated well. DEPO-Medrol 01/03/2024 40 mg [facility] 1154-8781 -01 pt tolerated well/instructed to wait 20 min DEPO-Medrol 01/23/2024 40 mg [facility] 56793-316 3-01 pt tolerated well/instructed to wait 20 min DEPO-Medrol 02/25/2024 40 mg [facility] 91491-202 3-01 pt tolerated well/instructed to wait 20 min DEPO-Medrol 03/18/2024 40 mg [id number]-[id number] -01 Patient tolerated well. DEPO-Medrol 05/07/2024 40 mg [facility] 35241-199 3-10 pt tolerated well/instructed to wait 20 min DEPO-Medrol 07/02/2024 40 mg [facility] 34160-900 3-01 pt tolerated well/instructed to wait 20 min DEPO-Medrol 07/16/2024 40 mg [facility] 22983-859 3-01 pt tolerated well/instructed to wait 20 min DEPO-Medrol 08/10/2024 40 mg [facility] 76743-007 3-01 pt tolerated well/instructed to wait 20 min dexAMETHasone 04/17/2022 4 mg [facility]: [address]-71 Patient tolerated well, advised to wait 20 min at clinic dexAMETHasone 05/11/2022 4 mg [facility] 60848-9 239-30 pt tolerated well/instructed to wait 20 min dexAMETHasone 12/31/2022 4 mg [facility] 485423- 0419-00 pt tolerated well/instructed to wait 20 min dexAMETHasone 03/07/2023 4 mg [facility] 54375-0 423-00 pt tolerated well/instructed to wait 20 min dexAMETHasone 06/10/2023 4 mg [id number] 23-00 pt tolerated well/instructed to wait 20 min dexAMETHasone 08/16/2023 [place] [address]-4 423-00 pt tolerated well/instructed to wait 20 min dexAMETHasone 09/03/2023 [place] [address]-3 423-00 pt tolerated well/instructed to wait 20 min dexAMETHasone 11/14/2023 4 mg nd-49761-9 423-00 Patient tolerated well. dexAMETHasone 01/03/2024 4 mg one injecti on site/[facility] [address]-10 pt tolerated well/instructed to wait 20 min dexAMETHasone 01/23/2024 [place] [address]-5 423-00 pt tolerated well/instructed to wait 20 min dexAMETHasone 02/25/2024 4 mg [facility] 05111-3 423-00 pt tolerated well/instructed to wait 20 min dexAMETHasone 03/18/2024 4 mg [facility]-39560-2 423-00 Patient tolerated well. dexAMETHasone 05/07/2024 4 mg [facility] 86251-5 419-00 pt tolerated well/instructed to wait 20 min dexAMETHasone 07/02/2024 [place] [address]-3 423-00 pt tolerated well/instructed to wait 20 min dexAMETHasone 07/16/2024 [place] [address]-0 423-00 pt tolerated well/instructed to wait 20 min dexAMETHasone 08/10/2024 4 mg [facility] 50952-5 423-00 pt tolerated well/instructed to wait 20 min Rocephin 12/31/2022 1 g [facility] [address] -11 pt tolerated well/instructed to wait 20 min Rocephin 03/18/2024 1 g smi-[address] -11 Patient tolerated well. Medical (General) History Medical History History ICD Code High Blood Pressure COPD Surgical History Surgery Date(Month/Year) hernia repair 1983 Back surgery 2005 Hospitalization History Reason Date(Month/Year) [facility] for Trouble breathing 03/20-03/22/22
--- OUTSIDE RECORDS SUMMARY | 2024-08-23 19:04 | XMS_ITS | Clinical Summary ---
Author Organization [facility] Address [address] [address] Phone Care Team Providers Care Tariff Clerk Name Role Phone Sav Phillips NP Primary Care Provider Allergies No known active allergies Medications albuterol sulfate 90 mcg/Actuation inhaler INHALE 2 PUFFS BY MOUTH 4 TIMES DAILY NEEDED 08/25/2021 Active ALPRAZolam (XANAX) 0.5 mg tablet TAKE 1/2 TO 1 (ONE-HALF TO ONE) TABLET BY MOUTH TWICE DAILY 09/28/2021 Active amLODIPine (NORVASC) 10 mg tablet Take 10 mg by mouth daily. 08/25/2021 Active Breztri Aerosphere 160-9-4.8 mcg/actuation HFA Aerosol Inhaler INHALE 2 PUFFS TWICE DAILY 08/09/2021 Active cyclobenzaprine (FLEXERIL) 10 mg tablet TAKE 1 TABLET BY MOUTH THREE TIMES DAILY NEEDED FOR MUSCLE SPASM 09/28/2021 Active ibuprofen (MOTRIN) 800 mg tablet TAKE 1 TABLET BY MOUTH THREE TIMES DAILY NEEDED WITH FOOD 09/28/2021 Active losartan (COZAAR) 100 mg tablet Take 100 mg by mouth daily in the morning. 08/05/2021 Active predniSONE (DELTASONE) 20 mg tablet TAKE 2 TABLETS BY MOUTH ONCE DAILY FOR 3 DAYS, THEN TAKE 1 TABLET DAILY FOR 3 DAYS, THEN TAKE ONE-HALF TABLET DAILY FOR 2 DAYS 09/13/2021 Active traMADoL (ULTRAM) 50 mg tablet TAKE 1 TABLET BY MOUTH EVERY 4 HOURS NEEDED FOR SEVERE PAIN 09/28/2021 Active methylPREDNISol one (MEDROL DOSPACK) 4 mg Tablets, Dose Pack TAKE BY MOUTH DIRECTED ON INSIDE OF PACKAGE 08/25/2021 Active oxyCODONE-aceta minophen (PERCOCET) 10-325 mg Tablet Take 1 Tablet by mouth every 6 hours as needed for Pain, Severe. 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 Gender Identity Not on file Sexual Orientation Not on file Last Filed Vital Signs Vital Sign Reading Time Taken Comments Blood Pressure 128/68 10/25/2021 8:24 AM CDT Pulse 93 10/25/2021 8:24 AM CDT Temperature - - Respiratory Rate - - Oxygen Saturation - - Inhaled Oxygen Concentration - - Weight 61.2 kg (135 lb) 10/25/2021 8:24 AM CDT Height - - Body Mass Index - - Plan of Treatment Health Maintenance Due Date Last Done Comments DTAP/TDAP/TD VACCINES (1 - Tdap) 1978 PNEUMOCOCCAL VACCINE 50+ YEARS (1 of 2 - PCV) 02/01/19 78 COLORECTAL SCREENING 02/02/2004 Colorectal Cancer Screening 02/02/2004 FIT-DNA Q 3 years 02/02/2004 FIT/FOBT Q 1 year 02/02/2004 Flex Sig/CT Colonography Q 5 years 02/02/2004 ZOSTER VACCINE (1 of 2) 2009 INFLUENZA VACCINE (#1) 2023 RSV VACCINE (60+ or ) (1 - 1-dose 75+ series) 2034 Insurance [facility] O Care Teams Tariff Clerk Relationship Specialty Start Date End Date Sav Phillips NP [address] [place] [phone] PCP - General NURSE PRACTITIONER 05/31/20
--- OUTSIDE RECORDS SUMMARY | 2024-08-23 19:04 | XMS_ITS | Clinical Summary ---
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 Gender Identity Not on file Sexual Orientation Not on file Plan of Treatment Health Maintenance Due Date Last Done Comments DTAP/TDAP/TD VACCINES (1 - Tdap) 1978 COLORECTAL SCREENING 02/02/2004 Colorectal Cancer Screening 02/02/2004 FIT-DNA Q 3 years 02/02/2004 FIT/FOBT Q 1 year 02/02/2004 Flex Sig/CT Colonography Q 5 years 02/02/2004 PNEUMOCOCCAL VACCINE 50+ YEARS (1 of 1 - PCV) 02/02/20 09 ZOSTER VACCINE (1 of 2) 2009 INFLUENZA VACCINE (#1) 2023 RSV VACCINE (60+ or ) (1 - 1-dose 75+ series) [address] [place] [id number] [place] [id number] Care Teams Patternmaker Apprentice Wood Relationship Specialty Start Date End Date Sav Phillips NP [address] [place] [phone] PCP - General NURSE PRACTITIONER 05/31/20
[2024-08-23] MEDS: budesonide 0.5 mg/2 mL Neb INHALATION (19:34)
[2024-08-23] MEDS: guaiFENesin-dextromethorphan UDC 10 mL PO (23:25)
[2024-08-23] MEDS: ALPRAZolam 0.5 mg Tablet PO (23:25)
[2024-08-24] VITALS (14 sets, daily range): BP systolic 116–143; BP diastolic 71–86; PULSE 71–92; RESP 16–19; TEMP 36.4–36.8; O2SAT 90–98
[2024-08-24 04:24] LABS: Basophils % 0.2 %; Eosinophils # 0.1 10^3/uL (0.0-0.8); Eosinophils % 0.3 %; Hematocrit 43.9 % (37-53); Lymphocytes # 1.1 10^3/uL (0.8-4.8); Lymphocytes % 6.3 %; Mean Corpuscular HGB Conc 32.1 g/dL (30-55); Mean Corpuscular Volume 96.5 fl (82-101); Mean Platelet Volume 10.1 fL (7.4-10.4); Monocytes # 0.9 10^3/uL (0.2-0.9); Monocytes % 5.2 %; Neutrophils # 15.25 10^3/uL (1.8-7.7); Neutrophils % 87.4 %; Nucleated Red Blood Cells % 0 %; Platelet Count 269 10^3/cmm (157-399); Red Blood Count 4.55 10^6/uL (3.85-5.65); White Blood Count 17.43 10^3/uL (3.29-11.43)
[2024-08-24 04:45] LABS: Alanine Aminotransferase 23 U/L (0-41); Albumin Level 4.2 g/dL (3.5-5.2); Alkaline Phosphatase 90 U/L (40-130); Blood Urea Nitrogen 22 mg/dL (8-23); Calcium 9.6 mg/dL (8.5-10.5); Carbon Dioxide 23 mmol/L (22-29); Chloride 99 mmol/L (98-107); Creatinine Clr Calc Pharmacy 74.2523; Globulin 2.7 g/dL (1.3-4.6); Glomerular Filtration Rate 84.7 mL/min (90-130); Glucose 236 mg/dL (65-115); Osmolality Calculated 297 mOsm/kg (285-295); Phosphorus 2.6 mg/dL (2.5-4.5); Sodium 138 mmol/L (136-145); Total Bilirubin 0.3 mg/dL (0.15-1.2); Total Protein 6.9 g/dL (6.6-8.7)
[2024-08-24 04:47] LABS: Anion Gap 19.9 (5-19); Aspartate Amino Transferase 22 U/L (0-40); Potassium 3.9 mmol/L (3.5-5.1)
[2024-08-24] MEDS: methylPREDNISolone sod succ 40 mg/mL INJ IVP ×3 (06:27→22:04)
[2024-08-24] MEDS: ipratropium-albuterol 3 mL Neb INHALATION ×4 (07:59→19:35)
[2024-08-24] MEDS: budesonide 0.5 mg/2 mL Neb INHALATION ×2 (07:59→19:35)
[2024-08-24] MEDS: losartan 50 mg Tablet 100 MG PO (08:10)
[2024-08-24] MEDS: guaiFENesin-dextromethorphan UDC 10 mL PO (08:10)
[2024-08-24] MEDS: benzonatate 100 mg Capsule PO (08:10)
--- NOTE | 2024-08-24 10:13 | PC.SOCIAL ---
IMM Update pg 2 of IMM updated and reviewed w/ patient. Copy provided and copy dated, initialed and placed in chart.
[2024-08-24 11:22] LABS: Glucose Point of Care 105 mg/dL (70-110)
--- NOTE | 2024-08-24 11:33 | P.PN_ITS ---
Subjective 2 Subjective: Patient was seen this morning, continues to have crackles and wheezing, complaints of shortness of breath no fevers, no chills Vitals/I&O/Wt Last Vital Signs Temp 97.6 F 08/24/24 08:00 Pulse 85 08/24/24 11:16 Resp 18 08/24/24 11:07 BP 116/71 08/24/24 08:10 Pulse Ox 90 08/24/24 11:07 O2 Del Method Room Air 08/24/24 11:07 O2 Flow Rate 4 08/24/24 08:00 08/23/24 08/24/24 08/24/24 22:59 06:59 14:59 Intake Total 250 / 250 720 / 970 480 / 480 Output Total 100 / 100 Balance 250 / 250 720 / 970 380 / 380 Weight last 48 hrs Weight 61.235 kg Weight 61.235 kg Weight 61.235 kg Physical Exam 2 Const: COMMON NORMALS: no acute distress and patient oriented x3 Resp: COMMON NORMALS: normal respiratory effort, No retractions and No use of accessory muscles AUSCULTATION: crackles and wheezes Cardio: COMMON NORMALS: regular rate, regular rhythm, S1 normal heart sound present and S2 normal heart sound present RATE: regular rate RHYTHM: r egular rhythm HEART SOUNDS: S1 normal heart sound present and S2 normal heart sound present GI: COMMON NORMALS: Normal to inspection, nondistended, normoactive bowel sounds present and non-tender Extremity: COMMON NORMALS: no pedal edema Neuro: COMMON NORMALS: patient oriented x3 Psych: COMMON NORMALS: mental status grossly normal Data 08/24/24 03:52 08/24/24 03:52 A&P Assessment and plan (1) Acute hypoxic respiratory failure: (2) Chronic obstructive pulmonary emphysema: (3) Acute exacerbation of chronic obstructive airways disease: Plan Acute hypoxic respiratory failure - History of COPD, current smoker - History of multiple doses of steroid this year, last dose about a week ago, immunocompromise state Plan - Monitor respiratory status closely - DuoNeb - Budesonide - Respiratory viral panel, within normal limits - Sputum culture - Aspergillus - PCP PCR - Fungal studies - LDH 176, beta glucan - Rocephin, Zithromycin - Solu-Medrol 40 mg IV every 8 hours - Full code - Lovenox for DVT prophylaxis PDMP PDMP Reviewed: Not Reviewed Attestations 2 Medical Necessity Statement*: Patient requires hospitalization for COPD exacerbation Diagnoses Acute hypoxic respiratory failure J96.01 Centrilobular emphysema J43.2 Emphysema type: centrilobular Acute exacerbation of chronic obstructive airways disease J44.1
[2024-08-24 11:54] LABS: Estmated Average Glucose 103; Hemoglobin A1C 5.2 % (4.0-6.0)
[2024-08-24] MEDS: AZITHROMYCIN ADD-Vantage 500 MG in 0.9% NaCl ADD-Vantage 250 ML 250 MG IV (14:22)
[2024-08-24] MEDS: cefTRIAXone 1,000 mg SDV 1000 MG IVP (14:23)
[2024-08-24] MEDS: pantoprazole 40 mg SDV IVP (14:23)
[2024-08-24] MEDS: enoxaparin 40 mg/0.4 mL Syringe SUBCUT (14:24)
[2024-08-24 17:00] LABS: Glucose Point of Care 98 mg/dL (70-110)
[2024-08-24] MEDS: guaiFENesin 600 mg Tablet 1200 MG PO (17:50)
[2024-08-24] MEDS: metoprolol succinate ER (24 HR) 25 mg Tablet PO (17:51)
[2024-08-24 20:59] LABS: Glucose Point of Care 114 mg/dL (70-110)
[2024-08-25] VITALS (12 sets, daily range): BP systolic 118–162; BP diastolic 70–102; PULSE 70–90; RESP 16–22; TEMP 36.4–36.8; O2SAT 91–98
[2024-08-25] MEDS: guaiFENesin-dextromethorphan UDC 10 mL PO ×2 (04:17→17:13)
[2024-08-25] MEDS: methylPREDNISolone sod succ 40 mg/mL INJ IVP ×3 (05:48→22:05)
[2024-08-25 05:50] LABS: Basophils % 0.1 %; Hematocrit 41.8 % (37-53); Lymphocytes # 1.1 10^3/uL (0.8-4.8); Lymphocytes % 4.6 %; Mean Corpuscular HGB Conc 32.5 g/dL (30-55); Mean Corpuscular Hemoglobin 30.9 pg (27-33); Mean Platelet Volume 9.9 fL (7.4-10.4); Monocytes # 0.8 10^3/uL (0.2-0.9); Monocytes % 3.3 %; Neutrophils # 20.98 10^3/uL (1.8-7.7); Neutrophils % 91.4 %; Nucleated Red Blood Cells % 0 %; Platelet Count 284 10^3/cmm (157-399); Red Cell Distribution Width 14.3 % (12.1-15.1); White Blood Count 22.95 10^3/uL (3.29-11.43)
[2024-08-25 06:09] LABS: Alanine Aminotransferase 23 U/L (0-41); Albumin Level 4.3 g/dL (3.5-5.2); Alkaline Phosphatase 72 U/L (40-130); Anion Gap 14.7 (5-19); Aspartate Amino Transferase 20 U/L (0-40); Blood Urea Nitrogen 15 mg/dL (8-23); Calcium 9.3 mg/dL (8.5-10.5); Carbon Dioxide 27 mmol/L (22-29); Chloride 99 mmol/L (98-107); Creatinine Clr Calc Pharmacy 83.5339; Globulin 2.3 g/dL (1.3-4.6); Glomerular Filtration Rate 113.2 mL/min (90-130); Glucose 123 mg/dL (65-115); Osmolality Calculated 284 mOsm/kg (285-295); Potassium 4.7 mmol/L (3.5-5.1); Sodium 136 mmol/L (136-145); Total Bilirubin 0.3 mg/dL (0.15-1.2); Total Protein 6.6 g/dL (6.6-8.7)
[2024-08-25 06:46] LABS: Glucose Point of Care 108 mg/dL (70-110)
[2024-08-25] MEDS: budesonide 0.5 mg/2 mL Neb INHALATION ×2 (08:31→20:21)
[2024-08-25] MEDS: ipratropium-albuterol 3 mL Neb INHALATION ×4 (08:31→20:21)
[2024-08-25] MEDS: losartan 50 mg Tablet 100 MG PO (08:55)
[2024-08-25] MEDS: nicotine 21 mg Patch 1 PATCH TRANSDERMA (08:55)
[2024-08-25] MEDS: guaiFENesin 600 mg Tablet 1200 MG PO ×2 (08:55→17:13)
--- NOTE | 2024-08-25 10:19 | PC.CHAP ---
Pastoral Care Encounter/Spiritual Assessment Type of Contact [] Declined nursing associate visit [] Patient/Family/Request visit [] Outpatient visit [] Follow-up visit [] Physician referral [] Code/Alert [x] Routine visit [] Staff referral [] Actively dying [] Patient sleeping [] Family support [] [] Out of room [] Palliative care [] [] Receiving care in room [] Pre-surgical visit [] Trauma [] Long length of stay [] ICU visit [] Other: Relational/Emotional Strength [x] Patient feels connected with others/family/visitors/staff [] Distress [] Loneliness/isolation [] Abandonment Spirituality of Patient [x] Person of Oliva [] Attends Nondenominational of their Oliva [x] Believes in Prayer [] Reads Bible or Taoism materials [] There are Spiritual issues to be addressed 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 Interventions [x] Prayer [x] Active listening [] Non-anxious presence [x] Spiritual/emotional support [] Crisis/trauma care [] Spiritual counseling [] Bereavement support [] Provided bereavement packet [] Provided Bible/devotional materials [] Provided toy/stuffed animal, coloring book to patient or family member [] Provided Communion [] Anointing/[place] [] Salvation [x] Completed spiritual assessment [] Other: Impact on Illness or Injury [] Angry [] Fearful [] Anxious [] Often cries [] Exhaustion [] Unable to work [] Unable to attend congregational [] Unable to walk/stand [] Unable to read [] Unable to drive [] Unable to eat/drink [] Unable to sleep [] Unable to be with family [] Patient intubated [] Other: Summary Time spent with patient 5 min
[2024-08-25 11:20] LABS: Glucose Point of Care 89 mg/dL (70-110)
[2024-08-25] MEDS: enoxaparin 40 mg/0.4 mL Syringe SUBCUT (15:18)
[2024-08-25] MEDS: AZITHROMYCIN ADD-Vantage 500 MG in 0.9% NaCl ADD-Vantage 250 ML 250 MG IV (15:18)
[2024-08-25] MEDS: cefTRIAXone 1,000 mg SDV 1000 MG IVP (15:18)
[2024-08-25] MEDS: pantoprazole 40 mg SDV IVP (15:18)
--- NOTE | 2024-08-25 16:21 | USCV_ITS ---
Taurus Rhodes Age: 64 Gender: M : 1960 Exam Date: 08/25/2024 19:24 Ordering Phys: Andi Odell MD Technologist: Fabien Leiva [place] [facility] [place]: [place], long-term smoker, continues smoking, history COPD, HTN BP: 143 / 102 HR: 74 Rhythm: Sinus Technical Quality: Adequate MEASUREMENTS (Male / Female) Normal Values 2D ECHO LV Diastolic Diameter PLAX 3.2 cm 4.2 - 5.9 / 3.9 - 5.3 cm IVS Diastolic Thickness 1.1 cm 0.6 - 1.0 / 0.6 - 0.9 cm IVS Systolic Thickness 1.7 cm LVPW Diastolic Thickness 1.1 cm 0.6 - 1.0 / 0.6 - 0.9 cm LVPW Systolic Thickness 1.4 cm LVOT Diameter 1.8 cm LV Ejection Fraction 2D Teich 58.7 % LV Ejection Fraction MOD 4C 56.8 % LV Ejection Fraction MOD 2C 48.1 % LV Ejection Fraction 2C AL 50.2 % LA Diameter 3.5 cm Aorta at Sinotubular Diameter 2.8 cm IVC Diameter 1.4 cm M-MODE LA Ao Ratio MM 0.8 AV Cusp Separation MM 2.1 cm DOPPLER AV Peak Velocity 114.0 cm/s LVOT Peak Velocity 116.0 cm/s AV Area Cont Eq vti 3.5 cm squared AV Area Cont Eq pk 2.7 cm squared MV Peak Velocity 87.0 cm/s MV Area PHT 4.0 cm squared Mitral E to A Ratio 1.2 TV Peak E Velocity 49.0 cm/s PV Peak Velocity 108.0 cm/s FINDINGS Left Ventricle Normal left ventricular size and systolic function, EF 57% No regional wall motion abnormalities. Right Ventricle Normal right ventricular size and systolic function. Right Atrium The right atrium is normal in size. Left Atrium The left atrium is normal in size. Mitral Valve No gross abnormalities noted Aortic Valve No gross abnormalities noted Tricuspid Valve No gross abnormalities noted Pulmonic Valve No gross abnormalities noted Pericardium Normal pericardium without effusion. Aorta Normal aortic annulus size. IVC Normal inferior vena cava. CONCLUSIONS Normal left ventricular size and systolic function, EF 57% No regional wall motion abnormalities. Normal cardiac chamber sizes. No gross valvular abnormalities. There is no pericardial effusion. There are no intracardiac masses. Compared to the study from 03/21/2022, there may not be a significant change Dr Alexa De La Garza MD [facility] (Electronically Signed) Final Date: 25 Aug 2024 21:43 S
--- NOTE | 2024-08-25 16:22 | P.PN_ITS ---
Subjective 2 Subjective: Patient was seen this morning, he is alert oriented x 3, following all commands, continues to complain of shortness of breath and wheezing Vitals/I&O/Wt Last Vital Signs Temp 98.1 F 08/25/24 11:27 Pulse 89 08/25/24 11:50 Resp 18 08/25/24 11:50 BP 148/90 08/25/24 11:27 Pulse Ox 98 08/25/24 11:50 O2 Del Method Nasal Cannula 08/25/24 11:50 O2 Flow Rate 2 08/25/24 11:50 08/25/24 08/25/24 08/25/24 06:59 14:59 22:59 Intake Total 480 / 480 Output Total 1400 / 3150 2830 / 2830 Balance -1400 / -1460 -2350 / -2350 Weight last 48 hrs Weight 65.317 kg Weight 61.235 kg Physical Exam 2 Const: COMMON NORMALS: no acute distress and patient oriented x3 Resp: COMMON NORMALS: normal respiratory effort, No retractions and No use of accessory muscles AUSCULTATION: crackles and wheezes Cardio: COMMON NORMALS: regular rate, regular rhythm, S1 normal heart sound present and S2 normal heart sound present RATE: regular rate RHYTHM: r egular rhythm HEART SOUNDS: S1 normal heart sound present and S2 normal heart sound present GI: COMMON NORMALS: Normal to inspection, nondistended, normoactive bowel sounds present and non-tender Extremity: COMMON NORMALS: no pedal edema Neuro: COMMON NORMALS: patient oriented x3 Psych: COMMON NORMALS: mental status grossly normal Data 08/25/24 05:06 08/25/24 05:06 Micro: Microbiology 08/24/24 15:00 Gram Stain - Final Sputum - Expectorated Sputum Sputum Culture - Preliminary A&P Assessment and plan (1) Acute hypoxic respiratory failure: (2) Chronic obstructive pulmonary emphysema: (3) Acute exacerbation of chronic obstructive airways disease: Plan Acute hypoxic respiratory failure - History of COPD, current smoker - History of multiple doses of steroid this year, last dose about a week ago, immunocompromise state - Concerns for pneumonia Plan - Monitor respiratory status closely - DuoNeb - Budesonide - Respiratory viral panel, within normal limits - Sputum culture - Aspergillus - PCP PCR - Fungal studies - LDH 176, beta glucan - Rocephin, Zithromycin - Solu-Medrol 40 mg IV every 8 hours - Full code - Lovenox for DVT prophylaxis PDMP PDMP Reviewed: Not Reviewed Attestations 2 Medical Necessity Statement*: Patient requires hospitalization for acute hypoxic respiratory failure secondary to COPD, pneumonia Diagnoses Acute hypoxic respiratory failure J96.01 Centrilobular emphysema J43.2 Emphysema type: centrilobular Acute exacerbation of chronic obstructive airways disease J44.1
[2024-08-25 16:25] LABS: Glucose Point of Care 91 mg/dL (70-110)
[2024-08-25] MEDS: metoprolol succinate ER (24 HR) 25 mg Tablet PO (17:13)
[2024-08-26 04:00] VITALS: BP 183/98; PULSE 72; RESP 16; TEMP 36.6; O2SAT 96
[2024-08-26 05:43] LABS: Basophils % 0.1 %; Hematocrit 42.5 % (37-53); Lymphocytes # 0.8 10^3/uL (0.8-4.8); Lymphocytes % 4.9 %; Mean Corpuscular HGB Conc 32.2 g/dL (30-55); Mean Corpuscular Hemoglobin 30.4 pg (27-33); Mean Corpuscular Volume 94.4 fl (82-101); Mean Platelet Volume 9.9 fL (7.4-10.4); Monocytes # 0.7 10^3/uL (0.2-0.9); Monocytes % 4.3 %; Neutrophils # 15.02 10^3/uL (1.8-7.7); Nucleated Red Blood Cells % 0 %; Platelet Count 282 10^3/cmm (157-399); Red Cell Distribution Width 14.4 % (12.1-15.1); White Blood Count 16.67 10^3/uL (3.29-11.43)
[2024-08-26] MEDS: methylPREDNISolone sod succ 40 mg/mL INJ IVP (05:53)
[2024-08-26 06:05] LABS: Alanine Aminotransferase 23 U/L (0-41); Albumin Level 4.2 g/dL (3.5-5.2); Alkaline Phosphatase 61 U/L (40-130); Anion Gap 13.5 (5-19); Aspartate Amino Transferase 18 U/L (0-40); Blood Urea Nitrogen 16 mg/dL (8-23); Calcium 9.4 mg/dL (8.5-10.5); Carbon Dioxide 30 mmol/L (22-29); Chloride 97 mmol/L (98-107); Globulin 2.5 g/dL (1.3-4.6); Glomerular Filtration Rate 113.2 mL/min (90-130); Glucose 113 mg/dL (65-115); Magnesium 2.2 mg/dL (1.7-2.3); Osmolality Calculated 284 mOsm/kg (285-295); Phosphorus 3.7 mg/dL (2.5-4.5); Potassium 4.5 mmol/L (3.5-5.1); Sodium 136 mmol/L (136-145); Total Bilirubin 0.5 mg/dL (0.15-1.2); Total Protein 6.7 g/dL (6.6-8.7)
[2024-08-26 06:36] LABS: Glucose Point of Care 107 mg/dL (70-110)
[2024-08-26 08:00] VITALS: BP 159/92; PULSE 71; RESP 17; TEMP 36.7; O2SAT 95
[2024-08-26 08:43] VITALS: BP 183/98
[2024-08-26] MEDS: guaiFENesin-dextromethorphan UDC 10 mL PO (08:43)
[2024-08-26] MEDS: benzonatate 100 mg Capsule PO (08:43)
[2024-08-26] MEDS: guaiFENesin 600 mg Tablet 1200 MG PO (08:43)
[2024-08-26] MEDS: nicotine 21 mg Patch 1 PATCH TRANSDERMA (08:43)
[2024-08-26] MEDS: losartan 50 mg Tablet 100 MG PO (08:43)
--- NOTE | 2024-08-26 09:47 | PC.SOCIAL ---
IMM Update pg 2 of IMM updated and reviewed w/ patient. Copy provided and copy dated, initialed and placed in chart.
[2024-08-26 09:52] VITALS: PULSE 93; RESP 18; O2SAT 93
[2024-08-26] MEDS: ipratropium-albuterol 3 mL Neb INHALATION (09:52)
[2024-08-26] MEDS: budesonide 0.5 mg/2 mL Neb INHALATION (09:52)
--- NOTE | 2024-08-26 11:03 | PM.DCS ---
Discharge Providers Date of Admission: 08/23/24 14:20 Date of Discharge: August 26, 2024 Attending Provider at Admission: Andi Odell MD Attending Provider at Discharge: Andi Odell MD Primary Care Provider: Leonora Faustin APN Diagnoses at Discharge Discharge Diagnosis (1) Acute hypoxic respiratory failure: Status: Resolved (2) Chronic obstructive pulmonary emphysema: Status: Chronic Qualifiers: Emphysema type: centrilobular Qualified Code(s): J43.2 - Centrilobular emphysema Permanent problem details: Severe COPD, not oxygen dependent (3) Acute exacerbation of chronic obstructive airways disease: Status: Resolved Reason for Visit Reason for Visit: sob Hospital Course Hospital Course Taurus Rhodes is a 64 year old male current smoker, history of COPD, hypertension, who presents [facility] for shortness of breath. Patient reports several episodes of COPD exacerbation, dysuria, is has received several doses of steroids, with improvement of his symptoms which have been short-lived, but then progressively become short of breath, last dose of steroids was about a week ago, no fevers, chills, no nausea, no vomiting, no chest pain, does report shortness of breath with exertion, does report a cough, no hemoptysis Patient was admitted to [facility] for acute hypoxic respiratory failure secondary to COPD, concerns for pneumonia, received broad-spectrum antibiotic therapy, overall clinically improved, will be discharged on prednisone taper, Levaquin with close follow-up with primary care provider as outpatient. Patient CT of the chest does show, stable micronodules, follow-up with primary care provider as outpatient, consider repeat CT chest in 3-6 months, I have also ordered fungal studies that will need to be followed up as outpatient Physical Exam Const: COMMON NORMALS: no acute distress and patient oriented x3 Resp: COMMON NORMALS: normal respiratory effort, No retractions, No use of accessory muscles and clear to auscultation bilaterally AUSCULTATION: clear to auscultation bilaterally Cardio: COMMON NORMALS: regular rate, regular rhythm, S1 normal heart sound present and S2 normal heart sound present RATE: regular rate RHYTHM: regular rhythm HEART SOUNDS: S1 normal heart sound present and S2 normal heart sound present GI: COMMON NORMALS: Normal to inspection, nondistended, normoactive bowel sounds present and non-tender Extremity: COMMON NORMALS: no pedal edema Neuro: COMMON NORMALS: patient oriented x3 Psych: COMMON NORMALS: mental status grossly normal Discharge Data Studies Completed and Pending Completed Studies During Hospitalization Category Date Time Status CT chest wo con [id number] Stat Cat Scan 08/23/24 15:01 Completed XR chest 1V portable [id number] Stat Exams 08/23/24 11:42 Completed CV. echo complete* [id number] Routine Ultrasound 08/25/24 16:21 Completed Pending at discharge Category Date Time Status 1-3 Beta D Glucan [Fungitell Glucan Assay (Blood)] Lab 08/23/24 16:49 Received Routine Aspergillus AG,EIA,Serum Stat Lab 08/23/24 16:49 Received BLASTOMYCES AG [MVista Blastomyces AG Quant] Routine Lab 08/23/24 16:49 Received Coccidioides AB Immunodiffusio Routine Lab 08/23/24 16:49 Received Histoplasma Quantitative AG Routine Lab 08/23/24 16:49 Received Pneumocystis PCP [Pneumocystis jiroveci Qual PCR] Lab 08/23/24 15:06 Ordered Routine Sputum Culture and Gram Stain Stat Lab 08/23/24 15:06 Results Radiology Impressions Chest X-Ray 08/23/24 11:42 IMPRESSION: No acute findings. Severe COPD. Chest CT 08/23/24 15:01 IMPRESSION: 1. No acute findings in the chest. 2. Similar mild mucous plugging the lower lobes, [id number], with chronic atelectasis/scarring. 3. Stable pulmonary micronodules. For patients at low risk (minimal or absent history of smoking and of other known risk factors), no routine follow-up is indicated. For patients at high risk (history of smoking or of other known risk factors), consider optional CT Chest at 12 months. (Reference: Babatunde) COMMENTS: The presence of pulmonary emphysema on CT is an independent risk factor for lung cancer. In the absence of a history or active diagnosis of lung cancer, it is recommended that this patient with emphysema be evaluated for enrollment in a low dose CT lung cancer screening program. REFERENCES: Babatunde Gil, et al. Guidelines for Management of Incidental Pulmonary Nodules Detected on CT Images: From the Fleischner Society 2017. Radiology. 2017;284(1):228-243. Laboratory Results WBC 16.67 10^3/uL (3.29-11.43) H 08/26/24 05:21 RBC 4.50 10^6/uL (3.85-5.65) 08/26/24 05:21 Hgb 13.70 g/dL (11.27-16.99) 08/26/24 05:21 Hct 42.5 % (37-53) 08/26/24 05:21 MCV 94.4 fl (82-101) 08/26/24 05:21 MCH 30.4 pg (27-33) 08/26/24 05:21 MCHC 32.2 g/dL (30-55) 08/26/24 05:21 RDW 14.4 % (12.1-15.1) 08/26/24 05:21 Plt Count 282 10^3/cmm (157-399) 08/26/24 05:21 MPV 9.9 fL (7.4-10.4) 08/26/24 05:21 Neut % (Auto) 90.0 % 08/26/24 05:21 Lymph % (Auto) 4.9 % 08/26/24 05:21 [place] % (Auto) 4.3 % 08/26/24 05:21 Eos % (Auto) 0.0 % 08/26/24 05:21 Baso % (Auto) 0.1 % 08/26/24 05:21 Neut # (Auto) 15.02 10^3/uL (1.8-7.7) H 08/26/24 05:21 Lymph # (Auto) 0.8 10^3/uL (0.8-4.8) 08/26/24 05:21 [place] # (Auto) 0.7 10^3/uL (0.2-0.9) 08/26/24 05:21 Eos # (Auto) 0.0 10^3/uL (0.0-0.8) 08/26/24 05:21 Baso # (Auto) 0.0 10^3/uL (0.0-0.1) 08/26/24 05:21 Nucleated RBC % (auto) 0 % 08/26/24 05:21 Nucleated RBCs # 0.0 /100WBC 08/26/24 05:21 Specimen Type Arterial 08/23/24 12:08 Sample Site Brachial, left 08/23/24 12:08 ABG pH 7.39 (7.35-7.45) 08/23/24 12:08 ABG pCO2 46.9 mmHg (35-45) H 08/23/24 12:08 ABG pO2 56.5 mmHg (80.0-100.0) L 08/23/24 12:08 ABG PO2/FiO2 Ratio 201 08/23/24 12:08 ABG HCO3 28.4 mmol/L (22-26) H 08/23/24 12:08 ABG O2 Saturation 91.6 08/23/24 12:08 ABG Base Excess 2.6 mmol/L (-2.0-2.0) H 08/23/24 12:08 David Test N/a 08/23/24 12:08 A-a O2 Gradient 11.1 mmHg (5-10) H 08/23/24 12:08 Hematocrit 47.2 % (42-52) 08/23/24 12:08 Hgb O2 Saturation 90.2 % (95-100) L 08/23/24 12:08 Carboxyhemoglobin 1.4 %THgb (0.4-20.1) 08/23/24 12:08 Methemoglobin 0.1 % (0.4-1.5) L 08/23/24 12:08 Total Hemoglobin 15.4 g/dL (14-18) 08/23/24 12:08 Sodium 140.0 mmol/L (131-143) 08/23/24 12:08 Potassium 3.8 mmol/L (3.5-5.0) 08/23/24 12:08 Glucose 100.0 mg/dL (70-115) 08/23/24 12:08 Ionized Calcium 1.2 mmol/L (1.1-1.4) 08/23/24 12:08 O2 Delivery Device Nc 08/23/24 12:08 O2 Liters/Min 2.0 % 08/23/24 12:08 FiO2 28.0 % 08/23/24 12:08 Panel Lay Up Worker ID glc 08/23/24 12:08 Sodium 136 mmol/L (136-145) 08/26/24 05:21 Potassium 4.5 mmol/L (3.5-5.1) 08/26/24 05:21 Chloride 97 mmol/L (98-107) L 08/26/24 05:21 Carbon Dioxide 30 mmol/L (22-29) H 08/26/24 05:21 Anion Gap 13.5 (5-19) 08/26/24 05:21 BUN 16 mg/dL (8-23) 08/26/24 05:21 Creatinine 0.7 mg/dL (0.7-1.2) 08/26/24 05:21 GFR Calculation 113.2 mL/min (90-130) 08/26/24 05:21 Glucose 113 mg/dL (65-115) 08/26/24 05:21 POC Glucose 107 mg/dL (70-110) 08/26/24 06:24 Estimat Average Glucose 103 08/24/24 03:52 Hemoglobin A1c 5.2 % (4.0-6.0) 08/24/24 03:52 Calculated Osmolality 284 mOsm/kg (285-295) L 08/26/24 05:21 Calcium 9.4 mg/dL (8.5-10.5) 08/26/24 05:21 Phosphorus 3.7 mg/dL (2.5-4.5) 08/26/24 05:21 Magnesium 2.2 mg/dL (1.7-2.3) 08/26/24 05:21 Total Bilirubin 0.5 mg/dL (0.15-1.2) 08/26/24 05:21 AST 18 U/L (0-40) 08/26/24 05:21 ALT 23 U/L (0-41) 08/26/24 05:21 Alkaline Phosphatase 61 U/L (40-130) 08/26/24 05:21 Lactate Dehydrogenase 176 U/L (135-225) 08/23/24 13:03 Troponin T Baseline 13 ng/L (0-15) 08/23/24 11:12 Troponin T 120 Minute 13.80 ng/L (0-15) 08/23/24 13:03 Delta Troponin T 0.80 ABS# (0-10) 08/23/24 13:03 Troponin T Hi Sens 6Hr 13.45 ng/L (0-15) 08/23/24 16:49 Troponin T Hi Sens 6Hr Delta 0.45 ng/L (0-12) 08/23/24 16:49 C-Reactive Protein 3.0 mg/L (0.0-4.9) 08/23/24 13:03 NT-Pro-B Natriuret Pep 60 pg/mL (0-125) 08/23/24 13:03 Total Protein 6.7 g/dL (6.6-8.7) 08/26/24 05:21 Albumin 4.2 g/dL (3.5-5.2) 08/26/24 05:21 Globulin 2.5 g/dL (1.3-4.6) 08/26/24 05:21 Procalcitonin 0.05 ng/mL (0-0.5) 08/23/24 13:03 TSH 0.62 uIU/mL (0.27-4.20) 08/23/24 13:03 Influenza A (PCR) Negative (Negative) 08/23/24 15:25 Influenza Type B (PCR) Negative (Negative) 08/23/24 15:25 RSV (PCR) Negative (Negative) 08/23/24 15:25 SARS-CoV-2 (PCR) Negative (Negative) 08/23/24 15:25 Vitals Last Vital Signs Temp 98.0 F 08/26/24 08:00 Pulse 93 08/26/24 09:52 Resp 18 08/26/24 09:52 BP 183/98 08/26/24 08:43 Pulse Ox 93 08/26/24 09:52 O2 Del Method Room Air 08/26/24 09:52 O2 Flow Rate 2 08/26/24 08:00 Discharge Plan Discharge Patient Disposition: Home Condition: Stable Prescriptions: New levofloxacin 750 mg tablet 750 mg PO DAILY 5 Days Qty: 5 0RF prednisone 10 mg tablet See Rx Instructions .ROUTE .COMPLEX Qty: 53 0RF Rx Instructions: 40mg(4tabs) daily for 5 days, 30mg(3tabs) daily for 4 days, 20mg(2tabs) daily for5 days, 10mg daily for 5 days Continued budesonide-formoterol [Symbicort] 160-4.5 mcg/actuation HFA aerosol inhaler 2 puff inhalation BID Qty: 10.2 6RF tiotropium bromide [Spiriva with HandiHaler] 18 mcg capsule, w/inhalation device 1 cap inhalation DAILY Qty: 60 6RF Rx Instructions: puncture 1 cap using device; one dose = 2 inhalations cholecalciferol (vitamin D3) [Vitamin D3] 125 mcg (5,000 unit) Tablet 10,000 unit PO DAILY cyanocobalamin (vitamin B-12) [Vitamin B-12] 5,000 mcg Tablet, Sublingual 15,000 mcg PO DAILY albuterol sulfate 90 mcg/actuation HFA aerosol inhaler 2 puff inhalation QID PRN (Reason: Shortness Of Breath) alprazolam 0.5 mg tablet 0.5 mg PO TID PRN (Reason: Anxiety) metoprolol succinate 25 mg tablet extended release 24 hr 25 mg PO QPM Rx Instructions: TAKE 1 TABLET BY MOUTH ONCE DAILY WITH EVENING MEAL budesonide 0.5 mg/2 mL Suspension For Nebulization 0.5 mg inhalation BID Qty: 60 0RF losartan 100 mg tablet 100 mg PO DAILY Breztri Aerosphere 160-9-4.8 mcg/actuation HFA aerosol inhaler 2 inh INHALATION BID Discharge Orders: Discharge Order (Routine); Ordered 08/26/24 Ordered By: Andi Odell Referrals: Ramin,KOBI Lea [Primary Care Provider, Nurse Practitioner] Discharge Diet: Cardiac Discharge Activity: Resume usual activity Patient Instructions: Opioid Safety Activity Restrictions/Additional Instructions: - Please stop smoking - If you have any chest pain or shortness of breath please go to the emergency room - Take antibiotics and steroids as prescribed Discharge Attestations Time Spent in Discharge Care*: greater than 30 min Status at Discharge: Cognitive status at discharge: cognitively intact, Behavioral status at discharge: cooperative, Quality Metrics Clinical Quality Measures [ No reported AMI, CVA or VTE this stay] Coding Level of Care Code 65906 Total time (in minutes) for Discharge: 45 Diagnoses Acute hypoxic respiratory failure J96.01 Centrilobular emphysema J43.2 Emphysema type: centrilobular Acute exacerbation of chronic obstructive airways disease J44.1
[2024-08-26 11:50] LABS: Glucose Point of Care 76 mg/dL (70-110)
[2024-08-26 11:57] VITALS: BP 144/91; PULSE 79; RESP 18; TEMP 36.9; O2SAT 93
--- NOTE | 2024-08-26 12:35 | PC.NURSE ---
Discharge Note Patient discharged to home via private vehicle accompanied by self. Discharge instructions reviewed with patient and/or contracts representative. Mobile pharmacy medications and/or prescriptions provided. Belongings/home medications returned.
[2024-08-26 12:37] VITALS: BP 144/91; PULSE 79; RESP 18; TEMP 36.9; O2SAT 93
[2024-08-26 23:19] LABS: Fungitell 1-3-B Glucan Assay 41 pg/mL (<60); Interpretation Negative (Negative)
[2024-08-27 17:34] LABS: Aspergillus AG,EIA,Serum NOT DETECTED; Aspergillus Galactomannan Inde <0.50
== END 2024-08-26 12:54 | disposition home or self-care (01) | DRG 193 ==
LOC: ER 13:30 → MEDSURG 19:01
PROVIDERS: Admitting Provider Family Medicine; Emergency Provider Family Medicine; PCP Nurse Practitioner Family; Visit Provider Family Medicine
DX: J18.9 Pneumonia, unspecified organism (principal); J96.01 Acute respiratory failure with hypoxia; J44.1 Chronic obstructive pulmonary disease with (acute) exacerbation; D84.821 Immunodeficiency due to drugs; J43.2 Centrilobular emphysema; F17.210 Nicotine dependence, cigarettes, uncomplicated; I10 Essential (primary) hypertension; R30.0 Dysuria; Z79.51 Long term (current) use of inhaled steroids; Z99.81 Dependence on supplemental oxygen; E78.2 Mixed hyperlipidemia; T38.0X5A Adverse effect of glucocorticoids and synthetic analogues, initial encounter
CPT/HCPCS: 36415; 36416; 36600; 71045; 71250; 80051; 80053; 82330; 82805; 82962; 83036; 83615; 83735; 83880; 84100; 84145; 84443; 84484; 85025; 86140; 86635; 87070; 87205; 87305; 87385; 87449; 87637; 93005; 93306; 94640; 94664; 96372; 99285; J0456; J0696; J1650; J2470; J2919; J7050; J7626; J9999

== ENCOUNTER 2024-11-01 14:12 | Emergency (ER) | payer MEDICARE, OTHER, SELFPAY ==
[2024-11-01] VITALS (9 sets, daily range): BP systolic 107–146; BP diastolic 72–102; PULSE 92–130; RESP 19–24; TEMP 36.3; O2SAT 98–100
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
--- NOTE | 2024-11-01 14:16 | CTR_ITS ---
PROCEDURE INFORMATION: Exam: CT Chest With Contrast; Diagnostic Exam date and time: 11/01/2024 2:46 PM Age: 64 years old Clinical indication: Injury or trauma; Other: Fall off horse; Blunt TECHNIQUE: Imaging protocol: Diagnostic computed tomography of the chest with contrast. Radiation optimization: All CT scans at this facility use at least one of these dose optimization techniques: automated exposure control; mA and/or kV adjustment per patient size (includes targeted exams where dose is matched to clinical indication); or iterative reconstruction. Contrast material: OMNI 350; Contrast volume: 100 ml; Contrast route: INTRAVENOUS (IV); COMPARISON: CT chest wo con [id number] 08/23/2024 3:26 PM RADIATION DOSE METRICS: Total DLP (mGy-cm): 917.91 FINDINGS: Tubes, catheters and devices: There is an ET tube with tip at the clavicular heads. Lungs: Patchy airspace opacity is noted in the left lung compatible with atelectasis versus mild pulmonary contusion. There is dependent atelectasis right lung. Pleural spaces: There is a left-sided chest tube with small left basilar pneumothorax. There is a small right basilar pneumothorax. Heart: Unremarkable. No cardiomegaly. No pericardial effusion. Mediastinal space: There is extensive pneumomediastinum. Lymph nodes: Unremarkable. No enlarged lymph nodes. Vasculature: Unremarkable. No aortic aneurysm. Bones/joints: There is an acute segmental fracture of the left 8th through 11th ribs . Isolated lateral fracture of the left 4th through 7th ribs. There is concern for nondisplaced fracture the anterolateral right 1st through 3rd ribs although there is extensive motion artifact through the upper chest.. There are fractures of the anterolateral right 8th through 10th ribs at the costochondral junction. Thoracic vertebra and sternum are intact. Visualized clavicles , scapula are intact Soft tissues: There is extensive diffuse subcutaneous emphysema of the chest and upper abdomen. PROCEDURE INFORMATION: Exam: CT Abdomen And Pelvis With Contrast Exam date and time: 11/01/2024 2:46 PM Age: 64 years old Clinical indication: Injury or trauma; Other: Fall off horse; Blunt TECHNIQUE: Imaging protocol: Computed tomography of the abdomen and pelvis with contrast. Radiation optimization: All CT scans at this facility use at least one of these dose optimization techniques: automated exposure control; mA and/or kV adjustment per patient size (includes targeted exams where dose is matched to clinical indication); or iterative reconstruction. Contrast material: OMNI 350; Contrast volume: 100 ml; Contrast route: INTRAVENOUS (IV); COMPARISON: CT chest [facility] [id number] 08/23/2024 3:26 PM RADIATION DOSE METRICS: Total DLP (mGy-cm): 917.91 FINDINGS: Diaphragm: There is a small volume of free intraperitoneal air upper abdomen that appears to be dissecting to the anterior diaphragm and communicating with the pneumomediastinum. Imaging is limited due to extensive respiratory motion artifact but acute anterior midline diaphragmatic injury may be present as seen on series 8, image 36. Liver: There is an unchanged 2.1 cm cyst right lobe of the liver just below the diaphragm. The liver is intact. Gallbladder and biliary ducts: Normal. No calcified stones. No ductal dilation. Pancreas: Normal. No ductal dilation. Spleen: The spleen is normal. Adrenal glands: The adrenal glands are normal. Kidneys and ureters: The kidneys are intact. Unchanged extrarenal pelvis right kidney and atrophy of the right kidney. Stomach and bowel: There is no evidence of intestinal perforation or obstruction. Appendix: No evidence of appendicitis. Intraperitoneal space: No free intraperitoneal fluid in the abdomen or pelvis. Vasculature: Unremarkable.No abdominal aortic aneurysm. Lymph nodes: Unremarkable.No enlarged lymph nodes. Urinary bladder: The bladder is normal. Reproductive: Unremarkable as visualized. Bones/joints: Unremarkable. No acute fracture. Soft tissues: Extensive subcutaneous emphysema from the lower chest , abdomen, pelvis, scrotum and into the upper thighs. CT/CT chest abdpel w/*[id number] IMPRESSION: 1. There is extensive pneumomediastinum. 2. There is a small right basilar pneumothorax. Small left pneumothorax. Left chest tube is present. 3. Patchy airspace opacity is noted in the left lung compatible with atelectasis versus mild pulmonary contusion. 4. Multiple bilateral rib fractures. Segmental fractures left 8th through 11th ribs. IMPRESSION: 1. There is a small volume of free intraperitoneal air upper abdomen that appears to be dissecting to the anterior diaphragm and communicating with the pneumomediastinum. 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 No adjacent fluid collection or hematoma. 2. Imaging is limited due to extensive respiratory motion artifact but acute anterior midline diaphragmatic injury may be present as seen on series 8, image 36. 3. Solid organs are intact. No free fluid in the abdomen or pelvis.
--- NOTE | 2024-11-01 14:16 | CTR_ITS ---
PROCEDURE INFORMATION: Exam: CT Cervical Spine Without Contrast Exam date and time: 11/01/2024 2:39 PM Age: 64 years old Clinical indication: Injury or trauma; Other: Fell off horse; Blunt trauma; Additional info: Fall, neck pain TECHNIQUE: Imaging protocol: Computed tomography of the cervical spine without contrast. Radiation optimization: All CT scans at this facility use at least one of these dose optimization techniques: automated exposure control; mA and/or kV adjustment per patient size (includes targeted exams where dose is matched to clinical indication); or iterative reconstruction. COMPARISON: CT chest wo con [id number] 08/23/2024 3:26 PM RADIATION DOSE METRICS: Total DLP (mGy-cm): 144.6 FINDINGS: Limitations: Patient motion artifact. Tubes, catheters and devices: Endotracheal tube in place. Bones: Slight anterolisthesis C4-C5. Degenerative disc disease most prominently at C6-C7. Diffuse facet arthropathy. No fracture. Lungs: Lung apices are normal. Pleural spaces: Bilateral pneumothoraces. Soft tissues: Extensive subcutaneous and deep space emphysema. CT/CT cervical spin wo con* [id number] IMPRESSION: 1. No acute bony abnormality. 2. Patient motion artifact.
--- OUTSIDE RECORDS SUMMARY | 2024-11-01 14:17 | XMS_ITS | Clinical Summary ---
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 Gender Identity Not on file Sexual Orientation [...] Mass Index - - Plan of Treatment Upcoming Encounters Date Type Department Care Team (Late st Contact Info) Description 11/17/2024 3:30 PM CDT Office Visit [facility]mon[facility] [address] [place] [phone] Floyd Alanis MD [address] [place] [id number] Health Maintenance Due Date Last Done Comments DTAP/TDAP/TD VACCINES (1 - Tdap) 1978 PNEUMOCOCCAL VACCINE 50+ YEARS (1 of 2 - PCV) 02/01/19 78 COLORECTAL SCREENING 02/02/2004 Colorectal Cancer Screening 02/02/2004 FIT-DNA Q 3 years 02/02/2004 FIT/FOBT Q 1 year 02/02/2004 Flex Sig/CT Colonography Q 5 years 02/02/2004 ZOSTER VACCINE (1 of 2) 2009 INFLUENZA VACCINE (#1) 2024 RSV VACCINE (60+ or ) (1 - 1-dose 75+ series) 2034 Insurance [facility] [employer] HMO Care Teams Bistro Attendant Relationship Specialty Start Date End Date Sav Phillips NP [address] [place] [phone] PCP - General NURSE PRACTITIONER 05/31/20
--- OUTSIDE RECORDS SUMMARY | 2024-11-01 14:17 | XMS_ITS | Clinical Summary ---
Author Organization [facility] Address [address] [address] Phone Care Team Providers Care Regrader Name Role Phone Sav Phillips NP Primary Care Provider Allergies No known active allergies Social History Tobacco Use Types Packs/Day Years Used Date Smoking Tobacco: Never Assessed Sex and Gender Information Value Date Recorded Sex Assigned at Not on file Legal Sex Male 6:25 AM [employer] SOC[employer] TUT[employer] Gender Identity Not on file Sexual Orientation [...] series) [address] [place] [address] [place] [id number] Care Teams Regrader Relationship Specialty Start Date End Date Sav Phillips NP [address] [place] [phone] PCP - General NURSE PRACTITIONER 05/31/20
--- OUTSIDE RECORDS SUMMARY | 2024-11-01 14:17 | XMS_ITS | Encounter Summary ---
Author Organization [facility] Address [address] [place] [address] Care Team Providers Care Coal Conveyor Operator Name Role Phone Sav Phillips FISHING CAPTAIN Primary Care Provider Encounter Details Date Type Department Care Team (Late st Contact Info) Description 02/26/2005 Emergency [facility] [address] [place] [phone] Mike Maier MD [address] [place] [address] SPRAIN LUMBAR REGION (Primary Dx) Social History Tobacco Use Types Packs/Day Years Used Date Smoking Tobacco: Never Assessed Sex and Gender Information Value Date Recorded Sex Assigned at Not on file 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
[2024-11-01] MEDS: etomidate 2 mg/mL INJ SDV 10 mL 20 MG IVP (14:18)
--- OUTSIDE RECORDS SUMMARY | 2024-11-01 14:18 | XMS_ITS | Patient Health Record ---
Author Organization [facility] Address [address] [place] [address] Care Team Providers Care Operations Manager/Coordinator Name Role Phone Faustin, Yoli Primary Care Provider FAUSTIN, YOLI Unavailable Unavailable Milagro Long Unavailable [phone] Allergies No Known Allergies Results Component Value Reference Range Flag Notes CBC w\ Auto Diff [id number] Reviewed date:02/27/2024 05:53:23 PM Interpretation: Performing Lab: Notes/Report: Diagnosis Description: Essential (primary) hypertension WBC 8.7 4.5-11.0 X10'3 RBC 4.29 4.50-5.90 X10'6 LOW Hgb 13.1 13.5-17.5 G/DL LOW Hct 41.4 41.0-53.0 % MCV 96.5 80.0-100.0 FL MCH 30.5 27.0-31.0 PG MCHC 31.6 31.0-37.0 G/DL Platelet 280 150-400 X10'3 RDW-SD 49.1 35.0-49.0 FL HI RDW-CV 13.7 12.2-15.6 % MPV 10.3 9.2-12.0 FL Neutro Auto% 60.9 40.0-70.0 % Lymph Auto% 22.4 22.0-44.0 % Simpson Auto% 9.3 3.0-7.0 % HI Eos Auto% 5.4 2.0-4.0 % HI Baso Auto% 1.7 0.0-1.0 % HI Imm Gran% .3 .0-.4 % Neutro Abs 5.32 .80-7.70 Absolute Neutrophil Count 5320 NA Lymph Abs 1.96 .10-4.10 Simpson Abs .81 .20-1.00 Eos Abs .47 .00-.40 HI Baso Abs .15 .00-.20 Imm Gran Abs .03 .00-.10 NRBC# .00 .00-.20 NRBC% .00 .00-.20 /100 int act WBC's Comprehensive Metabolic Pane l (CMP) 21928 Reviewed date:02/27/2024 05:52:44 PM Interpretation: Performing Lab: Notes/Report: Diagnosis Description: Essential (primary) hypertension Glucose Serum 78 71-110 MG/DL Testing p erformed at [facility], [address] [place] [address] [place] [address]. CLIA ID#: [id number] BUN 16 7-21 MG/DL Creat .81 .57-1.17 MG/DL Use of this assay is not recommended for patients undergoing treatment with phenindione, due to the potential for falsely depressed results. N-ggcazu-t-benzoquinone imine (NAPQI) is a metabolite of acetaminophen, NAPQI concentrations of apparoximately 10 mg/L correlation to toxic levels of acetaminophen demonstrates a greater than or equil to 10% change in results. NAPQI concentrations greater than this may lead to falsely depressed results for patient samples. GFR 97.7 NA Calculation pe rformed from GFR calculator provided by the [employer]. Glomerular Filtration rate(GRF) is the best overall index of kidney function. Normal GFR varies according to age,sex, body size, and declines with age. The [employer] recommends using the CKD-EPI Creatinine Equation(2020) to estimate GFR. BUN/Creat Ratio 19.8 12.0-20.0 % Total Protein 6.2 5.8-8.0 G/DL Albumin 4.4 3.2-4.8 G/DL Globulin 1.8 2.3-3.5 G/DL LOW Alb/Glob 2.4 0.8-2.2 HI Calcium 9.6 8.7-10.4 MG/DL Sodium 137 136-145 MMOL/L Potassium 4.3 3.5-5.1 MMOL/L Chloride 104 98-107 MMOL/L CO2 26.9 20.0-31.0 MMOL/L Anion Gap 10 5-15 Alk Phos 86 46-116 Bili Total .6 .3-1.2 MG/DL Use of this assay is not recommended for patients undergoing treatment with eltrombopag due to the potential for falsely elevated results. AST/SGOT 22 15-37 UNIT/L ALT/SGPT 20 12-78 UNIT/L Osmo Serum,Calculated 284 280-300 MOSM/KG Lipid Panel Reflex DLDL 8006 1, 27830 Reviewed date:02/27/2024 05:53:39 PM Interpretation: Performing Lab: Notes/Report: Diagnosis Description: Essential (primary) hypertension Trig 58 NA Children: Male Very high >=500 0-4 yr 34-112 Children: Female 5-9 yr 30-101 5-9 yr 32-105 Classification Guidelines:Triglycerides 10-14 yr 37-131 15-19 yr 39-132 Desirable <150 0-4 yr 22-99 Adults: >20yrs Borderline High 150-199 High 200-499 15-19 yr 37-148 10-14 yr 32-125 Chol 179 <=200 MG/DL HDL 70 30-72 MG/DL Female: Male: 15-19y 30-63 10-14y 37-74 Reference Ranges:HDL 5-9y 36-73 10-14y 37-70 >=20y 40-59 5-9y 38-75 >=20y 40-59 15-19y 35-74 CH/HDL 2.5 0.0-4.9 RATIO LDL 97 0-130 MG/DL LDL result is inaccurate , if Trig is >400 mg/dl. See DLDL result. Thyroid Stimulating Hormone (TSH) 24537 Reviewed date:02/27/2024 05:54:12 PM Interpretation: Performing Lab: Notes/Report: Diagnosis Description: Encounter for screening for other suspected endocrine disorder TSH 1.396 .358-3.740 MlU/ML PSA Medicare Screening--G010 3 Reviewed date:02/27/2024 05:53:56 PM Interpretation: Performing Lab: Notes/Report: Diagnosis Description: Encounter for screening for malignant neoplasm of prostate PSA .54 .00-4.00 NG/ML PSA concen trations, regardless of the value, should not be interpreted as definitive evidence for the presence or absence of prostate cancer. Reason For Referral No Information Medications Medication SIG (Take, Route, Frequency, Duration) Notes Start Date End Date [facility] 160-9-4.8 MCG/ACT Aerosol 2 puffs Inhalation Twice a day; Duration: 30 days 05/07/2024 11/03/2024 Active Chlorthalidone 25 MG Tablet 1 tablet in the morning with food Oral once a day; Duration: 30 days Not-Taking Oxygen - Home Use 2 L NC PRN A ctive Budesonide-Formoterol Fumarate 160-4.5 MCG/ACT Aerosol INHALE TWO PUFFS BY MOUTH TWICE DAILY Inhalation; Duration: 30 days Not-Taking Losartan Potassium 100 MG Tablet 1 tablet Orally daily in am; Duration: 90 days Active Albuterol Sulfate HFA 108 (90 Base) MCG/ACT Aerosol Solution 2 puffs Inhalation four times a day prn; Duration: 90 days Active predniSONE 10 MG Tablet Oral; Duration: 19 Days Not-Taking ALPRAZolam 0.5 MG Tablet TAKE 1/2 TO 1 (ONE-HALF TO ONE) TABLET BY MOUTH THREE TIMES DAILY NEEDED FOR ANXIETY FOR 30 DAYS; Duration: 30 days 10/16/2024 Active Fish Oil 1000 MG Capsule 1 capsule Orall y Once a day Active levoFLOXacin 750 MG Tablet Oral; Duration: 5 Days Not-Taking traMADol HCl 50 MG Tablet 1 tab Orally q 4 hours prn severe pain; Duration: 30 days 10/16/2024 11/15/2024 Active Vitamin D3 250 MCG (17417 UT) Capsule as directed Orally Active Cefdinir 300 MG Capsule Oral; Duration: 5 Days Not-Taking Budesonide 0.5 MG/2ML Suspension USE 1/2 (ONE-HALF) VIAL IN NEBULIZER TWICE DAILY; Duration: 30 Active Spiriva HandiHaler 18 MCG Capsule INHALE ONE DOSE (ONE DOSE = TWO PUFFS) DAILY DIRECTED Inhalation; Duration: 30 Days Not-Taking Vitamin B12 100 MCG Tablet as directed Orally Active predniSONE 20 MG Tablet 2 tabs for 5 day s; 1 tab for 5 days; Orally Once a day; Duration: 10 days Not-Taking buPROPion HCl ER (XL) 150 MG Tablet Extended Release 24 Hour 1 tablet in the morning Oral Once a day; Duration: 30 Not-Taking amLODIPine Besylate 10 MG Tablet Take 1 tablet by mouth once daily; Duration: 90 days Active Ipratropium-Albuterol 0.5-2.5 (3) MG/3ML Solution USE 1 VIAL IN NEBULIZER 4 TIMES DAILY Active Metoprolol Succinate ER 25 MG Tablet Extended Release 24 Hour TAKE 1 TABLET BY MOUTH ONCE DAILY WITH EVENING MEAL; Duration: 90 days Active Immunizations Vaccine Route Administration Date Status Comme nts Flucelvax Trivalent, Syringe 0.5 mL, PF Unknown 024 Refused Social History Tobacco Use: Social History Observation Description Date Details (start date - stop date) Current Smoker NA - NA Social History Depression Screening Social Info Question Answer Notes depression screening findings Findings Negative (0 -4) PHQ-9 Little interest or p aleks in doing things Not at all Feeling [...] all Total Score 1 Interpretation Minimal Depression Drugs/Alcohol: Social Info Question Answer Notes Alcohol Screen (Audit-C) Did you have a drink containing alcohol in the past year? No Points 0 Interpretation Negative Drugs Have you used drugs other than those for medical reasons in the past 12 months? No Comprehensive Health Assessm ent Social Info Question Answer Notes *Social Determinants of Health Has lack of transportation kept you from medical appointments, meetings, work or from getting things needed for daily living? No Recently, have you worried t hat your food would run out before you got money to buy more? No Do you feel physically and emotionally safe wher e you currently live? Yes Are you worried about losing your housing? No Have you recently been alesha rned that your utilities would be turned off (electricity, gas, or water)? No Tobacco Use: Social Info Question Answer Notes Tobacco Control (Standard) Tobacco use: Current smoker How often do you smoke cigarettes? Every day How many cigarettes a day do you smoke? 5 or less How soon after you wake up do you smoke your first cigarette? Within 5 minutes Are you interested in quitting? Thinking about quitting Additional Details Category Social Info Options Details Drugs/Alcohol: Do you smoke marijuana? De nies Do you drink alcohol? No Section Notes: 03/30/2022 03/30/2022 03/30/2022 03/30/2022 03/30/2022 Depression screen completed 06/10/2023 score 0 [...] 0 Depression screen completed 08/09/2023 score 0 PHQ9 08/10/2024 Depression screen completed 08/09/2023 score 0 PHQ9 08/10/2024 Depression screen completed 08/09/2023 score 0 PHQ9 08/10/2024 Problems Problem Type SNOMED Code ICD Code Onset Dates Problem Status W/U Status Risk Notes Problem Tobacco user (418537049) Nicotine dependence, cigarettes, uncomplicated (F17.210) Active confirmed Problem Emphysema (67091594) Other emphysema (J43.8) Active confirmed Problem Dependence on supplemental oxygen (731494438465) Dependence on supplemental oxygen (Z99.81) Active confirmed Problem Lower urinary tract symptoms due to benign prostatic hypertrophy (10905559988089) Benign prostatic hyperplasia with lower urinary tract symptoms (N40.1) Active confirmed Problem Anxiety (52952517) Anxiety (F41.9) Active confi rmed Problem Rash (029051640) Rash (R21) Active confirmed Problem Neuropathic pain (641830875) Neuropathic pain (M79.2) Active confirmed Problem Sciatica (47244398) Acute left-sided low back pain with left-sided sciatica (M54.42) Active confirmed Problem Tobacco abuse (8005760353) Tobacco abuse (Z72.0) Active confirmed Problem COPD - Chronic obstructive pulmonary disease (95192126) COPD (chronic obstructive pulmonary disease) (J44.9) Active confirmed Problem Wheezing (39964430) Wheezes (R06.2) Active confirmed Problem Acute exacerbation of chronic obstructive airways disease (131757209) COPD with acute exacerbation (J44.1) Active confirmed Problem Osteoarthritis (419383116) Osteoarthritis (M19.90) Active confirmed Problem Pulmonary emphysema (05173168) Pulmonary emphysema, unspecified emphysema type (J43.9) Active confirmed Problem Herpes zoster without complication (605223784) Herpes zoster without complication (B02.9) Active confirmed Problem Hyperlipidemia (68902257) Hyperlipidemia (E78.5) Active confirmed Problem Counseling about tobacco use (328748683) Encounter for tobacco use cessation counseling (Z71.6) Active confirmed Problem Idiopathic sleep related non-obstructive alveolar hypoventilation (284812377) Nocturnal hypoxia (G47.34) Active confirmed Problem Primary hypertension (89991693) Primary hypertension (I10) Active confirmed Vital Signs Heart Rate 86 /min 10/16/2024 Temperature 97.2 degrees Fahrenheit 10/16/2024 Respiratory Rate 20 /min 10/16/2024 Height-cm 172.72 cm 10/16/2024 Oximetry 96 % 10/16/2024 Blood pressure diastolic 83 mm Hg 10/16/2024 Weight-kg 64.41 kg 10/16/2024 Height 68 in 10/16/2024 Blood pressure systolic 156 mm Hg 10/16/2024 Weight 142 lbs 10/16/2024 BMI 21.59 kg/m2 10/16/2024 Encounters Encounter Location Date Provider Diagnosis [facility] [address] [address] 11/04/2023 [facility] [address] [address] 08/28/2024 [facility] [address] [address] 02/25/2024 [facility] Dyspnea R06.00 ; Primary hypertension I10 ; Anxiety F41.9 ; Tobacco abuse Z72.0 ; Hyperlipidemia E78.5 ; COPD (chronic obstructive pulmonary disease) J44.9 ; Thyroid disorder screen Z13.29 ; Prostate cancer screening Z12.5 and Immunization not carried out because of patient refusal Z28.21 [facility] [address] [place] [address] 03/18/2024 Milagro Long COPD with acute exacerbation J44.1 [facility] [address] [place] [address] 10/16/2024 Yoli Faustin Hip pain M25.559 ; COPD with acute exacerbation J44.1 ; Anxiety F41.9 ; Primary hypertension I10 and Osteoarthritis M19.90 [facility] [address] [place] [address] 01/03/2024 Yoli Faustin Other emphysema J43. 8 and Dyspnea R06.00 [facility] [address] [place] [address] 08/10/2024 Yoli Faustin Dyspnea R06.00 ; Primary hypertension I10 ; COPD (chronic obstructive pulmonary disease) J44.9 and Encounter for Medicare annual wellness exam Z00.00 [facility] [address] [place] [address] 07/02/2024 Yoli Faustin COPD with acute exacerbation J44.1 ; Dyspnea R06.00 ; Anxiety F41.9 and Tobacco abuse Z72.0 [facility] [address] [place] [address] 07/16/2024 Yoli Faustin COPD with acute exacerbation J44.1 ; Dyspnea R06.00 ; Anxiety F41.9 and Primary hypertension I10 [facility] [address] [place] [address] 11/14/2023 Milagro Long COPD with acute exacerbation J44.1 [facility] [address] [place] [address] 01/23/2024 Yoli Faustin COPD with acute exacerbation J44.1 and Abrasion T14.8XXA [facility] [address] [place] [address] 12/03/2023 Yoli Faustin COPD with acute exacerbation J44.1 ; Anxiety F41.9 ; Benign prostatic hyperplasia with lower urinary tract symptoms N40.1 and Hospital discharge follow-up Z09 [facility] [address] [place] [address] 05/07/2024 Yoli Faustin Primary hypertension I10 ; Anxiety F41.9 ; COPD with acute exacerbation J44.1 and Hospital discharge follow-up Z09 [facility] [address] [place] [address] 09/03/2024 Yoli Faustin COPD (chronic obstructive pulmonary disease) J44.9 ; Anxiety F41.9 and Hospital discharge follow-up Z09 Assessments Encounter Date Diagnosis (ICD Code) Assessment Notes Treatment Notes Treatment Clinical Notes Section Notes 11/14/2023 COPD with acute exacerbation (ICD-10 - J44.1) Steroid injection given. Increase fluids, take medication as directed. RTC if no improvement with treatment. 12/03/2023 Anxiety (ICD-10 - F41.9) xanax 12/03/2023 COPD with acute exacerbation (ICD-10 - J44.1) prednisone; doxycycline 01/03/2024 Other emphysema (ICD-10 - J43.8) depomedrol/deca dron im 01/03/2024 Dyspnea (ICD-10 - R06.00) 01/23/2024 Abrasion (ICD-10 - T14.8XXA) doxycycline 01/23/2024 COPD with acute exacerbation (ICD-10 - J44.1) depomedrol/deca dron im 02/25/2024 Primary hypertension (ICD-10 - I10) cbc cmp lipids conitnue meds 03/18/2024 COPD with acute exacerbation (ICD-10 - J44.1) Rocephin and steroid injection given today. Will go to [facility] for CXR. Discussed with pt and spouse he would need to go to nearest ED if symptoms become worse. 05/07/2024 Anxiety (ICD-10 - F41.9) continue meds 02/25/2024 Dyspnea (ICD-10 - R06.00) 05/07/2024 Primary hypertension (ICD-10 - I10) chlorthalidone; losartan 07/02/2024 COPD with acute exacerbation (ICD-10 - J44.1) depomedrol/deca dron im z mario 07/02/2024 Dyspnea (ICD-10 - R06.00) o2 as directed 07/16/2024 COPD with acute exacerbation (ICD-10 - J44.1) albuteral refill levaquin depomedrol/deca dron im 07/16/2024 Dyspnea (ICD-10 - R06.00) 10/16/2024 Hip pain (ICD-10 - M25.559) tamadol toradol 60 mg im 10/16/2024 COPD with acute exacerbation (ICD-10 - J44.1) z mario 09/03/2024 Anxiety (ICD-10 - F41.9) conitnue meds 09/03/2024 COPD (chronic obstructive pulmonary disease) (ICD-10 - J44.9) depomedrol/deca dron im continue meds 08/10/2024 Dyspnea (ICD-10 - R06.00) 08/10/2024 Primary hypertension (ICD-10 - I10) amlodipine metoprolol er monitor 08/10/2024 COPD (chronic obstructive pulmonary disease) (ICD-10 - J44.9) depomedrol/deca drone im 09/03/2024 Hospital discharge follow-up (ICD-10 - Z09) 10/16/2024 Anxiety (ICD-10 - F41.9) xanax 07/16/2024 Anxiety (ICD-10 - F41.9) alprazolam 07/02/2024 Anxiety (ICD-10 - F41.9) xanax 05/07/2024 COPD with acute exacerbation (ICD-10 - J44.1) depomedrol/deca dron im; cefdinir; breztri 02/25/2024 Anxiety (ICD-10 - F41.9) continue meds 12/03/2023 Benign prostatic hyperplasia with lower urinary tract symptoms (ICD-10 - N40.1) flomax 12/03/2023 Hospital discharge follow-up (ICD-10 - Z09) 02/25/2024 Tobacco abuse (ICD-10 - Z72.0) 05/07/2024 Hospital discharge follow-up (ICD-10 - Z09) 07/02/2024 Tobacco abuse (ICD-10 - Z72.0) 07/16/2024 Primary hypertension (ICD-10 - I10) conitnue meds 10/16/2024 Primary hypertension (ICD-10 - I10) amlodipine metoprolol losartan 08/10/2024 Encounter for Medicare annual wellness exam (ICD-10 - Z00.00) Return in one year for your annual wellness visit. 10/16/2024 Osteoarthritis (ICD-10 - M19.90) depomedrol/deca dron im 02/25/2024 Hyperlipidemia (ICD-10 - E78.5) 02/25/2024 COPD (chronic obstructive pulmonary disease) (ICD-10 - J44.9) depomedrol/deca dron im continue meds 02/25/2024 Thyroid disorder screen (ICD-10 - Z13.29) tsh 02/25/2024 Prostate cancer screening (ICD-10 - Z12.5) psa 02/25/2024 Immunization not carried out because of patient refusal (ICD-10 - Z28.21) 12/03/2023 Other Questions asked and answered; discharged [...] Questions asked and answered; discharged to home. 09/03/2024 Other Questions asked and answered; discharged to home. 10/16/2024 Other Questions asked and answered; discharged to home. Plan Of Treatment Next Appt Details Provider Name:Yoli Faustin, 11/16/2024 01:40:00 PM, [address] [address], [place], [address], Insurance Providers Payer Name Payer Address Payer Phone Subscriber Number Group Number Insured Name Patient Relationship to Insured Coverage Start Date Coverage End Date [place] Medicare [address] [place] [phone] [id number] Tackitt, Dennis Self - patient is the insured 3 [employer] Medicare Supplement [address] [place] [phone] [id number] Dennis Rhodes Self - patient is the insured 4 Medications Administered Medication Instructions Date of Administration Dosage Notes DEPO-Medrol 04/17/2022 40 mg ND: [address]-35 Patient tolerated well, advised to wait 20 min at clinic DEPO-Medrol 05/11/2022 [place] [address]-107 3-01 pt tolerated well/instructed to wait 20 min DEPO-Medrol 12/31/2022 [place] [address]-084 3-01 pt tolerated well/instructed to wait 20 min DEPO-Medrol 03/07/2023 [place] [address]-126 3-01 pt tolerated well/instructed to wait 20 min DEPO-Medrol 06/10/2023 [place] [address] 3-01pt tolerated well/instructed to wait 20 min DEPO-Medrol 08/16/2023 [place] [address]-481 3-01 pt tolerated well/instructed to wait 20 min DEPO-Medrol 09/03/2023 [place] [address]-713 3-01 pt tolerated well/instructed to wait 20 min DEPO-Medrol 11/14/2023 40 mg icx-05804-353 3-11 Patient tolerated well. DEPO-Medrol 01/03/2024 40 mg nd 9024-3736 - pt tolerated well/instructed to wait 20 min DEPO-Medrol 01/23/2024 [place] [address]-221 3-01 pt tolerated well/instructed to wait 20 min DEPO-Medrol 02/25/2024 [place] [address]-010 3-01 pt tolerated well/instructed to wait 20 min DEPO-Medrol 03/18/2024 40 mg [id number] -01 Patient tolerated well. DEPO-Medrol 05/07/2024 [place] [address]-790 3-10 pt tolerated well/instructed to wait 20 min DEPO-Medrol 07/02/2024 [place] [address]-529 3-01 pt tolerated well/instructed to wait 20 min DEPO-Medrol 07/16/2024 [facility] [address] [facility] 90236-299 3-01 pt tolerated well/instructed to wait 20 min DEPO-Medrol 08/10/2024 40 mg [facility] 17332-261 3-01 pt tolerated well/instructed to wait 20 min DEPO-Medrol 09/03/2024 40 mg [facility] 68085-315 3-01 pt tolerated well/instructed to wait 20 min DEPO-Medrol 10/16/2024 40 mg [facility] 47675-700 3-01 pt tolerated well/instructed to wait 20 min dexAMETHasone 04/17/2022 4 mg ND: [address]-41 Patient tolerated well, advised to wait 20 min at clinic dexAMETHasone 05/11/2022 4 mg [facility] 71065-7 239-30 pt tolerated well/instructed to wait 20 min dexAMETHasone 12/31/2022 4 mg [facility] 330055- 0419-00 pt tolerated well/instructed to wait 20 min dexAMETHasone 03/07/2023 4 mg [facility] 16875-8 423-00 pt tolerated well/instructed to wait 20 min dexAMETHasone 06/10/2023 4 mg [id number] 23-00 pt tolerated well/instructed to wait 20 min dexAMETHasone 08/16/2023 4 mg [facility] 48900-0 423-00 pt tolerated well/instructed to wait 20 min dexAMETHasone 09/03/2023 [address] [facility] 65621-8 423-00 pt tolerated well/instructed to wait 20 min dexAMETHasone 11/14/2023 4 mg [facility]-99420-5 423-00 Patient tolerated well. dexAMETHasone 01/03/2024 4 mg one injecti on site/[facility] [address]-62 pt tolerated well/instructed to wait 20 min dexAMETHasone 01/23/2024 4 mg [facility] 14410-5 423-00 pt tolerated well/instructed to wait 20 min dexAMETHasone 02/25/2024 4 [address] [facility] 67921-8 423-00 pt tolerated well/instructed to wait 20 min dexAMETHasone 03/18/2024 4 mg [facility]-77622-9 423-00 Patient tolerated well. dexAMETHasone 05/07/2024 4 mg [facility] 14140-8 419-00 pt tolerated well/instructed to wait 20 min dexAMETHasone 07/02/2024 4 mg [facility] 58715-3 423-00 pt tolerated well/instructed to wait 20 min dexAMETHasone 07/16/2024 4 mg ndc 29956-1 423-00 pt tolerated well/instructed to wait 20 min dexAMETHasone 08/10/2024 4 mg ndc 79001-2 423-00 pt tolerated well/instructed to wait 20 min dexAMETHasone 09/03/2024 4 mg ndc 00881-7 423-00 pt tolerated well/instructed to wait 20 min dexAMETHasone 10/16/2024 4 mg ndc 30606-1 423-00 pt tolerated well/instructed to wait 20 min Ketorolac Tromethamine 10/16/[address]24 [place] [address]-97 pt tolerated well/instructed to wait 20 min Rocephin 12/31/2022 [address] [facility] [address] -11 pt tolerated well/instructed to wait 20 min Rocephin 03/18/2024 1 g [id number]-[address] -11 Patient tolerated well. Medical (General) History Medical History History ICD Code High Blood Pressure COPD Surgical History Surgery Date(Month/Year) hernia repair 1983 Back surgery 2004 Hospitalization History Reason Date(Month/Year) [facility] for Trouble breathing 03/20-03/22/22
[2024-11-01] MEDS: succinylcholine 20 mg/mL SDV 10mL 100 MG IVP (14:19)
[2024-11-01] MEDS: propofol 1,000 MG/100 ML INJ 1.95 MG IV (14:22)
[2024-11-01 14:33] LABS: Hematocrit 41.2 % (37-53); Hemoglobin 13.20 g/dL (11.27-16.99); Mean Corpuscular HGB Conc 32.0 g/dL (30-55); Mean Corpuscular Hemoglobin 30.6 pg (27-33); Mean Corpuscular Volume 95.4 fl (82-101); Nucleated Red Blood Cells % 0 %; Platelet Count 263 10^3/cmm (157-399); Red Blood Count 4.32 10^6/uL (3.85-5.65); White Blood Count 18.39 10^3/uL (3.29-11.43)
--- NOTE | 2024-11-01 14:37 | W.ED.FALL ---
HPI - Fall General: Stated Complaint: horse accident Time Seen by Provider: 11/01/24 14:18 Source: EMS Mode of arrival: EMS Limitations: altered mental status History of Present Illness: 64-year-old male who was bucked off a horse just prior to arrival. Per EMS patient laying on the side when they arrived he was unresponsive struggling to breathe they did place an Igel down. Patient here is not responding at this time. Does have crepitus to the left side of his chest. No open wounds Related Data Home Medications ?Medication ?Instructions ?Recorded ?Confirmed albuterol sulfate 90 mcg/actuation 2 puff inhalation QID PRN 03/20/22 08/23/24 aerosol inhaler Shortness Of Breath cholecalciferol (vitamin D3) 125 10,000 unit PO DAILY 03/20/22 08/23/24 mcg (5,000 unit) tablet (Vitamin D3) cyanocobalamin (vitamin B-12) 15,000 mcg PO DAILY 03/20/22 08/23/24 5,000 mcg sublingual tablet (Vitamin B-12) alprazolam 0.5 mg tablet 0.5 mg PO TID PRN Anxiety 11/27/23 08/23/24 metoprolol succinate 25 mg 25 mg PO QPM 03/18/24 08/23/24 tablet,extended release 24 hr budesonide 160 mcg-glycopyr 9 2 inh inhalation BID 08/23/24 08/23/24 mcg-formot 4.8 mcg/actuation HFA inhaler (Breztri Aerosphere) losartan 100 mg tablet 100 mg PO DAILY 08/23/24 08/23/24 Previous Rx's ?Medication ?Instructions ?Recorded budesonide-formoterol HFA 160 2 puff inhalation BID #10.2 grams 12/27/23 mcg-4.5 mcg/actuation aerosol inhaler (Symbicort) tiotropium bromide 18 mcg capsule 1 cap inhalation DAILY #60 12/27/23 with inhalation device (Spiriva inhalations with HandiHaler) budesonide 0.5 mg/2 mL suspension 0.5 mg (2 mL) inhalation BID #60 mL 03/21/24 for nebulization prednisone 10 mg tablet See Rx Instructions .Route 08/26/24 .COMPLEX #53 tabs Allergies Allergy/AdvReac Type Severity Reaction Status Date / Time No Known Allergies Allergy Verified 11/27/23 17:01 Review of Systems General: Reports: ROS unobtainable due to medical condition PFSH ED PFSH: Medical History Essential hypertension Noncompliance w/medication treatment due to intermit use of medication Mixed hyperlipidemia Chronic obstructive pulmonary emphysema Severe COPD, not oxygen dependent Surgical History History of inguinal hernia repair Left History of lumbar discectomy 2004 Family History Other Hypertension Stroke Social History Smoking and tobacco/nicotine status: current every day tobacco/nicotine user cigarettes Packs smoked per day: 2 Years cigarettes smoked: 53 [ Other cigarette details: 5-6 cigarettes daily ] Second hand smoke exposure: Yes Alcohol intake: never Substance/Drug Use: never Adopted: No Caregiver/support person: No Lives independently: Yes Household members: spouse Housing: House Marital status: Number of children: 2 Current occupational status: employed Do you think of yourself as: Straight/Heterosexual Current gender identity: Male Physical Exam Const: COMMON NORMALS: negative for patient oriented x3 GENERAL APPEARANCE: ill appearing HENMT: OTHER: Swelling noted to forehead Eye: COMMON NORMALS: Equal, round and reactive pupils present and EOMs intact bilaterally PUPIL: Yes Equal, round and reactive pupils present Neck/C-Spine: OTHER: When patient arrived he was not in a c-collar did place in a c-collar here Chest: OTHER: Crepitus noted over the left side the chest Resp: OTHER: I gel in place breath sounds bilateral decreased on the left Cardio: COMMON NORMALS: regular rate, regular rhythm and No murmurs present (Cardio) RATE: regular rate RHYTHM: regular rhythm GI: COMMON NORMALS: Normal to inspection, nondistended, normoactive bowel sounds present, Soft to palpation, non-tender and no masses PALPATION: Yes Soft to palpation Extremity: COMMON NORMALS: normal to inspection Neuro: COMMON NORMALS: negative for patient oriented x3 Psych: COMMON NORMALS: negative for mental status grossly normal Skin: COMMON NORMALS: no rashes or lesions noted and no wounds GENERAL SKIN EXAM: no rashes or lesions noted Procedures Chest Tube Chest Tube 1: Chest Tube Location: left, mid axillary line and fifth interspace Size of Tube (cm): 28 Chest Tube Prep: Yes betadine prep and sterile drapes applied Incision Made With: #11 blade Post Procedure: sutured to skin and sterile dressing applied Tube Drainage: none Post Procedure CXR?: Yes Patient Tolerated Procedure: Yes Chest Tube 2: Chest Tube Location: right, mid axillary line and fifth interspace Size of Tube (cm): 28 Chest Tube Prep: Yes betadine prep and sterile drapes applied Incision Made With: #11 blade Post Procedure: sutured to skin and sterile dressing applied Tube Drainage: none Post Procedure CXR?: Yes Patient Tolerated Procedure: Yes Intubation Time out performed: Yes sedative: Etomidate Mg Given: 20 paralytic: Succinylcholine Mg Given: 100 Laryngoscope: Kennedi ET Tube Size: 8 ET Tube Uncuffed: No Tube Secured Depth (cm): 24 Tube Secured Location: teeth Tube Placement Confirmation: visualized tube passing through cords, equal breath sounds bilaterally, no breath sounds over epigastrium and confirmation by capnometry Patient Tolerated Procedure: well Intubation Complications: none MDM - Fall Medical Decision Making Patient presents after being bucked off a horse he had multiple rib fractures did place 2 bilateral chest tubes he is animated as well did speak to [facility] trauma will transfer there emergently for trauma services Medical Records I reviewed the patient's medical records. Lab Data I reviewed the patient's lab results. 11/01/24 14:18 11/01/24 14:18 Radiology Impressions Cervical Spine CT 11/01/24 14:16 IMPRESSION: 1. No acute bony abnormality. 2. Patient motion artifact. Head CT 11/01/24 14:16 IMPRESSION: No acute intracranial abnormality. Laboratory Results PT 14.00 SECONDS (12.1-14.9) 11/01/24 14:18 INR 1.01 (0.8-1.2) 11/01/24 14:18 APTT 27.5 SECONDS (23.9-36.7) 11/01/24 14:18 BUN 9 mg/dL (8-23) 11/01/24 14:18 Lactic Acid 6.3 mmol/L (0.5-2.2) H* 11/01/24 14:18 Total Bilirubin 0.5 mg/dL (0.15-1.2) 11/01/24 14:18 ALT 36 U/L (0-41) 11/01/24 14:18 Alkaline Phosphatase 61 U/L (40-130) 11/01/24 14:18 Troponin T Baseline 13 ng/L (0-15) 11/01/24 14:18 Albumin 4.0 g/dL (3.5-5.2) 11/01/24 14:18 Globulin 1.7 g/dL (1.3-4.6) 11/01/24 14:18 All radiology interpretation(s) finalized by discharge Critical Care Time Critical Care Time: Critical Care Time: Yes Total Critical Care Time: 50 Attestation: The high probability of a clinically significant, sudden or life threatening deterioration of the patient's trauma system(s) required my full and direct attention, intervention and personal management. The critical care time is as shown. This time is in addition to time spent performing any reported procedures but includes the following: [x] Data and vital sign review and interpretation [x] Patient assessment, examination and intervention [x] Documentation [x] Medication orders and management Discharge Plan Discharge Patient Disposition: Xfer Short-Term Hosp Clinical Impression: Trauma, Pneumothorax Condition: Stable Referrals: Faustin,KOBI Lea [Primary Care Provider, Nurse Practitioner] Print Language: Upper Sorbian Coding Level of Care Code ED Front Office Representative for Ale Major
[2024-11-01 14:44] LABS: INR 1.01 (0.8-1.2); Partial Thromboplastin Time 27.5 SECONDS (23.9-36.7); Prothrombin Time 14.00 SECONDS (12.1-14.9)
[2024-11-01 14:51] LABS: Lactic Sepsis W/Reflex 6.3 mmol/L (0.5-2.2)
[2024-11-01 14:52] LABS: Alanine Aminotransferase 36 U/L (0-41); Albumin Level 4.0 g/dL (3.5-5.2); Alkaline Phosphatase 61 U/L (40-130); Blood Urea Nitrogen 9 mg/dL (8-23); Calcium 8.4 mg/dL (8.5-10.5); Carbon Dioxide 19 mmol/L (22-29); Chloride 96 mmol/L (98-107); Creatinine Clr Calc Pharmacy 85.4948; Globulin 1.7 g/dL (1.3-4.6); Glucose 189 mg/dL (65-115); Osmolality Calculated 280 mOsm/kg (285-295); Sodium 133 mmol/L (136-145); Total Protein 5.7 g/dL (6.6-8.7)
[2024-11-01 14:53] LABS: Troponin(5th) Baseline 13 ng/L (0-15)
[2024-11-01] MEDS: iohexol 350 mg/mL 500 mL Btl (per mL) IV (14:53)
--- NOTE | 2024-11-01 15:10 | XRR_ITS ---
PROCEDURE INFORMATION: Exam: XR Chest Exam date and time: 11/01/2024 3:08 PM Age: 64 years old Clinical indication: Injury or trauma; Other: Fell of horse; Blunt trauma (contusions or hematomas); Additional info: Post chest tbe TECHNIQUE: Imaging protocol: Radiologic exam of the chest. Views: 1 view. COMPARISON: CT chest abdpel w/*[id number] 11/01/2024 2:46 PM FINDINGS: Lungs: Hazy airspace opacity in the left lung concerning for pulmonary contusion is noted. Right lung is well expanded and clear. Pleural spaces: There is improvement of the bilateral pneumothoraces after bilateral chest tube placement with no residual visualized pneumothoraces. Heart/Mediastinum: There is a pneumomediastinum. Bones/joints: Again identified are multiple left rib fractures. Right rib fractures appreciated on CT scan are not definitely visualized on this exam. Soft tissues: There is abundant subcutaneous emphysema. XR/XR chest 1V portable [id number] IMPRESSION: 1. There is improvement of the bilateral pneumothoraces after bilateral chest tube placement with no residual visualized pneumothoraces. 2. Unchanged pneumomediastinum. Patchy opacity in the left lung concerning for pulmonary contusion is again identified.
[2024-11-01 15:16] LABS: Anion Gap 22.7 (5-19); Aspartate Amino Transferase 35 U/L (0-40); Potassium 4.7 mmol/L (3.5-5.1)
[2024-11-01 15:21] LABS: Slide Review Slide Review Perform
[2024-11-01] MEDS: fentaNYL 1,000 MCG/100 ML BAG 2.5 MCG IV (15:38)
[2024-11-01 16:12] LABS: Reflex Lactate Order REFLEX LACTIC ORDERD
--- NOTE | 2024-11-01 16:26 | XRR_ITS ---
PROCEDURE INFORMATION: Exam: XR Chest Exam date and time: 11/01/2024 2:31 PM Age: 64 years old Clinical indication: Device placement; Post lt chest tube placement; Additional info: Post lt chest tube insertion TECHNIQUE: Imaging protocol: Radiologic exam of the chest. Views: 1 view. COMPARISON: CR XR chest 1V portable [id number] 11/01/2024 2:13 PM FINDINGS: Tubes, catheters and devices: Left-sided chest tube in place. Unchanged endotracheal tube. Lungs: Unremarkable. No consolidation. Pleural spaces: Small bilateral apical pneumothoraces as previously. Heart/Mediastinum: Unremarkable. No cardiomegaly. Bones/joints: Unremarkable. Soft tissues: Extensive subcutaneous edema. XR/XR chest 1V portable [id number] IMPRESSION: 1. Left-sided chest tube in place. 2. Small bilateral apical pneumothoraces as previously.
--- NOTE | 2024-11-01 16:27 | PC.PHAR ---
Pt unable to verify his medications. Med Rec completed with Chad Umana last fill dates and day supply.
== END 2024-11-01 16:10 | disposition short-term general hospital (02) ==
PROVIDERS: Emergency Medicine; Emergency Provider Emergency Medicine; PCP Nurse Practitioner Family
DX: S27.0XXA Traumatic pneumothorax, initial encounter (principal); R41.82 Altered mental status, unspecified; I10 Essential (primary) hypertension; E78.2 Mixed hyperlipidemia; J44.9 Chronic obstructive pulmonary disease, unspecified; Z79.899 Other long term (current) drug therapy; F17.210 Nicotine dependence, cigarettes, uncomplicated; V80.010A Animal-rider injured by fall from or being thrown from horse in noncollision accident, initial encounter
CPT/HCPCS: 31500; 32551; 51702; 70450; 71045; 71260; 72125; 74177; 80053; 83605; 84484; 85025; 85610; 85730; 94799; 96375; 99291; J0330; J2704; J3010; J3490; J7030